=== PATIENT | male | born 1945 | race Caucasian/White ===

== ENCOUNTER 2018-05-11 16:09 | Inpatient (IN) | payer MEDICARE, MEDICAID ==
[~2018-05-11] VITALS: Ht 165.1 cm; Wt 93.1 kg
[~2018-05-11 16:09] MED LIST: ASPI81TA85 PO; ATOR40TA75 PO; COLA100C5 PO; GLIP5TAB8 PO; GLUC500T PO; HYDR25TAB PO; INSULANT SC; NORV5TAB PO; PLAV1TAB2 PO; ZANT150T15 PO; ZYRT10CA PO
[2018-05-11] MEDS ORDERED: NS 1,000 ML IV ONE (16:30)
[2018-05-11] MEDS ORDERED: RANI150T PO (16:39)
[2018-05-11] MEDS ORDERED: LEVE1INJ5 SC (16:39)
[2018-05-11] MEDS ORDERED: TAMS1CAP17 PO (16:39)
[2018-05-11] MEDS ORDERED: LISI20TA3 PO (16:39)
[2018-05-11] MEDS ORDERED: CARV3.12 PO (16:39)
[2018-05-11] MEDS ORDERED: HEPARIN 1,000 UNITS/ML 10ML VIAL (FOR RADIOLOGY& DIALYSIS ONLY) As Ordered ONE (16:55)
[2018-05-11] MEDS ORDERED: LIDOCAINE 2% MDV 20 ML VIAL As Ordered ONE ×2 (16:56→18:33)
[2018-05-11] MEDS ORDERED: ISOVUE-300 61% 50ML VIAL (Q9967) As Ordered ONE (16:56)
[2018-05-11] MEDS ORDERED: fentaNYL 100 MCG/2 ML INJECTION (J3010) As Ordered ONE ×2 (16:59→18:17)
[2018-05-11] MEDS ORDERED: HEPARIN 25,000 UNITS/250 ML D5W BAG (100 UNITS/ML) As Ordered ONE (16:59)
[2018-05-11] MEDS ORDERED: MIDAZOLAM INJ 2 MG/2 ML VIAL (J2250) As Ordered ONE (16:59)
[2018-05-11] MEDS ORDERED: HEPARIN DRIP 25,000 UNITS in APPROPRIATE DILUENT 1 EA IV SCH ×2 (17:15→19:00)
[2018-05-11] MEDS ORDERED: ALTEPLASE 2 MG/2 ML VIAL (J2997 PER 1MG) As Ordered ONE (18:20)
[2018-05-11] MEDS ORDERED: ALTEPLASE RECOMBINANT 25 MG in NS 225 ML IV SCH (19:00)
[2018-05-11] MEDS ORDERED: GLUCOSE 4 GM CHEW TABLET PO PRN (19:30)
[2018-05-11] MEDS ORDERED: GLUCAGON FOR INJ 1 MG VIAL (J1610) SC PRN (19:30)
[2018-05-11] MEDS ORDERED: DEXTROSE 50% 50 ML SYRINGE IV PRN (19:30)
[2018-05-11] MEDS ORDERED: PERCOCET 5MG/325MG TAB PO PRN (19:30)
[2018-05-11 20:00] VITALS: BP 226/107
[2018-05-11] MEDS: NS 1,000 ML IV SCH (20:00)
[2018-05-11] MEDS: fentaNYL 100 MCG/2 ML INJECTION (J3010) IV PRN ×5 (20:22→23:48)
[2018-05-11] MEDS: hydrALAZINE INJ 20 MG/ML VIAL IV PRN ×2 (20:26→22:37)
[2018-05-11 20:41] LABS: HEMATOCRIT 46.9 % (42.0-52.0); HEMOGLOBIN 15.6 g/dl (13.5-17.5)
[2018-05-11 20:50] LABS: INR 1.14; PROTHROMBIN TIME 14.8 SECONDS (12.1-14.4)
[2018-05-11] MEDS ORDERED: ATOR80TA59 PO (20:51)
[2018-05-11] MEDS ORDERED: CLOP75TA2 PO (20:51)
[2018-05-11] MEDS ORDERED: GLIP5TAB8 PO (20:51)
[2018-05-11 21:00] VITALS: BP 188/89
[2018-05-11] MEDS ORDERED: diazePAM 5 MG TAB PO PRN (21:00)
[2018-05-11] MEDS: HumaLOG INSULIN (NovoLOG) PER UNIT SC SCH (21:00)
[2018-05-11] MEDS: DOCUSATE SODIUM 100 MG CAP PO SCH (21:07)
[2018-05-11] MEDS: CARVedilol 3.125 MG TAB PO SCH (21:07)
[2018-05-11] MEDS: ATORVASTATIN 20 MG TAB PO SCH (21:08)
[2018-05-11] MEDS: ceFAZolin SOD 1 GM in D5W MINI-BAG PLUS 50 ML IV SCH (21:08)
[2018-05-11] MEDS: TAMSULOSIN 0.4 MG CAP PO SCH (21:10)
[2018-05-11] MEDS: PERCOCET 5MG/325MG TAB PO PRN (21:39)
[2018-05-11 22:00] VITALS: BP 216/98
[2018-05-11 22:30] VITALS: BP 202/94
[2018-05-11 23:00] VITALS: BP 192/89
[2018-05-11 23:30] VITALS: BP 171/80
[2018-05-12] VITALS (27 sets, daily range): BP systolic 121–175; BP diastolic 56–93
[2018-05-12] MEDS: hydrALAZINE INJ 20 MG/ML VIAL IV PRN ×3 (00:33→03:46)
[2018-05-12] MEDS: fentaNYL 100 MCG/2 ML INJECTION (J3010) IV PRN ×9 (02:18→22:13)
[2018-05-12 02:35] LABS: HEMATOCRIT 44.7 % (42.0-52.0)
[2018-05-12 02:47] LABS: INR 1.45; PROTHROMBIN TIME 17.9 SECONDS (12.1-14.4)
[2018-05-12] MEDS: NS 1,000 ML IV SCH ×3 (03:10→22:00)
[2018-05-12] MEDS: PERCOCET 5MG/325MG TAB PO PRN ×4 (03:47→21:26)
[2018-05-12] MEDS: ceFAZolin SOD 1 GM in D5W MINI-BAG PLUS 50 ML IV SCH ×2 (05:09→14:11)
[2018-05-12 05:31] LABS: HEMATOCRIT 45.1 % (42.0-52.0); HEMOGLOBIN 14.7 g/dl (13.5-17.5); MEAN CORPUSCULAR HEMOGLOBIN 27.9 pg (27.0-33.0); MEAN CORPUSCULAR HGB CONC 32.6 g/dl (32.0-36.5); MEAN CORPUSCULAR VOLUME 85.7 fl (80.0-96.0); PLATELET COUNT, AUTOMATED 212 10^3/uL (150-450); RED BLOOD COUNT 5.26 10^6/uL (4.30-6.10); WHITE BLOOD COUNT 11.9 10^3/uL (4.0-10.0)
[2018-05-12 05:58] LABS: CALCIUM LEVEL 7.6 MG/DL (8.8-10.2); CREATININE FOR GFR 1.56 MG/DL (0.70-1.30); GLOMERULAR FILTRATION RATE 46.9 (>42); POTASSIUM SERUM 4.7 MEQ/L (3.5-5.1)
[2018-05-12] MEDS: HumaLOG INSULIN (NovoLOG) PER UNIT SC SCH ×5 (07:30→21:00)
[2018-05-12 08:12] LABS: HEMATOCRIT 44.5 % (42.0-52.0); HEMOGLOBIN 14.8 g/dl (13.5-17.5)
[2018-05-12 08:26] LABS: INR 1.29; PROTHROMBIN TIME 16.3 SECONDS (12.1-14.4)
[2018-05-12] MEDS ORDERED: LIDOCAINE 2% MDV 20 ML VIAL As Ordered ONE (08:31)
[2018-05-12] MEDS ORDERED: ISOVUE-300 61% 50ML VIAL (Q9967) As Ordered ONE (08:31)
[2018-05-12] MEDS ORDERED: HEPARIN 1,000 UNITS/ML 10ML VIAL (FOR RADIOLOGY& DIALYSIS ONLY) As Ordered ONE (08:31)
[2018-05-12] MEDS ORDERED: hydrALAZINE INJ 20 MG/ML VIAL IV PRN (08:45)
[2018-05-12] MEDS: CARVedilol 3.125 MG TAB PO SCH ×2 (08:58→20:51)
[2018-05-12] MEDS: DOCUSATE SODIUM 100 MG CAP PO SCH ×2 (08:58→20:49)
[2018-05-12] MEDS: PANTOPRAZOLE 40MG INJ (PROTONIX) (C9113) IV SCH (08:58)
[2018-05-12] MEDS ORDERED: hydroCHLOROthiazide 25 MG TAB PO SCH (09:00)
[2018-05-12] MEDS ORDERED: LISINOPRIL 20 MG TAB PO SCH (09:00)
[2018-05-12] MEDS ORDERED: amLODIPine 5 MG TAB PO SCH (09:00)
--- NOTE | 2018-05-12 09:04 | HPEPDOC ---
General Date of Admission May 11, 2018 at 19:17 Attending Physician: CASEY GARCIA MD Chief Complaint The patient is a 73-year-old male admitted with a reason for visit of Arterial Occlusion,Lower Extremity. History of Present Illness Mr. Fu is a very pleasant 73-year-old gentleman with no known history of peripheral vascular disease who without with a friend walking in the [place] on Friday, and then came inside and noted pain in his right foot and that the foot was cold. Subsequently, the patient stated home most of the weekend with his foot elevated, with increasing pain over the next 3 days. On Friday afternoon, the pain became so severe that he went to an outside hospital ER and was transferred to our ER for further vascular care. Upon seeing him in the ER, it was clear that he had severe ischemia to the right foot, but it was unclear if the foot was salvageable. After 4 days of ischemia, he could barely move the foot and even with narcotics, his pain was 10/10. At that point we had a discussion about the need for urgent attempt to revascularize the right lower extremity. I suspected a popliteal/tibial occlusion since his calf was warm, but his ankle and foot were blue pale and ice cold. 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 It may also be due to an embolic event, likely a cardiac source, although he has no history of A. fib and does not recall having palpitations or irregular heart rate last week. The risks, benefits, alternatives to an arteriogram, possible angioplasty, possible stent, possible TPA thrombolysis catheter placement were explained to the patient. He understands that there is no guarantee of limb salvage and he may require below- knee or above-knee amputation. We also discussed that he has a baseline creatinine of 1.4 and likely stage II or stage III renal insufficiency, and with the ischemic tissue and need for small amount of contrast, his renal insufficiency may decompensate to worse renal failure. We are hopeful with IV fluid hydration that we can prevent this. We will try to use is minimal amount of contrast possible. The patient was thoroughly counseled, and at his request, I did talk to his friend Candelario Arreaga, and this was relayed to his friend in front of the patient. Unfortunately, we cannot provide a guarantee of limb salvage at this point. However, we'll do everything we can to reperfuse and see if the tissue of the foot can be salvaged. The patient is agreeable to proceed with arteriogram and additional intervention is needed. We will also place a PICC line. If we are going to proceed with thrombolysis, to allow for easier blood draws while the TPA is running. Home Medications Scheduled (Lisinopril/Hydrochlorothi 20-25 mg) 1 Tab Tab, 1 TAB PO DAILY, (Reported) Amlodipine Besylate (Norvasc) 5 Mg Tab, 5 MG PO DAILY, (Reported) Aspirin (Aspir-81) 81 Mg Tab, 81 MG PO DAILY, (Reported) Atorvastatin Calcium (Atorvastatin Calcium) 80 Mg Tab, 80 MG PO QHS, (Reported) Carvedilol (Carvedilol) 3.125 Mg Tab, 3.125 MG PO BID, (Reported) Cetirizine HCl (Zyrtec Allergy) 10 Mg Cap, 10 MG PO DAILY, (Reported) Clopidogrel Bisulfate (Clopidogrel) 75 Mg Tab, 75 MG PO DAILY, (Reported) Glipizide (Glipizide) 5 Mg Tab, 5 MG PO DAILY, (Reported) Insulin Detemir (Levemir Flextouch) 100 Unit/Ml Inj, 70 UNITS SC BID, (Reported) Ranitidine HCl (Ranitidine HCl) 150 Mg Tab, 1 TAB PO DAILY, (Reported) Tamsulosin Hcl (Tamsulosin Hydrochloride) 0.4 Mg Cap, 0.4 MG PO QHS, (Reported) Allergies Coded Allergies: No Known Allergies (Unverified , 07/06/14) Past Medical History Medical History Acute arterial occlusion right lower extremity, Insulin-dependent diabetes, poorly controlled hypertension, history of CVA with left-sided weakness in 2015, BPH Surgical History N/a Family History Significant Family History: Diabetes Social History * Smoker: Denies Alcohol: Denies Drugs: denies The patient is retired. He lives alone. He does not have family to contact. His friend, Candelario Arreaga, is his preferred contact. His chief digital officer has been notified about his hospitalization and need for further care. Review of Systems Constitutional: Reports: Weakness, Fatigue Eyes: Denies: Pain, Vision change, Conjunctivae inflammation, Eyelid inflammation, Redness, Other ENT: Denies: Head Aches, Ear Pain, Dysphagia, Sinus Congestion, Post Nasal Drip, Sore Throat, Epistaxis, Other Symptoms Skin: Denies: Rash, Lesions, Jaundice, Bruising, Itching, Dry, Breakdown, Nail Changes, Other Pulmonary: Denies: Dyspnea, Cough, Pleuritic Chest Pain, Other Symptoms Cardiovascular: Denies: Chest Pain, Palpitations, Orthopnea, Paroxysmal Noc. Dyspnea, Edema, Lt Headedness, Other Symptoms Gastrointestinal: Denies: Nausea, Vomiting, Abdominal Pain, Diarrhea, Constipation, Melena, Hematochezia, Other Symptoms Genitourinary: Reports: Retention Hematologic: Reports: Bruising Endocrine: Denies: Polydipsia, Polyphagia, Polyuria, Heat Intolerance, Cold Intolerance, Other Endocrine Sx Musculoskeletal: Reports: Leg Pain Neurological: Denies: Weakness, Numbness, Incoordination, Change in speech, Confusion, Seizures, Other Symptoms Psych: Denies: Mood Normal, Anxiety, Depression, Memory Issues, Thoughts of Self Harm, Anger, Thoughts of Harming Other, Other Psych Physical Examination General Exam: Positive: Alert, Cooperative Eye Exam: Positive: PERRLA ENT Exam: Positive: Atraumatic, Tongue Midline, Tympanic Membranes Normal Neck Exam: Positive: Supple, +2 carotid pulse wo bruit Chest Exam: Positive: Clear to auscultation Heart Exam: Positive: Rate Normal, Regular Rhythm Telemetry: Positive: No significant arrhythmia Abdomen Exam: Positive: Normal bowel sounds, Soft Extremity Exam: Positive: Other Skin Exam: Negative: Nl turgor and temperature, Rash, Breakdown, Lesion, Pruritus, Other skin issue Neuro Exam: Positive: Other Psych Exam: Positive: Mental status NL, Mood NL Other physical findings Left lower extremity is warm and well-perfused. DP and PT signals are biphasic at the ankle. Refill is less than 2 seconds. On the right lower extremity, there is a palpable femoral pulse, no palpable pulses in the popliteal or DP and PT. No signal is present at the popliteal artery or at the DP or PT. The right calf is warm, but the ankle and foot are cold, pale, blue, mottled. The fit is very painful to touch. The patient can barely wiggle his toes. He has diminished sensation in the foot to light touch, but any significant pressure or manipulation produces significant pain. He cannot bear weight on the leg, and has not been able to ambulate for over 24 hours. Vital Signs Vital Signs Date Time Temp Pulse Resp B/P (MAP) Pulse Ox O2 Delivery O2 Flow Rate FiO2 05/12/18 06:30 19 05/12/18 05:30 90 155/65 (95) 93 05/12/18 04:00 97.8 05/11/18 16:29 Room Air Laboratory Data Labs 24H Laboratory Tests 2 05/11/18 20:29: Prothrombin Time 14.8H, Prothromb Time International Ratio 1.14, Fibrinogen 447 05/11/18 21:18: Bedside Glucose (Misc Panel) 142H 05/12/18 02:17: Prothrombin Time 17.9H, Prothromb Time International Ratio 1.45, Fibrinogen 193L 05/12/18 05:17: Nucleated Red Blood Cells % (auto) 0.0, Anion Gap 10, Glomerular Filtration Rate 46.9, Blood Urea Nitrogen 22H, Creatinine 1.56H, Sodium Level 134L, Potassium Level 4.7, Chloride Level 103, Carbon Dioxide Level 21, Calcium Level 7.6L 05/12/18 07:54: Prothrombin Time 16.3H, Prothromb Time International Ratio 1.29, Fibrinogen 170L CBC/BMP Laboratory Tests 05/11/18 20:29 05/12/18 02:17 05/12/18 05:17 Red Blood Count 5.26, Mean Corpuscular Volume 85.7, Mean Corpuscular Hemoglobin 27.9, Mean Corpuscular Hemoglobin Concent 32.6, Red Cell Distribution Width 13.2, Calcium Level 7.6 L 05/12/18 07:54 Assessment/Plan Mr. Kunz is a 73-year-old gentleman with acute thrombosis of his right lower extremity last Friday, now with greater than 72 hours of ischemic time to the right foot. He has motor and sensory dysfunction in the foot, and we discussed that even with reperfusion, the foot may not be salvageable at this point. 1. Plan to take the patient urgently to IR for an arteriogram and possible thrombolysis, possible intervention, possible PICC line. Patient has been thoroughly counseled and is agreeable to proceed. Informed consent was obtained. 2. IV fluid hydration with normal saline at 100 and our pre-and postprocedure. Due to suspected chronic renal insufficiency, ischemic tissue, and need for IV contrast. 3. Heparin drip started in IR. 4. ICU post procedure thrombolysis is initiated. 5. Home medications for Insulin-dependent diabetes, hypertension, hypercholesterolemia, BPH Plan / VTE VTE Prophylaxis Ordered?: No VTE Exclusion Mechanical Proph: Patient on IV Heparin CASEY GARCIA MD May 12, 2018 09:04
[2018-05-12] MEDS: amLODIPine 5 MG TAB PO SCH (10:01)
[2018-05-12] MEDS: LEVEMIR (INSULIN DETEMIR) 1 UNITS/0.01ML SC SCH ×2 (10:02→20:52)
--- NOTE | 2018-05-12 10:40 | ROOPDOC ---
[facility] Report Of Operation Report of Operation DATE OF PROCEDURE: 05/11/18 PREPROCEDURE DIAGNOSES: Arterial occlusion right lower extremity with severe ischemia right foot. POSTPROCEDURE DIAGNOSES: Same. PROCEDURE: 1. Ultrasound-guided access left common femoral artery 2. Aortoiliofemoral arteriogram with right lower extremity runoff 3. Placement of the thrombolysis catheter from right distal superficial femoral artery to right distal posterior tibial artery across popliteal/tibial occlusion 4. Ultrasound-guided access right basilic vein 5. Placement of a 40 cm dual-lumen PICC line right basilic vein SURGEON:Bharati Villasenor MD ANESTHESIA: 18 mL subcutaneous 2% lidocaine; moderate IV conscious sedation was supervised by Dr. Villasenor, and the patient was independently monitored by a registered nurse assigned to the Department of radiology using automated blood pressure, EKG and pulse oximetry. The detailed sedation record is permanently stored in the hospital information system. The following is a conscious sedation record including and and times: Versed 1 mg IV, fentanyl 150 g IV, start time is 17:55, end time 19:00. The patient tolerated sedation well without complication. INDICATION FOR PROCEDURE: Mr. Fu is a 73-year-old gentleman with no known history of right lower extremity peripheral vascular disease, who takes aspirin and Plavix for history of CVA in 2014, who developed pain and ischemic changes in his right foot Friday, but only presented to the ER today, 72 hours later. 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 We discussed the risk, benefits, alternatives to an arteriogram with possible intervention possible PICC line possible thrombolysis catheter placement. The patient understands that his foot may not be viable, even if we are able to restore perfusion due to the chronicity of his ischemic changes. He can barely move his foot, and it is very pale and cold. After extensive counseling, the patient is agreeable to proceed. Informed consent was obtained. INTERPRETATION: 1. The aortoiliofemoral system is patent with some tortuosity of the right common iliac artery. 2. The femoral system and superficial femoral artery are widely patent. 3. There is a complete occlusion of the popliteal artery proximal to distal with occlusion of the origin of the tibial vessels. There is short segment reconstitution of the posterior tibial artery through collaterals, but the collaterals are small and flow is minimal. There is no significant flow below the ankle through the foot. 4. The TPA lysis catheter was placed from the distal superficial femoral artery on the right to the distal posterior tibial artery on the right across the thrombosis in the popliteal artery and proximal tibial system. 5. The PICC line was successfully placed with the tip in the right atrium and is okay to use for IV infusion and blood draws while the patient undergoes thrombolysis. PROCEDURE NOTE: The patient was brought to the angiographic suite in stable condition and his bilateral groins were prepped and draped in a sterile fashion. Sedation was administered without complication. A timeout was performed. Ultrasound was used to guide access to the left common femoral artery. After anesthetizing with local anesthesia. A wire was passed through this access and a micro-sheath was placed. We then introduced a Glidewire and a 6 Indian sheath was placed over the wire using a Seldinger technique and flushed with saline. The catheter was advanced over the wire into the distal aorta and in aortoiliofemoral arteriogram was performed. No thrombus was noted in the iliofemoral system. We then proceeded to go up and over the bifurcation with the Glidewire and glide cath. Once the glide cath was advanced under fluoroscopic guidance into the distal superficial femoral artery, we exchanged R wire first of Amplatz wire. We then exchanged her sheath for her destination 6 Indian sheath over the wire using the Seldinger technique and flushed the sheath with saline. We then performed the runoff of the right lower extremity through the up and over sheath. The superficial femoral artery was patent and there was some collateral flow around a popliteal occlusion that began proximally and extended into the proximal tibial vessels. There was very little flow to the distal tibial vessels, but the best runoff was through the distal posterior tibial artery. We therefore decided to try to access the posterior tibial artery through the thrombus to place the thrombolysis catheter and this vessel since it was patent. This took some manipulation but we exchanged back to her Glidewire and were eventually able to navigate the catheter through the true lumen into the posterior tibial artery. He quit. Contrast injection confirmed we were intraluminal. We then removed the catheter and placed our thrombolysis infusion catheter with a 50 cm infusion length over the wire. The proximal end was in the mid distal superficial femoral artery in the distal end was in the posterior tibial artery. We then placed a tourniquet on the right upper extremity was prepped and draped in a sterile fashion. Ultrasound was used to guide access to the basilic vein with a microneedle and a wire was passed through this access into the central system under fluoroscopic guidance, we placed a peel-away sheath over the wire. The wire was removed and measured and the catheter was cut to 40 cm we then advanced the catheter through the peel-away sheath into the central system and the tip was in the right atrium. We then removed the peel- away sheath and the catheter was secured to the skin StatLock. Both ports were flushed appropriately heparin locked and had easy drawback and flushing. We then returned to our access in the left groin and infused 6 mg of tPA directly through the thrombolysis catheter and then began a trip of TPA of 1 mg an hour through the catheter. We had heparin running at 1000 units hour during the procedure, and we change this to 400 units an hour through the sheath to keep the sheath patent while infusion was proceeding. I'll access points were cleaned and dried and appropriate sterile dressings were placed to secure the catheter and the sheath. The patient was then taken to the ICU in stable condition. There were no complications. Estimated blood loss was 10 mL. The patient tolerated the procedure well. ESTIMATED BLOOD LOSS: Approximately 10 mL. COMPLICATIONS: None. PLAN: Our plan is for the patient to continue thrombolysis overnight and likely we will bring him back for a second look tomorrow in the afternoon. I again explained to him that due to the chronic nature of the ischemia we may or may not be able to salvage his foot and amputation is a definite possibility and he understands this. We will provide adequate analgesia and hydration. Further recommendations will depend on the outcome thrombolysis. CASEY VILLASENOR MD May 12, 2018 10:39
--- NOTE | 2018-05-12 10:54 | IPNPDOC ---
Date Seen The patient was seen on 05/12/18. Progress Note SUBJECTIVE: Mr. Fu was seen and examined today. He is having an extreme amount of pain in his right foot, ongoing, not improving. Looking at his right foot, he does have some hyperemic areas, but the foot is still cool, mottled, and he has no improvement in his motor or sensory status. We again discussed the possibility of limb loss, and he understands that this is a possibility. He asked that I talked to his friend Candelario Arreaga about his prognosis, and I did this at the bedside in the presence of the patient. We discussed the risks, benefits and alternatives to a planned takeback arteriogram and possible discontinuation of the thrombolysis catheter versus additional intervention if needed. Informed consent was obtained. We will likely do this this afternoon. I also discussed with him that his renal function is somewhat tenuous, partially due to chronic renal insufficiency, partially due to ischemic tissue over the past 72 hours releasing toxins into his present strain, and partially due to dehydration and contrast use. We used very little contrast yesterday, approximately 30 mL, and we'll try to use very little contrast again today. The patient was thoroughly counseled and understands his prognosis for his foot is guarded. OBJECTIVE PHYSICAL EXAMINATION: VITAL SIGNS: Please see below. GENERAL: Alert and oriented 3, no acute distress HEENT:. Normocephalic, TMI, vision grossly intact CARDIOVASCULAR:. Regular rate and rhythm. RESPIRATORY:. Clear to auscultation bilaterally. ABDOMINAL:. Soft, nontender, nondistended EXTREMITIES:, Left lower extremity warm and well perfused. Left groin access site. No significant bruising or bleeding noted. Right upper extremity PICC line site. No significant bruising or bleeding noted. Right lower extremity has palpable femoral pulse and triphasic Doppler signal at the popliteal artery. However, I am not able to Doppler a DP or PT signal in the foot. There is some hyperemic areas in the foot, but most of it is still cool pale and mottled. The patient can barely wiggle his toes, which has not improved at all since yesterda y. He still has sensory loss to light touch, but firm pressure elicits pain response. NEUROLOGICAL: No focal neurologic deficits noted PSYCHOLOGICAL:. Pleasant and cooperative LABORATORY DATA, IMAGING STUDIES, MICROBIOLOGY: Please see below. DVT prophylaxis ordered?: Patient is on tPA, and also 400 units of heparin through her sheath. ASSESSMENT AND PLAN: Mr. Fu is a 73-year-old gentleman with a four-day history of ischemia in his right foot. Unfortunately, I am not sure his foot is salvageable despite taking emergently for thrombolysis yesterday evening and dopplerable flow through the popliteal today. 1. We'll plan to take the patient back for an arteriogram and potential additio nal intervention versus discontinuation of the lysis catheter later today. There is a possibility. His foot will not be salvageable and he may require a BKA versus AKA and we have discussed this today. We will try to use as little contrast as possible due to stage III renal insufficiency, and a creatinine of 1.54 today. Consent has been obtained and is in the chart. 2. I've counseled to the hospitalist service, and appreciate Dr. Morris agreeing to help with the patient's medical issues. He has significant hypertension, renal insufficiency, borderline hyperkalemia, insulin-dependent diabetes, not well controlled today. We will try to get him in better shape from a medical standpoint. During this hospitalization as well. 3. Continue tPA thrombolysis and the heparin drip through the sheath until procedure this afternoon. We have increased analgesia to help the patient tolerate his foot pain. DISPOSITION: Pending at this point. If the patient undergoes amputation, he will likely need rehabilitation at discharge. If the patient's foot is salvageable, he may be able to discharge home versus rehabilitation, depending on outcomes. VS, I&O, 24H, Fishbone Vital Signs/I&O Vital Signs Date Time Temp Pulse Resp B/P (MAP) Pulse Ox O2 Delivery O2 Flow Rate FiO2 05/12/18 10:02 18 05/12/18 10:01 77 157/79 05/12/18 05:30 93 05/12/18 04:00 97.8 05/11/18 16:29 Room Air I&O- Last 24 Hours up to 6 AM 05/12/18 06:00 Intake Total 1600 ml Output Total 800 ml Balance 800 ml Laboratory Data 24H LABS Laboratory Tests 2 05/11/18 20:29: Prothrombin Time 14.8H, Prothromb Time International Ratio 1.14, Fibrinogen 447 05/11/18 21:18: Bedside Glucose (Misc Panel) 142H 05/12/18 02:17: Prothrombin Time 17.9H, Prothromb Time International Ratio 1.45, Fibrinogen 193L 05/12/18 05:17: Nucleated Red Blood Cells % (auto) 0.0, Anion Gap 10, Glomerular Filtration Rate 46.9, Blood Urea Nitrogen 22H, Creatinine 1.56H, Sodium Level 134L, Potassium Level 4.7, Chloride Level 103, Carbon Dioxide Level 21, Calcium Level 7.6L 05/12/18 07:54: Prothrombin Time 16.3H, Prothromb Time International Ratio 1.29, Fibrinogen 170L 05/12/18 10:08: CBC/BMP Laboratory Tests 05/11/18 20:29 05/12/18 02:17 05/12/18 05:17 Red Blood Count 5.26, Mean Corpuscular Volume 85.7, Mean Corpuscular Hemoglobin 27.9, Mean Corpuscular Hemoglobin Concent 32.6, Red Cell Distribution Width 13.2, Calcium Level 7.6 L 05/12/18 07:54 CASEY GARCIA MD May 12, 2018 10:54
[2018-05-12] MEDS ORDERED: fentaNYL 100 MCG/2 ML INJECTION (J3010) As Ordered ONE (12:46)
[2018-05-12] MEDS ORDERED: MIDAZOLAM INJ 2 MG/2 ML VIAL (J2250) As Ordered ONE (12:46)
[2018-05-12 12:47] LABS: HEMOGLOBIN A1c 7.9 %
[2018-05-12] MEDS ORDERED: HEPARIN DRIP 25,000 UNITS in APPROPRIATE DILUENT 1 EA IV SCH (14:30)
--- NOTE | 2018-05-12 15:44 | ROOPDOC ---
[facility] Report Of Operation Report of Operation DATE OF PROCEDURE: 05/12/18 PREPROCEDURE DIAGNOSES: Arterial occlusion right lower extremity, status post placement of a thrombolysis catheter. POSTPROCEDURE DIAGNOSES: Same. PROCEDURE: 1. Right lower extremity arteriogram and runoff 2. Removal TPA lysis catheter. Right lower extremity 3. Mynx closure left common femoral artery SURGEON: Casey Villasenor MD ANESTHESIA: 3 mL 2% lidocaine local anesthesia; moderate IV conscious sedation was supervised by Dr. Villasenor, and the patient was independently monitored by a registered nurse assigned to the Department of radiology using automated blood pressure, EKG and pulse oximetry. The detail consciousness record is probably started in the hospital information system. The following is a conscious sedation record including starting and times: Versed 1 mg IV, fentanyl 100 g IV, start time 13:05, end time 13:46. The patient tolerated the sedation well without complication. INDICATION FOR PROCEDURE: Mr. Fu is a 73-year-old gentleman who presented to the ER yesterday with a 3 day history of cold, painful right foot and lower leg. He was brought urgently to the interventional radiology suite for thrombolysis catheter placement. His arteriogram at that time showed a complete occlusion of the popliteal from its origin to below the knee and including the proximal tibial vessels with minimal collateral flow noted. There was a small amount of filling in the ambler posterior tibial artery in the mid calf, and this was our target for the end of the TPA lysis catheter. We were hopeful that we may be able to restore flow, but it was unclear due to the chronicity and severity of the ischemia whether or not the foot would be viable regardless. This morning, the foot was still modeled. No Doppler signals were present. The patient could still barely move the foot, which was not improved. He did have a triphasic signal at the popliteal artery and a palpable pulse, but nothing had seemed to improve in the distal leg. We discussed the risks, benefits, alternatives to repeat arteriogram with potential intervention to see if there is anything else we can do, but I did explain to the patient that the likelihood he was lose his limb was very high. The patient was agreeable to proceed for arteriogram and possible removal of the TPA lysis catheter and possible intervention. All questions were answered. Informed consent was obtained. INTERPRETATION: 1. Flow through the distal superficial femoral artery into the popliteal artery was now widely patent. However, beyond the origin of the proximal anterior tibial artery and the tibioperoneal trunk, there is very minimal flow down to the calf. There was no flow noted in the ankle or the foot. An injection into th e posterior tibial artery distally showed significant disease and thrombus. PROCEDURE NOTE: The patient was brought to the angiographic suite in stable condition. His left groin including the sheath and catheter were prepped and draped in a sterile fashion. A timeout was performed. We first did in arteriogram of the right lower extremity through the TPA lysis catheter. . There was very minimal runoff, but there was some flow around the catheter itself. We then injected through the sheath and found good flow through the distal superficial femoral artery into the popliteal artery, which was now widely patent, where it had been occluded yesterday. There was flow into the proximal anterior tibial artery, which abruptly occluded a few centimeters from its origin and did not reconstitute. We tried across the anterior tibial artery with a wire and were unsuccessful. The tibioperoneal trunk was patent at its origin, but we could not see the origins of the peroneal or the posterior tibial artery. We tried to cross into the peroneal artery and were unsuccessful. We were able to again cross into the posterior tibial artery as we had yesterday but could not pass a wire distal to the mid calf. The distal contrast injection within the posterior tibial artery showed significant plaque disease as well as thrombus. Unfortunately, it became clear that the TPA lysis procedure have been successful in the more proximal popliteal artery, but had had no meaningful effect on the distal tibial vessels and microcirculation of the right foot. At this point. He did did not think additional TPA lysis would be successful, and I do not think the patient would tolerate it due to a fibrinogen level approaching 100. He could not move his foot for over 4 days, and at this point and I did not think the tissue was going to be salvageable, even if we did have some heroic measure to restore flow. Therefore, this concluded our procedure. We exchanged her sheath for short 6 Indonesian sheath over the wire and flushed the sheath with saline. A minx closure device was introduced and deployed with good hemostasis. Prior to holding pressure, we did inject some local anesthesia into the left groin to make this more comfortable for the patient. A total of 3 mL was used. Pressure was then held for good hemostasis for 10 minutes and sterile dressings were applied. The patient was then taken back to the ICU in stable condition. He tolerated the procedure well. ESTIMATED BLOOD LOSS: Approximately 2 mL. COMPLICATIONS: None. PLAN: I discussed with the patient that at this point, we are not able to salvage his right foot. It is unclear if he will be a suitable candidate for below-knee amputation, or if he will need an above-knee amputation, and this may have to be a decision made in the OR once we examined the quality of the muscle and perfusion of the tissue. For now, we will continue to manage him medically and manage his pain with analgesia until operative intervention can be provided. He understands and is agreeable to this plan. CASEY VILLASENOR MD May 12, 2018 15:44
--- NOTE | 2018-05-12 16:40 | CR.PDOC ---
General Date of Consultation: May 12, 2018 Referring Provider: SIVAN PERDUE MD Attending Physician: CASEY GARCIA MD Consultation REASON FOR CONSULTATION/CHIEF COMPLAINT: Management of medical comorbidities. HISTORY OF PRESENT ILLNESS: . 73-year-old male with past medical history of hypertension, dyslipidemia, diabetes mellitus, BPH, and CVA presented to the ER with a chief complaint of his right foot being cold and blue. The patient stated that he was walking in the [place] on Friday of last week when he felt when he states as a muscle pull in his calf. Supposedly, the patient states that he kept his foot elevated over the weekend and when his pain became severe he presented to the [facility] for further evaluation. There the patient was found to have severe i schemia of the right foot and he was transferred to [facility] for vascular surgery evaluation. The patient was evaluated by vascular surgery and administrative TPA thrombo-lysis and heparin drip to a sheath. The hospitalist service has been consulted to help in the management of the patient's underlying diabetes mellitus, pain control, hypertension, and chronic kidney disease. ALLERGIES: Please see below. HOME MEDICATIONS: Please see below. PAST MEDICAL HISTORY: As noted above SOCIAL HISTORY: Denies illicit drug use, alcohol, or tobacco use. REVIEW OF SYSTEMS: 10 point review of systems negative unless otherwise specified in HPI. PHYSICAL EXAMINATION: VITAL SIGNS: Please see below. GENERAL APPEARANCE: . Awake, alert, and moderate distress secondary to right foot/ankle pain HEENT: . Normocephalic, atraumatic RESPIRATORY: . Clear to auscultation bilaterally CARDIOVASCULAR: . Normal rate, sinus rhythm, normal S1, S2 ABDOMEN: . Soft, nontender, nondistended EXTREMITIES: . Right ankle/foot noted to be pale/blue appearing with mottled skin. Patient with diminished sensation to the touch. Significant pain noted on palpation. Unable to feel a pulse on the right foot. Patient is only minimally able to wiggle his toes on the right. Approximately the patient's calf on the right noted to be warm. LABORATORY DATA: Please see below. ASSESSMENT/PLAN: RLE Ischemia s/p Aortoiliofemoral arteriogram with RLE runoff with placement of thrombolysis catheter on 05/11 Cont Heparin gtt Patient's ankle/foot continues to appear blue, mottled with minimal improvement according to the patient He is scheduled for further evaluation with an RLE arteriogram today to further delineate treatment plan, as the patient may ultimately require AKA vs BKA We will cont to f/u with Vascular Surgery recommendations Chronic Kidney Disease Stage IIIA/B Serum Cr baseline is 1.5-1.6 according to outpatient records We will withhold Nephrotoxins as the patient will be getting contrast IVF Hydration ordered Diabetes Mellitus We have started the patient on a reduced dose of basal insulin, 20 Units of Lev jackie BID as he is NPO--He usually takes 70 Units BID at home Cont ISS for additional coverage We will uptitrate his basal insulin if his blood sugars trend upward Hypertension Hydrochlorothiazide and lisinopril have been held as the patient will be getting contrast in the setting of underlying CAD Norvasc dose has been increased Hydralazine when necessary ordered for systolic blood pressure greater than 150 I do suspect that the patient's blood pressure will be better controlled once we control his pain. History of CVA Continue statin (ASA, Plavix on hold 2/2 tPA, Heparin gtt) Dyslipidemia Continue statin GERD Continue PPI DVT Prophylaxis Patient on Heparin gtt Vital Signs/I&O Vital Signs Date Time Temp Pulse Resp B/P (MAP) Pulse Ox O2 Delivery O2 Flow Rate FiO2 05/12/18 15:44 18 05/12/18 12:02 98.9 76 121/63 (82) 93 05/11/18 16:29 Room Air I&O- Last 24 Hours up to 6 AM 05/12/18 06:00 Intake Total 1600 ml Output Total 800 ml Balance 800 ml Laboratory Data Labs 24H Laboratory Tests 2 05/11/18 20:29: Prothrombin Time 14.8H, Prothromb Time International Ratio 1.14, Fibrinogen 447 05/11/18 21:18: Bedside Glucose (Misc Panel) 142H 05/12/18 02:17: Prothrombin Time 17.9H, Prothromb Time International Ratio 1.45, Fibrinogen 193L 05/12/18 05:17: Nucleated Red Blood Cells % (auto) 0.0, Anion Gap 10, Glomerular Filtration Rate 46.9, Blood Urea Nitrogen 22H, Creatinine 1.56H, Sodium Level 134L, Potassium Level 4.7, Chloride Level 103, Carbon Dioxide Level 21, Calcium Level 7.6L 05/12/18 07:54: Prothrombin Time 16.3H, Prothromb Time International Ratio 1.29, Fibrinogen 170L 05/12/18 10:08: Estimated Mean Plasma Glucose 180H, Hemoglobin A1c 7.9 05/12/18 11:57: Bedside Glucose (Misc Panel) 140H CBC/BMP Laboratory Tests 05/11/18 20:29 05/12/18 02:17 05/12/18 05:17 Red Blood Count 5.26, Mean Corpuscular Volume 85.7, Mean Corpuscular Hemoglobin 27.9, Mean Corpuscular Hemoglobin Concent 32.6, Red Cell Distribution Width 13.2, Calcium Level 7.6 L 05/12/18 07:54 Allergies Coded Allergies: No Known Allergies (Unverified , 07/06/14) Home Medications Scheduled (Lisinopril/Hydrochlorothi 20-25 mg) 1 Tab Tab, 1 TAB PO DAILY, (Reported) Amlodipine Besylate (Norvasc) 5 Mg Tab, 5 MG PO DAILY, (Reported) Aspirin (Aspir-81) 81 Mg Tab, 81 MG PO DAILY, (Reported) Atorvastatin Calcium (Atorvastatin Calcium) 80 Mg Tab, 80 MG PO QHS, (Reported) Carvedilol (Carvedilol) 3.125 Mg Tab, 3.125 MG PO BID, (Reported) Cetirizine HCl (Zyrtec Allergy) 10 Mg Cap, 10 MG PO DAILY, (Reported) Clopidogrel Bisulfate (Clopidogrel) 75 Mg Tab, 75 MG PO DAILY, (Reported) Glipizide (Glipizide) 5 Mg Tab, 5 MG PO DAILY, (Reported) Insulin Detemir (Levemir Flextouch) 100 Unit/Ml Inj, 70 UNITS SC BID, (Reported) Ranitidine HCl (Ranitidine HCl) 150 Mg Tab, 1 TAB PO DAILY, (Reported) Tamsulosin Hcl (Tamsulosin Hydrochloride) 0.4 Mg Cap, 0.4 MG PO QHS, (Reported) SIVAN PERDUE MD May 12, 2018 16:40
[2018-05-12] MEDS: TAMSULOSIN 0.4 MG CAP PO SCH (20:51)
[2018-05-12] MEDS: ATORVASTATIN 20 MG TAB PO SCH (20:51)
[2018-05-12] MEDS: diazePAM 5 MG TAB PO PRN (22:14)
[2018-05-13] VITALS (14 sets, daily range): BP systolic 112–165; BP diastolic 63–79
[2018-05-13] MEDS: fentaNYL 100 MCG/2 ML INJECTION (J3010) IV PRN ×7 (00:31→15:17)
[2018-05-13] MEDS: PERCOCET 5MG/325MG TAB PO PRN ×3 (01:56→21:35)
[2018-05-13] MEDS: diazePAM 5 MG TAB PO PRN (04:54)
[2018-05-13 05:20] LABS: HEMATOCRIT 40.3 % (42.0-52.0); HEMOGLOBIN 13.1 g/dl (13.5-17.5); MEAN CORPUSCULAR HEMOGLOBIN 28.6 pg (27.0-33.0); MEAN CORPUSCULAR HGB CONC 32.5 g/dl (32.0-36.5); PLATELET COUNT, AUTOMATED 210 10^3/uL (150-450); RED BLOOD COUNT 4.58 10^6/uL (4.30-6.10); WHITE BLOOD COUNT 10.9 10^3/uL (4.0-10.0)
[2018-05-13 05:39] LABS: CALCIUM LEVEL 7.1 MG/DL (8.8-10.2); CREATININE FOR GFR 1.59 MG/DL (0.70-1.30); GLOMERULAR FILTRATION RATE 45.9 (>42); POTASSIUM SERUM 4.2 MEQ/L (3.5-5.1)
[2018-05-13] MEDS: HumaLOG INSULIN (NovoLOG) PER UNIT SC SCH ×4 (08:44→20:58)
[2018-05-13] MEDS: NS 1,000 ML IV SCH ×2 (09:15→21:03)
[2018-05-13] MEDS: CARVedilol 3.125 MG TAB PO SCH ×2 (09:43→21:03)
[2018-05-13] MEDS: amLODIPine 5 MG TAB PO SCH (09:43)
[2018-05-13] MEDS: PANTOPRAZOLE 40MG INJ (PROTONIX) (C9113) IV SCH (09:44)
[2018-05-13] MEDS: DOCUSATE SODIUM 100 MG CAP PO SCH ×2 (09:45→21:03)
[2018-05-13] MEDS: LEVEMIR (INSULIN DETEMIR) 1 UNITS/0.01ML SC SCH ×2 (09:45→20:59)
--- NOTE | 2018-05-13 16:29 | IPNPDOC ---
Subjective Date Seen The patient was seen on 05/13/18. Subjective Chief Complaint/HPI Patient seen and examined at the bedside. Reports that he continues to feel right ankle/foot pain, and it remains blue and mottled appearing with no significant improvement. He is scheduled for possible [id number] versus below the knee amputation later today with vascular surgery. Objective Physical Examination General Exam: Positive: Alert, Cooperative, Moderate Distress (secondary to right ankle/foot pain) ENT Exam: Positive: Atraumatic Neck Exam: Negative: JVD Chest Exam: Positive: Clear to auscultation, Normal air movement Heart Exam: Positive: Rate Normal, Regular Rhythm, Normal S1, Normal S2 Telemetry: Positive: No significant arrhythmia Abdomen Exam: Positive: Soft; Negative: Tenderness Extremity Exam: Positive: Other (Right ankle/foot blue and mottled appearing. No palpable pulses. Tender to soft palpation. ) Psych Exam: Positive: Oriented x 3 Assessment /Plan Plan/VTE VTE Prophylaxis Ordered?: Yes VTE Exclusion Mechanical Proph: Patient on IV Heparin Plan RLE Ischemia s/p Aortoiliofemoral arteriogram with RLE runoff with placement of thrombolysis catheter on 05/11 s/p s/p RLE arteriogram with removal of tPA lysis catheter with mynx closure of left SUTURE WINDER HAND Cont Heparin gtt Patient's ankle/foot continues to appear blue, mottled with minimal improvement according to the patient He is scheduled for further evaluation with a AKA naz YADAVA with Surgery today We will cont to f/u with Vascular Surgery recommendations Chronic Kidney Disease Stage IIIA/B Serum Cr baseline is 1.5-1.6 according to outpatient records We will withhold Nephrotoxins as the patient will be getting contrast IVF Hydration ordered Diabetes Mellitus Cont reduced dose of basal insulin, 20 Units of Levemir BID as he is NPO--He usually takes 70 Units BID at home Cont ISS for additional coverage We will uptitrate his basal insulin if his blood sugars trend upward Hypertension Hydrochlorothiazide and lisinopril have been held as the patient will be getting contrast in the setting of underlying CAD Norvasc dose has been increased Hydralazine when necessary ordered for systolic blood pressure greater than 150 Blood pressure better controlled today History of CVA Continue statin (ASA, Plavix on hold 2/2 tPA, Heparin gtt) Dyslipidemia Continue statin GERD Continue PPI DVT Prophylaxis Patient on Heparin gtt VS, I&O, 24H, Fishbone Vital Signs/I&O Vital Signs Date Time Temp Pulse Resp B/P (MAP) Pulse Ox O2 Delivery O2 Flow Rate FiO2 05/13/18 15:17 22 05/13/18 09:43 79 130/66 05/13/18 08:04 99.1 92 05/11/18 16:29 Room Air I&O- Last 24 Hours up to 6 AM 05/13/18 06:00 Intake Total 3870 ml Output Total 575 ml Balance 3295 ml Laboratory Data 24H LABS Laboratory Tests 2 05/12/18 17:03: Bedside Glucose (Misc Panel) 146H 05/12/18 20:50: Bedside Glucose (Misc Panel) 141H 05/13/18 05:00: Nucleated Red Blood Cells % (auto) 0.0, Anion Gap 7L, Glomerular Filtration Rate 45.9, Blood Urea Nitrogen 30H, Creatinine 1.59H, Sodium Level 137, Potassium Level 4.2, Chloride Level 106, Carbon Dioxide Level 24, Calcium Level 7.1L 05/13/18 06:35: Activated Partial Thromboplast Time 54.2H 05/13/18 12:10: Bedside Glucose (Misc Panel) 97 CBC/BMP Laboratory Tests 05/13/18 05:00 Red Blood Count 4.58, Mean Corpuscular Volume 88.0, Mean Corpuscular Hemoglobin 28.6, Mean Corpuscular Hemoglobin Concent 32.5, Red Cell Distribution Width 13.4, Calcium Level 7.1 L SIVAN PERDUE MD May 13, 2018 16:29
[2018-05-13] MEDS ORDERED: dexameTHASONE 4 MG/ML 1ML VIAL (J1100) As Ordered ONE ×2 (17:07→18:44)
[2018-05-13] MEDS ORDERED: PROPOFOL 200 MG/20 ML VIAL As Ordered ONE (17:07)
[2018-05-13] MEDS ORDERED: BUPIVACAINE/EPIN 0.5% 30 ML VIAL As Ordered ONE (17:07)
[2018-05-13] MEDS ORDERED: ROCURONIUM BROMIDE 50 MG/5 ML VIAL As Ordered ONE (17:07)
[2018-05-13] MEDS ORDERED: ONDANSETRON 4MG/2ML VIAL (J2405) As Ordered ONE ×2 (17:07→18:40)
[2018-05-13] MEDS ORDERED: LIDOCAINE 2% INJ 100 MG/5 ML SDV (FOR ANES.) As Ordered ONE (17:07)
[2018-05-13] MEDS ORDERED: fentaNYL 250 MCG/5 ML INJECTION (J3010) As Ordered ONE (17:12)
[2018-05-13] MEDS ORDERED: MIDAZOLAM INJ 2 MG/2 ML VIAL (J2250) As Ordered ONE (17:12)
[2018-05-13] MEDS ORDERED: ceFAZolin 2 GM/D5W 50 ML IV BAG (J0690 PER 500MG) As Ordered ONE (17:29)
[2018-05-13] MEDS ORDERED: NEOSTIGMINE 10 MG/10 ML VIAL (J2710) As Ordered ONE (18:40)
[2018-05-13] MEDS ORDERED: KETOROLAC 60 MG/2 ML VIAL (J1885) As Ordered ONE (18:40)
[2018-05-13] MEDS ORDERED: GLYCOPYRROLATE INJ 0.2 MG/ML 2 ML VIAL As Ordered ONE (18:40)
[2018-05-13] MEDS ORDERED: METOCLOPRAMIDE INJ 10MG/2ML VIAL (J2765) As Ordered ONE (18:40)
--- NOTE | 2018-05-13 20:09 | ROOPDOC ---
[facility] Report Of Operation Report of Operation DATE OF PROCEDURE: 05/13/18 PREPROCEDURE DIAGNOSES: Ischemic foot, right lower extremity POSTPROCEDURE DIAGNOSES: Same PROCEDURE: Right below-knee amputation SURGEON: Anna Marie Villasenor MD ANESTHESIA: Local anesthesia and general endotracheal anesthesia INDICATION FOR PROCEDURE: Mr. Fu is a 73-year-old gentleman who presented to the ER with a 72 hour history of loss of sensation and immobility of his right foot due to acute thrombosis. We attempted to salvage the leg with a thrombolysis procedure, but this was unsuccessful. The entire distal ankle and foot had no recovery of flow. After TPA thrombolysis, and there was minimal flow through the midportion of the posterior tibial artery, but otherwise the tibials were occluded. There was no option for bypass with no outflow. We were able to restore flow through the thrombosed popliteal artery and proximal tibial arteries, which we were hoping would allow for a below-knee amputation. I did warn the patient that if the muscle was not viable on the posterior calf or in the deep muscle compartments, we would have to do an above-knee amputation. The risks, benefits and alternatives to surgery were explained to the patient. He he understood there was a possibility for above-knee amputation. Informed consent was obtained. PROCEDURE NOTE: The patient was brought to the operating room in stable condition and general endotracheal anesthesia and antibiotics were administered without complication. His right lower extremity was prepped and draped in a sterile fashion and the tourniquet was placed. A timeout was performed. The leg was exsanguinated with an Esmarch and the tourniquet was inflated to 250 mmHg pressure. A skin incision was made 14 cm distal to the tibial plateau on the anterior calf and along posterior flap was fashioned. Bovie cautery was used to divide the soft tissues. The muscle in the deep compartments in the posterior calf appeared viable. I did note that it was a tiny bit dusky, but it was not ischemic and it did have contraction with the Bovie. I think it is worth trying to give him a below-knee amputation as it will improve his functionality with a prosthetic, and therefore we proceeded with a below-knee amputation and did not do the above-knee amputation. The tibia and fibula were skeletonized proximally. The tibia was divided at 12 cm length distal to the tibial plateau, and the fibula was divided 1 cm more proximally. We then utilized Bovie cautery to divide the muscle increased the posterior flap and the leg was then sent for pathology. A Vicryl suture ligation was utilized to create hemostasis with venous bleeding, but we noted occlusion of all 3 tibial arteries during the dissection. We did come across some collaterals, but they were small and few. These were suture ligated when identified. The tourniquet was taken down and Bovie cautery and suture ligation were used for hemostasis were needed. The wound was copiously irrigated with saline. A rasp was used to babble the anterior edge of the tibia to create a soft curve and prevent erosion of the bone through the skin. The nervous structures were high ligated and the perineural structures were anesthetized with local anesthesia. The deep fascia on the posterior flap was approximated to the saturnino-ostial layer on the anterior the tibia to make sure that we have good muscle coverage of the bone. We then closed the fascial layer with [id number] Vicryl sutures. The skin edges were approximated with nylon mattress sutures and skin william. The leg was cleaned and dried. Xeroform fluffs Kerlix and Malcolm wrap were placed as final dressings. The patient tolerated the procedure well and was awakened from anesthesia without complication. He was taken to PACU in stable condition. ESTIMATED BLOOD LOSS: Approximately 150 mL. COMPLICATIONS: None. DRAINS: None. SPECIMEN: Right lower leg sent for pathology PLAN: Our plan is for the patient to recover in the PCU, and eventually transferred to rehabilitation. We will start physical therapy and occupational therapy tomorrow. He will need good glucose control, high-protein diet, and care taken to prevent a fall and injury to the stump in order to give this the best chance to heal. ANNA MARIE VILLASENOR MD May 13, 2018 20:09
[2018-05-13] MEDS ORDERED: fentaNYL 100 MCG/2 ML INJECTION (J3010) IV PRN (20:15)
[2018-05-13] MEDS ORDERED: METOCLOPRAMIDE INJ 10MG/2ML VIAL (J2765) IV PRN (20:15)
[2018-05-13] MEDS ORDERED: PERCOCET 5MG/325MG TAB PO PRN (20:15)
[2018-05-13] MEDS ORDERED: ALBUTEROL SULFATE 2.5 MG/0.5 ML INH NEB SOLN INH SCH (20:15)
[2018-05-13] MEDS ORDERED: ONDANSETRON 4MG/2ML VIAL (J2405) IV PRN (20:15)
[2018-05-13] MEDS ORDERED: LR 1,000 ML IV SCH (20:15)
--- NOTE | 2018-05-13 20:17 | ECGEPIP ---
Stationary ECG Study [facility] Test Date: 2018-05-13 Pat Name: ARINA GARCIA Department: Room: [place] [address] Gender: M Hat Blocker: : 1945 Requested By: Vito Smith Order Number: [id number] Reading MD: Kushal Mack Measurements Intervals [place] Rate: 83 P: 9 DE: 151 QRS: 37 QRSD: 72 T: -6 QT: 337 QTc: 397 Interpretive Statements SINUS RHYTHM Nonspecific T wave abnormality Electronically Signed On 05-13-2018 20:16:55 EST by Kushal Mack
[2018-05-13] MEDS: TAMSULOSIN 0.4 MG CAP PO SCH (21:03)
[2018-05-13] MEDS: ATORVASTATIN 20 MG TAB PO SCH (21:03)
[2018-05-14] VITALS (11 sets, daily range): BP systolic 112–150; BP diastolic 55–69
[2018-05-14] MEDS: diazePAM 5 MG TAB PO PRN ×2 (01:05→12:21)
[2018-05-14] MEDS: PERCOCET 5MG/325MG TAB PO PRN ×4 (05:08→19:23)
[2018-05-14 05:27] LABS: HEMATOCRIT 38.8 % (42.0-52.0); HEMOGLOBIN 12.8 g/dl (13.5-17.5); MEAN CORPUSCULAR HEMOGLOBIN 28.6 pg (27.0-33.0); MEAN CORPUSCULAR VOLUME 86.6 fl (80.0-96.0); PLATELET COUNT, AUTOMATED 202 10^3/uL (150-450); RED BLOOD COUNT 4.48 10^6/uL (4.30-6.10); WHITE BLOOD COUNT 12.2 10^3/uL (4.0-10.0)
[2018-05-14 05:51] LABS: CREATININE FOR GFR 1.56 MG/DL (0.70-1.30); GLOMERULAR FILTRATION RATE 46.9 (>42); POTASSIUM SERUM 4.9 MEQ/L (3.5-5.1)
[2018-05-14] MEDS: HumaLOG INSULIN (NovoLOG) PER UNIT SC SCH ×4 (07:32→21:00)
[2018-05-14] MEDS: fentaNYL 100 MCG/2 ML INJECTION (J3010) IV PRN ×2 (07:50→12:21)
--- NOTE | 2018-05-14 08:41 | IPNPDOC ---
Date Seen The patient was seen on 05/14/18. Progress Note SUBJECTIVE: Mr. Kunz was seen and examined today. He says he is feeling much better. Postop day #1 status post right BKA. He says his pain is improved, and the surgical pain is not as bad as the ischemic pain in his right foot. He says he feels more energetic and his appetite is improved. He got up to the chair with physical therapy earlier this morning, and says he was doing well with transfers with a walker. He is still sitting in the chair and about it breakfast. No new issues or complaints. OBJECTIVE PHYSICAL EXAMINATION: VITAL SIGNS: Please see below. GENERAL: Alert and oriented 3, no acute distress HEENT:. Normocephalic, TMI, vision intact CARDIOVASCULAR: Regular rate and rhythm. RESPIRATORY:. Clear to auscultation bilaterally. ABDOMINAL: Off nontender, nondistended. Stable bruising left groin, status post TPA thrombolysis through left common femoral access EXTREMITIES: Left lower extremity warm and well-perfused. Right lower extremity below-knee amputation dressing clean, dry and intact with no bleed through her shadowing of blood. Will change the dressing this afternoon. NEUROLOGICAL: No new focal neurologic deficits. PSYCHOLOGICAL: Pleasant and cooperative. LABORATORY DATA, IMAGING STUDIES, MICROBIOLOGY: Please see below. DVT prophylaxis ordered?: y ASSESSMENT AND PLAN: This is a pleasant 73-year-old gentleman with a greater than 72 hours ischemia of his right foot when he presented to the ER. We attempted thrombolysis to see if the foot was salvageable, we were not able to restore any flow in the distal tibials were in the foot. It seems the patient mcgarry d previously undiagnosed severe distal peripheral vascular disease and after 3 days of thrombosis, we could not restore outflow and there is no further options for revascularization. He underwent a below-knee amputation last night, and has done well postop. 1. Analgesia as needed, and start to wean this down if tolerated. 2. Continue physical therapy and occupational therapy and out of bed as mira erated. The patient needs to work on extending his leg to prevent contracture. We will need to order a knee immobilizer to help with this. While the patient is in bed. While he is up in the chair, would recommend extending the foot rest on the recliner to help him keep the leg elevated to prevent swelling and to allow him to straighten the knee. It also recommend a pillow under the stump in bed to help him straighten the knee and elevate the stop to decrease swelling. We did note quite a bit of swelling in the muscle at the time of amputation, and a lot of this may be due to the IV fluid hydration we've been giving him due to his chronic renal insufficiency and increased creatinine/BUN. 3. We will have the political director come visit the patient to talk with him about what to expect going forward with his below-knee amputation. 4. Patient will need a high-protein diet, tight glucose control, offloading, elevation, and knee extension for the amputation to heal properly and be suitable for prosthetic. Appreciate Dr. Morris's help with glucose control. 5. Creatinine is stable, slightly decreased from 1.59-1.56, BUN still a bit high. I did decrease the IV fluids from 100 mL an hour to 50 mL an hour last night due to swelling in the muscle, but we may need to increase the fluids again if he is not drinking a sufficient amount to keep himself well hydrated. His potassium is a bit elevated again today, likely will improve with insulin throughout the day. If he continues to have issues with his renal function, may need a nephrology consult, but we'll leave this to Dr. Morris's discretion. 7. We'll order DVT prophylaxis today now that the heparin and TPA are stopped and his surgery is complete. DISPOSITION: Patient will need rehabilitation at discharge. VS, I&O, 24H, Fishbone Vital Signs/I&O Vital Signs Date Time Temp Pulse Resp B/P (MAP) Pulse Ox O2 Delivery O2 Flow Rate FiO2 05/14/18 07:50 99.6 67 16 140/66 96 05/14/18 06:00 2.0 05/11/18 16:29 Room Air I&O- Last 24 Hours up to 6 AM 05/14/18 06:00 Intake Total 820 ml Output Total 1200 ml Balance -380 ml Laboratory Data 24H LABS Laboratory Tests 2 05/13/18 12:10: Bedside Glucose (Misc Panel) 97 05/13/18 19:52: Bedside Glucose (Misc Panel) 116H 05/13/18 20:58: Bedside Glucose (Misc Panel) 139H 05/14/18 05:10: Nucleated Red Blood Cells % (auto) 0.0 05/14/18 05:40: Anion Gap 6L, Glomerular Filtration Rate 46.9, Blood Urea Nitrogen 27H, Creatinine 1.56H, Sodium Level 137, Potassium Level 4.9, Chloride Level 107, Carbon Dioxide Level 24, Calcium Level 7.0L CBC/BMP Laboratory Tests 05/14/18 05:10 Red Blood Count 4.48, Mean Corpuscular Volume 86.6, Mean Corpuscular Hemoglobin 28.6, Mean Corpuscular Hemoglobin Concent 33.0, Red Cell Distribution Width 13.1 05/14/18 05:40 Calcium Level 7.0 L CASEY GARCIA MD May 14, 2018 08:41
[2018-05-14] MEDS: DOCUSATE SODIUM 100 MG CAP PO SCH ×2 (09:00→21:15)
[2018-05-14] MEDS: PANTOPRAZOLE 40MG INJ (PROTONIX) (C9113) IV SCH (09:47)
[2018-05-14] MEDS: amLODIPine 5 MG TAB PO SCH (09:49)
[2018-05-14] MEDS: HEPARIN SOD (PORCINE) 5000 UNITS/ML VIAL SQ SCH ×3 (09:49→21:15)
[2018-05-14] MEDS: CARVedilol 3.125 MG TAB PO SCH ×2 (09:49→21:15)
[2018-05-14] MEDS: LEVEMIR (INSULIN DETEMIR) 1 UNITS/0.01ML SC SCH ×2 (09:50→21:16)
[2018-05-14] MEDS ORDERED: SODIUM CHLORIDE 0.9% INJ 10 ML SYR IV PRN (10:30)
--- NOTE | 2018-05-14 14:08 | IPNPDOC ---
Subjective Date Seen The patient was seen on 05/14/18. Subjective Chief Complaint/HPI Patient seen and examined at bedside. Reports improvement of his overall clinical condition following right below the knee amputation yesterday. States that his appetite is well, and that his pain is significantly better after amputation of the ischemic limb. Objective Physical Examination General Exam: Positive: Alert, Cooperative, No Acute Distress ENT Exam: Positive: Atraumatic, Mucous membr. moist/pink Neck Exam: Negative: JVD Chest Exam: Positive: Clear to auscultation, Normal air movement Heart Exam: Positive: Rate Normal, Regular Rhythm, Normal S1, Normal S2 Telemetry: Positive: No significant arrhythmia Abdomen Exam: Positive: Soft; Negative: Tenderness Extremity Exam: Positive: Other (s/p Right BKA--limb noted to be wrapped in surgical dressing) Psych Exam: Positive: Oriented x 3 Assessment /Plan Plan/VTE VTE Prophylaxis Ordered?: Yes VTE Exclusion Mechanical Proph: Patient on IV Heparin Plan RLE Ischemia s/p Aortoiliofemoral arteriogram with RLE runoff with placement of thrombolysis catheter on 05/11 s/p s/p RLE arteriogram with removal of tPA lysis catheter with mynx closure of left MARKETING 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 MANAGER on 05/12 s/p RLE BKA with Vascular Surgery on 05/13/18 We will cont to f/u with Vascular Surgery recommendations PT/OT ordered for functional optimization Chronic Kidney Disease Stage IIIA/B Serum Cr baseline is 1.5-1.6 according to outpatient records Cont current management Diabetes Mellitus Cont reduced dose of basal insulin, 20 Units of Levemir BID--He usually takes 70 Units BID at home Cont ISS for additional coverage We will uptitrate his basal insulin if his blood sugars trend upward Hypertension Hydrochlorothiazide and lisinopril will be continued tomorrow if renal function remains at baseline Norvasc Hydralazine when necessary ordered for systolic blood pressure greater than 150 History of CVA Continue statin ASA, Plavix can be continued as per Vascular Surgery Dyslipidemia Continue statin GERD Continue PPI DVT Prophylaxis Heparin SC VS, I&O, 24H, Fishbone Vital Signs/I&O Vital Signs Date Time Temp Pulse Resp B/P (MAP) Pulse Ox O2 Delivery O2 Flow Rate FiO2 05/14/18 12:26 99.6 76 18 145/65 96 05/14/18 08:00 2.0 05/11/18 16:29 Room Air I&O- Last 24 Hours up to 6 AM 05/14/18 06:00 Intake Total 820 ml Output Total 1200 ml Balance -380 ml Laboratory Data 24H LABS Laboratory Tests 2 05/13/18 19:52: Bedside Glucose (Misc Panel) 116H 05/13/18 20:58: Bedside Glucose (Misc Panel) 139H 05/14/18 05:10: Nucleated Red Blood Cells % (auto) 0.0 05/14/18 05:40: Anion Gap 6L, Glomerular Filtration Rate 46.9, Blood Urea Nitrogen 27H, Creatinine 1.56H, Sodium Level 137, Potassium Level 4.9, Chloride Level 107, Carbon Dioxide Level 24, Calcium Level 7.0L 05/14/18 07:21: Bedside Glucose (Misc Panel) 202H 05/14/18 12:14: Bedside Glucose (Misc Panel) 195H CBC/BMP Laboratory Tests 05/14/18 05:10 Red Blood Count 4.48, Mean Corpuscular Volume 86.6, Mean Corpuscular Hemoglobin 28.6, Mean Corpuscular Hemoglobin Concent 33.0, Red Cell Distribution Width 13.1 05/14/18 05:40 Calcium Level 7.0 L SIVAN PERDUE MD May 14, 2018 14:08
[2018-05-14] MEDS: ASPIRIN 81 MG ENTERIC TAB PO SCH (16:22)
[2018-05-14] MEDS: SODIUM CHLORIDE 0.9% INJ 10 ML SYR IV SCH (16:58)
[2018-05-14] MEDS: ACETAMINOPHEN TAB 650MG DOSE (2X325MG) PO PRN ×2 (16:59→23:35)
[2018-05-14] MEDS: ATORVASTATIN 20 MG TAB PO SCH (21:14)
[2018-05-14] MEDS: TAMSULOSIN 0.4 MG CAP PO SCH (21:15)
[2018-05-15] VITALS (10 sets, daily range): BP systolic 106–178; BP diastolic 55–79
[2018-05-15] MEDS: diazePAM 5 MG TAB PO PRN (01:51)
[2018-05-15] MEDS: HEPARIN SOD (PORCINE) 5000 UNITS/ML VIAL SQ SCH ×2 (05:28→14:37)
[2018-05-15] MEDS: SODIUM CHLORIDE 0.9% INJ 10 ML SYR IV SCH (05:28)
[2018-05-15 05:47] LABS: HEMATOCRIT 35.1 % (42.0-52.0); HEMOGLOBIN 11.3 g/dl (13.5-17.5); MEAN CORPUSCULAR HEMOGLOBIN 28.5 pg (27.0-33.0); MEAN CORPUSCULAR HGB CONC 32.2 g/dl (32.0-36.5); MEAN CORPUSCULAR VOLUME 88.6 fl (80.0-96.0); PLATELET COUNT, AUTOMATED 216 10^3/uL (150-450); RED BLOOD COUNT 3.96 10^6/uL (4.30-6.10); WHITE BLOOD COUNT 11.2 10^3/uL (4.0-10.0)
[2018-05-15 06:07] LABS: CALCIUM LEVEL 7.1 MG/DL (8.8-10.2); CREATININE FOR GFR 1.52 MG/DL (0.70-1.30); GLOMERULAR FILTRATION RATE 48.4 (>42); POTASSIUM SERUM 4.5 MEQ/L (3.5-5.1)
[2018-05-15] MEDS: DOCUSATE SODIUM 100 MG CAP PO SCH (08:24)
[2018-05-15] MEDS: HumaLOG INSULIN (NovoLOG) PER UNIT SC SCH ×2 (08:24→11:48)
[2018-05-15] MEDS: ASPIRIN 81 MG ENTERIC TAB PO SCH (08:24)
[2018-05-15] MEDS: PERCOCET 5MG/325MG TAB PO PRN (08:25)
[2018-05-15] MEDS: CARVedilol 3.125 MG TAB PO SCH (08:26)
[2018-05-15] MEDS: LEVEMIR (INSULIN DETEMIR) 1 UNITS/0.01ML SC SCH (08:26)
[2018-05-15] MEDS: PANTOPRAZOLE 40MG INJ (PROTONIX) (C9113) IV SCH (08:27)
--- NOTE | 2018-05-15 08:58 | IPNPDOC ---
Date Seen The patient was seen on 05/15/18. Progress Note SUBJECTIVE: Ángel Fu is a 73-year-old gentleman postop day 2 from a right below-knee amputation due to extensive ischemia of the right foot. He is doing well today. He complains of pain, but he is comfortable speaking to be very casually eating his breakfast with no distress. So far think his pain is well managed. I think it is safe at this point to transfer him to the floor. We will order a protector for his right amputation site and this will hopefully be delivered this afternoon. The patient should continue to try to extend his knee and we talked about this again today. We are trying very hard to prevent contractures of that he will be able to successfully use a prosthetic. OBJECTIVE PHYSICAL EXAMINATION: VITAL SIGNS: Please see below. GENERAL: Alert and oriented 3, no acute distress HEENT: Normocephalic, TMI, vision grossly intact CARDIOVASCULAR: Regular rate and rhythm RESPIRATORY: Clear to auscultation but soft apical wheezes are present ABDOMINAL: Soft, nontender, nondistended, left groin bruising stable status post access and TPA thrombolysis through the left common femoral artery EXTREMITIES: Right below-knee amputation dressing clean, dry and intact. Dressing not changed yet due to patient sitting up eating breakfast. NEUROLOGICAL: No new focal neurologic deficits PSYCHOLOGICAL: Pleasant and cooperative LABORATORY DATA, IMAGING STUDIES, MICROBIOLOGY: Please see below. DVT prophylaxis ordered?: Yes ASSESSMENT AND PLAN: 73-year-old gentleman postop day 2 from a right below-knee amputation for right foot ischemia. PROBLEMS: 1. We'll start to wean the analgesia as tolerated. 2. Okay to transfer to the floor. 3. Will order chest x-ray for this morning. The patient had a history of pneumonia a few weeks ago, and he has noticed an increased cough and a little bit of wheezing from time to time. We will also ask the respiratory therapist to see him and see if they feel a nebulizer treatment or respiratory treatment would be beneficial. 4. We appreciate Dr. Morris helping us with medical management of this patient. His hypertension and glucose are well controlled. 5. Patient was on aspirin and Plavix preop due to a stroke in 2014. We have restarted the aspirin as his platelets and fibrinogen are normalizing, and we will restart the Plavix in a day or two, once we are a little further out from surgery. Continue heparin 3 times a day for DVT prophylaxis. 6. We'll plan for dressing change this afternoon when the patient is back in bed. DISPOSITION: Will need rehabilitation at discharge. Social work is aware and is working on this. VS, I&O, 24H, Fishbone Vital Signs/I&O Vital Signs Date Time Temp Pulse Resp B/P (MAP) Pulse Ox O2 Delivery O2 Flow Rate FiO2 05/15/18 08:26 71 178/79 05/15/18 08:25 99.4 20 93 05/14/18 08:00 2.0 05/11/18 16:29 Room Air I&O- Last 24 Hours up to 6 AM 05/15/18 06:00 Intake Total 1480 ml Output Total 1425 ml Balance 55 ml Laboratory Data 24H LABS Laboratory Tests 2 05/14/18 12:14: Bedside Glucose (Misc Panel) 195H 05/14/18 16:52: Bedside Glucose (Misc Panel) 163H 05/14/18 21:09: Bedside Glucose (Misc Panel) 181H 05/15/18 05:27: Nucleated Red Blood Cells % (auto) 0.0, Anion Gap 6L, Glomerular Filtration Rate 48.4, Blood Urea Nitrogen 30H, Creatinine 1.52H, Sodium Level 140, Potassium Level 4.5, Chloride Level 110H, Carbon Dioxide Level 24, Calcium Level 7.1L 05/15/18 08:09: Bedside Glucose (Misc Panel) 146H CBC/BMP Laboratory Tests 05/15/18 05:27 Red Blood Count 3.96 L, Mean Corpuscular Volume 88.6, Mean Corpuscular Hemogl obin 28.5, Mean Corpuscular Hemoglobin Concent 32.2, Red Cell Distribution Width 13.3, Calcium Level 7.1 L CASEY GARCIA MD May 15, 2018 08:58
[2018-05-15] MEDS ORDERED: LISINOPRIL 20 MG TAB PO SCH (09:00)
[2018-05-15] MEDS ORDERED: IPRATROPIUM 0.5MG/ALBUTEROL 2.5MG INH SOL UD 3ML (DUONEB)(J7620) NEB PRN (09:00)
[2018-05-15] MEDS ORDERED: fentaNYL 100 MCG/2 ML INJECTION (J3010) IV PRN (09:00)
[2018-05-15] MEDS ORDERED: amLODIPine 10 MG TAB PO SCH (09:00)
[2018-05-15] MEDS ORDERED: hydroCHLOROthiazide 25 MG TAB PO SCH (09:00)
--- NOTE | 2018-05-15 10:29 | REP ---
CHEST, SINGLE VIEW: Single view of the chest is performed. There is a right arm PICC line with the tip in the superior vena cava. There is no acute infiltrate. Calcified granuloma is seen in the left lung base. There are calcified mediastinal and hilar lymph nodes present. The heart is normal in size. There is mild calcification of the thoracic aorta. IMPRESSION: No acute infiltrate. Electronically Signed by Merritt Camacho MD 05/18/2018 10:58 A
[2018-05-15] MEDS: PERCOCET 5MG/325MG TAB PO SCH ×2 (11:51→16:06)
--- NOTE | 2018-05-15 14:09 | IPNPDOC ---
Subjective Date Seen The patient was seen on 05/15/18. Subjective Chief Complaint/HPI Patient seen and examined at the bedside. He states that he has been having a cough, chest x-ray revealed no infiltrate. Otherwise, states that he is feeling better overall and has been working with physical therapy. Objective Physical Examination General Exam: Positive: Alert, Cooperative, No Acute Distress ENT Exam: Positive: Atraumatic, Mucous membr. moist/pink Neck Exam: Negative: JVD Chest Exam: Positive: Clear to auscultation, Normal air movement Heart Exam: Positive: Rate Normal, Regular Rhythm, Normal S1, Normal S2 Telemetry: Positive: No significant arrhythmia Abdomen Exam: Positive: Soft; Negative: Tenderness Extremity Exam: Positive: Other (s/p Right BKA--limb noted to be wrapped in surgical dressing) Psych Exam: Positive: Oriented x 3 Assessment /Plan Plan/VTE VTE Prophylaxis Ordered?: Yes VTE Exclusion Mechanical Proph: Patient on IV Heparin Plan RLE Ischemia s/p Aortoiliofemoral arteriogram with RLE runoff with placement of thrombolysis catheter on 05/11 s/p s/p RLE arteriogram with removal of tPA lysis catheter with mynx closure of left JUNIOR DESIGNER on 05/12 s/p RLE BKA with Vascular Surgery on 05/13/18 We will cont to f/u with Vascular Surgery recommendations PT/OT ordered for functional optimization Chronic Kidney Disease Stage IIIA/B Serum Cr baseline is 1.5-1.6 according to outpatient records Cont current management Diabetes Mellitus Cont reduced dose of basal insulin, 20 Units of Levemir BID--He usually takes 70 Units BID at home Cont ISS for additional coverage We will uptitrate his basal insulin if his blood sugars trend upward Hypertension Cont lisinopril, Norvasc, will restart HCTZ History of CVA Continue statin ASA, Plavix can be continued as per Vascular Surgery Dyslipidemia Continue statin GERD Continue PPI DVT Prophylaxis Heparin SC VS, I&O, 24H, Fishbone Vital Signs/I&O Vital Signs Date Time Temp Pulse Resp B/P (MAP) Pulse Ox O2 Delivery O2 Flow Rate FiO2 05/15/18 12:21 98.4 71 20 136/76 93 05/15/18 10:37 2.0 05/11/18 16:29 Room Air I&O- Last 24 Hours up to 6 AM 05/15/18 06:00 Intake Total 1480 ml Output Total 1425 ml Balance 55 ml Laboratory Data 24H LABS Laboratory Tests 2 05/14/18 16:52: Bedside Glucose (Misc Panel) 163H 05/14/18 21:09: Bedside Glucose (Misc Panel) 181H 05/15/18 05:27: Nucleated Red Blood Cells % (auto) 0.0, Anion Gap 6L, Glomerular Filtration Rate 48.4, Blood Urea Nitrogen 30H, Creatinine 1.52H, Sodium Level 140, Potassium Level 4.5, Chloride Level 110H, Carbon Dioxide Level 24, Calcium Level 7.1L 05/15/18 08:09: Bedside Glucose (Misc Panel) 146H 05/15/18 11:46: Bedside Glucose (Misc Panel) 154H CBC/BMP Laboratory Tests 05/15/18 05:27 Red Blood Count 3.96 L, Mean Corpuscular Volume 88.6, Mean Corpuscular Hemoglobin 28.5, Mean Corpuscular Hemoglobin Concent 32.2, Red Cell Distribution Width 13.3, Calcium Level 7.1 L Microbiology Microbiology 05/15/18 Respiratory Virus Panel (PCR) (DC) - Final, Complete SIVAN PERDUE MD May 15, 2018 14:09
[2018-05-15] MEDS ORDERED: ASPI81TAEC PO (15:17)
[2018-05-15] MEDS ORDERED: DEXT50IN6 IV (15:17)
[2018-05-15] MEDS ORDERED: AMLO10TA5 PO (15:17)
[2018-05-15] MEDS ORDERED: IPRA0.00 NEB (15:17)
[2018-05-15] MEDS ORDERED: PROT40IN4 IV (15:17)
[2018-05-15] MEDS ORDERED: GLUC4CHW19 PO (15:17)
[2018-05-15] MEDS ORDERED: CARV3.12 PO (15:17)
[2018-05-15] MEDS ORDERED: COLA100C5 PO (15:17)
[2018-05-15] MEDS ORDERED: INSUHUMDS SC ×2 (15:17)
[2018-05-15] MEDS ORDERED: INSUDET SC (15:17)
[2018-05-15] MEDS ORDERED: LISI-538 PO (15:17)
[2018-05-15] MEDS ORDERED: DIAZ5TAB PO (15:17)
[2018-05-15] MEDS ORDERED: HYDR25TAB PO (15:17)
[2018-05-15] MEDS ORDERED: FLOM0.4C39 PO (15:17)
[2018-05-15] MEDS ORDERED: PERCOCET PO (15:17)
[2018-05-15] MEDS ORDERED: ATOR1TAB21 PO (15:17)
[2018-05-15] MEDS ORDERED: GLUC1INJ21 SC (15:17)
--- NOTE | 2018-05-15 15:57 | DS.PDOC ---
Discharge Summary General Date of Admission May 11, 2018 at 19:17 Date of Discharge 05/15/18 Attending Physician: CASEY GARCIA MD Specialist/Consultants Involve: SIVAN PERDUE MD Discharge Summary PROCEDURES PERFORMED DURING STAY: 1. Right lower extremity arteriogram and TPA thrombolysis procedure 05/11/18 2. Right lower extremity arteriogram and removal TPA thrombolysis catheter 05/12/18 3. Right below-knee amputation 05/13/18 ADMITTING DIAGNOSES: 1. 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 2. Insulin-dependent diabetes 3. Hypertension, uncontrolled 4. Stage III renal insufficiency 5. BPH 6. Cough DISCHARGE DIAGNOSES: 1. Amputation of the right leg below the knee 2. Insulin-dependent diabetes 3. Hypertension, uncontrolled 4. Stage III renal insufficiency 5. BPH 6. Cough COMPLICATIONS/CHIEF COMPLAINT: Arterial Occlusion,Lower Extremity. HISTORY OF PRESENT ILLNESS AND HOSPITAL COURSE: Mr. Fu is a 73-year-old gentleman who presented to an outside hospital ER with pain in his right foot on May 11 in the afternoon. He was then transferred to [facility] for evaluation with vascular surgery. The patient was seen urgently in the ER with a history of 72 hours of ischemia to the right foot. He could barely wiggle his toes, had loss of light sensation, but did have excruciating pain to any kind of manipulation or deep touch. The patient was taken right away to the angiographic suite for an arteriogram and thrombolysis procedure. He had complete occlusion of the popliteal artery from its proximal aspect through the majority of the tibial vessels with minimal reconstitution of the posterior tibial artery in the mid calf and no significant outflow to the foot. A TPA thrombolysis was begun on the right lower extremity and continued overnight. In the morning, his foot was no better, but he did have a triphasic signal at the popliteal artery. A planned second look arteriogram was performed and we found recannulization of the popliteal artery in the proximal tibioperoneal trunk and anterior tibial artery. The tibial vessels distal to this were still occluded and there was no significant runoff to the foot. Unfortunately, without any improvement in the distal flow, and deterioration of the patient's motor and sensory exam. Further, we do not feel the foot would be viable. We did not have any targets for bypass without outflow. The patient and I discussed a right below-knee versus above- knee amputation and he was agreeable to proceed and he underwent a right below- knee amputation on 05/12/2017. He did well following the procedure. His pain was dramatically improved, his energy level and appetite were improved, and overall he said he felt much better. He is still in the acute surgical face and has some postsurgical pain, but he says it is nothing like the pain of the ischemic foot. We consult R hospitalist team to help manage the patient medically, and we appreciate Dr. Perdue consultation and helping us with the patient's glucose control, hypertension, and renal insufficiency, which were all a bit poorly controlled outpatient. The patient's renal function remained stable with IV fluid hydration and avoiding significant contrast use with her procedures. His glucose control was improved with changes to his base the right medication and insulin sliding scale. His hypertension was controlled with adjustments to his home medications as well as we held his hydrochlorothiazide and lisinopril due to his renal insufficiency. . He is on Flomax for BPH with urinary retention, and had no problems with urinary retention on this admission. The patient was on aspirin and Plavix prehospitalization due to a stroke in 2014, and we held the aspirin while we were performing thrombolysis, and this has been restarted. We held the Plavix perioperative, but it is okay to restart it in a week or discharge. He has been doing well with a regimen of Valium and Percocet for pain and we are trying to wean this down daily. He has been off IV fentanyl for almost 24 hours. He is participating with physical therapy and occupational therapy. A stump protector/knee immobilizer was provided this afternoon and the patient is agreeable to use it while at rest. Certainly is okay to remove it for wound care showers and range of motion exercises. On his last day in the ICU, he reported that he was coughing quite a bit and we heard some apical wheezes on auscultation, therefore, we obtained a chest x-ray which did not show any new infiltrates or issues. We asked our respiratory therapist to prescribe some nebulizer treatments and we continued these at discharge. DISCHARGE MEDICATIONS: Please see below. ALLERGIES: Please see below. PHYSICAL EXAMINATION ON DISCHARGE: VITAL SIGNS: Please see below. GENERAL: No acute distress HEENT: Normocephalic, TMI, vision grossly intact NECK: Supple, no carotid bruits CARDIOVASCULAR EXAMINATION: Regular rate and rhythm RESPIRATORY EXAMINATION: Clear to auscultation with soft apical wheezes ABDOMINAL EXAMINATION: Soft, nontender, nondistended EXTREMITIES: Right below-knee amputation incision is clean, dry and intact. No erythema, induration or drainage is noted. Dressing replaced with Xeroform dry gauze and Malcolm wrap. Left lower extremity is warm and well-perfused SKIN: No rashes noted NEUROLOGICAL EXAMINATION: No new focal deficits noted PSYCHIATRIC EXAMINATION: Pleasant and cooperative LABORATORY DATA: Please see below. IMAGING: Please see repeat procedure reports for arteriograms and thrombolysis. Important findings noted above. PROGNOSIS: Good ACTIVITY: As tolerated. DIET: Diabetic diet DISCHARGE PLAN: [facility] DISCHARGE INSTRUCTIONS: 1. Wound care to right below-knee amputation stump-please wash with warm soap and water gently, Pat dry, Xeroform over william and sutures, dry gauze, Malcolm wrap. 2. Knee immobilizer/stump protector for right lower extremity when at rest, but it is okay to remove this for wound care, showers, range of motion exercises. ITEMS TO FOLLOWUP ON ON OUTPATIENT: 1. Patient to follow up with vascular surgery in 2 weeks to check his incision. I prefer the william to remain intact for at least 2-3 weeks, and the sutures remain intact at least 3-4 weeks. The duration will depend on healing. The patient had profound ischemia of the lower leg, and his stump will need to be examined daily while in rehabilitation to make sure he is not developing any ischemia of his flap, which was of little bit tenuous at the time of surgery. DISCHARGE CONDITION: Stable TIME SPENT ON DISCHARGE: Greater than 55 minutes. Vital Signs/I&Os Vital Signs Date Time Temp Pulse Resp B/P (MAP) Pulse Ox O2 Delivery O2 Flow Rate FiO2 05/15/18 12:21 98.4 71 20 136/76 93 05/15/18 10:37 2.0 05/11/18 16:29 Room Air I&O- Last 24 Hours up to 6 AM 05/15/18 06:00 Intake Total 1480 ml Output Total 1425 ml Balance 55 ml Laboratory Data Labs 24H Laboratory Tests 2 05/14/18 16:52: Bedside Glucose (Misc Panel) 163H 05/14/18 21:09: Bedside Glucose (Misc Panel) 181H 05/15/18 05:27: Nucleated Red Blood Cells % (auto) 0.0, Anion Gap 6L, Glomerular Filtration Rate 48.4, Blood Urea Nitrogen 30H, Creatinine 1.52H, Sodium Level 140, Potassium Level 4.5, Chloride Level 110H, Carbon Dioxide Level 24, Calcium Level 7.1L 05/15/18 08:09: Bedside Glucose (Misc Panel) 146H 05/15/18 11:46: Bedside Glucose (Misc Panel) 154H CBC/BMP Laboratory Tests 05/15/18 05:27 Red Blood Count 3.96 L, Mean Corpuscular Volume 88.6, Mean Corpuscular Hemoglobin 28.5, Mean Corpuscular Hemoglobin Concent 32.2, Red Cell Distribution Width 13.3, Calcium Level 7.1 L FSBS Laboratory Tests Test 05/14/18 16:52 05/14/18 21:09 05/15/18 08:09 05/15/18 11:46 Range/Units Bedside Glucose (Misc Panel) 163 181 146 154 83-110 MG/DL Microbiology Microbiology 05/15/18 Respiratory Virus Panel (PCR) ([facility] [place]) - Final, Complete Discharge Medications Scheduled (Lisinopril/Hydrochlorothi 20-25 mg) 1 Tab Tab, 1 TAB PO DAILY, (Reported) Amlodipine Besylate (Norvasc) 5 Mg Tab, 5 MG PO DAILY, (Reported) Amlodipine Besylate (Amlodipine Besylate) 10 Mg Tab, 10 MG PO DAILY Aspirin (Aspir-81) 81 Mg Tab, 81 MG PO DAILY, (Reported) Aspirin (Aspirin EC) 81 Mg Tabec, 81 MG PO DAILY Atorvastatin Calcium (Atorvastatin Calcium) 80 Mg Tab, 80 MG PO QHS, (Reported) Atorvastatin Calcium (Atorvastatin Calcium) 20 Mg Tab, 80 MG PO DAILY@2100 Carvedilol (Carvedilol) 3.125 Mg Tab, 3.125 MG PO BID, (Reported) Carvedilol (Carvedilol) 3.125 Mg Tab, 3.125 MG PO BID Cetirizine HCl (Zyrtec Allergy) 10 Mg Cap, 10 MG PO DAILY, (Reported) Clopidogrel Bisulfate (Clopidogrel) 75 Mg Tab, 75 MG PO DAILY, (Reported) Diazepam (Diazepam) 5 Mg Tab, 5 MG PO Q6H Docusate Sodium (Colace) 100 Mg Cap, 100 MG PO BID Glipizide (Glipizide) 5 Mg Tab, 5 MG PO DAILY, (Reported) Hydrochlorothiazide (Hydrochlorothiazide) 25 Mg Tab, 25 MG PO DAILY Insulin Detemir (Levemir Flextouch) 100 Unit/Ml Inj, 70 UNITS SC BID, (Reported) Insulin Detemir (Levemir) 1 Units/0.01 Ml Susp, 20 UNITS SC BID Insulin Human Lispro (Humalog) 1 Units/0.01 Ml Inj, 0 UNITS SC AC Insulin Human Lispro (Humalog) 1 Units/0.01 Ml Inj, 0 UNITS SC QHS Lisinopril (Lisinopril) 20 Mg Tab, 20 MG PO DAILY Pantoprazole Sodium (Protonix IV) 40 Mg Inj, 40 MG IV DAILY Ranitidine HCl (Ranitidine HCl) 150 Mg Tab, 1 TAB PO DAILY, (Reported) Tamsulosin Hcl (Tamsulosin Hydrochloride) 0.4 Mg Cap, 0.4 MG PO QHS, (Reported) Tamsulosin Hydrochloride (Flomax) 0.4 Mg Cap, 0.4 MG PO DAILY@2100 Scheduled PRN Albuterol/Ipratropium (Ipratropium [place]/Albut 0.5-2.5 (3) mg/3Ml) 1 Kim Kim, 3 ML NEB Q2HP PRN for SOB/WHEEZING Dextrose (Dextrose 50%) 50 % Inj, 25 ML IV ASDIRECTED PRN for SEE LABEL COMMENTS Glucagon (Glucagen Diagnostic) 1 Mg Inj, 1 MG SC ASDIRECTED PRN for SEE LABEL COMMENTS Glucose (Glucose) 4 Gm Chw, 0 GM PO ASDIRECTED PRN for SEE LABEL COMMENTS Oxycodone/Acetaminophen (Percocet 5MG/325MG Tablet) 1 Tab Tab, 2 TAB PO Q4H PRN for PAIN OR FEVER Allergies Coded Allergies: No Known Allergies (Unverified , 07/06/14) CASEY GARCIA MD May 15, 2018 15:57
[2018-05-16] MEDS ORDERED: diazePAM 5 MG TAB PO SCH (12:00)
== END 2018-05-15 16:45 | DRG 241 ==
LOC: M ED 16:55 → M ICU 19:17
PROVIDERS: ADMIT Surgery Vascular Surgery; ATTEND Surgery Vascular Surgery
PROC: 3E05317 Introduction of Other Thrombolytic into Peripheral Artery, Percutaneous Approach (ICD-10-PCS; 2018-05-11)
PROC: B40DYZZ Plain Radiography of Aorta and Bilateral Lower Extremity Arteries using Other Contrast (ICD-10-PCS; 2018-05-11)
PROC: 02H633Z Insertion of Infusion Device into Right Atrium, Percutaneous Approach (ICD-10-PCS; 2018-05-11)
PROC: B40FYZZ Plain Radiography of Right Lower Extremity Arteries using Other Contrast (ICD-10-PCS; 2018-05-12)
PROC: 04PY33Z Removal of Infusion Device from Lower Artery, Percutaneous Approach (ICD-10-PCS; 2018-05-12)
PROC: 0Y6H0Z2 Detachment at Right Lower Leg, Mid, Open Approach (ICD-10-PCS; principal; 2018-05-13 14:15)
DX: I74.3 Embolism and thrombosis of arteries of the lower extremities (principal); I12.9 Hypertensive chronic kidney disease with stage 1 through stage 4 chronic kidney disease, or unspecified chronic kidney disease; E11.22 Type 2 diabetes mellitus with diabetic chronic kidney disease; E78.5 Hyperlipidemia, unspecified; I70.202 Unspecified atherosclerosis of native arteries of extremities, left leg; R05 Cough; I70.92 Chronic total occlusion of artery of the extremities; N40.0 Benign prostatic hyperplasia without lower urinary tract symptoms; N18.3 Chronic kidney disease, stage 3 (moderate); K21.9 Gastro-esophageal reflux disease without esophagitis; Z79.82 Long term (current) use of aspirin; Z79.4 Long term (current) use of insulin; Z86.73 Personal history of transient ischemic attack (TIA), and cerebral infarction without residual deficits; Z79.899 Other long term (current) drug therapy

== ENCOUNTER 2018-05-15 14:37 | Inpatient (IN) | payer MEDICAID, MEDICARE ==
[~2018-05-15] VITALS: Ht 165.1 cm; Wt 88.0 kg
[~2018-05-15 14:37] MED LIST changes: +ATOR80TA59 PO; +CARV3.12 PO; +CLOP75TA2 PO; +LEVE1INJ5 SC; +LISI20TA3 PO; +RANI150T PO; +TAMS1CAP17 PO
[2018-05-15] MEDS ORDERED: INSUDET SC (15:17)
[2018-05-15] MEDS ORDERED: PERCOCET PO (15:17)
[2018-05-15] MEDS ORDERED: AMLO10TA5 PO (15:17)
[2018-05-15] MEDS ORDERED: DIAZ5TAB PO (15:17)
[2018-05-15] MEDS ORDERED: COLA100C5 PO (15:17)
[2018-05-15] MEDS ORDERED: DEXT50IN6 IV (15:17)
[2018-05-15] MEDS ORDERED: GLUC1INJ21 SC (15:17)
[2018-05-15] MEDS ORDERED: FLOM0.4C39 PO (15:17)
[2018-05-15] MEDS ORDERED: IPRA0.00 NEB (15:17)
[2018-05-15] MEDS ORDERED: HYDR25TAB PO (15:17)
[2018-05-15] MEDS ORDERED: LISI-538 PO (15:17)
[2018-05-15] MEDS ORDERED: ATOR1TAB21 PO (15:17)
[2018-05-15] MEDS ORDERED: INSUHUMDS SC ×2 (15:17)
[2018-05-15] MEDS ORDERED: GLUC4CHW19 PO (15:17)
[2018-05-15] MEDS ORDERED: PROT40IN4 IV (15:17)
[2018-05-15] MEDS ORDERED: CARV3.12 PO (15:17)
[2018-05-15] MEDS ORDERED: ASPI81TAEC PO (15:17)
[2018-05-15 16:45] VITALS: BP 147/73
[2018-05-15] MEDS ORDERED: ACETAMINOPHEN TAB 650MG DOSE (2X325MG) PO PRN (18:45)
[2018-05-15] MEDS ORDERED: ONDANSETRON 4 MG TAB (S0181) PO PRN (18:45)
[2018-05-15] MEDS ORDERED: BISACODYL 10 MG SUPP PR PRN (18:45)
[2018-05-15] MEDS ORDERED: PERCOCET 5MG/325MG TAB PO PRN (19:00)
[2018-05-15] MEDS ORDERED: GLUCAGON FOR INJ 1 MG VIAL (J1610) SC PRN (19:00)
[2018-05-15] MEDS ORDERED: DEXTROSE 50% 50 ML SYRINGE IV PRN (19:00)
[2018-05-15] MEDS ORDERED: GLUCOSE 4 GM CHEW TABLET PO PRN (19:00)
[2018-05-15] MEDS: IPRATROPIUM 0.5MG/ALBUTEROL 2.5MG INH SOL UD 3ML (DUONEB)(J7620) NEB SCH (20:00)
[2018-05-15 20:11] VITALS: BP 138/67
[2018-05-15] MEDS: HumaLOG INSULIN (NovoLOG) PER UNIT SC SCH (21:00)
[2018-05-15] MEDS: ATORVASTATIN 20 MG TAB PO SCH (21:17)
[2018-05-15] MEDS: PERCOCET 5MG/325MG TAB PO PRN (21:18)
[2018-05-15] MEDS: SENNA 8.6 MG TAB (SENOKOT) PO SCH (21:19)
[2018-05-15] MEDS: FERROUS GLUCONATE 324 MG TAB PO SCH (21:19)
[2018-05-15] MEDS: CARVedilol 3.125 MG TAB PO SCH (21:19)
[2018-05-15] MEDS: TAMSULOSIN 0.4 MG CAP PO SCH (21:19)
[2018-05-15] MEDS: LEVEMIR (INSULIN DETEMIR) 1 UNITS/0.01ML SC SCH (21:20)
[2018-05-15] MEDS: DOCUSATE SODIUM 100 MG CAP PO SCH (21:20)
[2018-05-15] MEDS: HEPARIN SOD (PORCINE) 5000 UNITS/ML VIAL SQ SCH (21:21)
[2018-05-16] MEDS: PERCOCET 5MG/325MG TAB PO PRN ×5 (03:07→21:39)
[2018-05-16 05:25] VITALS: BP 140/64
[2018-05-16] MEDS: HEPARIN SOD (PORCINE) 5000 UNITS/ML VIAL SQ SCH ×3 (05:41→21:39)
[2018-05-16 07:19] LABS: BASO # 0.1 10^3/uL (0.0-0.2); BASO % 0.6 % (0.0-1.0); EOS # 0.2 10^3/uL (0.0-0.50); EOS % 2.3 % (0.0-3.0); HEMATOCRIT 37.6 % (42.0-52.0); HEMOGLOBIN 12.2 g/dl (13.5-17.5); LYMPH % 20.3 % (24.0-44.0); MEAN CORPUSCULAR HGB CONC 32.4 g/dl (32.0-36.5); MEAN CORPUSCULAR VOLUME 89.3 fl (80.0-96.0); MONO # 1.2 10^3/uL (0.0-0.8); MONO % 12.5 % (0.0-5.0); NEUTROPHILS # 6.3 10^3/uL (1.8-7.7); PLATELET COUNT, AUTOMATED 279 10^3/uL (150-450); RED BLOOD COUNT 4.21 10^6/uL (4.30-6.10); WHITE BLOOD COUNT 9.9 10^3/uL (4.0-10.0)
[2018-05-16 07:47] LABS: ALBUMIN 2.4 GM/DL (3.2-5.2); BILIRUBIN,TOTAL 0.7 MG/DL (0.2-1.0); CALCIUM LEVEL 7.6 MG/DL (8.8-10.2); CREATININE FOR GFR 1.44 MG/DL (0.70-1.30); GLOMERULAR FILTRATION RATE 51.5 (>42); POTASSIUM SERUM 4.3 MEQ/L (3.5-5.1)
[2018-05-16] MEDS: IPRATROPIUM 0.5MG/ALBUTEROL 2.5MG INH SOL UD 3ML (DUONEB)(J7620) NEB SCH ×2 (07:53→20:00)
[2018-05-16] MEDS: PANTOPRAZOLE 40MG TAB (PROTONIX) PO SCH (09:00)
[2018-05-16] MEDS: FERROUS GLUCONATE 324 MG TAB PO SCH ×3 (09:49→21:37)
[2018-05-16] MEDS: ASPIRIN 81 MG CHEW TABLET PO SCH (09:49)
[2018-05-16] MEDS: DOCUSATE SODIUM 100 MG CAP PO SCH ×2 (09:49→21:37)
[2018-05-16] MEDS: LISINOPRIL 20 MG TAB PO SCH (09:49)
[2018-05-16] MEDS: amLODIPine 10 MG TAB PO SCH (09:49)
[2018-05-16] MEDS: CARVedilol 3.125 MG TAB PO SCH ×2 (09:50→21:40)
[2018-05-16] MEDS: hydroCHLOROthiazide 25 MG TAB PO SCH (09:50)
[2018-05-16] MEDS: HumaLOG INSULIN (NovoLOG) PER UNIT SC SCH ×4 (09:51→21:00)
[2018-05-16] MEDS: LEVEMIR (INSULIN DETEMIR) 1 UNITS/0.01ML SC SCH ×2 (09:51→21:40)
[2018-05-16 14:00] VITALS: BP 157/76
--- NOTE | 2018-05-16 16:07 | IPNPDOC ---
Subjective Date Seen The patient was seen on 05/16/18. Subjective Chief Complaint/HPI Patient seen and examined at the bedside. He has been transferred to the acute rehabilitation unit. He denies any acute complaints at this time, and notes that he just finished working with physical therapy this morning. Objective Physical Examination General Exam: Positive: Alert, Cooperative, No Acute Distress ENT Exam: Positive: Atraumatic, Mucous membr. moist/pink Neck Exam: Negative: JVD Chest Exam: Positive: Clear to auscultation, Normal air movement Heart Exam: Positive: Rate Normal, Normal S1, Normal S2 Abdomen Exam: Positive: Soft Extremity Exam: Positive: Other (s/p RLE BKA) Psych Exam: Positive: Oriented x 3 Assessment /Plan Plan/VTE VTE Prophylaxis Ordered?: Yes Plan RLE Ischemia s/p Aortoiliofemoral arteriogram with RLE runoff with placement of thrombolysis catheter on 05/11 s/p s/p RLE arteriogram with removal of tPA lysis catheter with mynx closure of left [employer] on 05/12 s/p RLE BKA with Vascular Surgery on 05/13/18 We will cont to f/u with Vascular Surgery recommendations PT/OT for functional optimization Chronic Kidney Disease Stage IIIA/B Serum Cr baseline is 1.5-1.6 according to outpatient records Cont current management Diabetes Mellitus Cont reduced dose of basal insulin, 20 Units of Levemir BID--He usually takes 70 Units BID at home Cont ISS for additional coverage We will uptitrate his basal insulin if his blood sugars trend upward Hypertension Cont lisinopril, Norvasc, HCTZ History of CVA Continue statin ASA, Plavix can be continued as per Vascular Surgery recommendations Transaminitis 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 Last drink was in 2004 We will order a Liver U/S and Hepatitis panel for further work up Cont to monitor LFTs and follow as outpatient Dyslipidemia Continue statin GERD Continue PPI DVT Prophylaxis Heparin SC VS, I&O, 24H, Fishbone Vital Signs/I&O Vital Signs Date Time Temp Pulse Resp B/P (MAP) Pulse Ox O2 Delivery O2 Flow Rate FiO2 05/16/18 13:07 20 05/16/18 09:50 70 140/64 05/16/18 05:25 98.7 93 I&O- Last 24 Hours up to 6 AM 05/16/18 06:00 Intake Total 600 ml Output Total 1300 ml Balance -700 ml Laboratory Data 24H LABS Laboratory Tests 2 05/15/18 20:05: Bedside Glucose (Misc Panel) 210H 05/16/18 06:51: Immature Granulocyte % (Auto) 1.3, White Blood Count 9.9, Red Blood Count 4.21L, Hemoglobin 12.2L, Hematocrit 37.6L, Mean Corpuscular Volume 89.3, Mean Corpuscular Hemoglobin 29.0, Mean Corpuscular Hemoglobin Concent 32.4, Red Cell Distribution Width 13.7, Platelet Count 279, Neutrophils (%) (Auto) 63.0, Lymphocytes (%) (Auto) 20.3L, Monocytes (%) (Auto) 12.5H, Eosinophils (%) (Auto) 2.3, Basophils (%) (Auto) 0.6, Neutrophils # (Auto) 6.3, Lymphocytes # (Auto) 2.0, Monocytes # (Auto) 1.2H, Eosinophils # (Auto) 0.2, Basophils # (Auto) 0.1, Nucleated Red Blood Cells % (auto) 0.0, Anion Gap 6L, Glomerular Filtration Rate 51.5, Blood Urea Nitrogen 29H, Creatinine 1.44H, Sodium Level 138, Potassium Level 4.3, Chloride Level 107, Carbon Dioxide Level 25, Calcium Level 7.6L, Aspartate Amino Transf (AST/SGOT) 138H, Alanine Aminotransferase (ALT/SGPT) 87H, Alkaline Phosphatase 168H, Total Bilirubin 0.7, Total Protein 6.0L, Albumin 2.4L, Albumin/Globulin Ratio 0.67L 05/16/18 11:15: Urine Color YELLOW, Urine Appearance CLEAR, Urine pH 5.0, Urine Specific [place] 1.016, Urine Protein 2+H, Urine Glucose (UA) NEGATIVE, Urine Ketones NEGATIVE, Urine Blood 1+H, Urine Nitrite NEGATIVE, Urine Bilirubin NEGATIVE, Urine Urobilinogen 0.2, Urine Leukocyte Esterase NEGATIVE, Urine WBC (Auto) 1, Urine RBC (Auto) 1, Urine Hyaline Casts (Auto) 0, Urine Bacteria (Auto) NEGATIVE, Urine Squamous Epithelial Cells 0, Urine Sperm (Auto) 05/16/18 11:59: Bedside Glucose (Misc Panel) 98 CBC/BMP Laboratory Tests 05/16/18 06:51 Red Blood Count 4.21 L, Mean Corpuscular Volume 89.3, Mean Corpuscular Hemoglobin 29.0, Mean Corpuscular Hemoglobin Concent 32.4, Red Cell Distribution Width 13.7, Neutrophils (%) (Auto) 63.0, Lymphocytes (%) (Auto) 20.3 L, Monocytes (%) (Auto) 12.5 H, Eosinophils (%) (Auto) 2.3, Basophils (%) (Auto) 0.6, Neutrophils # (Auto) 6.3, Lymphocytes # (Auto) 2.0, Monocytes # (Auto) 1.2 H, Eosinophils # (Auto) 0.2, Basophils # (Auto) 0.1, Calcium Level 7.6 L, Aspartate Amino Transf (AST/SGOT) 138 H, Alanine Aminotransferase (ALT/SGPT) 87 H, Alkaline Phosphatase 168 H, Total Bilirubin 0.7, Total Protein 6.0 L, Albumin 2.4 L SIVAN PERDUE MD May 16, 2018 16:07
--- NOTE | 2018-05-16 16:58 | HPEPDOC ---
Med Surg Rn Note DATE OF ADMISSION: May 15, 2018 at 16:45 SOURCE OF ADMISSION INFORMATION: patient and [facility] records CHIEF COMPLAINT: right BKA HISTORY OF PRESENT ILLNESS: 73M pmh PAD, DM, HTN, CKD, CVA with residual left sided weakness who developed worsening right foot pain and was evaluated at [facility] ED on 05/11/18 and found to have ischemia of the his limb for which a vascular consult was placed. He underwent an aortoiliofemoral arteriogram with right lower extremity runoff and placement of the thrombolysis catheter from right distal superficial femoral artery to right distal posterior tibial artery across popliteal/tibial occlusion. On 05/12/18 the TPA lysis catheter was removed and vascular surgery discussed need for BKa vs AKA as his right foot was not salvageable. His Plavix and ASA and Plavix were held so on 05/13/18 he underwent a right BKA without significant complications and a knee immobilizer was placed. His pain was controlled with Valium and Percocet and Plavix to be held for at least one week post-op per vascular team. He was evaluated by therapy found to have significant gait and ADL impairments and deemed medically appropriate for discharge to ARU on 05/15/18. REVIEW OF SYSTEMS: The following is a completed review of systems and has been reviewed. Review of systems otherwise unremarkable. PAIN: Patient self reports right residual limb pain EYES: Negative for recent vision changes. EARS, NOSE, & THROAT: denies rhinorrhea or throat pain CARDIOVASCULAR: denies chest pain or palpitations PULMONARY: Negative. Denies shortness of breath, +cough GASTROINTESTINAL: Negative for constipation or diarrhea GENITOURINARY: Negative for dysuria MUSCULOSKELETAL: right BKA NEUROLOGICAL: residual left sided weakness form old CVA SKIN: [right BKA incisions PSYCHIATRIC: Unremarkable All other review of systems found to be negative. PAST MEDICAL HISTORY: per HPI PAST SURGICAL HISTORY: per HPI ALLERGIES: Please see below. MEDICATIONS: Please see below. SOCIAL HISTORY: Lives alone, non-smoker, no ETOH or illicit drug use DIET: Regular PHYSICAL EXAMINATION: VITAL SIGNS: Please see below. GENERAL: Pleasant and cooperative. No acute distress. HEENT: PERRL. Extraocular movements intact. Clear conjunctiva CARDIOVASCULAR: Regular rate and rhythm. No murmurs, rubs, or gallops LUNGS: mostly Clear to auscultation bilaterally with bilateral apical wheezes. No rhonchi/crackles ABDOMEN: Soft, nontender, nondistended. Positive bowel sounds. Normal active bowel sounds. NEUROLOGICAL: Alert and oriented times three. Cranial nerves II through XII grossly intact. Sensation grossly intact. EXTREMITIES: 5\5 strength bilateral upper extremities.5-\5 strength right hip flexors knee extensors and knee flexors. 5-/5 strength in left lower extremity. SKIN: right residual limb wrapped in kerlix IMAGING: Imaging documentation personally reviewed by record FUNCTIONAL STATUS: Premorbid: Independent with all activities of daily life as well as mobility. On Admission: Min assistance for lower body dressing, ambulation and functional transfers GOALS: Mod-I with RW for ambulation, stairs, dressing, bathing, residua limb desensitization, assess for DME needs, incident response consultant training, medical and pain optimization. ASSESSMENT:73-year-old M with past medical history of PAD who presents status post right BKA PLAN: 1. Rehab: PT/OT assess for DMEs 2. Neuro; pmh stroke with left sided residual weakness, c/u ASa and statin for secondary stroke prevention 3. Cardio: PAD s/p right BKA- Plavix on hold for 1-2 weeks post-op as discussed with vascular surgeon, will c/u AsA pmh- HTn c/u BP meds, medicine consulted 4. Resp: +wheeze one exam will start duonebs, incentive spirometry and monitor for infection 5. Endo: DM continue insulin coverage 6. GI ppx: protonix 7. DVT ppx: c/u heparin 8. Pain: c/u valium and percocet 9. : f.u admission UA and Ucx, flomax for BPH 10. Dispo: TBD POST ADMISSION PHYSICIAN EVALUATION: Medical and functional status: Description of medical status, medical assessment: As above. Rehabilitation diagnosis and current and prior cold morbid medical conditions as above. Risk of complications and plans to mitigate them as above. Description of functional status current status is as above. Prior status as above. Status compared to preadmission: There are no clinically significant differences between the patient's current status and the information described on the preadmission screening document. Treatment plan anticipated: Treatment plan is as described above. Required disciplines including physical therapy, occupational therapy, others as noted above Intensity of services: 3 hours a day, 6 days a week. Special considerations: There are no specific special or safety considerations that would likely preclude immediate implementation of an intensive rehabilitation program or subsequently influence the plan of care ATTESTATION: Considering all the information above, it is my best judgment that this patient requires intensive rehabilitation therapy as described above and an inpatient hospital environment due to the complexity of nursing, medical, and rehabilitation needs required by the patient. Furthermore, this patient can reasonably be expected to participate in an benefit from an inpatient rehabilitation stay with an interdisciplinary team approach to the delivery of rehabilitation care under the direction and supervision of rehabilitation physician. PROGNOSIS: Excellent. ESTIMATED LENGTH OF STAY:14-16 days. PROJECTED DISCHARGE DESTINATION: Home with family support and any durable medical equipment required to increase functional safety and mobility TIME SPENT COUNSELING AND COORDINATING INITIAL CARE: Greater than 70 minutes. Vital Signs Vital Sign - Last 24 Hours 05/15/18 05/15/18 05/15/18 05/15/18 16:45 20:11 21:18 21:19 Temp 98.7 99.4 Pulse 72 73 73 Resp 18 18 18 B/P (MAP) 147/73 (97) 138/67 (90) 138/67 Pulse Ox 95 94 05/16/18 05/16/18 05/16/18 05/16/18 03:07 05:25 06:21 07:42 Temp 98.7 Pulse 70 Resp 18 18 18 18 B/P (MAP) 140/64 (89) Pulse Ox 93 05/16/18 05/16/18 05/16/18 05/16/18 09:49 09:49 09:50 13:07 Pulse 70 70 Resp 20 B/P (MAP) 140/64 140/64 140/64 05/16/18 05/16/18 14:00 16:21 Temp 98.6 Pulse 73 70 Resp 20 20 B/P (MAP) 157/76 (103) Pulse Ox 95 Laboratory Data CBC/BMP Laboratory Tests 05/16/18 06:51 Red Blood Count 4.21 L, Mean Corpuscular Volume 89.3, Mean Corpuscular Hemoglobin 29.0, Mean Corpuscular Hemoglobin Concent 32.4, Red Cell Distribution Width 13.7, Neutrophils (%) (Auto) 63.0, Lymphocytes (%) (Auto) 20.3 L, Monocytes (%) (Auto) 12.5 H, Eosinophils (%) (Auto) 2.3, Basophils (%) (Auto) 0.6, Neutrophils # (Auto) 6.3, Lymphocytes # (Auto) 2.0, Monocytes # (Auto) 1.2 H, Eosinophils # (Auto) 0.2, Basophils # (Auto) 0.1, Calcium Level 7.6 L, Aspartate Amino Transf (AST/SGOT) 138 H, Alanine Aminotransferase (ALT/SGPT) 87 H, Alkaline Phosphatase 168 H, Total Bilirubin 0.7, Total Protein 6.0 L, Albumin 2.4 L Labs 24H Laboratory Tests 2 05/15/18 20:05: Bedside Glucose (Misc Panel) 210H 05/16/18 06:51: Immature Granulocyte % (Auto) 1.3, White Blood Count 9.9, Red Blood Count 4.21L, Hemoglobin 12.2L, Hematocrit 37.6L, Mean Corpuscular Volume 89.3, Mean Corpuscular Hemoglobin 29.0, Mean Corpuscular Hemoglobin Concent 32.4, Red Cell Distribution Width 13.7, Platelet Count 279, Neutrophils (%) (Auto) 63.0, Lymphocytes (%) (Auto) 20.3L, Monocytes (%) (Auto) 12.5H, Eosinophils (%) (Auto) 2.3, Basophils (%) (Auto) 0.6, Neutrophils # (Auto) 6.3, Lymphocytes # (Auto) 2.0, Monocytes # (Auto) 1.2H, Eosinophils # (Auto) 0.2, Basophils # (Auto) 0.1, Nucleated Red Blood Cells % (auto) 0.0, Anion Gap 6L, Glomerular Filtration Rate 51.5, Blood Urea Nitrogen 29H, Creatinine 1.44H, Sodium Level 138, Potassium Level 4.3, Chloride Level 107, Carbon Dioxide Level 25, Calcium Level 7.6L, Aspartate Amino Transf (AST/SGOT) 138H, Alanine Aminotransferase (ALT/SGPT) 87H, Alkaline Phosphatase 168H, Total Bilirubin 0.7, Total Protein 6.0L, Albumin 2.4L, Albumin/Globulin Ratio 0.67L 05/16/18 11:15: Urine Color YELLOW, Urine Appearance CLEAR, Urine pH 5.0, Urine Specific [place] 1.016, Urine Protein 2+H, Urine Glucose (UA) NEGATIVE, Urine Ketones NEGATIVE, Urine Blood 1+H, Urine Nitrite NEGATIVE, Urine Bilirubin NEGATIVE, Urine Urobilinogen 0.2, Urine Leukocyte Esterase NEGATIVE, Urine WBC (Auto) 1, Urine RBC (Auto) 1, Urine Hyaline Casts (Auto) 0, Urine Bacteria (Auto) NEGATIVE, Urine Squamous Epithelial Cells 0, Urine Sperm (Auto) 05/16/18 11:59: Bedside Glucose (Misc Panel) 98 FSBS Laboratory Tests Test 05/15/18 20:05 05/16/18 11:59 Range/Units Bedside Glucose (Misc Panel) 210 98 83-110 MG/DL Home Medications Scheduled Amlodipine Besylate (Amlodipine Besylate) 10 Mg Tab, 10 MG PO DAILY Aspirin (Aspirin EC) 81 Mg Tabec, 81 MG PO DAILY Atorvastatin Calcium (Atorvastatin Calcium) 20 Mg Tab, 80 MG PO DAILY@2100 Carvedilol (Carvedilol) 3.125 Mg Tab, 3.125 MG PO BID Diazepam (Diazepam) 5 Mg Tab, 5 MG PO Q6H Docusate Sodium (Colace) 100 Mg Cap, 100 MG PO BID Hydrochlorothiazide (Hydrochlorothiazide) 25 Mg Tab, 25 MG PO DAILY Insulin Detemir (Levemir) 1 Units/0.01 Ml Susp, 20 UNITS SC BID Insulin Human Lispro (Humalog) 1 Units/0.01 Ml Inj, 0 UNITS SC AC Insulin Human Lispro (Humalog) 1 Units/0.01 Ml Inj, 0 UNITS SC QHS Lisinopril (Lisinopril) 20 Mg Tab, 20 MG PO DAILY Pantoprazole Sodium (Protonix IV) 40 Mg Inj, 40 MG IV DAILY Tamsulosin Hydrochloride (Flomax) 0.4 Mg Cap, 0.4 MG PO DAILY@2100 Scheduled PRN Albuterol/Ipratropium (Ipratropium [place]/Albut 0.5-2.5 (3) mg/3Ml) 1 Kim Kim, 3 ML NEB Q2HP PRN for SOB/WHEEZING Dextrose (Dextrose 50%) 50 % Inj, 25 ML IV ASDIRECTED PRN for SEE LABEL COMMENTS Glucagon (Glucagen Diagnostic) 1 Mg Inj, 1 MG SC ASDIRECTED PRN for SEE LABEL COMMENTS Glucose (Glucose) 4 Gm Chw, 0 GM PO ASDIRECTED PRN for SEE LABEL COMMENTS Oxycodone/Acetaminophen (Percocet 5MG/325MG Tablet) 1 Tab Tab, 2 TAB PO Q4H PRN for PAIN OR FEVER Allergies Coded Allergies: No Known Allergies (Unverified , 07/06/14) ADRIANA HUFF MD May 16, 2018 16:58
[2018-05-16 20:00] VITALS: BP 127/69
[2018-05-16] MEDS: TAMSULOSIN 0.4 MG CAP PO SCH (21:37)
[2018-05-16] MEDS: SENNA 8.6 MG TAB (SENOKOT) PO SCH (21:37)
[2018-05-16] MEDS: ATORVASTATIN 20 MG TAB PO SCH (21:39)
[2018-05-17] MEDS: PERCOCET 5MG/325MG TAB PO PRN ×4 (01:16→20:54)
[2018-05-17] MEDS: HEPARIN SOD (PORCINE) 5000 UNITS/ML VIAL SQ SCH ×3 (05:50→20:53)
[2018-05-17 06:00] VITALS: BP 124/71
[2018-05-17] MEDS: HumaLOG INSULIN (NovoLOG) PER UNIT SC SCH ×4 (07:20→20:48)
[2018-05-17] MEDS: IPRATROPIUM 0.5MG/ALBUTEROL 2.5MG INH SOL UD 3ML (DUONEB)(J7620) NEB SCH ×2 (07:23→20:00)
--- NOTE | 2018-05-17 08:24 | REP ---
Abdominal right upper quadrant ultrasound for elevated liver function tests: There is a negative White's sign. There is no cholelithiasis, gallbladder wall thickening or pericholecystic fluid. There is no intrahepatic or extrahepatic biliary duct dilatation. The common biliary duct measures 3.4 mm in diameter. The hepatic parenchyma is homogeneous and otherwise unremarkable. The visualized areas of the pancreatic head and body are unremarkable. The tail is obscured by bowel gas. Right kidney measures 10.8 x 4.6 x 4.3 cm and is normal size. There are no right renal solid or cystic masses. There are no right renal calculi. There is no hydronephrosis. There is no right upper quadrant ascites. Impression: Essentially negative abdominal right upper quadrant ultrasound. Electronically Signed by Merritt Yo MD 05/17/2018 08:16 A
[2018-05-17] MEDS: LEVEMIR (INSULIN DETEMIR) 1 UNITS/0.01ML SC SCH ×2 (09:00→20:55)
[2018-05-17] MEDS: ASPIRIN 81 MG CHEW TABLET PO SCH (09:20)
[2018-05-17] MEDS: DOCUSATE SODIUM 100 MG CAP PO SCH ×2 (09:20→20:52)
[2018-05-17] MEDS: PANTOPRAZOLE 40MG TAB (PROTONIX) PO SCH (09:21)
[2018-05-17] MEDS: FERROUS GLUCONATE 324 MG TAB PO SCH ×3 (09:21→20:53)
[2018-05-17] MEDS: CARVedilol 3.125 MG TAB PO SCH ×2 (09:21→20:54)
[2018-05-17] MEDS: LISINOPRIL 20 MG TAB PO SCH (09:21)
[2018-05-17] MEDS: hydroCHLOROthiazide 25 MG TAB PO SCH (09:22)
[2018-05-17] MEDS: diazePAM 5 MG TAB PO PRN ×2 (09:22→22:31)
[2018-05-17] MEDS: amLODIPine 10 MG TAB PO SCH (09:22)
[2018-05-17 14:00] VITALS: BP 125/67
--- NOTE | 2018-05-17 15:40 | IPNPDOC ---
Subjective Date Seen The patient was seen on 05/17/18. Subjective Chief Complaint/HPI Patient seen and examined at bedside. He was noted to working with physical therapy in the hallways today. He denied any acute overnight events. Objective Physical Examination General Exam: Positive: Alert, Cooperative, No Acute Distress ENT Exam: Positive: Atraumatic, Mucous membr. moist/pink Neck Exam: Negative: JVD Chest Exam: Positive: Clear to auscultation, Normal air movement Heart Exam: Positive: Rate Normal, Normal S1, Normal S2 Abdomen Exam: Positive: Soft Extremity Exam: Positive: Other (s/p RLE BKA) Psych Exam: Positive: Oriented x 3 Assessment /Plan Plan/VTE VTE Prophylaxis Ordered?: Yes Plan RLE Ischemia s/p Aortoiliofemoral arteriogram with RLE runoff with placement of thrombolysis catheter on 05/11 s/p s/p RLE arteriogram with removal of tPA lysis catheter with mynx closure of left CAE ENGINEER on 05/12 s/p RLE BKA with Vascular Surgery on 05/13/18 We will cont to f/u with Vascular Surgery recommendations PT/OT for functional optimization Chronic Kidney Disease Stage IIIA/B Serum Cr baseline is 1.5-1.6 according to outpatient records Cont current management Diabetes Mellitus Cont reduced dose of basal insulin, 20 Units of Levemir BID--He usually takes 70 Units BID at home Cont ISS for additional coverage We will uptitrate his basal insulin if his blood sugars trend upward Hypertension Cont lisinopril, Norvasc, HCTZ History of CVA Continue statin ASA, Plavix can be continued as per Vascular Surgery recommendations Transaminitis 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 Last drink was in 2004 Liver U/S with no acute findings Hepatitis panel pending Cont to monitor LFTs and follow as outpatient Dyslipidemia Continue statin GERD Continue PPI DVT Prophylaxis Heparin SC VS, I&O, 24H, Fishbone Vital Signs/I&O Vital Signs Date Time Temp Pulse Resp B/P (MAP) Pulse Ox O2 Delivery O2 Flow Rate FiO2 05/17/18 12:32 18 05/17/18 09:22 66 124/71 05/17/18 06:00 98.0 96 I&O- Last 24 Hours up to 6 AM 05/17/18 06:00 Intake Total 1200 ml Output Total 2000 ml Balance -800 ml Laboratory Data 24H LABS Laboratory Tests 2 05/16/18 17:00: Bedside Glucose (Misc Panel) 120H 05/16/18 20:14: Bedside Glucose (Misc Panel) 148H 05/17/18 06:30: Bedside Glucose (Misc Panel) 105 05/17/18 06:55: 05/17/18 12:24: Bedside Glucose (Misc Panel) 99 SIVAN PERDUE MD May 17, 2018 15:40
[2018-05-17 20:00] VITALS: BP 112/68
[2018-05-17] MEDS: ATORVASTATIN 20 MG TAB PO SCH (20:53)
[2018-05-17] MEDS: TAMSULOSIN 0.4 MG CAP PO SCH (20:53)
[2018-05-17] MEDS: SENNA 8.6 MG TAB (SENOKOT) PO SCH (20:55)
[2018-05-18 04:10] VITALS: BP 132/73
[2018-05-18] MEDS: PERCOCET 5MG/325MG TAB PO PRN ×5 (04:11→21:21)
[2018-05-18] MEDS: HEPARIN SOD (PORCINE) 5000 UNITS/ML VIAL SQ SCH ×3 (06:54→21:19)
[2018-05-18 07:11] LABS: HEMATOCRIT 36.9 % (42.0-52.0); HEMOGLOBIN 12.1 g/dl (13.5-17.5); MEAN CORPUSCULAR HEMOGLOBIN 28.3 pg (27.0-33.0); MEAN CORPUSCULAR HGB CONC 32.8 g/dl (32.0-36.5); MEAN CORPUSCULAR VOLUME 86.2 fl (80.0-96.0); PLATELET COUNT, AUTOMATED 332 10^3/uL (150-450); RED BLOOD COUNT 4.28 10^6/uL (4.30-6.10); WHITE BLOOD COUNT 7.8 10^3/uL (4.0-10.0)
[2018-05-18] MEDS: hydroCHLOROthiazide 25 MG TAB PO SCH (08:23)
[2018-05-18] MEDS: DOCUSATE SODIUM 100 MG CAP PO SCH ×2 (08:23→21:20)
[2018-05-18] MEDS: PANTOPRAZOLE 40MG TAB (PROTONIX) PO SCH (08:23)
[2018-05-18] MEDS: FERROUS GLUCONATE 324 MG TAB PO SCH ×3 (08:23→21:20)
[2018-05-18] MEDS: ASPIRIN 81 MG CHEW TABLET PO SCH (08:23)
[2018-05-18] MEDS: HumaLOG INSULIN (NovoLOG) PER UNIT SC SCH ×4 (08:26→21:00)
[2018-05-18] MEDS: LEVEMIR (INSULIN DETEMIR) 1 UNITS/0.01ML SC SCH ×2 (08:26→21:20)
[2018-05-18] MEDS: amLODIPine 10 MG TAB PO SCH (08:31)
[2018-05-18] MEDS: LISINOPRIL 20 MG TAB PO SCH (08:32)
[2018-05-18] MEDS: CARVedilol 3.125 MG TAB PO SCH ×2 (08:33→21:00)
--- NOTE | 2018-05-18 10:08 | IPNPDOC ---
Date Seen The patient was seen on 05/18/18. Progress Note HPI: 73M pmh PAD, DM, HTN, CKD, CVA with residual left sided weakness who developed worsening right foot pain and was evaluated at [facility] ED on 05/11/18 and found to have ischemia of the his limb for which a vascular consult was placed. He underwent an aortoiliofemoral arteriogram with right lower extremity runoff and placement of the thrombolysis catheter from right distal superficial femoral artery to right distal posterior tibial artery across popliteal/tibial occlusion. On 05/12/18 the TPA lysis catheter was removed and vascular surgery discussed need for BKA vs AKA as his right foot was not salvageable. His Plavix and ASA were held, on 05/13/18 he underwent a right BKA without significant complications and a knee immobilizer was placed. The pt was transferred to the care of ARU, Dr Durán, 05/15/18. The pt is currently working with PT. States pain has been reasonably controlled. No other concerns at si time. No acute medical complaints today. Denies any fevers, chills, weakness, fatigue, Headache, Chest Pain, Shortness of breath, cough, palpitations, abdominal pain, N/V/D or changes in bowel or bladder habits. PMH IDDM HTN HLD CKD CVA PAD BPH GERD PE: GEN: 73yoM, appears stated age. Well-nourished, well developed. No acute distress. Alert and oriented x 3. HEENT: Normocephalic, atraumatic. Sclera are nonicteric. Conjunctiva without injection. No facial asymmetry. Moist mucous membranes. CHEST: Regular rate and rhythm, +S1, +S2 LUNGS: Clear to auscultation bilaterally. No wheezes, rales, or rhonchi. Breathing appears symmetric and easy. ABD: Round, soft, non-tender, non-distended. +Bowel sounds throughout. EXT: Pulses palpable LLE. No lower extremity edema appreciated. Dressing intact BKA RLE. SKIN: [place], dry, warm. No rashes. NEURO: Alert and oriented x 3. No focal deficits appreciated. A&P: 73M pmh PAD, DM, HTN, CKD, CVA with residual left sided weakness who developed worsening right foot pain and was evaluated at [facility] ED on 05/11/18 and found to have ischemia of the his limb for which a vascular consult was placed. He underwent an aortoiliofemoral arteriogram with right lower extremity runoff and placement of the thrombolysis catheter from right distal superficial femoral artery to right distal posterior tibial artery across popliteal/tibial occlusion. On 05/12/18 the TPA lysis catheter was removed and vascular surgery discussed need for BKA vs AKA as his right foot was not salvageable. His Plavix and ASA were held, on 05/13/18 he underwent a right BKA without significant complications and a knee immobilizer was placed. The pt was transferred to the care of Dr Luis Armando NOEL, 05/15/18. 1. RLE Ischemia S/P BKA s/p Aortoiliofemoral arteriogram with RLE runoff with placement of thrombolysis catheter on 05/11 s/p s/p RLE arteriogram with removal of tPA lysis catheter with mynx closure of left EMERGENCY DOCTOR on 05/12 s/p RLE BKA with Vascular Surgery on 05/13/18 Cont to f/u with Vascular Surgery recommendations PT/OT as per Dr Luis Armando NOEL. pain control as per Dr Luis Armando NOEL. bowel care as per Dr Luis Armando NOEL. DVT prophylaxis as per Dr Luis Armando NOEL. SQ Heparin. Disposition as per Dr Luis Armando NOEL. 2. Chronic Kidney Disease Stage IIIA/B Serum Cr baseline is 1.5-1.6 according to outpatient records SCr 1.44. Cont current management 3. Diabetes Mellitus Cont reduced dose of basal insulin, 20 Units of Levemir BID (takes 70 Units BID at home) Cont SSI BS 99-177. monitor. 4. Hypertension Cont lisinopril, Norvasc, HCTZ 5. History of CVA Continue statin ASA, Plavix can be continued as per Vascular Surgery recommendations 6. Transaminitis likely 2/2 Hx of EtOH use Patient states that he drank anywhere from 4/5th oz of Whiskey to "a couple six packs of beer" per day since age 16 til age 69. Last drink was in 2004 Liver U/S with no acute findings Hepatitis panel pending CMP in AM. Cont to monitor LFTs and follow as outpatient 7. Dyslipidemia Continue statin 8. GERD Continue PPI 9. Anemia, Normocytic. Likely acute blood loss. Hgb stable, 12.1. Add fe studies, B12, folate. Monitor. CBC in Am. VS, I&O, 24H, Fishbone Vital Signs/I&O Vital Signs Date Time Temp Pulse Resp B/P (MAP) Pulse Ox O2 Delivery O2 Flow Rate FiO2 05/18/18 08:33 67 05/18/18 08:31 129/67 05/18/18 08:24 18 05/18/18 04:10 98.3 92 I&O- Last 24 Hours up to 6 AM 05/18/18 06:00 Intake Total 1280 ml Output Total 2050 ml Balance -770 ml Laboratory Data 24H LABS Laboratory Tests 2 05/17/18 12:24: Bedside Glucose (Misc Panel) 99 05/17/18 16:53: Bedside Glucose (Misc Panel) 136H 05/17/18 19:48: Bedside Glucose (Misc Panel) 177H 05/18/18 04:11: Bedside Glucose (Misc Panel) 137H 05/18/18 07:02: Nucleated Red Blood Cells % (auto) 0.0 CBC/BMP Laboratory Tests 05/18/18 07:02 Red Blood Count 4.28 L, Mean Corpuscular Volume 86.2, Mean Corpuscular Hemoglo bin 28.3, Mean Corpuscular Hemoglobin Concent 32.8, Red Cell Distribution Width 13.2 Paty Franco May 18, 2018 10:08
[2018-05-18] MEDS: IPRATROPIUM 0.5MG/ALBUTEROL 2.5MG INH SOL UD 3ML (DUONEB)(J7620) NEB SCH ×2 (10:30→20:03)
[2018-05-18 11:21] LABS: HEPATITIS B SURFACE ANTIBODY NEGATIVE (POSITIVE); HEPATITIS B SURFACE ANTIGEN NEGATIVE (NEGATIVE); HEPATITIS C VIRUS ABY INDEX < 0.0 INDEX (<0.8)
[2018-05-18 14:00] VITALS: BP 111/61
[2018-05-18 20:00] VITALS: BP 131/71
[2018-05-18] MEDS: SENNA 8.6 MG TAB (SENOKOT) PO SCH (21:20)
[2018-05-18] MEDS: diazePAM 5 MG TAB PO PRN (21:20)
[2018-05-18] MEDS: TAMSULOSIN 0.4 MG CAP PO SCH (21:20)
[2018-05-18] MEDS: ATORVASTATIN 20 MG TAB PO SCH (21:20)
[2018-05-19] MEDS: PERCOCET 5MG/325MG TAB PO PRN ×4 (01:36→16:05)
[2018-05-19 06:00] VITALS: BP 114/66
[2018-05-19] MEDS: diazePAM 5 MG TAB PO PRN ×2 (06:07→20:40)
[2018-05-19] MEDS: HEPARIN SOD (PORCINE) 5000 UNITS/ML VIAL SQ SCH ×3 (06:07→20:41)
[2018-05-19 07:03] LABS: HEMATOCRIT 36.5 % (42.0-52.0); HEMOGLOBIN 11.8 g/dl (13.5-17.5); MEAN CORPUSCULAR HEMOGLOBIN 28.2 pg (27.0-33.0); MEAN CORPUSCULAR HGB CONC 32.3 g/dl (32.0-36.5); MEAN CORPUSCULAR VOLUME 87.3 fl (80.0-96.0); PLATELET COUNT, AUTOMATED 361 10^3/uL (150-450); RED BLOOD COUNT 4.18 10^6/uL (4.30-6.10); WHITE BLOOD COUNT 7.1 10^3/uL (4.0-10.0)
[2018-05-19] MEDS: HumaLOG INSULIN (NovoLOG) PER UNIT SC SCH ×4 (07:30→20:41)
[2018-05-19 07:33] LABS: ALBUMIN 2.3 GM/DL (3.2-5.2); BILIRUBIN,TOTAL 0.6 MG/DL (0.2-1.0); CALCIUM LEVEL 7.9 MG/DL (8.8-10.2); CREATININE FOR GFR 1.44 MG/DL (0.70-1.30); GLOMERULAR FILTRATION RATE 51.5 (>42); PERCENT SATURATION 19.3 % (19.7-50.0); POTASSIUM SERUM 4.4 MEQ/L (3.5-5.1); TOTAL PROTEIN 5.3 GM/DL (6.4-8.2)
[2018-05-19 08:55] LABS: FOLATE 13.5 NG/ML (>5.4)
[2018-05-19] MEDS: LEVEMIR (INSULIN DETEMIR) 1 UNITS/0.01ML SC SCH ×2 (09:00→20:41)
[2018-05-19] MEDS: FERROUS GLUCONATE 324 MG TAB PO SCH ×3 (09:01→20:39)
[2018-05-19] MEDS: LISINOPRIL 20 MG TAB PO SCH (09:01)
[2018-05-19] MEDS: hydroCHLOROthiazide 25 MG TAB PO SCH (09:01)
[2018-05-19] MEDS: amLODIPine 10 MG TAB PO SCH (09:01)
[2018-05-19] MEDS: CARVedilol 3.125 MG TAB PO SCH ×2 (09:02→20:40)
[2018-05-19] MEDS: ASPIRIN 81 MG CHEW TABLET PO SCH (09:02)
[2018-05-19] MEDS: DOCUSATE SODIUM 100 MG CAP PO SCH ×2 (09:02→20:39)
[2018-05-19] MEDS: PANTOPRAZOLE 40MG TAB (PROTONIX) PO SCH (09:02)
[2018-05-19] MEDS: IPRATROPIUM 0.5MG/ALBUTEROL 2.5MG INH SOL UD 3ML (DUONEB)(J7620) NEB SCH ×2 (09:30→20:16)
--- NOTE | 2018-05-19 12:05 | IPNPDOC ---
Date Seen The patient was seen on 05/19/18. Progress Note HPI: 73M pmh PAD, DM, HTN, CKD, CVA with residual left sided weakness who developed worsening right foot pain and was evaluated at [facility] ED on 05/11/18 and found to have ischemia of the his limb for which a vascular consult was placed. He underwent an aortoiliofemoral arteriogram with right lower extremity runoff and placement of the thrombolysis catheter from right distal superficial femoral artery to right distal posterior tibial artery across popliteal/tibial occlusion. On 05/12/18 the TPA lysis catheter was removed and vascular surgery discussed need for BKA vs AKA as his right foot was not salvageable. His Plavix and ASA were held, on 05/13/18 he underwent a right BKA without significant co mplications and a knee immobilizer was placed. The pt was transferred to the care of [facility], Dr Durán, 05/15/18. The pt is currently OOB to chair. States is currently having some pain after activity, no other concerns at this time. No acute medical complaints today. Denies any fevers, chills, weakness, fatigue, Headache, Chest Pain, Shortness of breath, cough, palpitations, abdominal pain, N/V/D or changes in bowel or bladder habits. PMH IDDM HTN HLD CKD CVA PAD BPH GERD PE: GEN: 73yoM, appears stated age. Well-nourished, well developed. No acute distress. Alert and oriented x 3. HEENT: Normocephalic, atraumatic. Sclera are nonicteric. Conjunctiva without injection. No facial asymmetry. Moist mucous membranes. CHEST: Regular rate and rhythm, +S1, +S2 LUNGS: Clear to auscultation bilaterally. No wheezes, rales, or rhonchi. Breathing appears symmetric and easy. ABD: Round, soft, non-tender, non-distended. +Bowel sounds throughout. EXT: Pulses palpable LLE. No lower extremity edema appreciated. Dressing intact BKA RLE. SKIN: [place], dry, warm. No rashes. NEURO: Alert and oriented x 3. No focal deficits appreciated. A&P: 73M pmh PAD, DM, HTN, CKD, CVA with residual left sided weakness who developed worsening right foot pain and was evaluated at [facility] ED on 05/11/18 and found to have ischemia of the his limb for which a vascular consult was placed. He underwent an aortoiliofemoral arteriogram with right lower extremity runoff and placement of the thrombolysis catheter from right distal superficial femoral artery to right distal posterior tibial artery across popliteal/tibial occlusion. On 05/12/18 the TPA lysis catheter was removed and vascular surgery discussed need for BKA vs AKA as his right foot was not salvageable. His Plavix and ASA were held, on 05/13/18 he underwent a right BKA without significant complications and a knee immobilizer was placed. The pt was transferred to the care of Dr Luis Armando NOEL, 05/15/18. 1. RLE Ischemia S/P BKA s/p Aortoiliofemoral arteriogram with RLE runoff with placement of thrombolysis catheter on 05/11 s/p s/p RLE arteriogram with removal of tPA lysis catheter with mynx closure of left [employer] [place] on 05/12 s/p RLE BKA with Vascular Surgery on 05/13/18 Cont to f/u with Vascular Surgery recommendations PT/OT as per Dr Luis Armando NOEL. pain control as per Dr Luis Armando NOEL. bowel care as per Dr Luis Armando NOEL. DVT prophylaxis as per Dr Luis Armando NOEL. SQ Heparin. Disposition as per Dr Luis Armando NOEL. 2. Chronic Kidney Disease Stage IIIA/B Serum Cr baseline is 1.5-1.6 according to outpatient records SCr 1.44. stable. Cont current management 3. Diabetes Mellitus Cont reduced dose of basal insulin, 20 Units of Levemir BID (takes 70 Units BID at home) Cont SSI BS [id number]. monitor. 4. Hypertension Cont lisinopril, Norvasc, HCTZ 5. History of CVA Continue statin ASA, Plavix can be continued as per Vascular Surgery recommendations 6. Transaminitis likely 2/2 Hx of EtOH use Patient states that he drank anywhere from 4/5th oz of Whiskey to "a couple six packs of beer" per day since age 16 til age 69. Last drink was in 2004 Liver U/S with no acute findings Hepatitis panel negative Monitor CMP, trend downward. Cont to monitor LFTs and follow as outpatient 7. Dyslipidemia Continue statin 8. GERD Continue PPI 9. Anemia, Normocytic. Likely acute blood loss/chronic disease. Hgb stable, 11.8. fe studies, B12, folate noted. Monitor. CBC 05/21/18. VS, I&O, 24H, Fishbone Vital Signs/I&O Vital Signs Date Time Temp Pulse Resp B/P (MAP) Pulse Ox O2 Delivery O2 Flow Rate FiO2 05/19/18 10:53 18 05/19/18 09:01 60 114/66 05/19/18 06:00 98.8 94 I&O- Last 24 Hours up to 6 AM 05/19/18 06:00 Intake Total 1340 ml Output Total 2775 ml Balance -1435 ml Laboratory Data 24H LABS Laboratory Tests 2 05/18/18 16:53: Bedside Glucose (Misc Panel) 144H 05/18/18 20:08: Bedside Glucose (Misc Panel) 126H 05/19/18 06:28: Bedside Glucose (Misc Panel) 95 05/19/18 06:40: Nucleated Red Blood Cells % (auto) 0.0, Anion Gap 7L, Glomerular Filtration Rate 51.5, Blood Urea Nitrogen 26H, Creatinine 1.44H, Sodium Level 138, Potassium Level 4.4, Chloride Level 104, Carbon Dioxide Level 27, Calcium Level 7.9L, Aspartate Amino Transf (AST/SGOT) 72H, Alanine Aminotransferase (ALT/SGPT) 77, Alkaline Phosphatase 246H, Total Bilirubin 0.6, Total Protein 5.3L, Albumin 2.3L, Iron Level 40L, Total Iron Binding Capacity 207L, Transferrin % Saturation 19.3L, Ferritin 714H, Albumin/Globulin Ratio 0.77L, Vitamin B12 Level 387, Folate 13.5 05/19/18 11:14: Bedside Glucose (Misc Panel) 207H CBC/BMP Laboratory Tests 05/19/18 06:40 Red Blood Count 4.18 L, Mean Corpuscular Volume 87.3, Mean Corpuscular Hemoglobin 28.2, Mean Corpuscular Hemoglobin Concent 32.3, Red Cell Distribution Width 13.2, Calcium Level 7.9 L, Aspartate Amino Transf (AST/SGOT) 72 H, Alanine Aminotransferase (ALT/SGPT) 77, Alkaline Phosphatase 246 H, Total Bilirubin 0.6, Total Protein 5.3 L, Albumin 2.3 L Paty Franco May 19, 2018 12:05
[2018-05-19 14:00] VITALS: BP 109/63
--- NOTE | 2018-05-19 19:13 | IPNPDOC ---
PM&R Progress Note DATE OF SERVICE: May 18, 2018 Clerk Entry Level Progress Note Subjective: Patient reports he feels better breathing with nebulizer treatments. He has significant pain in his limb worse with dressing changes. He was educated about importance of desensitization. REVIEW OF SYSTEMS: The following is a completed review of systems and has been reviewed. Review of systems otherwise unremarkable. PAIN: Patient self reports right residual limb pain EYES: Negative for recent vision changes. EARS, NOSE, & THROAT: denies rhinorrhea or throat pain CARDIOVASCULAR: denies chest pain or palpitations PULMONARY: Negative. 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 PHYSICAL EXAMINATION: VITAL SIGNS: Please see below. GENERAL: Pleasant and cooperative. No acute distress. HEENT: PERRL. Extraocular movements intact. Clear conjunctiva CARDIOVASCULAR: Regular rate and rhythm. No murmurs, rubs, or gallops LUNGS: mostly Clear to auscultation bilaterally with bilateral apical wheezes. No rhonchi/crackles ABDOMEN: Soft, nontender, nondistended. Positive bowel sounds. Normal active bowel sounds. NEUROLOGICAL: Alert and oriented times three. Cranial nerves II through XII grossly intact. Sensation grossly intact. EXTREMITIES: 5\5 strength bilateral upper extremities.5-\5 strength right hip flexors knee extensors and knee flexors. 5-/5 strength in left lower extremity. SKIN: right residual limb incision with william and sutures, c/d/i mild erythema, blanchable circular erythematous area over tibial plateau ASSESSMENT:73-year-old M with past medical history of PAD who presents status post right BKA PLAN: 1. Rehab: PT/OT assess for DMEs, maintain knee extension, patient instructed to avoid keeping head of bed up to prevent hip flexion contracture 2. Neuro; pmh stroke with left sided residual weakness, c/u ASA and statin for secondary stroke prevention 3. Cardio: PAD s/p right BKA- Plavix on hold for 1-2 weeks post-op as discussed with vascular surgeon, will c/u ASA pmh- HTn c/u BP meds, medicine consulted 4. Resp: wheeze resolved, c/u duonebs, incentive spirometry and monitor for infection 5. Endo: DM continue insulin coverage 6. GI ppx: protonix 7. DVT ppx: c/u heparin 8. Pain: c/u valium and percocet 9. : admission UA and Ucx negative, continue flomax for BPH 10. Skin: daily dressing changes, monitor for infection-will avoid [employer] ortho tic at this time as suspect friction at tibial plateau against strap as orthotic is slightly too large for limb 10. Dispo: TBD Allergies Coded Allergies: No Known Allergies (Unverified , 07/06/14) Vital Signs Vital Signs Date Time Temp Pulse Resp B/P (MAP) Pulse Ox O2 Delivery O2 Flow Rate FiO2 05/19/18 16:35 18 05/19/18 14:00 97.5 63 109/63 (78) 95 Laboratory Data CBC/BMP Laboratory Tests 05/19/18 06:40 Red Blood Count 4.18 L, Mean Corpuscular Volume 87.3, Mean Corpuscular Hemoglobin 28.2, Mean Corpuscular Hemoglobin Concent 32.3, Red Cell Distribution Width 13.2, Calcium Level 7.9 L, Aspartate Amino Transf (AST/SGOT) 72 H, Alanine Aminotransferase (ALT/SGPT) 77, Alkaline Phosphatase 246 H, Total Bilirubin 0.6, Total Protein 5.3 L, Albumin 2.3 L Labs 24H Laboratory Tests 2 05/18/18 20:08: Bedside Glucose (Misc Panel) 126H 05/19/18 06:28: Bedside Glucose (Misc Panel) 95 05/19/18 06:40: Nucleated Red Blood Cells % (auto) 0.0, Anion Gap 7L, Glomerular Filtration Rate 51.5, Blood Urea Nitrogen 26H, Creatinine 1.44H, Sodium Level 138, Potassium Level 4.4, Chloride Level 104, Carbon Dioxide Level 27, Calcium Level 7.9L, Aspartate Amino Transf (AST/SGOT) 72H, Alanine Aminotransferase (ALT/SGPT) 77, Alkaline Phosphatase 246H, Total Bilirubin 0.6, Total Protein 5.3L, Albumin 2.3L, Iron Level 40L, Total Iron Binding Capacity 207L, Transferrin % Saturation 19.3L, Ferritin 714H, Albumin/Globulin Ratio 0.77L, Vitamin B12 Level 387, Folate 13.5 05/19/18 11:14: Bedside Glucose (Misc Panel) 207H 05/19/18 16:28: Bedside Glucose (Misc Panel) 97 Current Medications Current Medications Current Medications Acetaminophen (Tylenol Tab) 650 mg DAILYPRN PRN PO fever/MILD PAIN (PS 1-4); Start 05/15/18 at 18:45 Albuterol/ Ipratropium (Duoneb (Ipr 0.5mg/Alb 2.5mg)) 3 ml RBID NEB Last administered on 05/18/18 20:03; Start 05/15/18 at 20:00 Amlodipine Besylate (Norvasc) 10 mg DAILY PO Last administered on 05/19/18 09:01; Start 05/16/18 at 09:00 Aspirin (Aspirin Chewable) 81 mg DAILY PO Last administered on 05/19/18 09:02; Start 05/16/18 at 09:00 Atorvastatin Calcium (Lipitor) 80 mg QHS PO Last administered on 05/18/18 21:20; Start 05/15/18 at 21:00 Bisacodyl (Dulcolax Suppository) 10 mg DAILYPRN PRN [place] CONSTIPATION; Start 05/15/18 at 18:45 Carvedilol (COReg) 3.125 mg BID PO Last administered on 05/19/18 09:02; Start 05/15/18 at 21:00 Dextrose (Dextrose 50%) 25 ml ASDIRECTED PRN IV SEE LABEL COMMENTS; Start 05/15/18 at 19:00 Diazepam (Valium) 10 mg Q6HP PRN PO SPASMS Last administered on 05/19/18 06:07; Start 05/15/18 at 19:00 Docusate Sodium (Colace) 100 mg BID PO Last administered on 05/19/18 09:02; Start 05/15/18 at 21:00 Ferrous Gluconate (Fergon) 324 mg TID PO Last administered on 05/19/18 16:05; Start 05/15/18 at 21:00 Glucagon (Glucagon) 1 mg ASDIRECTED PRN SC SEE LABEL COMMENTS; Start 05/15/18 at 19:00 Glucose (Glucose) 16 GM ASDIRECTED PRN PO SEE LABEL COMMENTS; Start 05/15/18 at 19:00 Heparin Sodium (Porcine) (Heparin) 5,000 units Q8H SQ Last administered on 05/19/18 13:38; Start 05/15/18 at 22:00 Hydrochlorothiazide (Hydrodiuril) 25 mg DAILY PO Last administered on 05/19/18 09:01; Start 05/16/18 at 09:00 Insulin Detemir (Levemir Insulin) 20 units BID SC Last administered on 05/19/18 09:00; Start 05/15/18 at 21:00 Insulin Human Lispro (HumaLOG INSULIN) SEE PROTOCOL TABLE AC SC Last administered on 05/19/18 13:38; Start 05/16/18 at 07:30 Insulin Human Lispro (HumaLOG INSULIN) SEE PROTOCOL TABLE QHS SC ; Start 05/15/18 at 21:00 Lisinopril (Prinivil) 20 mg DAILY PO Last administered on 05/19/18 09:01; Start 05/16/18 at 09:00 Ondansetron HCl (Zofran) 4 mg Q6HP PRN PO NAUSEA; Start 05/15/18 at 18:45 Oxycodone/ Acetaminophen (Percocet 5mg/ 325mg Tablet) 1 tab Q4HP PRN PO MILD/MODERATE PAIN (PS 1-7); Start 05/15/18 at 19:00 Oxycodone/ Acetaminophen (Percocet 5mg/ 325mg Tablet) 2 tab Q4HP PRN PO SEVERE PAIN (PS 8-10) Last administered on 05/19/18 16:05; Start 05/15/18 at 19:00 Pantoprazole Sodium (Protonix) 40 mg DAILY PO Last administered on 05/19/18 09:02; Start 05/16/18 at 09:00 Senna (Senokot) 1 tab QHS PO Last administered on 05/18/18 21:20; Start 05/15/18 at 21:00 Tamsulosin HCl (Flomax) 0.4 mg QHS PO Last administered on 05/18/18 21:20; Start 05/15/18 at 21:00 ADRIANA HUFF MD May 19, 2018 19:13
--- NOTE | 2018-05-19 19:15 | IPNPDOC ---
PM&R Progress Note DATE OF SERVICE: May 19, 2018 Service Representative Progress Note Subjective: Patient reports he woke up last night and was unable to fal back to sleep as he had a throbbing pain in his right leg. REVIEW OF SYSTEMS: The following is a completed review of systems and has been reviewed. Review of systems otherwise unremarkable. PAIN: Patient self reports right residual limb pain EYES: Negative for recent vision changes. EARS, NOSE, & THROAT: denies rhinorrhea or throat pain CARDIOVASCULAR: denies chest pain or palpitations PULMONARY: Negative. 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 PHYSICAL EXAMINATION: VITAL SIGNS: Please see below. GENERAL: Pleasant and cooperative. No acute distress. HEENT: PERRL. Extraocular movements intact. Clear conjunctiva CARDIOVASCULAR: Regular rate and rhythm. No murmurs, rubs, or gallops LUNGS: mostly Clear to auscultation bilaterally with bilateral apical wheezes. No rhonchi/crackles ABDOMEN: Soft, nontender, nondistended. Positive bowel sounds. Normal active bowel sounds. NEUROLOGICAL: Alert and oriented times three. Cranial nerves II through XII grossly intact. Sensation grossly intact. EXTREMITIES: 5\5 strength bilateral upper extremities.5-\5 strength right hip flexors knee extensors and knee flexors. 5-/5 strength in left lower extremity. SKIN: right residual limb incision with william and sutures, c/d/i mild erythema, blanchable circular erythematous area over tibial plateau ASSESSMENT:73-year-old M with past medical history of PAD who presents status post right BKA PLAN: 1. Rehab: PT/OT assess for DMEs, maintain knee extension, patient instructed to avoid keeping head of bed up to prevent hip flexion contracture- sponge bath only as left ankle bracelet cannot be submerged in water 2. Neuro; pmh stroke with left sided residual weakness, c/u ASA and statin for secondary stroke prevention 3. Cardio: PAD s/p right BKA- Plavix on hold for 1-2 weeks post-op as discussed with vascular surgeon, will c/u ASA pmh- HTn c/u BP meds, medicine consulted 4. Resp: wheeze resolved, c/u duonebs, incentive spirometry and monitor for infection 5. Endo: DM continue insulin coverage 6. GI ppx: protonix 7. DVT ppx: c/u heparin 8. Pain: c/u valium and will change percocet to oxycodone, will add evening Tylenol and Gabapentin for nocturnal pain 9. : admission UA and Ucx negative, continue flomax for BPH 10. Skin: daily dressing changes, monitor for infection-will avoid [place] orthotic at this time as suspect friction at tibial plateau against strap as orthotic is slightly too large for limb 10. Dispo: TBD Allergies Coded Allergies: No Known Allergies (Unverified , 07/06/14) Vital Signs Vital Signs Date Time Temp Pulse Resp B/P (MAP) Pulse Ox O2 Delivery O2 Flow Rate FiO2 05/19/18 16:35 18 05/19/18 14:00 97.5 63 109/63 (78) 95 Laboratory Data CBC/BMP Laboratory Tests 05/19/18 06:40 Red Blood Count 4.18 L, Mean Corpuscular Volume 87.3, Mean Corpuscular Hemoglobin 28.2, Mean Corpuscular Hemoglobin Concent 32.3, Red Cell Distribution Width 13.2, Calcium Level 7.9 L, Aspartate Amino Transf (AST/SGOT) 72 H, Alanine Aminotransferase (ALT/SGPT) 77, Alkaline Phosphatase 246 H, Total Bilirubin 0.6, Total Protein 5.3 L, Albumin 2.3 L Labs 24H Laboratory Tests 2 05/18/18 20:08: Bedside Glucose (Misc Panel) 126H 05/19/18 06:28: Bedside Glucose (Misc Panel) 95 05/19/18 06:40: Nucleated Red Blood Cells % (auto) 0.0, Anion Gap 7L, Glomerular Filtration Rate 51.5, Blood Urea Nitrogen 26H, Creatinine 1.44H, Sodium Level 138, Potassium Level 4.4, Chloride Level 104, Carbon Dioxide Level 27, Calcium Level 7.9L, Aspartate Amino Transf (AST/SGOT) 72H, Alanine Aminotransferase (ALT/SGPT) 77, Alkaline Phosphatase 246H, Total Bilirubin 0.6, Total Protein 5.3L, Albumin 2.3L, Iron Level 40L, Total Iron Binding Capacity 207L, Transferrin % Saturation 19.3L, Ferritin 714H, Albumin/Globulin Ratio 0.77L, Vitamin B12 Level 387, Folate 13.5 05/19/18 11:14: Bedside Glucose (Misc Panel) 207H 05/19/18 16:28: Bedside Glucose (Misc Panel) 97 Current Medications Current Medications Current Medications Acetaminophen (Tylenol Tab) 650 mg DAILYPRN PRN PO fever/MILD PAIN (PS 1-4); Start 05/15/18 at 18:45 Albuterol/ Ipratropium (Duoneb (Ipr 0.5mg/Alb 2.5mg)) 3 ml RBID NEB Last administered on 05/18/18 20:03; Start 05/15/18 at 20:00 Amlodipine Besylate (Norvasc) 10 mg DAILY PO Last administered on 05/19/18 09:01; Start 05/16/18 at 09:00 Aspirin (Aspirin Chewable) 81 mg DAILY PO Last administered on 05/19/18 09:02; Start 05/16/18 at 09:00 Atorvastatin Calcium (Lipitor) 80 mg QHS PO Last administered on 05/18/18 21:20; Start 05/15/18 at 21:00 Bisacodyl (Dulcolax Suppository) 10 mg DAILYPRN PRN [place] CONSTIPATION; Start 05/15/18 at 18:45 Carvedilol (COReg) 3.125 mg BID PO Last administered on 05/19/18 09:02; Start 05/15/18 at 21:00 Dextrose (Dextrose 50%) 25 ml ASDIRECTED PRN IV SEE LABEL COMMENTS; Start 05/15/18 at 19:00 Diazepam (Valium) 10 mg Q6HP PRN PO SPASMS Last administered on 05/19/18 06:07; Start 05/15/18 at 19:00 Docusate Sodium (Colace) 100 mg BID PO Last administered on 05/19/18 09:02; Start 05/15/18 at 21:00 Ferrous Gluconate (Fergon) 324 mg TID PO Last administered on 05/19/18 16:05; Start 05/15/18 at 21:00 Glucagon (Glucagon) 1 mg ASDIRECTED PRN SC SEE LABEL COMMENTS; Start 05/15/18 at 19:00 Glucose (Glucose) 16 GM ASDIRECTED PRN PO SEE LABEL COMMENTS; Start 05/15/18 at 19:00 Heparin Sodium (Porcine) (Heparin) 5,000 units Q8H SQ Last administered on 05/19/18 13:38; Start 05/15/18 at 22:00 Hydrochlorothiazide (Hydrodiuril) 25 mg DAILY PO Last administered on 05/19/18 09:01; Start 05/16/18 at 09:00 Insulin Detemir (Levemir Insulin) 20 units BID SC Last administered on 05/19/18 09:00; Start 05/15/18 at 21:00 Insulin Human Lispro (HumaLOG INSULIN) SEE PROTOCOL TABLE AC SC Last administered on 05/19/18 13:38; Start 05/16/18 at 07:30 Insulin Human Lispro (HumaLOG INSULIN) SEE PROTOCOL TABLE QHS SC ; Start 05/15/18 at 21:00 Lisinopril (Prinivil) 20 mg DAILY PO Last administered on 05/19/18 09:01; Start 05/16/18 at 09:00 Ondansetron HCl (Zofran) 4 mg Q6HP PRN PO NAUSEA; Start 05/15/18 at 18:45 Oxycodone/ Acetaminophen (Percocet 5mg/ 325mg Tablet) 1 tab Q4HP PRN PO MILD/MODERATE PAIN (PS 1-7); Start 05/15/18 at 19:00 Oxycodone/ Acetaminophen (Percocet 5mg/ 325mg Tablet) 2 tab Q4HP PRN PO SEVERE PAIN (PS 8-10) Last administered on 05/19/18 16:05; Start 05/15/18 at 19:00 Pantoprazole Sodium (Protonix) 40 mg DAILY PO Last administered on 05/19/18 09:02; Start 05/16/18 at 09:00 Senna (Senokot) 1 tab QHS PO Last administered on 05/18/18 21:20; Start 05/15/18 at 21:00 Tamsulosin HCl (Flomax) 0.4 mg QHS PO Last administered on 05/18/18 21:20; Start 05/15/18 at 21:00 ADRIANA HUFF MD May 19, 2018 19:15
[2018-05-19 20:00] VITALS: BP 110/65
[2018-05-19] MEDS: oxyCODONE 5MG TAB PO PRN (20:39)
[2018-05-19] MEDS: ATORVASTATIN 20 MG TAB PO SCH (20:40)
[2018-05-19] MEDS: SENNA 8.6 MG TAB (SENOKOT) PO SCH (20:40)
[2018-05-19] MEDS: TAMSULOSIN 0.4 MG CAP PO SCH (20:40)
[2018-05-19] MEDS ORDERED: GABAPENTIN 300 MG CAP PO SCH (21:00)
[2018-05-20] MEDS: oxyCODONE 5MG TAB PO PRN ×4 (01:28→21:36)
[2018-05-20 06:00] VITALS: BP 109/57
[2018-05-20] MEDS: diazePAM 5 MG TAB PO PRN ×3 (06:03→21:36)
[2018-05-20] MEDS: HEPARIN SOD (PORCINE) 5000 UNITS/ML VIAL SQ SCH ×3 (06:03→21:37)
[2018-05-20] MEDS: ACETAMINOPHEN 500 MG TAB PO SCH ×3 (06:03→21:36)
[2018-05-20] MEDS: IPRATROPIUM 0.5MG/ALBUTEROL 2.5MG INH SOL UD 3ML (DUONEB)(J7620) NEB SCH ×2 (07:24→20:00)
[2018-05-20] MEDS: DOCUSATE SODIUM 100 MG CAP PO SCH ×2 (09:00→21:36)
[2018-05-20] MEDS: LISINOPRIL 20 MG TAB PO SCH (09:19)
[2018-05-20] MEDS: amLODIPine 10 MG TAB PO SCH (09:19)
[2018-05-20] MEDS: hydroCHLOROthiazide 25 MG TAB PO SCH (09:20)
[2018-05-20] MEDS: CARVedilol 3.125 MG TAB PO SCH ×2 (09:20→21:00)
[2018-05-20] MEDS: ASPIRIN 81 MG CHEW TABLET PO SCH (09:20)
[2018-05-20] MEDS: PANTOPRAZOLE 40MG TAB (PROTONIX) PO SCH (09:21)
[2018-05-20] MEDS: FERROUS GLUCONATE 324 MG TAB PO SCH ×3 (09:21→21:36)
[2018-05-20] MEDS: HumaLOG INSULIN (NovoLOG) PER UNIT SC SCH ×4 (09:22→21:00)
[2018-05-20] MEDS: LEVEMIR (INSULIN DETEMIR) 1 UNITS/0.01ML SC SCH ×2 (09:23→21:37)
--- NOTE | 2018-05-20 12:12 | IPNPDOC ---
Date Seen The patient was seen on 05/20/18. Progress Note HPI: 73M pmh PAD, DM, HTN, CKD, CVA with residual left sided weakness who developed worsening right foot pain and was evaluated at [facility] ED on 05/11/18 and found to have ischemia of the his limb for which a vascular consult was placed. He underwent an aortoiliofemoral arteriogram with right lower extremity runoff and placement of the thrombolysis catheter from right distal superficial femoral artery to right distal posterior tibial artery across popliteal/tibial occlusion. On 05/12/18 the TPA lysis catheter was removed and vascular surgery discussed need for BKA vs AKA as his right foot was not salvageable. His Plavix and ASA were held, on 05/13/18 he underwent a right BKA without significant complications and a knee immobilizer was placed. The pt was transferred to the care of ARU, Dr Durán, 05/15/18. The pt is currently in bed after therapy. States is currently having some pain after activity, no other concerns at this time. No acute medical complaints today. Denies any fevers, chills, weakness, fatigue, Headache, Chest Pain, Shortness of breath, cough, palpitations, abdominal pain, N/V/D or changes in bowel or bladder habits. PMH IDDM HTN HLD CKD CVA PAD BPH GERD PE: GEN: 73yoM, appears stated age. Well-nourished, well developed. No acute distress. Alert and oriented x 3. HEENT: Normocephalic, atraumatic. Sclera are nonicteric. Conjunctiva without injection. Moist mucous membranes. CHEST: Regular rate and rhythm, +S1, +S2 LUNGS: Clear to auscultation bilaterally. No wheezes, rales, or rhonchi. Breathing appears symmetric and easy. ABD: Round, soft, non-tender, non-distended. +Bowel sounds throughout. EXT: Pulses palpable LLE. No lower extremity edema appreciated. Dressing intact BKA RLE. SKIN: [place], dry, warm. No rashes. NEURO: Alert and oriented x 3. No focal deficits appreciated. A&P: 73M pmh PAD, DM, HTN, CKD, CVA with residual left sided weakness who developed worsening right foot pain and was evaluated at [facility] ED on 05/11/18 and found to have ischemia of the his limb for which a vascular consult was placed. He underwent an aortoiliofemoral arteriogram with right lower extremity runoff and placement of the thrombolysis catheter from right distal superficial femoral artery to right distal posterior tibial artery across popliteal/tibial occlusion. On 05/12/18 the TPA lysis catheter was removed and vascular surgery discussed need for BKA vs AKA as his right foot was not salvageable. His Plavix and ASA were held, on 05/13/18 he underwent a right BKA without significant complications and a knee immobilizer was placed. The pt was transferred to the care of Dr Luis Armando NOEL, 05/15/18. 1. RLE Ischemia S/P BKA s/p Aortoiliofemoral arteriogram with RLE runoff with placement of thrombolysis catheter on 05/11 s/p s/p RLE arteriogram with removal of tPA lysis catheter with mynx closure of left [employer] on 05/12 s/p RLE BKA with Vascular Surgery on 05/13/18 Cont to f/u with Vascular Surgery recommendations PT/OT as per Dr Luis Armando NOEL. pain control as per Dr Luis Armando NOEL. bowel care as per Dr Luis Armando NOEL. DVT prophylaxis as per Dr Luis Armando NOEL. SQ Heparin. Disposition as per Dr Luis Armando NOEL. 2. Chronic Kidney Disease Stage IIIA/B Serum Cr baseline is 1.5-1.6 according to outpatient records SCr 1.44. stable. Cont current management 3. Diabetes Mellitus Cont reduced dose of basal insulin, 20 Units of Levemir BID (takes 70 Units BID at home) Cont SSI BS 97-207. monitor. 4. Hypertension Cont lisinopril, Norvasc, HCTZ 5. History of CVA Continue statin ASA, Plavix can be continued as per Vascular Surgery recommendations 6. Transaminitis likely 2/2 Hx of EtOH use Patient states that he drank anywhere from 4/5th oz of Whiskey to "a couple six packs of beer" per day since age 16 til age 69. Last drink was in 2004 Liver U/S with no acute findings Hepatitis panel negative Monitor. Cont to monitor LFTs and follow as outpatient 7. Dyslipidemia Continue statin 8. GERD Continue PPI 9. Anemia, Normocytic. Likely acute blood loss/chronic disease. Hgb stable, 11.8. fe studies, B12, folate noted. Monitor. CBC 05/21/18. VS, I&O, 24H, Fishbone Vital Signs/I&O Vital Signs Date Time Temp Pulse Resp B/P (MAP) Pulse Ox O2 Delivery O2 Flow Rate FiO2 05/20/18 09:20 73 121/65 05/20/18 06:34 16 05/20/18 06:00 97.0 93 I&O- Last 24 Hours up to 6 AM 05/20/18 06:00 Intake Total 1480 ml Output Total 2125 ml Balance -645 ml Laboratory Data 24H LABS Laboratory Tests 2 05/19/18 16:28: Bedside Glucose (Misc Panel) 97 05/19/18 20:15: Bedside Glucose (Misc Panel) 180H 05/20/18 07:00: Bedside Glucose (Misc Panel) 106 05/20/18 11:32: Bedside Glucose (Misc Panel) 160H Paty Franco May 20, 2018 12:12
--- NOTE | 2018-05-20 12:23 | IPNPDOC ---
PM&R Progress Note DATE OF SERVICE: May 20, 2018 [employer] Progress Note Subjective: Patient seen in therapy stating he slept better last night with the Gabapentin and feels his pain is open to trying Gabapentin during the day. REVIEW OF SYSTEMS: The following is a completed review of systems and has been reviewed. Review of systems otherwise unremarkable. PAIN: Patient self reports right residual limb pain EYES: Negative for recent vision changes. EARS, NOSE, & THROAT: denies rhinorrhea or throat pain CARDIOVASCULAR: denies chest pain or palpitations PULMONARY: Negative. 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 PHYSICAL EXAMINATION: VITAL SIGNS: Please see below. GENERAL: Pleasant and cooperative. No acute distress. HEENT: PERRL. Extraocular movements intact. Clear conjunctiva CARDIOVASCULAR: Regular rate and rhythm. No murmurs, rubs, or gallops LUNGS: mostly Clear to auscultation bilaterally with bilateral apical wheezes. No rhonchi/crackles ABDOMEN: Soft, nontender, nondistended. Positive bowel sounds. Normal active bowel sounds. NEUROLOGICAL: Alert and oriented times three. Cranial nerves II through XII grossly intact. Sensation grossly intact. EXTREMITIES: 5\5 strength bilateral upper extremities.5-\5 strength right hip flexors knee extensors and knee flexors. 5-/5 strength in left lower extremity. SKIN: right residual limb incision with william and sutures, c/d/i mild erythema, blanchable circular erythematous area over tibial plateau ASSESSMENT:73-year-old M with past medical history of PAD who presents status post right BKA PLAN: 1. Rehab: PT/OT assess for DMEs, maintain knee extension, patient instructed to avoid keeping head of bed up to prevent hip flexion contracture- sponge bath only as left ankle bracelet cannot be submerged in water 2. Neuro; pmh stroke with left sided residual weakness, c/u ASA and statin for secondary stroke prevention 3. Cardio: PAD s/p right BKA- Plavix on hold for 1-2 weeks post-op as discussed with vascular surgeon, will c/u ASA pmh- HTn c/u BP meds, medicine consulted 4. Resp: wheeze resolved, c/u duonebs, incentive spirometry and monitor for infection 5. Endo: DM continue insulin coverage-stable 6. GI ppx: protonix 7. DVT ppx: c/u heparin 8. Pain: c/u valium and will change percocet to oxycodone, c/u Tylenol and Gabapentin for nocturnal pain, add Gabapentin to daytime regimen 9. : admission UA and Ucx negative, continue flomax for BPH 10. Skin: daily dressing changes, monitor for infection-will avoid [place] orthotic at this time as suspect friction at tibial plateau against strap as orthotic is slightly too large for limb 10. Dispo: TBD Allergies Coded Allergies: No Known Allergies (Unverified , 07/06/14) Vital Signs Vital Signs Date Time Temp Pulse Resp B/P (MAP) Pulse Ox O2 Delivery O2 Flow Rate FiO2 05/20/18 09:20 73 121/65 05/20/18 06:34 16 05/20/18 06:00 97.0 93 Laboratory Data Labs 24H Laboratory Tests 2 05/19/18 16:28: Bedside Glucose (Misc Panel) 97 05/19/18 20:15: Bedside Glucose (Misc Panel) 180H 05/20/18 07:00: Bedside Glucose (Misc Panel) 106 05/20/18 11:32: Bedside Glucose (Misc Panel) 160H Current Medications Current Medications Current Medications Acetaminophen (Tylenol Tab) 650 mg DAILYPRN PRN PO fever/MILD PAIN (PS 1-4); Start 05/15/18 at 18:45 Acetaminophen (Tylenol Tab) 1,000 mg TID@0600,1400,2100 PO Last administered on 05/20/18at 06:03; Start 05/19/18 at 21:00; Status Future hold Albuterol/ Ipratropium (Duoneb (Ipr 0.5mg/Alb 2.5mg)) 3 ml RBID NEB Last administered on 05/20/18at 07:24; Start 05/15/18 at 20:00 Amlodipine Besylate (Norvasc) 10 mg DAILY PO Last administered on 05/20/18at 09:19; Start 05/16/18 at 09:00 Aspirin (Aspirin Chewable) 81 mg DAILY PO Last administered on 05/20/18at 09:20; Start 05/16/18 at 09:00 Atorvastatin Calcium (Lipitor) 80 mg QHS PO Last administered on 05/19/18 20:40; Start 05/15/18 at 21:00 Bisacodyl (Dulcolax Suppository) 10 mg DAILYPRN PRN [place] CONSTIPATION; Start 05/15/18 at 18:45 Carvedilol (COReg) 3.125 mg BID PO Last administered on 05/20/18 09:20; Start 05/15/18 at 21:00 Dextrose (Dextrose 50%) 25 ml ASDIRECTED PRN IV SEE LABEL COMMENTS; Start 05/15/18 at 19:00 Diazepam (Valium) 10 mg Q6HP PRN PO SPASMS Last administered on 05/20/18 06:03; Start 05/15/18 at 19:00 Docusate Sodium (Colace) 100 mg BID PO Last administered on 05/19/18 20:39; Start 05/15/18 at 21:00 Ferrous Gluconate (Fergon) 324 mg TID PO Last administered on 05/20/18 09:21; Start 05/15/18 at 21:00 Gabapentin (Neurontin) 300 mg QHS PO Last administered on 05/19/18 20:40; Start 05/19/18 at 21:00 Glucagon (Glucagon) 1 mg ASDIRECTED PRN SC SEE LABEL COMMENTS; Start 05/15/18 at 19:00 Glucose (Glucose) 16 GM ASDIRECTED PRN PO SEE LABEL COMMENTS; Start 05/15/18 at 19:00 Heparin Sodium (Porcine) (Heparin) 5,000 units Q8H SQ Last administered on 05/20/18 06:03; Start 05/15/18 at 22:00 Hydrochlorothiazide (Hydrodiuril) 25 mg DAILY PO Last administered on 05/20/18 09:20; Start 05/16/18 at 09:00 Insulin Detemir (Levemir Insulin) 20 units BID SC Last administered on 05/20/18 09:23; Start 05/15/18 at 21:00 Insulin Human Lispro (HumaLOG INSULIN) SEE PROTOCOL TABLE AC SC Last administered on 05/20/18 12:01; Start 05/16/18 at 07:30 Insulin Human Lispro (HumaLOG INSULIN) SEE PROTOCOL TABLE QHS SC ; Start 05/15/18 at 21:00 Lisinopril (Prinivil) 20 mg DAILY PO Last administered on 05/20/18 09:19; Start 05/16/18 at 09:00 Ondansetron HCl (Zofran) 4 mg Q6HP PRN PO NAUSEA; Start 05/15/18 at 18:45 Oxycodone HCl (Roxicodone, Oxyir) 5 mg Q4HP PRN PO PAIN; Start 05/19/18 at 19 :15 Oxycodone HCl (Roxicodone, Oxyir) 10 mg Q4HP PRN PO SEVERE PAIN (PS 8-10) Last administered on 05/20/18 06:04; Start 05/19/18 at 19:15 Oxycodone/ Acetaminophen (Percocet 5mg/ 325mg Tablet) 1 tab Q4HP PRN PO MILD/MODERATE PAIN (PS 1-7); Start 05/15/18 at 19:00; Stop 05/19/18 at 19:18; Status DC Oxycodone/ Acetaminophen (Percocet 5mg/ 325mg Tablet) 2 tab Q4HP PRN PO SEVERE PAIN (PS 8-10) Last administered on 05/19/18 16:05; Start 05/15/18 at 19:00; Stop 05/19/18 at 19:18; Status DC Pantoprazole Sodium (Protonix) 40 mg DAILY PO Last administered on 05/20/18 09:21; Start 05/16/18 at 09:00 Senna (Senokot) 1 tab QHS PO Last administered on 05/19/18 20:40; Start 05/15/18 at 21:00 Tamsulosin HCl (Flomax) 0.4 mg QHS PO Last administered on 05/19/18 20:40; Start 05/15/18 at 21:00 ADRIANA HUFF MD May 20, 2018 12:23
[2018-05-20 14:00] VITALS: BP 104/59
[2018-05-20] MEDS: GABAPENTIN 300 MG CAP PO SCH ×2 (17:30→21:35)
[2018-05-20 20:00] VITALS: BP 118/68
[2018-05-20] MEDS: traZODone 25MG PER 1/2 TABLET PO SCH (21:35)
[2018-05-20] MEDS: TAMSULOSIN 0.4 MG CAP PO SCH (21:36)
[2018-05-20] MEDS: SENNA 8.6 MG TAB (SENOKOT) PO SCH (21:37)
[2018-05-20] MEDS: ATORVASTATIN 20 MG TAB PO SCH (21:37)
[2018-05-21] MEDS: ACETAMINOPHEN 500 MG TAB PO SCH ×3 (05:27→21:39)
[2018-05-21] MEDS: HEPARIN SOD (PORCINE) 5000 UNITS/ML VIAL SQ SCH ×3 (05:28→21:42)
[2018-05-21 06:00] VITALS: BP 124/66
[2018-05-21 07:15] LABS: HEMATOCRIT 36.4 % (42.0-52.0); MEAN CORPUSCULAR HEMOGLOBIN 28.4 pg (27.0-33.0); MEAN CORPUSCULAR VOLUME 86.3 fl (80.0-96.0); PLATELET COUNT, AUTOMATED 438 10^3/uL (150-450); RED BLOOD COUNT 4.22 10^6/uL (4.30-6.10); WHITE BLOOD COUNT 7.8 10^3/uL (4.0-10.0)
[2018-05-21 07:35] LABS: CALCIUM LEVEL 8.3 MG/DL (8.8-10.2); CREATININE FOR GFR 1.54 MG/DL (0.70-1.30); GLOMERULAR FILTRATION RATE 47.6 (>42); POTASSIUM SERUM 4.3 MEQ/L (3.5-5.1)
[2018-05-21] MEDS: IPRATROPIUM 0.5MG/ALBUTEROL 2.5MG INH SOL UD 3ML (DUONEB)(J7620) NEB SCH ×2 (08:04→20:00)
[2018-05-21] MEDS: ASPIRIN 81 MG CHEW TABLET PO SCH (09:10)
[2018-05-21] MEDS: LEVEMIR (INSULIN DETEMIR) 1 UNITS/0.01ML SC SCH ×2 (09:10→21:42)
[2018-05-21] MEDS: HumaLOG INSULIN (NovoLOG) PER UNIT SC SCH ×4 (09:11→21:00)
[2018-05-21] MEDS: LISINOPRIL 20 MG TAB PO SCH (09:12)
[2018-05-21] MEDS: FERROUS GLUCONATE 324 MG TAB PO SCH ×3 (09:12→21:39)
[2018-05-21] MEDS: DOCUSATE SODIUM 100 MG CAP PO SCH (09:12)
[2018-05-21] MEDS: GABAPENTIN 300 MG CAP PO SCH ×3 (09:13→21:39)
[2018-05-21] MEDS: CARVedilol 3.125 MG TAB PO SCH ×2 (09:13→21:40)
[2018-05-21] MEDS: PANTOPRAZOLE 40MG TAB (PROTONIX) PO SCH (09:13)
[2018-05-21] MEDS: amLODIPine 10 MG TAB PO SCH (09:14)
[2018-05-21] MEDS: hydroCHLOROthiazide 25 MG TAB PO SCH (09:14)
[2018-05-21 14:00] VITALS: BP 137/71
--- NOTE | 2018-05-21 14:30 | IPNPDOC ---
Date Seen The patient was seen on 05/21/18. Progress Note HPI: 73M pmh PAD, DM, HTN, CKD, CVA with residual left sided weakness who developed worsening right foot pain and was evaluated at [facility] ED on 05/11/18 and found to have ischemia of the his limb for which a vascular consult was placed. He underwent an aortoiliofemoral arteriogram with right lower extremity runoff and placement of the thrombolysis catheter from right distal superficial femoral artery to right distal posterior tibial artery across popliteal/tibial occlusion. On 05/12/18 the TPA lysis catheter was removed and vascular surgery discussed need for BKA vs AKA as his right foot was not salvageable. His Plavix and ASA were held, on 05/13/18 he underwent a right BKA without significant co mplications and a knee immobilizer was placed. The pt was transferred to the care of ARU, Dr Durán, 05/15/18. The pt is currently OOB to chair. States he feels like he is getting a "cold". Feels "blah" some congestion, no cough/sputum, scratchy feeling but denies ST/rhinorrhea. Also states that he felt dizzy when changing position with PT today, denies currently. No acute medical complaints today. Denies any fevers, chills, weakness, fatigue, Headache, Chest Pain, Shortness of breath, cough, palpitations, abdominal pain, N/V/D or changes in bowel or bladder habits. PMH IDDM HTN HLD CKD CVA PAD BPH GERD PE: GEN: 73yoM, appears stated age. Well-nourished, well developed. No acute distress. Alert and oriented x 3. HEENT: Normocephalic, atraumatic. Sclera are nonicteric. Conjunctiva without injection. Moist mucous membranes. CHEST: Regular rate and rhythm, +S1, +S2 LUNGS: Clear to auscultation bilaterally. No wheezes, rales, or rhonchi. Breathing appears symmetric and easy. ABD: Round, soft, non-tender, non-distended. +Bowel sounds throughout. EXT: Pulses palpable LLE. No lower extremity edema appreciated. Dressing intact BKA RLE. SKIN: [place], dry, warm. No rashes. NEURO: Alert and oriented x 3. No focal deficits appreciated. A&P: 73M pmh PAD, DM, HTN, CKD, CVA with residual left sided weakness who developed worsening right foot pain and was evaluated at [facility] ED on 05/11/18 and found to have ischemia of the his limb for which a vascular consult was placed. He underwent an aortoiliofemoral arteriogram with right lower extremity runoff a nd placement of the thrombolysis catheter from right distal superficial femoral artery to right distal posterior tibial artery across popliteal/tibial occlusion. On 05/12/18 the TPA lysis catheter was removed and vascular surgery discussed need for BKA vs AKA as his right foot was not salvageable. His Plavix and ASA were held, on 05/13/18 he underwent a right BKA without significant complications and a knee immobilizer was placed. The pt was transferred to the care of Dr Luis Armando NOEL, 05/15/18. 1. RLE Ischemia S/P BKA s/p Aortoiliofemoral arteriogram with RLE runoff with placement of thrombolysis catheter on 05/11 s/p s/p RLE arteriogram with removal of tPA lysis catheter with mynx closure of left [employer] on 05/12 s/p RLE BKA with Vascular Surgery on 05/13/18 Cont to f/u with Vascular Surgery recommendations PT/OT as per Dr Luis Armando NOEL. pain control as per Dr Luis Armando NOEL. bowel care as per Dr Luis Armando NOEL. DVT prophylaxis as per Dr Luis Armando NOEL. SQ Heparin. Disposition as per Dr Luis Armando NOEL. 2. Chronic Kidney Disease Stage IIIA/B Serum Cr baseline is 1.5-1.6 according to outpatient records SCr 1.54. stable. Cont current management 3. Diabetes Mellitus Cont reduced dose of basal insulin, 20 Units of Levemir BID (takes 70 Units BID at home) Cont SSI BS 106-160. monitor. 4. Hypertension. SBP 104-124. Cont lisinopril 20 mg daily in AM with hold parameter, Norvasc 10 mg daily in AM with hold parameter, HCTZ 25 mg daily in AM Coreg 3.125 mg BID with hold parameter. The pt is reporting some lightheadedness with position changes, Will request orthostatic VS. The pt is also receiving Flomax and trazodone which may also contribute to orthostasis. Will change Lisinopril to 10mg at HS with hold parameter. monitor BP trend. 5. History of CVA Continue statin ASA, Plavix can be continued as per Vascular Surgery recommendations 6. Transaminitis likely 2/2 Hx of EtOH use Patient states that he drank anywhere from 4/5th oz of Whiskey to "a couple six packs of beer" per day since age 16 til age 69. Last drink was in 2004 Liver U/S with no acute findings Hepatitis panel negative Monitor. Cont to monitor LFTs and follow as outpatient 7. Dyslipidemia Continue statin 8. GERD Continue PPI 9. Anemia, Normocytic. Likely acute blood loss/chronic disease. Hgb stable, 12.0. fe studies, B12, folate noted. Monitor. 10. Possible URI. TMax 99.5. WBC 7.8. CXR 05/15/18 NAD. Request respiratory panel. Tylenol as needed. Monitor. VS, I&O, 24H, Fishbone Vital Signs/I&O Vital Signs Date Time Temp Pulse Resp B/P (MAP) Pulse Ox O2 Delivery O2 Flow Rate FiO2 05/21/18 09:14 63 124/66 05/21/18 06:00 99.5 17 94 I&O- Last 24 Hours up to 6 AM 05/21/18 06:00 Intake Total 1620 ml Output Total 2250 ml Balance -630 ml Laboratory Data 24H LABS Laboratory Tests 2 05/20/18 16:49: Bedside Glucose (Misc Panel) 146H 05/20/18 20:03: Bedside Glucose (Misc Panel) 156H 05/21/18 06:50: Nucleated Red Blood Cells % (auto) 0.0, Anion Gap 6L, Glomerular Filtration Rate 47.6, Blood Urea Nitrogen 28H, Creatinine 1.54H, Sodium Level 136, Potassium Level 4.3, Chloride Level 103, Carbon Dioxide Level 27, Calcium Level 8.3L 05/21/18 12:05: Bedside Glucose (Misc Panel) 116H CBC/BMP Laboratory Tests 05/21/18 06:50 Red Blood Count 4.22 L, Mean Corpuscular Volume 86.3, Mean Corpuscular Hemoglobin 28.4, Mean Corpuscular Hemoglobin Concent 33.0, Red Cell Distribution Width 13.2, Calcium Level 8.3 L Paty Franco May 21, 2018 14:30
[2018-05-21] MEDS: oxyCODONE 5MG TAB PO PRN ×2 (17:33→21:38)
[2018-05-21] MEDS: LACTOBACILLUS ACIDOPHILUS CAP (BACID) PO SCH (17:34)
[2018-05-21 20:00] VITALS: BP 117/61
[2018-05-21] MEDS: ATORVASTATIN 20 MG TAB PO SCH (21:38)
[2018-05-21] MEDS: TAMSULOSIN 0.4 MG CAP PO SCH (21:39)
[2018-05-21] MEDS: traZODone 25MG PER 1/2 TABLET PO SCH (21:40)
[2018-05-21] MEDS: CEPHALEXIN 500 MG CAP PO SCH (21:40)
[2018-05-22 04:00] VITALS: BP 111/67
[2018-05-22] MEDS: HEPARIN SOD (PORCINE) 5000 UNITS/ML VIAL SQ SCH ×3 (05:42→21:35)
[2018-05-22] MEDS: ACETAMINOPHEN 500 MG TAB PO SCH ×3 (05:44→21:32)
[2018-05-22] MEDS: oxyCODONE 5MG TAB PO PRN ×2 (05:44→21:34)
[2018-05-22 07:14] LABS: BASO # 0.1 10^3/uL (0.0-0.2); BASO % 0.9 % (0.0-1.0); EOS # 0.4 10^3/uL (0.0-0.50); EOS % 5.5 % (0.0-3.0); HEMATOCRIT 37.3 % (42.0-52.0); HEMOGLOBIN 12.2 g/dl (13.5-17.5); LYMPH # 2.1 10^3/uL (1.5-4.5); LYMPH % 25.4 % (24.0-44.0); MEAN CORPUSCULAR HEMOGLOBIN 28.9 pg (27.0-33.0); MEAN CORPUSCULAR HGB CONC 32.7 g/dl (32.0-36.5); MEAN CORPUSCULAR VOLUME 88.4 fl (80.0-96.0); MONO # 0.9 10^3/uL (0.0-0.8); MONO % 10.7 % (0.0-5.0); NEUTROPHILS # 4.5 10^3/uL (1.8-7.7); NEUTROPHILS % 55.4 % (36.0-66.0); PLATELET COUNT, AUTOMATED 467 10^3/uL (150-450); RED BLOOD COUNT 4.22 10^6/uL (4.30-6.10); WHITE BLOOD COUNT 8.1 10^3/uL (4.0-10.0)
[2018-05-22 07:43] LABS: ERYTHROCYTE SEDIMENTATION RATE 67 mm/hr (0-20)
[2018-05-22] MEDS: IPRATROPIUM 0.5MG/ALBUTEROL 2.5MG INH SOL UD 3ML (DUONEB)(J7620) NEB SCH ×2 (08:35→19:57)
[2018-05-22] MEDS: hydroCHLOROthiazide 25 MG TAB PO SCH (08:43)
[2018-05-22] MEDS: LACTOBACILLUS ACIDOPHILUS CAP (BACID) PO SCH ×3 (08:44→17:24)
[2018-05-22] MEDS: ASPIRIN 81 MG CHEW TABLET PO SCH (08:44)
[2018-05-22] MEDS: GABAPENTIN 300 MG CAP PO SCH ×3 (08:44→21:32)
[2018-05-22] MEDS: PANTOPRAZOLE 40MG TAB (PROTONIX) PO SCH (08:44)
[2018-05-22] MEDS: CARVedilol 3.125 MG TAB PO SCH ×2 (08:44→21:00)
[2018-05-22] MEDS: amLODIPine 10 MG TAB PO SCH (08:44)
[2018-05-22] MEDS: CEPHALEXIN 500 MG CAP PO SCH ×2 (08:44→21:32)
[2018-05-22] MEDS: FERROUS GLUCONATE 324 MG TAB PO SCH ×3 (08:44→21:32)
[2018-05-22] MEDS: HumaLOG INSULIN (NovoLOG) PER UNIT SC SCH ×4 (08:45→21:00)
[2018-05-22] MEDS: LEVEMIR (INSULIN DETEMIR) 1 UNITS/0.01ML SC SCH ×2 (08:46→21:35)
--- NOTE | 2018-05-22 12:57 | IPNPDOC ---
Date Seen The patient was seen on 05/22/18. Progress Note HPI: 73M pmh PAD, DM, HTN, CKD, CVA with residual left sided weakness who developed worsening right foot pain and was evaluated [place] [facility] on 05/[place]/18 and found to have ischemia of the his limb for which a vascular consult was placed. He underwent an aortoiliofemoral arteriogram with right lower extremity runoff and placement of the thrombolysis catheter from right distal superficial femoral artery to right distal posterior tibial artery across popliteal/tibial occlusion. On 05/12/18 the TPA lysis catheter was removed and vascular surgery discussed need for BKA vs AKA as his right foot was not salvageable. His Plavix and ASA were held, on 05/13/18 he underwent a right BKA without significant co mplications and a knee immobilizer was placed. The pt was transferred to the care of ARU, Dr Durán, 05/15/18. The pt is currently OOB to chair. States he is feeling good today. No further dizziness. Has been working with PT with no dizziness, lightheadedness. No acute medical complaints today. Denies any fevers, chills, weakness, fatigue, Headache, Chest Pain, Shortness of breath, cough, palpitations, abdominal pain, N/V/D or changes in bowel or bladder habits. PMH IDDM HTN HLD CKD CVA PAD BPH GERD PE: GEN: 73yoM, appears stated age. Well-nourished, well developed. No acute distress. Alert and oriented x 3. HEENT: Normocephalic, atraumatic. Sclera are nonicteric. Conjunctiva without injection. Moist mucous membranes. CHEST: Regular rate and rhythm, +S1, +S2 LUNGS: Clear to auscultation bilaterally. No wheezes, rales, or rhonchi. Breathing appears symmetric and easy. ABD: Round, soft, non-tender, non-distended. +Bowel sounds throughout. EXT: Pulses palpable LLE. No lower extremity edema appreciated. Dressing intact BKA RLE. SKIN: [place], dry, warm. No rashes. NEURO: Alert and oriented x 3. No focal deficits appreciated. A&P: 73M pmh PAD, DM, HTN, CKD, CVA with residual left sided weakness who developed worsening right foot pain and was evaluated at [facility] on 05/11/18 and found to have ischemia of the his limb for which a vascular consult was placed. He underwent an aortoiliofemoral arteriogram with right lower extremity runoff and placement of the thrombolysis catheter from right distal superficial femoral artery to right distal posterior tibial artery across popliteal/tibial occlusion. On 05/12/18 the TPA lysis catheter was removed and vascular surgery discussed need for BKA vs AKA as his right foot was not salvageable. His Plavix and ASA were held, on 05/13/18 he underwent a right BKA without significant complications and a knee immobilizer was placed. The pt was transferred to the care of Dr Luis Armando NOEL, 05/15/18. 1. RLE Ischemia S/P BKA s/p Aortoiliofemoral arteriogram with RLE runoff with placement of thrombolysis catheter on 05/11 s/p s/p RLE arteriogram with removal of tPA lysis catheter with mynx closure of left [employer] on 05/12 s/p RLE BKA with Vascular Surgery on 05/13/18 Cont to f/u with Vascular Surgery recommendations PT/OT as per Dr Luis Armando NOEL. pain control as per Dr Luis Armando NOEL. bowel care as per Dr Luis Armando NOEL. DVT prophylaxis as per Dr Luis Armando NOEL. SQ Heparin. The pt was started on po Keflex as per Dr Durán for wound, D2/[address] Luis Armando NOEL. 2. Chronic Kidney Disease Stage IIIA/B Serum Cr baseline is 1.5-1.6 according to outpatient records SCr 1.54. stable. Cont current management BMP in AM. 3. Diabetes Mellitus Cont reduced dose of basal insulin, 20 Units of Levemir BID (takes 70 Units BID at home) Cont SSI BS 116-170. monitor. 4. Hypertension. SBP 111-137. Norvasc 10 mg daily in AM with hold parameter. HCTZ 25 mg daily in AM Coreg 3.125 mg BID with hold parameter. Lisinopril was changed to 10mg at HS with hold parameter. The pt was reporting some lightheadedness with position changes, but this is resolved today. The pt is also receiving Flomax and trazodone which may also contribute to orthostasis. monitor BP trend. Orthostatic VS requested. 5. History of CVA Continue statin ASA, Plavix can be continued as per Vascular Surgery recommendations 6. Transaminitis likely 2/2 Hx of EtOH use Patient states that he drank anywhere from 4/5th oz of Whiskey to "a couple six packs of beer" per day since age 16 til age 69. Last drink was in 2004 Liver U/S with no acute findings Hepatitis panel negative Monitor. Cont to monitor LFTs and follow as outpatient 7. Dyslipidemia Continue statin 8. GERD Continue PPI 9. Anemia, Normocytic. Likely acute blood loss/chronic disease. Hgb stable, 12.0. fe studies, B12, folate noted. Monitor. CBC in AM. VS, I&O, 24H, Fishbone Vital Signs/I&O Vital Signs Date Time Temp Pulse Resp B/P (MAP) Pulse Ox O2 Delivery O2 Flow Rate FiO2 05/22/18 08:44 58 111/67 05/22/18 08:05 18 05/22/18 04:00 97.2 95 I&O- Last 24 Hours up to 6 AM 05/22/18 06:00 Intake Total 1320 ml Output Total 1900 ml Balance -580 ml Laboratory Data 24H LABS Laboratory Tests 2 05/21/18 16:45: Bedside Glucose (Misc Panel) 152H 05/21/18 19:57: Bedside Glucose (Misc Panel) 137H 05/22/18 07:00: Immature Granulocyte % (Auto) 2.1, White Blood Count 8.1, Red Blood Count 4.22L, Hemoglobin 12.2L, Hematocrit 37.3L, Mean Corpuscular Volume 88.4, Mean Corpuscular Hemoglobin 28.9, Mean Corpuscular Hemoglobin Concent 32.7, Red Cell Distribution Width 13.2, Platelet Count 467H, Neutrophils (%) (Auto) 55.4, Lymphocytes (%) (Auto) 25.4, Monocytes (%) (Auto) 10.7H, Eosinophils (%) (Auto) 5.5H, Basophils (%) (Auto) 0.9, Neutrophils # (Auto) 4.5, Lymphocytes # (Auto) 2.1, Monocytes # (Auto) 0.9H, Eosinophils # (Auto) 0.4, Basophils # (Auto) 0.1, Nucleated Red Blood Cells % (auto) 0.0, Erythrocyte Sedimentation Rate 67H, C- Reactive Protein, Quantitative 3.24H 05/22/18 08:00: Bedside Glucose (Misc Panel) 125H 05/22/18 11:44: Bedside Glucose (Misc Panel) 178H CBC/BMP Laboratory Tests 05/22/18 07:00 Red Blood Count 4.22 L, Mean Corpuscular Volume 88.4, Mean Corpuscular Hem oglobin 28.9, Mean Corpuscular Hemoglobin Concent 32.7, Red Cell Distribution Width 13.2, Neutrophils (%) (Auto) 55.4, Lymphocytes (%) (Auto) 25.4, Monocytes (%) (Auto) 10.7 H, Eosinophils (%) (Auto) 5.5 H, Basophils (%) (Auto) 0.9, Neutrophils # (Auto) 4.5, Lymphocytes # (Auto) 2.1, Monocytes # (Auto) 0.9 H, Eosinophils # (Auto) 0.4, Basophils # (Auto) 0.1 Paty Franco May 22, 2018 12:57
[2018-05-22 14:00] VITALS: BP 139/68
[2018-05-22 20:00] VITALS: BP 107/65
[2018-05-22] MEDS: LISINOPRIL 10 MG TAB PO SCH (21:00)
[2018-05-22] MEDS: ATORVASTATIN 20 MG TAB PO SCH (21:32)
[2018-05-22] MEDS: TAMSULOSIN 0.4 MG CAP PO SCH (21:32)
[2018-05-22] MEDS: traZODone 25MG PER 1/2 TABLET PO SCH (21:33)
[2018-05-23] MEDS: HEPARIN SOD (PORCINE) 5000 UNITS/ML VIAL SQ SCH ×3 (06:07→22:11)
[2018-05-23] MEDS: ACETAMINOPHEN 500 MG TAB PO SCH ×3 (06:07→22:09)
[2018-05-23 06:11] VITALS: BP 122/72
[2018-05-23 06:14] VITALS: BP 120/78
[2018-05-23 06:17] VITALS: BP 132/80
[2018-05-23 07:54] LABS: HEMATOCRIT 40.4 % (42.0-52.0); MEAN CORPUSCULAR HEMOGLOBIN 28.2 pg (27.0-33.0); MEAN CORPUSCULAR HGB CONC 32.2 g/dl (32.0-36.5); MEAN CORPUSCULAR VOLUME 87.6 fl (80.0-96.0); PLATELET COUNT, AUTOMATED 528 10^3/uL (150-450); RED BLOOD COUNT 4.61 10^6/uL (4.30-6.10); WHITE BLOOD COUNT 7.6 10^3/uL (4.0-10.0)
[2018-05-23] MEDS: IPRATROPIUM 0.5MG/ALBUTEROL 2.5MG INH SOL UD 3ML (DUONEB)(J7620) NEB SCH (08:00)
[2018-05-23 08:17] LABS: CALCIUM LEVEL 8.7 MG/DL (8.8-10.2); CREATININE FOR GFR 1.4 MG/DL (0.70-1.30); GLOMERULAR FILTRATION RATE 53.2 (>42); POTASSIUM SERUM 4.2 MEQ/L (3.5-5.1)
[2018-05-23] MEDS: hydroCHLOROthiazide 25 MG TAB PO SCH (08:31)
[2018-05-23] MEDS: CEPHALEXIN 500 MG CAP PO SCH ×2 (08:31→22:10)
[2018-05-23] MEDS: FERROUS GLUCONATE 324 MG TAB PO SCH ×3 (08:31→22:09)
[2018-05-23] MEDS: CARVedilol 3.125 MG TAB PO SCH ×2 (08:31→21:00)
[2018-05-23] MEDS: PANTOPRAZOLE 40MG TAB (PROTONIX) PO SCH (08:31)
[2018-05-23] MEDS: LACTOBACILLUS ACIDOPHILUS CAP (BACID) PO SCH ×3 (08:31→17:35)
[2018-05-23] MEDS: ASPIRIN 81 MG CHEW TABLET PO SCH (08:31)
[2018-05-23] MEDS: amLODIPine 10 MG TAB PO SCH (08:32)
[2018-05-23] MEDS: LEVEMIR (INSULIN DETEMIR) 1 UNITS/0.01ML SC SCH ×2 (08:32→22:11)
[2018-05-23] MEDS: GABAPENTIN 300 MG CAP PO SCH ×3 (08:32→22:10)
[2018-05-23] MEDS: HumaLOG INSULIN (NovoLOG) PER UNIT SC SCH ×4 (08:33→21:00)
[2018-05-23] MEDS: oxyCODONE 5MG TAB PO PRN ×2 (17:37→22:09)
--- NOTE | 2018-05-23 17:58 | IPN ---
DATE: 05/23/2018 The patient is seen and examined. No acute events overnight. Denies any chest pain, pressure or discomfort. Denies any fevers or chills. VITAL SIGNS: Temperature 98.3, pulse 74, respirations 20, blood pressure 132/80, pulse oximetry 92% on room air. LABORATORY: WBC 7.6, hemoglobin and hematocrit 13/40.4, platelets 528. Chemistry: Sodium 137, 4.2, chloride 104, bicarbonate 27, BUN 26, creatinine 1.4. PHYSICAL EXAMINATION: GENERAL: The patient is alert, comfortable and in no acute distress. HEENT: Normocephalic, atraumatic. PULMONARY: Bilaterally clear. CARDIAC: Regular. S1, S2. ABDOMEN: Soft, nontender. EXTREMITIES: Pulses palpable in the left lower extremity. Right below the knee amputation, dressing is clean, dry and intact. ASSESSMENT AND PLAN: This is a 73-year-old male patient with underlying medical history of peripheral artery disease, diabetes, hypertension, chronic kidney disease, CVA with residual left sided weakness, who developed worsening right foot pain and was evaluated in [facility] emergency department on 05/11/2018 and was found to have ischemia of patient's leg. Vascular surgery was consulted. The patient underwent aortoiliofemoral arteriogram with right lower extremity run off and placement of a thrombolysis catheter from right distal superficial femoral artery to right distal posterior tibial artery across popliteal tibial occlusion. On 05/12/2018, the TPA lysis catheter was removed and vascular surgery discussed the need for below the knee amputation versus above knee amputation as the patient's right foot was not salvageable. The patient's aspirin and Plavix were on hold. On 05/13/2018 the patient underwent right below knee amputation without significant complications. A knee immobilizer was placed. The patient was transferred to acute rehabilitation for further care on 05/15/2018. Right lower extremity ischemia status post below the knee amputation, status post aortoiliofemoral arteriogram with right lower extremity run off and placement of thrombolysis catheter on 05/11/2018, status post right lower extremity arteriogram with removal of TPA lysis catheter with closure on 05/12/2018, status post right below knee amputation by vascular surgery on 05/13/2018. Continue to follow vascular surgeon's recommendations. Physical therapy (PT) and occupational therapy (OT) as per acute rehabilitation provider. Pain regimen as per acute rehabilitation provider. Bowel regimen as per acute rehabilitation provider. Deep vein thrombosis (DVT) prophylaxis. The patient is on heparin subcutaneously as per acute rehabilitation provider. The patient was started on Keflex orally for wound, as per rehabilitation provider. Chronic kidney disease stage III. Monitor BUN and creatinine. Currently at baseline, we will monitor. Diabetes mellitus. Continue basal bolus insulin and adjust as needed. Followup fingersticks. Hypertension. Continue current medications. Adjust blood pressure medications as needed. Followup blood pressure. History of CVA. Aspirin, Plavix and statin have been continued. 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 The last drink was in 2004. Liver ultrasound appreciated. Hepatitis panel negative. We will monitor. Dyslipidemia. Continue statin. Gastroesophageal reflux disease (GERD). Continue proton pump inhibitor. Anemia, possible acute blood loss anemia. Hemoglobin and hematocrit are stable. Monitor complete blood count (CBC). Deep vein thrombosis (DVT) prophylaxis. Heparin subcutaneously. DISPOSITION: Pending clinical improvement. Discharge planning as per acute rehabilitation provider.
[2018-05-23 20:00] VITALS: BP 142/78
[2018-05-23] MEDS: CLOPIDOGREL 75 MG TAB PO SCH (21:00)
[2018-05-23] MEDS: ATORVASTATIN 20 MG TAB PO SCH (22:09)
[2018-05-23] MEDS: traZODone 25MG PER 1/2 TABLET PO SCH (22:09)
[2018-05-23] MEDS: TAMSULOSIN 0.4 MG CAP PO SCH (22:09)
[2018-05-23] MEDS: LISINOPRIL 10 MG TAB PO SCH (22:10)
[2018-05-24] MEDS: oxyCODONE 5MG TAB PO PRN ×5 (04:08→21:30)
[2018-05-24 06:00] VITALS: BP_SYST 107; BP_SYST 89; BP_SYST 93; BP_DIAS 60; BP_DIAS 64; BP_DIAS 65
[2018-05-24] MEDS: ACETAMINOPHEN 500 MG TAB PO SCH ×3 (06:32→21:31)
[2018-05-24] MEDS: HEPARIN SOD (PORCINE) 5000 UNITS/ML VIAL SQ SCH ×3 (06:32→21:29)
[2018-05-24 07:06] LABS: HEMATOCRIT 40.6 % (42.0-52.0); HEMOGLOBIN 13.2 g/dl (13.5-17.5); MEAN CORPUSCULAR HEMOGLOBIN 28.4 pg (27.0-33.0); MEAN CORPUSCULAR HGB CONC 32.5 g/dl (32.0-36.5); MEAN CORPUSCULAR VOLUME 87.3 fl (80.0-96.0); PLATELET COUNT, AUTOMATED 539 10^3/uL (150-450); RED BLOOD COUNT 4.65 10^6/uL (4.30-6.10); WHITE BLOOD COUNT 10.4 10^3/uL (4.0-10.0)
[2018-05-24 07:35] LABS: CALCIUM LEVEL 8.8 MG/DL (8.8-10.2); CREATININE FOR GFR 1.5 MG/DL (0.70-1.30); GLOMERULAR FILTRATION RATE 49.1 (>42); POTASSIUM SERUM 4.1 MEQ/L (3.5-5.1)
[2018-05-24] MEDS: LACTOBACILLUS ACIDOPHILUS CAP (BACID) PO SCH ×3 (08:35→16:41)
[2018-05-24] MEDS: diazePAM 5 MG TAB PO PRN ×2 (08:35→16:41)
[2018-05-24] MEDS: ASPIRIN 81 MG CHEW TABLET PO SCH (08:35)
[2018-05-24] MEDS: CLOPIDOGREL 75 MG TAB PO SCH (08:39)
[2018-05-24] MEDS: GABAPENTIN 300 MG CAP PO SCH ×3 (08:39→21:28)
[2018-05-24] MEDS: CEPHALEXIN 500 MG CAP PO SCH ×2 (08:39→21:28)
[2018-05-24] MEDS: FERROUS GLUCONATE 324 MG TAB PO SCH ×3 (08:39→21:28)
[2018-05-24] MEDS: PANTOPRAZOLE 40MG TAB (PROTONIX) PO SCH (08:39)
[2018-05-24] MEDS: amLODIPine 10 MG TAB PO SCH (08:39)
[2018-05-24] MEDS: CARVedilol 3.125 MG TAB PO SCH ×2 (08:40→21:00)
[2018-05-24] MEDS: HumaLOG INSULIN (NovoLOG) PER UNIT SC SCH ×4 (08:40→21:00)
[2018-05-24] MEDS: LEVEMIR (INSULIN DETEMIR) 1 UNITS/0.01ML SC SCH ×2 (08:43→21:32)
[2018-05-24 14:00] VITALS: BP 117/62
--- NOTE | 2018-05-24 18:44 | IPNPDOC ---
Text Note Date of Service The patient was seen on 05/24/18. NOTE The patient is seen and examined. No acute events overnight. Denies any chest pain, pressure or discomfort. Denies any fevers or chills. orthostatic in am PHYSICAL EXAMINATION: GENERAL: The patient is alert, comfortable and in no acute distress. HEENT: Normocephalic, atraumatic. PULMONARY: Bilaterally clear. CARDIAC: Regular. S1, S2. ABDOMEN: Soft, nontender. EXTREMITIES: Pulses palpable in the left lower extremity. Right below the knee amputation, dressing is clean, dry and intact. ASSESSMENT AND PLAN: This is a 73-year-old male patient with underlying medic al history of peripheral artery disease, diabetes, hypertension, chronic kidney disease, CVA with residual left sided weakness, who developed worsening right foot pain and was evaluated in [facility] emergency department on 05/11/2018 and was found to have ischemia of patient's leg. Vascular surgery was consulted. The patient underwent aortoiliofemoral arteriogram with right lower extremity run off and placement of a thrombolysis catheter from right distal superficial femoral artery to right distal posterior tibial artery across popliteal tibial occlusion. On 05/12/2018, the TPA lysis catheter was removed and vascular surgery discussed the need for below the knee amputation versus above knee amputation as the patient's right foot was not salvageable. The patient's aspirin and Plavix were on hold. On 05/13/2018 the patient underwent right below knee amputation without significant complications. A knee immobilizer was placed. The patient was transferred to acute rehabilitation for further care on 05/15/2018. Right lower extremity ischemia status post below the knee amputation, status post aortoiliofemoral arteriogram with right lower extremity run off and placement of thrombolysis catheter on 05/11/2018, status post right lower extremity arteriogram with removal of TPA lysis catheter with closure on 05/12/2018, status post right below knee amputation by vascular surgery on 05/13/2018. Continue to follow vascular surgeon's recommendations. Physical therapy (PT) and occupational therapy (OT) as per acute rehabilitation provider. Pain regimen as per acute rehabilitation provider. Bowel regimen as per acute rehabilitation provider. Deep vein thrombosis (DVT) prophylaxis. The patient is on heparin subcutaneously as per acute rehabilitation provider. The patient was started on Keflex orally for wound, as per rehabilitation provider. Chronic kidney disease stage III. Monitor BUN and creatinine. Currently at baseline, we will monitor. Diabetes mellitus. Continue basal bolus insulin and adjust as needed. Followup fingersticks. Hypertension. Continue current medications. Adjust blood pressure medications as needed. Followup blood pressure. HCTZ stopper for orthostatic hypotension History of CVA. Aspirin, Plavix and statin have been continued. 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 The last drink was in 2004. Liver ultrasound appreciated. Hepatitis panel negative. We will monitor. Dyslipidemia. Continue statin. Gastroesophageal reflux disease (GERD). Continue proton pump inhibitor. Anemia, possible acute blood loss anemia. Hemoglobin and hematocrit are stable. Monitor complete blood count (CBC). Deep vein thrombosis (DVT) prophylaxis. Heparin subcutaneously. DISPOSITION: Pending clinical improvement. Discharge planning as per acute rehabilitation provider. VS,Fishbone, I+O VS, Fishbone, I+O Laboratory Tests 05/24/18 06:44 Red Blood Count 4.65, Mean Corpuscular Volume 87.3, Mean Corpuscular Hemoglobin 28.4, Mean Corpuscular Hemoglobin Concent 32.5, Red Cell Distribution Width 13.3, Calcium Level 8.8 Vital Signs Date Time Temp Pulse Resp B/P (MAP) Pulse Ox O2 Delivery O2 Flow Rate FiO2 05/24/18 17:10 18 05/24/18 14:00 97.9 64 117/62 (80) 95 I&O- Last 24 Hours up to 6 AM 05/24/18 06:00 Intake Total 600 ml Output Total 1350 ml Balance -750 ml RAMONE MADRID MD May 24, 2018 18:44
[2018-05-24 20:00] VITALS: BP 102/58
--- NOTE | 2018-05-24 20:20 | IPNPDOC ---
PM&R Progress Note DATE OF SERVICE: May 21, 2018 Environmental Services Aide Progress Note Subjective: Patient seen in room, changed dressing, reports continued difficulty sleeping due to pain. REVIEW OF SYSTEMS: The following is a completed review of systems and has been reviewed. Review of systems otherwise unremarkable. PAIN: Patient self reports right residual limb pain EYES: Negative for recent vision changes. EARS, NOSE, & THROAT: denies rhinorrhea or throat pain CARDIOVASCULAR: denies chest pain or palpitations PULMONARY: Negative. 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 PHYSICAL EXAMINATION: VITAL SIGNS: Please see below. GENERAL: Pleasant and cooperative. No acute distress. HEENT: PERRL. Extraocular movements intact. Clear conjunctiva CARDIOVASCULAR: Regular rate and rhythm. No murmurs, rubs, or gallops LUNGS: mostly Clear to auscultation bilaterally with bilateral apical wheezes. No rhonchi/crackles ABDOMEN: Soft, nontender, nondistended. Positive bowel sounds. Normal active bowel sounds. NEUROLOGICAL: Alert and oriented times three. Cranial nerves II through XII grossly intact. Sensation grossly intact. EXTREMITIES: 5\5 strength bilateral upper extremities.5-\5 strength right hip flexors knee extensors and knee flexors. 5-/5 strength in left lower extremity. SKIN: right residual limb incision with william and sutures, c/d/i mild erythema, blanchable circular erythematous area over tibial plateau ASSESSMENT:73-year-old M with past medical history of PAD who presents status post right BKA PLAN: 1. Rehab: PT/OT assess for DMEs, maintain knee extension, patient instructed to avoid keeping head of bed up to prevent hip flexion contracture- sponge bath only as left ankle bracelet cannot be submerged in water 2. Neuro; pmh stroke with left sided residual weakness, c/u ASA and statin for secondary stroke prevention 3. Cardio: PAD s/p right BKA- Plavix on hold for 1-2 weeks post-op as discussed with vascular surgeon, will c/u ASA pmh- HTn c/u BP meds, medicine consulted 4. Resp: wheeze resolved, c/u duonebs, incentive spirometry and monitor for infection 5. Endo: DM continue insulin coverage-stable 6. GI ppx: protonix 7. DVT ppx: c/u heparin 8. Pain: c/u valium and will change percocet to oxycodone, c/u Tylenol and Gabapentin for nocturnal pain, c/u daytime Gabapentin 9. : admission UA and Ucx negative, continue flomax for BPH 10. Skin: daily dressing changes, monitor for infection-will avoid Hangar orthotic at this time as suspect friction at tibial plateau against strap as orthotic is slightly too large for limb-concern for cellulitis will start Kefflex and order CRP/ESR 10. Dispo: TBD Allergies Coded Allergies: No Known Allergies (Unverified , 07/06/14) Vital Signs Vital Signs Date Time Temp Pulse Resp B/P (MAP) Pulse Ox O2 Delivery O2 Flow Rate FiO2 05/24/18 17:10 18 05/24/18 14:00 97.9 64 117/62 (80) 95 Laboratory Data CBC/BMP Laboratory Tests 05/24/18 06:44 Red Blood Count 4.65, Mean Corpuscular Volume 87.3, Mean Corpuscular Hemoglobin 28.4, Mean Corpuscular Hemoglobin Concent 32.5, Red Cell Distribution Width 13.3, Calcium Level 8.8 Labs 24H Laboratory Tests 2 05/23/18 20:23: Bedside Glucose (Misc Panel) 174H 05/24/18 06:14: Bedside Glucose (Misc Panel) 111H 05/24/18 06:44: Nucleated Red Blood Cells % (auto) 0.0, Anion Gap 5L, Glomerular Filtration Rate 49.1, Blood Urea Nitrogen 27H, Creatinine 1.50H, Sodium Level 136, Potassium Level 4.1, Chloride Level 102, Carbon Dioxide Level 29, Calcium Level 8.8 05/24/18 11:30: Bedside Glucose (Misc Panel) 144H 05/24/18 17:06: Bedside Glucose (Misc Panel) 162H 05/24/18 20:09: Bedside Glucose (Misc Panel) 174H Microbiology Microbiology 05/23/18 Respiratory Virus Panel (PCR) (DC) - Final, Complete Current Medications Current Medications Current Medications Acetaminophen (Tylenol Tab) 650 mg DAILYPRN PRN PO fever/MILD PAIN (PS 1-4); Start 05/15/18 at 18:45 Acetaminophen (Tylenol Tab) 1,000 mg TID@0600,1400,2100 PO Last administered on 05/24/18at 14:14; Start 05/19/18 at 21:00; Status Future hold Albuterol/ Ipratropium (Duoneb (Ipr 0.5mg/Alb 2.5mg)) 3 ml RBID NEB Last admi nistered on 05/22/18 19:57; Start 05/15/18 at 20:00; Stop 05/23/18 at 11:45; Status DC Amlodipine Besylate (Norvasc) 10 mg DAILY PO Last administered on 05/24/18 08:39; Start 05/16/18 at 09:00 Aspirin (Aspirin Chewable) 81 mg DAILY PO Last administered on 05/24/18 08:35; Start 05/16/18 at 09:00 Atorvastatin Calcium (Lipitor) 80 mg QHS PO Last administered on 05/23/18 22:09; Start 05/15/18 at 21:00 Bisacodyl (Dulcolax Suppository) 10 mg DAILYPRN PRN LA CONSTIPATION; Start 05/15/18 at 18:45 Carvedilol (COReg) 3.125 mg BID PO Last administered on 05/23/18 08:31; Start 05/15/18 at 21:00 Cephalexin Monohydrate (Keflex) 500 mg BID PO Last administered on 05/24/18 08:39; Start 05/21/18 at 21:00; Stop 05/28/18 at 09:01 Clopidogrel Bisulfate (PLAVix) 75 mg DAILY PO Last administered on 05/24/18 08:39; Start 05/23/18 at 09:00 Dextrose (Dextrose 50%) 25 ml ASDIRECTED PRN IV SEE LABEL COMMENTS; Start 05/15/18 at 19:00 Diazepam (Valium) 5 mg Q6HP PRN PO SPASMS Last administered on 05/24/18 16:41; Start 05/21/18 at 15:00 Diazepam (Valium) 10 mg Q6HP PRN PO SPASMS Last administered on 05/20/18at 21:36; Start 05/15/18 at 19:00; Stop 05/21/18 at 15:03; Status DC Docusate Sodium (Colace) 100 mg BID PO Last administered on 05/21/18 09:12; Start 05/15/18 at 21:00; Stop 05/21/18 at 15:03; Status DC Ferrous Gluconate (Fergon) 324 mg TID PO Last administered on 05/24/18 16:41; Start 05/15/18 at 21:00 Gabapentin (Neurontin) 300 mg QHS PO Last administered on 05/19/18at 20:40; Start 05/19/18 at 21:00; Stop 05/20/18 at 12:22; Status DC Gabapentin (Neurontin) 300 mg TID PO Last administered on 05/24/18 16:41; Start 05/20/18 at 16:00 Glucagon (Glucagon) 1 mg ASDIRECTED PRN SC SEE LABEL COMMENTS; Start 05/15/18 at 19:00 Glucose (Glucose) 16 GM ASDIRECTED PRN PO SEE LABEL COMMENTS; Start 05/15/18 at 19:00 Heparin Sodium (Porcine) (Heparin) 5,000 units Q8H SQ Last administered on 05/24/18at 14:14; Start 05/15/18 at 22:00 Hydrochlorothiazide (Hydrodiuril) 25 mg DAILY PO Last administered on 05/23/18 08:31; Start 05/16/18 at 09:00; Stop 05/24/18 at 07:35; Status DC Insulin Detemir (Levemir Insulin) 20 units BID SC Last administered on 05/24/18at 08:43; Start 05/15/18 at 21:00 Insulin Human Lispro (HumaLOG INSULIN) SEE PROTOCOL TABLE AC SC Last administered on 05/24/18at 17:37; Start 05/16/18 at 07:30 Insulin Human Lispro (HumaLOG INSULIN) SEE PROTOCOL TABLE QHS SC ; Start 05/15/18 at 21:00 Lactobacillus Acidophilus (Bacid) 1 ea WM PO Last administered on 05/24/18 16:41; Start 05/21/18 at 18:00 Lisinopril (Prinivil) 10 mg QHS PO Last administered on 05/23/18at 22:10; Start 05/22/18 at 21:00 Lisinopril (Prinivil) 20 mg DAILY PO Last administered on 3/14/19at 09:12; St art 05/16/18 at 09:00; Stop 05/21/18 at 14:22; Status DC Ondansetron HCl (Zofran) 4 mg Q6HP PRN PO NAUSEA; Start 05/15/18 at 18:45 Oxycodone HCl (Roxicodone, Oxyir) 5 mg Q4HP PRN PO PAIN; Start 05/19/18 at 19:15 Oxycodone HCl (Roxicodone, Oxyir) 10 mg Q4HP PRN PO SEVERE PAIN (PS 8-10) Last administered on 05/24/18at 16:40; Start 05/19/18 at 19:15 Oxycodone/ Acetaminophen (Percocet 5mg/ 325mg Tablet) 1 tab Q4HP PRN PO MILD/MODERATE PAIN (PS 1-7); Start 05/15/18 at 19:00; Stop 05/19/18 at 19:18; Status DC Oxycodone/ Acetaminophen (Percocet 5mg/ 325mg Tablet) 2 tab Q4HP PRN PO SEVERE PAIN (PS 8-10) Last administered on 05/19/18at 16:05; Start 05/15/18 at 19:00; Stop 05/19/18 at 19:18; Status DC Pantoprazole Sodium (Protonix) 40 mg DAILY PO Last administered on 05/24/18at 08:39; Start 05/16/18 at 09:00 Senna (Senokot) 1 tab QHS PO Last administered on 05/20/18at 21:37; Start 05/15/18 at 21:00; Stop 05/21/18 at 15:03; Status DC Tamsulosin HCl (Flomax) 0.4 mg QHS PO Last administered on 05/23/18 22:09; Start 05/15/18 at 21:00 Trazodone HCl (Desyrel) 25 mg QHS PO Last administered on 05/23/18 22:09; Start 05/20/18 at 21:00 ADRIANA HUFF MD May 24, 2018 20:20
--- NOTE | 2018-05-24 20:21 | IPNPDOC ---
PM&R Progress Note DATE OF SERVICE: May 22, 2018 External Relations Director Progress Note Subjective: Patient reports he slept well through the night and that his pain is much better on Kefflex. REVIEW OF SYSTEMS: The following is a completed review of systems and has been reviewed. Review of systems otherwise unremarkable. PAIN: Patient self reports right residual limb pain EYES: Negative for recent vision changes. EARS, NOSE, & THROAT: denies rhinorrhea or throat pain CARDIOVASCULAR: denies chest pain or palpitations PULMONARY: Negative. 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 PHYSICAL EXAMINATION: VITAL SIGNS: Please see below. GENERAL: Pleasant and cooperative. No acute distress. HEENT: PERRL. Extraocular movements intact. Clear conjunctiva CARDIOVASCULAR: Regular rate and rhythm. No murmurs, rubs, or gallops LUNGS: mostly Clear to auscultation bilaterally with bilateral apical wheezes. No rhonchi/crackles ABDOMEN: Soft, nontender, nondistended. Positive bowel sounds. Normal active bowel sounds. NEUROLOGICAL: Alert and oriented times three. Cranial nerves II through XII grossly intact. Sensation grossly intact. EXTREMITIES: 5\5 strength bilateral upper extremities.5-\5 strength right hip flexors knee extensors and knee flexors. 5-/5 strength in left lower extremity. SKIN: right residual limb incision with william and sutures, c/d/i mild erythema, blanchable circular erythematous area over tibial plateau ASSESSMENT:73-year-old M with past medical history of PAD who presents status post right BKA PLAN: 1. Rehab: PT/OT assess for DMEs, maintain knee extension, patient instructed to avoid keeping head of bed up to prevent hip flexion contracture- sponge bath only as left ankle bracelet cannot be submerged in water 2. Neuro; pmh stroke with left sided residual weakness, c/u ASA and statin for secondary stroke prevention 3. Cardio: PAD s/p right BKA- Plavix on hold for 1-2 weeks post-op as discussed with vascular surgeon, will c/u ASA pmh- HTn c/u BP meds, medicine consulted 4. Resp: wheeze resolved, c/u duonebs, incentive spirometry and monitor for infection 5. Endo: DM continue insulin coverage-stable 6. GI ppx: protonix 7. DVT ppx: c/u heparin 8. Pain: c/u valium and will change percocet to oxycodone, c/u Tylenol and Gabapentin for nocturnal pain, c/u daytime Gabapentin 9. : admission UA and Ucx negative, continue flomax for BPH 10. Skin: daily dressing changes, monitor for infection-will avoid [place] orthotic at this time as suspect friction at tibial plateau against strap as orthotic is slightly too large for limb-concern for cellulitis, pain improving on Kefflex, elevated CRP/ESR will c/u to monitor 10. Dispo: TBD Allergies Coded Allergies: No Known Allergies (Unverified , 07/06/14) Vital Signs Vital Signs Date Time Temp Pulse Resp B/P (MAP) Pulse Ox O2 Delivery O2 Flow Rate FiO2 05/24/18 17:10 18 05/24/18 14:00 97.9 64 117/62 (80) 95 Laboratory Data CBC/BMP Laboratory Tests 05/24/18 06:44 Red Blood Count 4.65, Mean Corpuscular Volume 87.3, Mean Corpuscular Hemoglobin 28.4, Mean Corpuscular Hemoglobin Concent 32.5, Red Cell Distribution Width 13.3, Calcium Level 8.8 Labs 24H Laboratory Tests 2 05/23/18 20:23: Bedside Glucose (Misc Panel) 174H 05/24/18 06:14: Bedside Glucose (Misc Panel) 111H 05/24/18 06:44: Nucleated Red Blood Cells % (auto) 0.0, Anion Gap 5L, Glomerular Filtration Rate 49.1, Blood Urea Nitrogen 27H, Creatinine 1.50H, Sodium Level 136, Potassium Level 4.1, Chloride Level 102, Carbon Dioxide Level 29, Calcium Level 8.8 05/24/18 11:30: Bedside Glucose (Misc Panel) 144H 05/24/18 17:06: Bedside Glucose (Misc Panel) 162H 05/24/18 20:09: Bedside Glucose (Misc Panel) 174H Microbiology Microbiology 05/23/18 Respiratory Virus Panel (PCR) (DC) - Final, Complete Current Medications Current Medications Current Medications Acetaminophen (Tylenol Tab) 650 mg DAILYPRN PRN PO fever/MILD PAIN (PS 1-4); Start 05/15/18 at 18:45 Acetaminophen (Tylenol Tab) 1,000 mg TID@0600,1400,2100 PO Last administered on 05/24/18 14:14; Start 05/19/18 at 21:00; Status Future hold Albuterol/ Ipratropium (Duoneb (Ipr 0.5mg/Alb 2.5mg)) 3 ml RBID NEB Last administered on 05/22/18 19:57; Start 05/15/18 at 20:00; Stop 05/23/18 at 11:45; Status DC Amlodipine Besylate (Norvasc) 10 mg DAILY PO Last administered on 05/24/18 08:39; Start 05/16/18 at 09:00 Aspirin (Aspirin Chewable) 81 mg DAILY PO Last administered on 05/24/18 08:35; Start 05/16/18 at 09:00 Atorvastatin Calcium (Lipitor) 80 mg QHS PO Last administered on 05/23/18at 22:09; Start 05/15/18 at 21:00 Bisacodyl (Dulcolax Suppository) 10 mg DAILYPRN PRN AR CONSTIPATION; Start 05/15/18 at 18:45 Carvedilol (COReg) 3.125 mg BID PO Last administered on 05/23/18 08:31; Start 05/15/18 at 21:00 Cephalexin Monohydrate (Keflex) 500 mg BID PO Last administered on 05/24/18 08:39; Start 05/21/18 at 21:00; Stop 05/28/18 at 09:01 Clopidogrel Bisulfate (PLAVix) 75 mg DAILY PO Last administered on 05/24/18 08:39; Start 05/23/18 at 09:00 Dextrose (Dextrose 50%) 25 ml ASDIRECTED PRN IV SEE LABEL COMMENTS; Start 05/15/18 at 19:00 Diazepam (Valium) 5 mg Q6HP PRN PO SPASMS Last administered on 05/24/18 16:41; Start 05/21/18 at 15:00 Diazepam (Valium) 10 mg Q6HP PRN PO SPASMS Last administered on 05/20/18 21:36; Start 05/15/18 at 19:00; Stop 05/21/18 at 15:03; Status DC Docusate Sodium (Colace) 100 mg BID PO Last administered on 05/21/18at 09:12; Start 05/15/18 at 21:00; Stop 05/21/18 at 15:03; Status DC Ferrous Gluconate (Fergon) 324 mg TID PO Last administered on 05/24/18at 16:41; Start 05/15/18 at 21:00 Gabapentin (Neurontin) 300 mg QHS PO Last administered on 05/19/18at 20:40; Start 05/19/18 at 21:00; Stop 05/20/18 at 12:22; Status DC Gabapentin (Neurontin) 300 mg TID PO Last administered on 05/24/18at 16:41; Start 05/20/18 at 16:00 Glucagon (Glucagon) 1 mg ASDIRECTED PRN SC SEE LABEL COMMENTS; Start 05/15/18 at 19:00 Glucose (Glucose) 16 GM ASDIRECTED PRN PO SEE LABEL COMMENTS; Start 05/15/18 at 19:00 Heparin Sodium (Porcine) (Heparin) 5,000 units Q8H SQ Last administered on 05/24/18at 14:14; Start 05/15/18 at 22:00 Hydrochlorothiazide (Hydrodiuril) 25 mg DAILY PO Last administered on 05/23/18at 08:31; Start 05/16/18 at 09:00; Stop 05/24/18 at 07:35; Status DC Insulin Detemir (Levemir Insulin) 20 units BID SC Last administered on 05/24/18at 08:43; Start 05/15/18 at 21:00 Insulin Human Lispro (HumaLOG INSULIN) SEE PROTOCOL TABLE AC SC Last a dministered on 05/24/18at 17:37; Start 05/16/18 at 07:30 Insulin Human Lispro (HumaLOG INSULIN) SEE PROTOCOL TABLE QHS SC ; Start 05/15/18 at 21:00 Lactobacillus Acidophilus (Bacid) 1 ea WM PO Last administered on 05/24/18at 16:41; Start 05/21/18 at 18:00 Lisinopril (Prinivil) 10 mg QHS PO Last administered on 05/23/18at 22:10; Start 05/22/18 at 21:00 Lisinopril (Prinivil) 20 mg DAILY PO Last administered on 05/21/18 09:12; Start 05/16/18 at 09:00; Stop 05/21/18 at 14:22; Status DC Ondansetron HCl (Zofran) 4 mg Q6HP PRN PO NAUSEA; Start 05/15/18 at 18:45 Oxycodone HCl (Roxicodone, Oxyir) 5 mg Q4HP PRN PO PAIN; Start 05/19/18 at 19:15 Oxycodone HCl (Roxicodone, Oxyir) 10 mg Q4HP PRN PO SEVERE PAIN (PS 8-10) Last administered on 05/24/18at 16:40; Start 05/19/18 at 19:15 Oxycodone/ Acetaminophen (Percocet 5mg/ 325mg Tablet) 1 tab Q4HP PRN PO MILD/MODERATE PAIN (PS 1-7); Start 05/15/18 at 19:00; Stop 05/19/18 at 19:18; Status DC Oxycodone/ Acetaminophen (Percocet 5mg/ 325mg Tablet) 2 tab Q4HP PRN PO SEVERE PAIN (PS 8-10) Last administered on 05/19/18 16:05; Start 05/15/18 at 19:00; St op 05/19/18 at 19:18; Status DC Pantoprazole Sodium (Protonix) 40 mg DAILY PO Last administered on 05/24/18 08:39; Start 05/16/18 at 09:00 Senna (Senokot) 1 tab QHS PO Last administered on 05/20/18 21:37; Start 05/15/18 at 21:00; Stop 05/21/18 at 15:03; Status DC Tamsulosin HCl (Flomax) 0.4 mg QHS PO Last administered on 05/23/18 22:09; Start 05/15/18 at 21:00 Trazodone HCl (Desyrel) 25 mg QHS PO Last administered on 05/23/18 22:09; Start 05/20/18 at 21:00 ADRIANA HUFF MD May 24, 2018 20:21
[2018-05-24] MEDS: LISINOPRIL 10 MG TAB PO SCH (21:00)
[2018-05-24] MEDS: ATORVASTATIN 20 MG TAB PO SCH (21:28)
[2018-05-24] MEDS: traZODone 25MG PER 1/2 TABLET PO SCH (21:29)
[2018-05-24] MEDS: TAMSULOSIN 0.4 MG CAP PO SCH (21:30)
[2018-05-25] MEDS: HEPARIN SOD (PORCINE) 5000 UNITS/ML VIAL SQ SCH ×3 (05:45→21:14)
[2018-05-25] MEDS: ACETAMINOPHEN 500 MG TAB PO SCH ×3 (05:45→21:16)
[2018-05-25 06:00] VITALS: BP 111/68
[2018-05-25 06:51] LABS: BASO # 0.1 10^3/uL (0.0-0.2); EOS # 0.4 10^3/uL (0.0-0.50); EOS % 5.1 % (0.0-3.0); HEMATOCRIT 39.4 % (42.0-52.0); HEMOGLOBIN 12.7 g/dl (13.5-17.5); LYMPH # 2.3 10^3/uL (1.5-4.5); MEAN CORPUSCULAR HEMOGLOBIN 28.3 pg (27.0-33.0); MEAN CORPUSCULAR HGB CONC 32.2 g/dl (32.0-36.5); MEAN CORPUSCULAR VOLUME 87.9 fl (80.0-96.0); MONO # 0.8 10^3/uL (0.0-0.8); MONO % 10.1 % (0.0-5.0); NEUTROPHILS # 4.2 10^3/uL (1.8-7.7); NEUTROPHILS % 52.4 % (36.0-66.0); PLATELET COUNT, AUTOMATED 505 10^3/uL (150-450); RED BLOOD COUNT 4.48 10^6/uL (4.30-6.10); WHITE BLOOD COUNT 7.9 10^3/uL (4.0-10.0)
[2018-05-25] MEDS: CLOPIDOGREL 75 MG TAB PO SCH (08:39)
[2018-05-25] MEDS: CEPHALEXIN 500 MG CAP PO SCH ×2 (08:39→21:14)
[2018-05-25] MEDS: GABAPENTIN 300 MG CAP PO SCH ×3 (08:39→21:15)
[2018-05-25] MEDS: FERROUS GLUCONATE 324 MG TAB PO SCH ×3 (08:39→21:14)
[2018-05-25] MEDS: HumaLOG INSULIN (NovoLOG) PER UNIT SC SCH ×4 (08:39→21:00)
[2018-05-25] MEDS: oxyCODONE 5MG TAB PO PRN ×3 (08:39→21:17)
[2018-05-25] MEDS: ASPIRIN 81 MG CHEW TABLET PO SCH (08:40)
[2018-05-25] MEDS: amLODIPine 10 MG TAB PO SCH (08:40)
[2018-05-25] MEDS: LACTOBACILLUS ACIDOPHILUS CAP (BACID) PO SCH ×3 (08:40→17:13)
[2018-05-25] MEDS: PANTOPRAZOLE 40MG TAB (PROTONIX) PO SCH (08:40)
[2018-05-25] MEDS: CARVedilol 3.125 MG TAB PO SCH ×2 (08:40→21:15)
[2018-05-25] MEDS: LEVEMIR (INSULIN DETEMIR) 1 UNITS/0.01ML SC SCH ×2 (08:41→21:14)
[2018-05-25] MEDS: LIDOCAINE 5% (LIDODERM) PATCH TD SCH (12:21)
--- NOTE | 2018-05-25 12:39 | IPNPDOC ---
Date Seen The patient was seen on 05/25/18. Progress Note HPI: 73M pmh PAD, DM, HTN, CKD, CVA with residual left sided weakness who developed worsening right foot pain and was evaluated at [facility] ED on 05/11/18 and found to have ischemia of the his limb for which a vascular consult was placed. He underwent an aortoiliofemoral arteriogram with right lower extremity runoff and placement of the thrombolysis catheter from right distal superficial femoral artery to right distal posterior tibial artery across popliteal/tibial occlusion. On 05/12/18 the TPA lysis catheter was removed and vascular surgery discussed need for BKA vs AKA as his right foot was not salvageable. His Plavix and ASA were held, on 05/13/18 he underwent a right BKA without significant co mplications and a knee immobilizer was placed. The pt was transferred to the care of [facility], Dr Durán, 05/15/18. The pt is currently OOB with therapy. BP 102-111. Yesterday SBP 89 standing. BP meds adjusted today as per Dr Durán. Denies any fevers, chills, weakness, fatigue, Headache, Chest Pain, Shortness of breath, cough, palpitations, abdominal pain, N/V/D or changes in bowel or bladder habits. PMH IDDM HTN HLD CKD CVA PAD BPH GERD PE: GEN: 73yoM, appears stated age. Well-nourished, well developed. No acute distress. Alert and oriented x 3. HEENT: Normocephalic, atraumatic. Sclera are nonicteric. Conjunctiva without injection. Moist mucous membranes. CHEST: Regular rate and rhythm, +S1, +S2 LUNGS: Clear to auscultation bilaterally. No wheezes, rales, or rhonchi. Breathing appears symmetric and easy. ABD: Round, soft, non-tender, non-distended. +Bowel sounds throughout. EXT: Pulses palpable LLE. No lower extremity edema appreciated. Dressing intact BKA RLE. SKIN: [place], dry, warm. No rashes. NEURO: Alert and oriented x 3. No focal deficits appreciated. A&P: 73M pmh PAD, DM, HTN, CKD, CVA with residual left sided weakness who developed worsening right foot pain and was evaluated at [facility] ED on 05/11/18 and found to have ischemia of the his limb for which a vascular consult was placed. He underwent an aortoiliofemoral arteriogram with right lower extremity runoff and placement of the thrombolysis catheter from right distal superficial femoral artery to right distal posterior tibial artery across popliteal/tibial occlusion. On 05/12/18 the TPA lysis catheter was removed and vascular surgery discussed need for BKA vs AKA as his right foot was not salvageable. His Plavix and ASA were held, on 05/13/18 he underwent a right BKA without significant complications and a knee immobilizer was placed. The pt was transferred to the care of Dr Luis Armando NOEL, 05/15/18. 1. RLE Ischemia S/P BKA s/p Aortoiliofemoral arteriogram with RLE runoff with placement of thrombolysis catheter on 05/11 s/p s/p RLE arteriogram with removal of tPA lysis catheter with mynx closure of left NURSE EMERGENCY on 05/12 s/p RLE BKA with Vascular Surgery on 05/13/18 Cont to f/u with Vascular Surgery recommendations PT/OT as per Dr Luis Armando NOEL. pain control as per Dr Luis Armando NOEL. bowel care as per Dr Luis Armando NOEL. DVT prophylaxis as per Dr Luis Armando NOEL. SQ Heparin. The pt was started on po Keflex as per Dr Durán for wound, D5/[address] Luis Armando NOEL. 2. Chronic Kidney Disease Stage IIIA/B Serum Cr baseline is 1.5-1.6 according to outpatient records SCr 1.5. stable. Cont current management BMP in AM. 3. Diabetes Mellitus Cont reduced dose of basal insulin, 20 Units of Levemir BID (takes 70 Units BID at home) Cont SSI BS 127-248 monitor. 4. Hypertension. Coreg 3.125 mg BID with hold parameters. Norvasc, Lisinopril, HCTZ on HOLD. The pt is also receiving Flomax and trazodone which may also contribute to orthostasis. monitor BP trend. Orthostatic VS requested. 5. History of CVA Continue statin ASA, Plavix can be continued as per Vascular Surgery recommendations 6. Transaminitis likely 2/2 Hx of EtOH use Patient states that he drank anywhere from 4/5th oz of Whiskey to "a couple six packs of beer" per day since age 16 til age 69. Last drink was in 2004 Liver U/S with no acute findings Hepatitis panel negative Monitor. Cont to monitor LFTs and follow as outpatient 7. Dyslipidemia Continue statin 8. GERD Continue PPI 9. Anemia, Normocytic. Likely acute blood loss/chronic disease. Hgb stable, 12.7. fe studies, B12, folate noted. Fe supplement TID. Monitor. VS, I&O, 24H, Fishbone Vital Signs/I&O Vital Signs Date Time Temp Pulse Resp B/P (MAP) Pulse Ox O2 Delivery O2 Flow Rate FiO2 05/25/18 09:09 18 05/25/18 08:40 58 111/68 05/25/18 06:00 98.6 94 I&O- Last 24 Hours up to 6 AM 05/25/18 06:00 Intake Total 1480 ml Output Total 1600 ml Balance -120 ml Laboratory Data 24H LABS Laboratory Tests 2 05/24/18 17:06: Bedside Glucose (Misc Panel) 162H 05/24/18 20:09: Bedside Glucose (Misc Panel) 174H 05/25/18 06:17: Immature Granulocyte % (Auto) 2.4, White Blood Count 7.9, Red Blood Count 4.48, Hemoglobin 12.7L, Hematocrit 39.4L, Mean Corpuscular Volume 87.9, Mean Corpuscular Hemoglobin 28.3, Mean Corpuscular Hemoglobin Concent 32.2, Red Cell Distribution Width 13.2, Platelet Count 505H, Neutrophils (%) (Auto) 52.4, Lymphocytes (%) (Auto) 29.0, Monocytes (%) (Auto) 10.1H, Eosinophils (%) (Auto) 5.1H, Basophils (%) (Auto) 1.0, Neutrophils # (Auto) 4.2, Lymphocytes # (Auto) 2.3, Monocytes # (Auto) 0.8, Eosinophils # (Auto) 0.4, Basophils # (Auto) 0.1, Nucleated Red Blood Cells % (auto) 0.0, C-Reactive Protein, Quantitative 1.46H 05/25/18 06:19: Bedside Glucose (Misc Panel) 127H 05/25/18 11:39: Bedside Glucose (Misc Panel) 248H CBC/BMP Laboratory Tests 05/25/18 06:17 Red Blood Count 4.48, Mean Corpuscular Volume 87.9, Mean Corpuscular Hemoglobin 28.3, Mean Corpuscular Hemoglobin Concent 32.2, Red Cell Distribution Width 13.2, Neutrophils (%) (Auto) 52.4, Lymphocytes (%) (Auto) 29.0, Monocytes (%) (Auto) 10.1 H, Eosinophils (%) (Auto) 5.1 H, Basophils (%) (Auto) 1.0, Neutrophils # (Auto) 4.2, Lymphocytes # (Auto) 2.3, Monocytes # (Auto) 0.8, Eosinophils # (Auto) 0.4, Basophils # (Auto) 0.1 Microbiology Microbiology 05/23/18 Respiratory Virus Panel (PCR) (DC) - Final, Complete Paty Franco May 25, 2018 12:39
[2018-05-25 14:00] VITALS: BP 104/58
--- NOTE | 2018-05-25 15:38 | IPNPDOC ---
PM&R Progress Note DATE OF SERVICE: May 25, 2018 Gunner Mate Progress Note Subjective: Patient reports his limb pain is much better and he can tap it and it doesn't bother him. He reports a transient tingling sensation that traveled from his n ly down to his left thumb and middle finger while in the wheelchair and resolved once in bed. Denies chest pain or palpitations. REVIEW OF SYSTEMS: The following is a completed review of systems and has been reviewed. Review of systems otherwise unremarkable. PAIN: Patient self reports right residual limb pain EYES: Negative for recent vision changes. EARS, NOSE, & THROAT: denies rhinorrhea or throat pain CARDIOVASCULAR: denies chest pain or palpitations PULMONARY: Negative. 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 PHYSICAL EXAMINATION: VITAL SIGNS: Please see below. GENERAL: Pleasant and cooperative. No acute distress. HEENT: PERRL. Extraocular movements intact. Clear conjunctiva CARDIOVASCULAR: Regular rate and rhythm. No murmurs, rubs, or gallops LUNGS: mostly Clear to auscultation bilaterally with bilateral apical wheezes. No rhonchi/crackles ABDOMEN: Soft, nontender, nondistended. Positive bowel sounds. Normal active bowel sounds. NEUROLOGICAL: Alert and oriented times three. Cranial nerves II through XII grossly intact. Sensation grossly intact. EXTREMITIES: 5\5 strength bilateral upper extremities.5-\5 strength right hip flexors knee extensors and knee flexors. 5-/5 strength in left lower extremity. (+) TTP cervical paraspinals, equivocal [place] maneuver SKIN: right residual limb incision with william and sutures, c/d/i mild erythema, blanchable circular erythematous area over tibial plateau ASSESSMENT:73-year-old M with past medical history of PAD who presents status post right BKA PLAN: 1. Rehab: PT/OT assess for DMEs, maintain knee extension, patient instructed to avoid keeping head of bed up to prevent hip flexion contracture- sponge bath only as left ankle bracelet cannot be submerged in water, ambulating with RW 2. Neuro; pmh stroke with left sided residual weakness, c/u ASA and statin for secondary stroke prevention 3. Cardio: PAD s/p right BKA- Plavix restarted, c/u ASA pmh- HTn c/u BP meds, medicine consulted 4. Resp: wheeze resolved, c/u duonebs, incentive spirometry and monitor for infection 5. Endo: DM continue insulin coverage-stable 6. GI ppx: protonix 7. DVT ppx: c/u heparin 8. Pain: c/u valium and will change percocet to oxycodone, c/u Tylenol and Jonnie apentin for nocturnal pain, c/u daytime Gabapentin -transient radiating to hand left sided neck pain in C6/C7 distribution, patient instructed to work on chin tucks and lidoderm patch ordered for neck- strength and sensation intact 9. : admission UA and Ucx negative, continue flomax for BPH 10. Skin: daily dressing changes, monitor for infection-will avoid Hangar orthotic at this time as suspect friction at tibial plateau against strap as orthotic is slightly too large for limb-concern for cellulitis, pain and ESR/CRP improving on Kefflexc/u to monitor 10. Dispo: TBD Allergies Coded Allergies: No Known Allergies (Unverified , 07/06/14) Vital Signs Vital Signs Date Time Temp Pulse Resp B/P (MAP) Pulse Ox O2 Delivery O2 Flow Rate FiO2 05/25/18 14:00 98.4 67 15 104/58 (73) 96 Laboratory Data CBC/BMP Laboratory Tests 05/25/18 06:17 Red Blood Count 4.48, Mean Corpuscular Volume 87.9, Mean Corpuscular Hemoglobin 28.3, Mean Corpuscular Hemoglobin Concent 32.2, Red Cell Distribution Width 13.2, Neutrophils (%) (Auto) 52.4, Lymphocytes (%) (Auto) 29.0, Monocytes (%) (Auto) 10.1 H, Eosinophils (%) (Auto) 5.1 H, Basophils (%) (Auto) 1.0, Neutrophils # (Auto) 4.2, Lymphocytes # (Auto) 2.3, Monocytes # (Auto) 0.8, Eosinophils # (Auto) 0.4, Basophils # (Auto) 0.1 Labs 24H Laboratory Tests 2 05/24/18 17:06: Bedside Glucose (Misc Panel) 162H 05/24/18 20:09: Bedside Glucose (Misc Panel) 174H 05/25/18 06:17: Immature Granulocyte % (Auto) 2.4, White Blood Count 7.9, Red Blood Count 4.48, Hemoglobin 12.7L, Hematocrit 39.4L, Mean Corpuscular Volume 87.9, Mean Corpuscular Hemoglobin 28.3, Mean Corpuscular Hemoglobin Concent 32.2, Red Cell Distribution Width 13.2, Platelet Count 505H, Neutrophils (%) (Auto) 52.4, Lymphocytes (%) (Auto) 29.0, Monocytes (%) (Auto) 10.1H, Eosinophils (%) (Auto) 5.1H, Basophils (%) (Auto) 1.0, Neutrophils # (Auto) 4.2, Lymphocytes # (Auto) 2.3, Monocytes # (Auto) 0.8, Eosinophils # (Auto) 0.4, Basophils # (Auto) 0.1, Nucleated Red Blood Cells % (auto) 0.0, C-Reactive Protein, Quantitative 1.46H 05/25/18 06:19: Bedside Glucose (Misc Panel) 127H 05/25/18 11:39: Bedside Glucose (Misc Panel) 248H Microbiology Microbiology 05/23/18 Respiratory Virus Panel (PCR) (DC) - Final, Complete Current Medications Current Medications Current Medications Acetaminophen (Tylenol Tab) 650 mg DAILYPRN PRN PO fever/MILD PAIN (PS 1-4); Start 05/15/18 at 18:45 Acetaminophen (Tylenol Tab) 1,000 mg TID@0600,1400,2100 PO Last administered on 05/25/18at 14:09; Start 05/19/18 at 21:00; Status Future hold Albuterol/ Ipratropium (Duoneb (Ipr 0.5mg/Alb 2.5mg)) 3 ml RBID NEB Last administered on 05/22/18at 19:57; Start 05/15/18 at 20:00; Stop 05/23/18 at 11:45; Status DC Amlodipine Besylate (Norvasc) 10 mg DAILY PO Last administered on 05/25/18at 08:40; Start 05/16/18 at 09:00; Stop 05/25/18 at 10:46; Status DC Aspirin (Aspirin Chewable) 81 mg DAILY PO Last administered on 05/25/18 08:40; Start 05/16/18 at 09:00 Atorvastatin Calcium (Lipitor) 80 mg QHS PO Last administered on 05/24/18 21:28; Start 05/15/18 at 21:00 Bisacodyl (Dulcolax Suppository) 10 mg DAILYPRN PRN [place] CONSTIPATION; Start 05/15/18 at 18:45 Carvedilol (COReg) 3.125 mg BID PO Last administered on 05/23/18 08:31; Start 05/15/18 at 21:00 Cephalexin Monohydrate (Keflex) 500 mg BID PO Last administered on 05/25/18 08:39; Start 05/21/18 at 21:00; Stop 05/28/18 at 09:01 Clopidogrel Bisulfate (PLAVix) 75 mg DAILY PO Last administered on 05/25/18 08:39; Start 05/23/18 at 09:00 Dextrose (Dextrose 50%) 25 ml ASDIRECTED PRN IV SEE LABEL COMMENTS; Start 05/15/18 at 19:00 Diazepam (Valium) 5 mg Q6HP PRN PO SPASMS Last administered on 05/24/18 16:41; Start 05/21/18 at 15:00 Diazepam (Valium) 10 mg Q6HP PRN PO SPASMS Last administered on 05/20/18 21:36; Start 05/15/18 at 19:00; Stop 05/21/18 at 15:03; Status DC Docusate Sodium (Colace) 100 mg BID PO Last administered on 05/21/18 09:12; Start 05/15/18 at 21:00; Stop 05/21/18 at 15:03; Status DC Ferrous Gluconate (Fergon) 324 mg TID PO Last administered on 05/25/18 08:39; Start 05/15/18 at 21:00 Gabapentin (Neurontin) 300 mg QHS PO Last administered on 05/19/18 20:40; Start 05/19/18 at 21:00; Stop 05/20/18 at 12:22; Status DC Gabapentin (Neurontin) 300 mg TID PO Last administered on 05/25/18 08:39; Start 05/20/18 at 16:00 Glucagon (Glucagon) 1 mg ASDIRECTED PRN SC SEE LABEL COMMENTS; Start 05/15/18 at 19:00 Glucose (Glucose) 16 GM ASDIRECTED PRN PO SEE LABEL COMMENTS; Start 05/15/18 at 19:00 Heparin Sodium (Porcine) (Heparin) 5,000 units Q8H SQ Last administered on 05/25at 14:09; Start 05/15/18 at 22:00 Hydrochlorothiazide (Hydrodiuril) 25 mg DAILY PO Last administered on 05/23/18at 08:31; Start 05/16/18 at 09:00; Stop 05/24/18 at 07:35; Status DC Insulin Detemir (Levemir Insulin) 20 units BID SC Last administered on 05/25/18at 08:41; Start 05/15/18 at 21:00 Insulin Human Lispro (HumaLOG INSULIN) SEE PROTOCOL TABLE AC SC Last administered on 05/25/18at 12:21; Start 05/16/18 at 07:30 Insulin Human Lispro (HumaLOG INSULIN) SEE PROTOCOL TABLE QHS SC ; Start 05/15/18 at 21:00 Lactobacillus Acidophilus (Bacid) 1 ea WM PO Last administered on 05/25/18at 12:21; Start 05/21/18 at 18:00 Lidocaine (Lidoderm Patch) 1 patch DAILY TD Last administered on 05/25/18at 12:21; Start 05/25/18 at 09:00 Lisinopril (Prinivil) 10 mg QHS PO Last administered on 05/23/18at 22:10; Start 05/22/18 at 21:00; Stop 05/25/18 at 10:46; Status DC Lisinopril (Prinivil) 20 mg DAILY PO Last administered on 05/21/18at 09:12; Start 05/16/18 at 09:00; Stop 05/21/18 at 14:22; Status DC Non-Formulary Medication ( See Comment Field Below ) REMOVE LIDODERM PATCH DAILY@21 XX ; Start 05/25/18 at 21:00 Ondansetron HCl (Zofran) 4 mg Q6HP PRN PO NAUSEA; Start 05/15/18 at 18:45 Oxycodone HCl (Roxicodone, Oxyir) 5 mg Q4HP PRN PO PAIN; Start 05/19/18 at 19:15 Oxycodone HCl (Roxicodone, Oxyir) 10 mg Q4HP PRN PO SEVERE PAIN (PS 8-10) Last administered on 05/25/18 08:39; Start 05/19/18 at 19:15 Oxycodone/ Acetaminophen (Percocet 5mg/ 325mg Tablet) 1 tab Q4HP PRN PO MILD/MODERATE PAIN (PS 1-7); Start 05/15/18 at 19:00; Stop 05/19/18 at 19:18; Status DC Oxycodone/ Acetaminophen (Percocet 5mg/ 325mg Tablet) 2 tab Q4HP PRN PO SEVERE PAIN (PS 8-10) Last administered on 05/19/18 16:05; Start 05/15/18 at 19:00; Stop 05/19/18 at 19:18; Status DC Pantoprazole Sodium (Protonix) 40 mg DAILY PO Last administered on 05/25/18 08:40; Start 05/16/18 at 09:00 Senna (Senokot) 1 tab QHS PO Last administered on 05/20/18 21:37; Start 05/15/18 at 21:00; Stop 05/21/18 at 15:03; Status DC Tamsulosin HCl (Flomax) 0.4 mg QHS PO Last administered on 05/24/18 21:30; Start 05/15/18 at 21:00 Trazodone HCl (Desyrel) 25 mg QHS PO Last administered on 05/24/18 21:29; Start 05/20/18 at 21:00 ADRIANA HUFF MD May 25, 2018 15:38
[2018-05-25 20:00] VITALS: BP 130/68
[2018-05-25] MEDS: ATORVASTATIN 20 MG TAB PO SCH (21:14)
[2018-05-25] MEDS: traZODone 25MG PER 1/2 TABLET PO SCH (21:14)
[2018-05-25] MEDS: **NOTE PATIENT COMMENT** MISC XX SCH (21:18)
[2018-05-25] MEDS: TAMSULOSIN 0.4 MG CAP PO SCH (21:21)
[2018-05-26] MEDS: oxyCODONE 5MG TAB PO PRN ×4 (02:50→21:56)
[2018-05-26] MEDS: HEPARIN SOD (PORCINE) 5000 UNITS/ML VIAL SQ SCH ×3 (05:44→21:53)
[2018-05-26] MEDS: ACETAMINOPHEN 500 MG TAB PO SCH ×3 (05:45→21:54)
[2018-05-26 06:00] VITALS: BP_SYST 101; BP_SYST 122; BP_SYST 91; BP_DIAS 57; BP_DIAS 63; BP_DIAS 69
[2018-05-26] MEDS: PANTOPRAZOLE 40MG TAB (PROTONIX) PO SCH (09:26)
[2018-05-26] MEDS: LACTOBACILLUS ACIDOPHILUS CAP (BACID) PO SCH ×3 (09:26→17:50)
[2018-05-26] MEDS: CEPHALEXIN 500 MG CAP PO SCH ×2 (09:27→21:51)
[2018-05-26] MEDS: CARVedilol 3.125 MG TAB PO SCH ×2 (09:27→21:52)
[2018-05-26] MEDS: GABAPENTIN 300 MG CAP PO SCH ×3 (09:27→21:51)
[2018-05-26] MEDS: CLOPIDOGREL 75 MG TAB PO SCH (09:27)
[2018-05-26] MEDS: FERROUS GLUCONATE 324 MG TAB PO SCH ×3 (09:27→21:51)
[2018-05-26] MEDS: ASPIRIN 81 MG CHEW TABLET PO SCH (09:27)
[2018-05-26] MEDS: LEVEMIR (INSULIN DETEMIR) 1 UNITS/0.01ML SC SCH ×2 (09:27→21:55)
[2018-05-26] MEDS: LIDOCAINE 5% (LIDODERM) PATCH TD SCH (09:28)
[2018-05-26] MEDS: HumaLOG INSULIN (NovoLOG) PER UNIT SC SCH ×4 (09:28→21:00)
[2018-05-26 14:30] VITALS: BP 152/71
[2018-05-26 20:00] VITALS: BP 131/78
[2018-05-26] MEDS: TAMSULOSIN 0.4 MG CAP PO SCH (21:52)
[2018-05-26] MEDS: traZODone 25MG PER 1/2 TABLET PO SCH (21:52)
[2018-05-26] MEDS: ATORVASTATIN 20 MG TAB PO SCH (21:53)
[2018-05-26] MEDS: **NOTE PATIENT COMMENT** MISC XX SCH (21:55)
[2018-05-27] MEDS: oxyCODONE 5MG TAB PO PRN ×5 (01:53→20:59)
[2018-05-27] MEDS: HEPARIN SOD (PORCINE) 5000 UNITS/ML VIAL SQ SCH ×3 (05:50→20:58)
[2018-05-27] MEDS: ACETAMINOPHEN 500 MG TAB PO SCH ×3 (05:51→21:00)
[2018-05-27 06:08] VITALS: BP_SYST 107; BP_SYST 125; BP_SYST 129; BP_DIAS 73; BP_DIAS 74; BP_DIAS 75
[2018-05-27 07:13] LABS: HEMATOCRIT 36.9 % (42.0-52.0); MEAN CORPUSCULAR HEMOGLOBIN 28.7 pg (27.0-33.0); MEAN CORPUSCULAR HGB CONC 32.5 g/dl (32.0-36.5); MEAN CORPUSCULAR VOLUME 88.3 fl (80.0-96.0); PLATELET COUNT, AUTOMATED 494 10^3/uL (150-450); RED BLOOD COUNT 4.18 10^6/uL (4.30-6.10)
[2018-05-27 07:36] LABS: CALCIUM LEVEL 8.7 MG/DL (8.8-10.2); CREATININE FOR GFR 1.45 MG/DL (0.70-1.30); GLOMERULAR FILTRATION RATE 51.1 (>42)
[2018-05-27] MEDS: CEPHALEXIN 500 MG CAP PO SCH ×2 (08:19→21:00)
[2018-05-27] MEDS: PANTOPRAZOLE 40MG TAB (PROTONIX) PO SCH (08:19)
[2018-05-27] MEDS: ASPIRIN 81 MG CHEW TABLET PO SCH (08:19)
[2018-05-27] MEDS: LACTOBACILLUS ACIDOPHILUS CAP (BACID) PO SCH ×3 (08:19→17:00)
[2018-05-27] MEDS: CARVedilol 3.125 MG TAB PO SCH ×2 (08:19→21:00)
[2018-05-27] MEDS: GABAPENTIN 300 MG CAP PO SCH ×3 (08:19→20:59)
[2018-05-27] MEDS: CLOPIDOGREL 75 MG TAB PO SCH (08:19)
[2018-05-27] MEDS: FERROUS GLUCONATE 324 MG TAB PO SCH ×3 (08:19→20:58)
[2018-05-27] MEDS: LEVEMIR (INSULIN DETEMIR) 1 UNITS/0.01ML SC SCH ×2 (08:20→21:01)
[2018-05-27] MEDS: LIDOCAINE 5% (LIDODERM) PATCH TD SCH (08:20)
[2018-05-27] MEDS: HumaLOG INSULIN (NovoLOG) PER UNIT SC SCH ×4 (08:21→21:00)
[2018-05-27 14:00] VITALS: BP 140/75
[2018-05-27 20:00] VITALS: BP 131/61
[2018-05-27] MEDS: TAMSULOSIN 0.4 MG CAP PO SCH (20:59)
[2018-05-27] MEDS: ATORVASTATIN 20 MG TAB PO SCH (20:59)
[2018-05-27] MEDS: traZODone 25MG PER 1/2 TABLET PO SCH (20:59)
[2018-05-27] MEDS: **NOTE PATIENT COMMENT** MISC XX SCH (21:01)
[2018-05-28] MEDS: oxyCODONE 5MG TAB PO PRN ×3 (04:21→21:32)
[2018-05-28 06:00] VITALS: BP_SYST 104; BP_SYST 105; BP_SYST 110; BP_DIAS 57; BP_DIAS 64; BP_DIAS 69
[2018-05-28] MEDS: ACETAMINOPHEN 500 MG TAB PO SCH ×3 (06:03→21:32)
[2018-05-28] MEDS: HEPARIN SOD (PORCINE) 5000 UNITS/ML VIAL SQ SCH ×3 (06:04→21:33)
[2018-05-28] MEDS: CARVedilol 3.125 MG TAB PO SCH ×2 (09:00→21:33)
[2018-05-28] MEDS: LIDOCAINE 5% (LIDODERM) PATCH TD SCH (09:00)
[2018-05-28] MEDS: ASPIRIN 81 MG CHEW TABLET PO SCH (10:31)
[2018-05-28] MEDS: GABAPENTIN 300 MG CAP PO SCH ×3 (10:31→21:32)
[2018-05-28] MEDS: CLOPIDOGREL 75 MG TAB PO SCH (10:32)
[2018-05-28] MEDS: CEPHALEXIN 500 MG CAP PO SCH ×2 (10:32→21:32)
[2018-05-28] MEDS: FERROUS GLUCONATE 324 MG TAB PO SCH ×3 (10:32→21:32)
[2018-05-28] MEDS: PANTOPRAZOLE 40MG TAB (PROTONIX) PO SCH (10:32)
[2018-05-28] MEDS: HumaLOG INSULIN (NovoLOG) PER UNIT SC SCH ×4 (10:34→21:00)
[2018-05-28] MEDS: LEVEMIR (INSULIN DETEMIR) 1 UNITS/0.01ML SC SCH ×2 (10:34→21:33)
[2018-05-28] MEDS: LACTOBACILLUS ACIDOPHILUS CAP (BACID) PO SCH ×3 (10:36→17:43)
--- NOTE | 2018-05-28 12:50 | IPNPDOC ---
PM&R Progress Note DATE OF SERVICE: May 27, 2018 Financial Sales Professional Progress Note Subjective: Patient's left knee buckled in therapy secondary to pain, assessed patient and provided myofascial release therapy to his popliteus muscle with immediate improvement in symptoms. REVIEW OF SYSTEMS: The following is a completed review of systems and has been reviewed. Review of systems otherwise unremarkable. PAIN: Patient self reports right residual limb pain EYES: Negative for recent vision changes. EARS, NOSE, & THROAT: denies rhinorrhea or throat pain CARDIOVASCULAR: denies chest pain or palpitations PULMONARY: Negative. 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 PHYSICAL EXAMINATION: VITAL SIGNS: Please see below. GENERAL: Pleasant and cooperative. No acute distress. HEENT: PERRL. Extraocular movements intact. Clear conjunctiva CARDIOVASCULAR: Regular rate and rhythm. No murmurs, rubs, or gallops LUNGS: mostly Clear to auscultation bilaterally with bilateral apical wheezes. No rhonchi/crackles ABDOMEN: Soft, nontender, nondistended. Positive bowel sounds. Normal active bowel sounds. NEUROLOGICAL: Alert and oriented times three. Cranial nerves II through XII grossly intact. Sensation grossly intact. EXTREMITIES: 5\5 strength bilateral upper extremities.5-\5 strength right hip flexors knee extensors and knee flexors. 5-/5 strength in left lower extremity. (+) TTP cervical paraspinals, equivocal Cass maneuver (+) TTP at left popliteus muscle origin and along muscle belly SKIN: right residual limb incision with william and sutures, c/d/i mild erythema, blanchable circular erythematous area over tibial plateau ASSESSMENT:73-year-old M with past medical history of PAD who presents status post right BKA PLAN: 1. Rehab: PT/OT assess for DMEs, maintain knee extension, patient instructed to avoid keeping head of bed up to prevent hip flexion contracture- sponge bath only as left ankle bracelet cannot be submerged in water, ambulating further with RW 2. Neuro; pmh stroke with left sided residual weakness, c/u ASA and statin for secondary stroke prevention 3. Cardio: PAD s/p right BKA- Plavix restarted, c/u ASA pmh- HTn c/u BP meds, medicine consulted 4. Resp: wheeze resolved, c/u duonebs, incentive spirometry and monitor for infection 5. Endo: DM continue insulin coverage-stable 6. GI ppx: protonix 7. DVT ppx: c/u heparin 8. Pain: c/u valium and will change percocet to oxycodone, c/u Tylenol and Gabapentin for nocturnal pain, c/u daytime Gabapentin -transient radiating to hand left sided neck pain in C6/C7 distribution, patient instructed to work on chin tucks and lidoderm patch ordered for neck- strength and sensation intact-resolved -left popliteus tendinopathy causing left knee buckling, therapists encouraged to do myofascial release/stretch/heat pads 9. : admission UA and Ucx negative, continue flomax for BPH 10. Skin: daily dressing changes, monitor for infection-will avoid Hangar orthotic at this time as suspect friction at tibial plateau against strap as orthotic is slightly too large for limb-concern for cellulitis, pain and ESR/CRP improving on Kefflexc/u to monitor 10. Dispo: 06/01/18 to home Allergies Coded Allergies: No Known Allergies (Unverified , 07/06/14) Vital Signs Vital Signs Date Time Temp Pulse Resp B/P (MAP) Pulse Ox O2 Delivery O2 Flow Rate FiO2 05/28/18 09:00 56 110/69 05/28/18 06:00 98.4 18 96 Laboratory Data Labs 24H Laboratory Tests 2 05/27/18 16:52: Bedside Glucose (Misc Panel) 102 05/27/18 20:34: Bedside Glucose (Misc Panel) 146H 05/28/18 06:13: Bedside Glucose (Misc Panel) 113H 05/28/18 11:47: Bedside Glucose (Misc Panel) 109 Microbiology Microbiology 05/23/18 Respiratory Virus Panel (PCR) (DC) - Final, Complete Current Medications Current Medications Current Medications Acetaminophen (Tylenol Tab) 650 mg DAILYPRN PRN PO fever/MILD PAIN (PS 1-4); Start 05/15/18 at 18:45 Acetaminophen (Tylenol Tab) 1,000 mg TID@0600,1400,2100 PO Last administered on 3/21/19at 06:03; Start 05/19/18 at 21:00; Status Future hold Albuterol/ Ipratropium (Duoneb (Ipr 0.5mg/Alb 2.5mg)) 3 ml RBID NEB Last administered on 05/22/18 19:57; Start 05/15/18 at 20:00; Stop 05/23/18 at 11:45; Status DC Amlodipine Besylate (Norvasc) 10 mg DAILY PO Last administered on 05/25/18 08:40; Start 05/16/18 at 09:00; Stop 05/25/18 at 10:46; Status DC Aspirin (Aspirin Chewable) 81 mg DAILY PO Last administered on 05/28/18 10:31; Start 05/16/18 at 09:00 Atorvastatin Calcium (Lipitor) 80 mg QHS PO Last administered on 05/27/18 20:59; Start 05/15/18 at 21:00 Bisacodyl (Dulcolax Suppository) 10 mg DAILYPRN PRN [place] CONSTIPATION; Start 05/15/18 at 18:45 Carvedilol (COReg) 3.125 mg BID PO Last administered on 05/27/18 21:00; Start 05/15/18 at 21:00 Cephalexin Monohydrate (Keflex) 500 mg BID PO Last administered on 05/28/18 10:32; Start 05/21/18 at 21:00; Stop 06/04/18 at 20:59 Clopidogrel Bisulfate (PLAVix) 75 mg DAILY PO Last administered on 05/28/18 10:32; Start 05/23/18 at 09:00 Dextrose (Dextrose 50%) 25 ml ASDIRECTED PRN IV SEE LABEL COMMENTS; Start 05/15/18 at 19:00 Diazepam (Valium) 5 mg Q6HP PRN PO SPASMS Last administered on 05/24/18 16:41; Start 05/21/18 at 15:00 Diazepam (Valium) 10 mg Q6HP PRN PO SPASMS Last administered on 05/20/18 21:36; Start 05/15/18 at 19:00; Stop 05/21/18 at 15:03; Status DC Docusate Sodium (Colace) 100 mg BID PO Last administered on 05/21/18 09:12; Start 05/15/18 at 21:00; Stop 05/21/18 at 15:03; Status DC Ferrous Gluconate (Fergon) 324 mg TID PO Last administered on 05/28/18at 10:32; Start 05/15/18 at 21:00 Gabapentin (Neurontin) 300 mg QHS PO Last administered on 05/19/18at 20:40; Start 05/19/18 at 21:00; Stop 05/20/18 at 12:22; Status DC Gabapentin (Neurontin) 300 mg TID PO Last administered on 05/28/18at 10:31; Start 05/20/18 at 16:00 Glucagon (Glucagon) 1 mg ASDIRECTED PRN SC SEE LABEL COMMENTS; Start 05/15/18 at 19:00 Glucose (Glucose) 16 GM ASDIRECTED PRN PO SEE LABEL COMMENTS; Start 05/15/18 at 19:00 Heparin Sodium (Porcine) (Heparin) 5,000 units Q8H SQ Last administered on 05/28/18at 06:04; Start 05/15/18 at 22:00 Hydrochlorothiazide (Hydrodiuril) 25 mg DAILY PO Last administered on 05/23/18at 08:31; Start 05/16/18 at 09:00; Stop 05/24/18 at 07:35; Status DC Insulin Detemir (Levemir Insulin) 20 units BID SC Last administered on 05/28/18at 10:34; Start 05/15/18 at 21:00 Insulin Human Lispro (HumaLOG INSULIN) SEE PROTOCOL TABLE AC SC Last adm inistered on 05/28/18at 10:34; Start 05/16/18 at 07:30 Insulin Human Lispro (HumaLOG INSULIN) SEE PROTOCOL TABLE QHS SC ; Start 05/15/18 at 21:00 Lactobacillus Acidophilus (Bacid) 1 ea WM PO Last administered on 05/28/18at 10:36; Start 05/21/18 at 18:00 Lidocaine (Lidoderm Patch) 1 patch DAILY TD Last administered on 05/27/18at 08:20; Start 05/25/18 at 09:00 Lisinopril (Prinivil) 10 mg QHS PO Last administered on 05/23/18at 22:10; Start 05/22/18 at 21:00; Stop 05/25/18 at 10:46; Status DC Lisinopril (Prinivil) 20 mg DAILY PO Last administered on 05/21/18 09:12; Start 05/16/18 at 09:00; Stop 05/21/18 at 14:22; Status DC Miscellaneous (Unresolved Clarification Entry) SEE LABEL COMMENTS DAILY XX ; Start 05/27/18 at 09:00; Stop 05/27/18 at 16:18; Status DC Non-Formulary Medication ( See Comment Field Below ) REMOVE LIDODERM PATCH DAILY@21 XX Last administered on 05/27/18at 21:01; Start 05/25/18 at 21:00 Ondansetron HCl (Zofran) 4 mg Q6HP PRN PO NAUSEA; Start 05/15/18 at 18:45 Oxycodone HCl (Roxicodone, Oxyir) 5 mg Q4HP PRN PO PAIN Last administered on 05/27/18at 20:59; Start 05/19/18 at 19:15 Oxycodone HCl (Roxicodone, Oxyir) 10 mg Q4HP PRN PO SEVERE PAIN (PS 8-10) Last administered on 05/28/18at 04:21; Start 05/19/18 at 19:15 Oxycodone/ Acetaminophen (Percocet 5mg/ 325mg Tablet) 1 tab Q4HP PRN PO MILD/MODERATE PAIN (PS 1-7); Start 05/15/18 at 19:00; Stop 05/19/18 at 19:18; Status DC Oxycodone/ Acetaminophen (Percocet 5mg/ 325mg Tablet) 2 tab Q4HP PRN PO SEVERE PAIN (PS 8-10) Last administered on 05/19/18at 16:05; Start 05/15/18 at 19:00; Stop 05/19/18 at 19:18; Status DC Pantoprazole Sodium (Protonix) 40 mg DAILY PO Last administered on 05/28/18at 10:32; Start 05/16/18 at 09:00 Senna (Senokot) 1 tab QHS PO Last administered on 05/20/18at 21:37; Start 05/15/18 at 21:00; Stop 05/21/18 at 15:03; Status DC Tamsulosin HCl (Flomax) 0.4 mg QHS PO Last administered on 05/27/18at 20:59; Start 05/15/18 at 21:00 Trazodone HCl (Desyrel) 25 mg QHS PO Last administered on 05/27/18at 20:59; Start 05/20/18 at 21:00 ADRIANA HUFF MD May 28, 2018 12:50
--- NOTE | 2018-05-28 12:52 | IPNPDOC ---
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 REVIEW OF SYSTEMS: The following is a completed review of systems and has been reviewed. Review of systems otherwise unremarkable. PAIN: Patient self reports right residual limb pain EYES: Negative for recent vision changes. EARS, NOSE, & THROAT: denies rhinorrhea or throat pain CARDIOVASCULAR: denies chest pain or palpitations PULMONARY: Negative. 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 PHYSICAL EXAMINATION: VITAL SIGNS: Please see below. GENERAL: Pleasant and cooperative. No acute distress. HEENT: PERRL. Extraocular movements intact. Clear conjunctiva CARDIOVASCULAR: Regular rate and rhythm. No murmurs, rubs, or gallops LUNGS: mostly Clear to auscultation bilaterally with bilateral apical wheezes. No rhonchi/crackles ABDOMEN: Soft, nontender, nondistended. Positive bowel sounds. Normal active bowel sounds. NEUROLOGICAL: Alert and oriented times three. Cranial nerves II through XII grossly intact. Sensation grossly intact. EXTREMITIES: 5\5 strength bilateral upper extremities.5-\5 strength right hip flexors knee extensors and knee flexors. 5-/5 strength in left lower extremity. (+) TTP cervical paraspinals, equivocal Nadege maneuver (+) mild TTP at left popliteus muscle origin and along muscle belly SKIN: right residual limb incision with william and sutures, c/d/i mild erythema, blanchable circular erythematous area over tibial plateau ASSESSMENT:73-year-old M with past medical history of PAD who presents status post right BKA PLAN: 1. Rehab: PT/OT assess for DMEs, maintain knee extension, patient instructed to avoid keeping head of bed up to prevent hip flexion contracture- sponge bath only as left ankle bracelet cannot be submerged in water, ambulating further with RW 2. Neuro; pmh stroke with left sided residual weakness, c/u ASA and statin for secondary stroke prevention 3. Cardio: PAD s/p right BKA- Plavix restarted, c/u ASA pmh- HTn c/u BP meds, medicine consulted 4. Resp: wheeze resolved, c/u duonebs, incentive spirometry and monitor for infection 5. Endo: DM continue insulin coverage-stable 6. GI ppx: protonix 7. DVT ppx: c/u heparin 8. Pain: c/u valium and will change percocet to oxycodone, c/u Tylenol and Gabapentin for nocturnal pain, c/u daytime Gabapentin -transient radiating to hand left sided neck pain in C6/C7 distribution, patient instructed to work on chin tucks and lidoderm patch ordered for neck- strength and sensation intact-resolved -left popliteus tendinopathy causing left knee buckling, therapists encouraged to do myofascial release/stretch/heat pads, patient able to perform self-massage as well-improved 9. : admission UA and Ucx negative, continue flomax for BPH 10. Skin: daily dressing changes, monitor for infection-will avoid Hang[place] orthotic at this time as suspect friction at tibial plateau against strap as orthotic is slightly too large for limb-concern for cellulitis, pain and ESR/CRP improving on Kefflexc/u to monitor 10. Dispo: 06/01/18 to home Allergies Coded Allergies: No Known Allergies (Unverified , 07/06/14) Vital Signs Vital Signs Date Time Temp Pulse Resp B/P (MAP) Pulse Ox O2 Delivery O2 Flow Rate FiO2 05/28/18 09:00 56 110/69 05/28/18 06:00 98.4 18 96 Laboratory Data Labs 24H Laboratory Tests 2 05/27/18 16:52: Bedside Glucose (Misc Panel) 102 05/27/18 20:34: Bedside Glucose (Misc Panel) 146H 05/28/18 06:13: Bedside Glucose (Misc Panel) 113H 05/28/18 11:47: Bedside Glucose (Misc Panel) 109 Microbiology Microbiology 05/23/18 Respiratory Virus Panel (PCR) (DC) - Final, Complete Current Medications Current Medications Current Medications Acetaminophen (Tylenol Tab) 650 mg DAILYPRN PRN PO fever/MILD PAIN (PS 1-4); Start 05/15/18 at 18:45 Acetaminophen (Tylenol Tab) 1,000 mg TID@0600,1400,2100 PO Last administered on 05/28/18 06:03; Start 05/19/18 at 21:00; Status Future hold Albuterol/ Ipratropium (Duoneb (Ipr 0.5mg/Alb 2.5mg)) 3 ml RBID NEB Last administered on 05/22/18 19:57; Start 05/15/18 at 20:00; Stop 05/23/18 at 11:45; Status DC Amlodipine Besylate (Norvasc) 10 mg DAILY PO Last administered on 05/25/18 08:40; Start 05/16/18 at 09:00; Stop 05/25/18 at 10:46; Status DC Aspirin (Aspirin Chewable) 81 mg DAILY PO Last administered on 05/28/18 10:31; Start 05/16/18 at 09:00 Atorvastatin Calcium (Lipitor) 80 mg QHS PO Last administered on 05/27/18 20:59; Start 05/15/18 at 21:00 Bisacodyl (Dulcolax Suppository) 10 mg DAILYPRN PRN [place] CONSTIPATION; Start 05/15/18 at 18:45 Carvedilol (COReg) 3.125 mg BID PO Last administered on 05/27/18 21:00; Start 05/15/18 at 21:00 Cephalexin Monohydrate (Keflex) 500 mg BID PO Last administered on 05/28/18 10:32; Start 05/21/18 at 21:00; Stop 06/04/18 at 20:59 Clopidogrel Bisulfate (PLAVix) 75 mg DAILY PO Last administered on 05/28/18 10:32; Start 05/23/18 at 09:00 Dextrose (Dextrose 50%) 25 ml ASDIRECTED PRN IV SEE LABEL COMMENTS; Start 05/15/18 at 19:00 Diazepam (Valium) 5 mg Q6HP PRN PO SPASMS Last administered on 05/24/18 16:41; Start 05/21/18 at 15:00 Diazepam (Valium) 10 mg Q6HP PRN PO SPASMS Last administered on 05/20/18 21:36; Start 05/15/18 at 19:00; Stop 05/21/18 at 15:03; Status DC Docusate Sodium (Colace) 100 mg BID PO Last administered on 3/14/19at 09:12; Start 05/15/18 at 21:00; Stop 05/21/18 at 15:03; Status DC Ferrous Gluconate (Fergon) 324 mg TID PO Last administered on 05/28/18at 10:32; Start 05/15/18 at 21:00 Gabapentin (Neurontin) 300 mg QHS PO Last administered on 05/19/18at 20:40; Start 05/19/18 at 21:00; Stop 05/20/18 at 12:22; Status DC Gabapentin (Neurontin) 300 mg TID PO Last administered on 05/28/18at 10:31; Start 05/20/18 at 16:00 Glucagon (Glucagon) 1 mg ASDIRECTED PRN SC SEE LABEL COMMENTS; Start 05/15/18 at 19:00 Glucose (Glucose) 16 GM ASDIRECTED PRN PO SEE LABEL COMMENTS; Start 05/15/18 at 19:00 Heparin Sodium (Porcine) (Heparin) 5,000 units Q8H SQ Last administered on 05/28/18at 06:04; Start 05/15/18 at 22:00 Hydrochlorothiazide (Hydrodiuril) 25 mg DAILY PO Last administered on 05/23/18at 08:31; Start 05/16/18 at 09:00; Stop 05/24/18 at 07:35; Status DC Insulin Detemir (Levemir Insulin) 20 units BID SC Last administered on 05/28/18at 10:34; Start 05/15/18 at 21:00 Insulin Human Lispro (HumaLOG INSULIN) SEE PROTOCOL TABLE AC SC Last administered on 05/28/18at 10:34; Start 05/16/18 at 07:30 Insulin Human Lispro (HumaLOG INSULIN) SEE PROTOCOL TABLE QHS SC ; Start 05/15/18 at 21:00 Lactobacillus Acidophilus (Bacid) 1 ea WM PO Last administered on 05/28/18at 10:36; Start 05/21/18 at 18:00 Lidocaine (Lidoderm Patch) 1 patch DAILY TD Last administered on 05/27/18at 08:20; Start 05/25/18 at 09:00 Lisinopril (Prinivil) 10 mg QHS PO Last administered on 05/23/18at 22:10; Start 05/22/18 at 21:00; Stop 05/25/18 at 10:46; Status DC Lisinopril (Prinivil) 20 mg DAILY PO Last administered on 05/21/18 09:12; Start 05/16/18 at 09:00; Stop 05/21/18 at 14:22; Status DC Miscellaneous (Unresolved Clarification Entry) SEE LABEL COMMENTS DAILY XX ; Start 05/27/18 at 09:00; Stop 05/27/18 at 16:18; Status DC Non-Formulary Medication ( See Comment Field Below ) REMOVE LIDODERM PATCH DAILY@21 XX Last administered on 05/27/18at 21:01; Start 05/25/18 at 21:00 Ondansetron HCl (Zofran) 4 mg Q6HP PRN PO NAUSEA; Start 05/15/18 at 18:45 Oxycodone HCl (Roxicodone, Oxyir) 5 mg Q4HP PRN PO PAIN Last administered on 05/27/18at 20:59; Start 05/19/18 at 19:15 Oxycodone HCl (Roxicodone, Oxyir) 10 mg Q4HP PRN PO SEVERE PAIN (PS 8-10) Last administered on 05/28/18at 04:21; Start 05/19/18 at 19:15 Oxycodone/ Acetaminophen (Percocet 5mg/ 325mg Tablet) 1 tab Q4HP PRN PO MILD/MODERATE PAIN (PS 1-7); Start 05/15/18 at 19:00; Stop 05/19/18 at 19:18; Status DC Oxycodone/ Acetaminophen (Percocet 5mg/ 325mg Tablet) 2 tab Q4HP PRN PO SEVERE PAIN (PS 8-10) Last administered on 05/19/18at 16:05; Start 05/15/18 at 19:00; Stop 05/19/18 at 19:18; Status DC Pantoprazole Sodium (Protonix) 40 mg DAILY PO Last administered on 05/28/18at 10:32; Start 05/16/18 at 09:00 Senna (Senokot) 1 tab QHS PO Last administered on 05/20/18at 21:37; Start 05/15/18 at 21:00; Stop 05/21/18 at 15:03; Status DC Tamsulosin HCl (Flomax) 0.4 mg QHS PO Last administered on 3/20/19at 20:59; Start 05/15/18 at 21:00 Trazodone HCl (Desyrel) 25 mg QHS PO Last administered on 05/27/18at 20:59; Start 05/20/18 at 21:00 ADRIANA HUFF MD May 28, 2018 12:52
[2018-05-28 14:00] VITALS: BP 134/80
[2018-05-28 20:00] VITALS: BP 123/78
[2018-05-28] MEDS: traZODone 25MG PER 1/2 TABLET PO SCH (21:31)
[2018-05-28] MEDS: ATORVASTATIN 20 MG TAB PO SCH (21:32)
[2018-05-28] MEDS: TAMSULOSIN 0.4 MG CAP PO SCH (21:32)
[2018-05-28] MEDS: **NOTE PATIENT COMMENT** MISC XX SCH (21:34)
[2018-05-29] MEDS: oxyCODONE 5MG TAB PO PRN ×5 (01:20→20:45)
[2018-05-29] MEDS: ACETAMINOPHEN 500 MG TAB PO SCH ×3 (05:58→20:30)
[2018-05-29] MEDS: HEPARIN SOD (PORCINE) 5000 UNITS/ML VIAL SQ SCH ×3 (05:58→20:31)
[2018-05-29 06:03] VITALS: BP 123/70
[2018-05-29 06:07] VITALS: BP_SYST 111; BP_SYST 123; BP_SYST 128; BP_DIAS 55; BP_DIAS 58; BP_DIAS 70
[2018-05-29] MEDS: LIDOCAINE 5% (LIDODERM) PATCH TD SCH (09:00)
[2018-05-29] MEDS: GABAPENTIN 300 MG CAP PO SCH ×3 (10:03→20:30)
[2018-05-29] MEDS: ASPIRIN 81 MG CHEW TABLET PO SCH (10:04)
[2018-05-29] MEDS: LACTOBACILLUS ACIDOPHILUS CAP (BACID) PO SCH ×3 (10:04→18:06)
[2018-05-29] MEDS: CARVedilol 3.125 MG TAB PO SCH ×2 (10:04→20:41)
[2018-05-29] MEDS: FERROUS GLUCONATE 324 MG TAB PO SCH ×3 (10:04→20:41)
[2018-05-29] MEDS: CEPHALEXIN 500 MG CAP PO SCH ×2 (10:04→20:29)
[2018-05-29] MEDS: PANTOPRAZOLE 40MG TAB (PROTONIX) PO SCH (10:05)
[2018-05-29] MEDS: CLOPIDOGREL 75 MG TAB PO SCH (10:05)
[2018-05-29] MEDS: LEVEMIR (INSULIN DETEMIR) 1 UNITS/0.01ML SC SCH ×2 (10:06→20:31)
[2018-05-29] MEDS: HumaLOG INSULIN (NovoLOG) PER UNIT SC SCH ×4 (10:08→20:30)
[2018-05-29] MEDS ORDERED: SENNA 8.6 MG TAB (SENOKOT) PO PRN (11:30)
--- NOTE | 2018-05-29 11:44 | IPNPDOC ---
Date Seen The patient was seen on 05/29/18. Progress Note HPI: 73M pmh PAD, DM, HTN, CKD, CVA with residual left sided weakness who developed worsening right foot pain and was evaluated at [facility] ED on 05/11/18 and found to have ischemia of the his limb for which a vascular consult was placed. He underwent an aortoiliofemoral arteriogram with right lower extremity runoff and placement of the thrombolysis catheter from right distal superficial femoral artery to right distal posterior tibial artery across popliteal/tibial occlusion. On 05/12/18 the TPA lysis catheter was removed and vascular surgery discussed need for BKA vs AKA as his right foot was not salvageable. His Plavix and ASA were held, on 05/13/18 he underwent a right BKA without significant complications and a knee immobilizer was placed. The pt was transferred to the care of ARU, Dr Durán, 05/15/18. Pt states he is feeling well. Reports constipation, bowel care has been ordered as per Dr Durán. Denies any fevers, chills, weakness, fatigue, Headache, Chest Pain, Shortness of breath, cough, palpitations, abdominal pain, N/V/D or changes in bowel or bladder habits. PMH IDDM HTN HLD CKD CVA PAD BPH GERD PE: GEN: 73yoM, appears stated age. Well-nourished, well developed. No acute distress. Alert and oriented x 3. HEENT: Normocephalic, atraumatic. Sclera are nonicteric. Conjunctiva without injection. Moist mucous membranes. CHEST: Regular rate and rhythm, +S1, +S2 LUNGS: Clear to auscultation bilaterally. No wheezes, rales, or rhonchi. Breathing appears symmetric and easy. ABD: Round, soft, non-tender, non-distended. +Bowel sounds throughout. EXT: Pulses palpable LLE. No lower extremity edema appreciated. Dressing intact BKA RLE. SKIN: [place], dry, warm. No rashes. NEURO: Alert and oriented x 3. No focal deficits appreciated. A&P: 73M pmh PAD, DM, HTN, CKD, CVA with residual left sided weakness who developed worsening right foot pain and was evaluated at [facility] ED on 05/11/18 and found to have ischemia of the his limb for which a vascular consult was placed. He underwent an aortoiliofemoral arteriogram with right lower extremity runoff and placement of the thrombolysis catheter from right distal superficial femoral artery to right distal posterior tibial artery across popliteal/tibial occlusion. On 05/12/18 the TPA lysis catheter was removed and vascular surgery discussed need for BKA vs AKA as his right foot was not salvageable. His Plavix and ASA were held, on 05/13/18 he underwent a right BKA without significant complications and a knee immobilizer was placed. The pt was transferred to the care of Dr Luis Armando NOEL, 05/15/18. 1. 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 pain control as per Dr Luis Armando NOEL. bowel care as per Dr Luis Armando NOEL. DVT prophylaxis as per Dr Luis Armando NOEL. SQ Heparin. The pt was started on po Keflex as per Dr Durán for wound. Disposition as per Dr Luis Armando NOEL. 2. Chronic Kidney Disease Stage IIIA/B Serum Cr baseline is 1.5-1.6 according to outpatient records SCr 1.5.. Cont current management Monitor. 3. Diabetes Mellitus Cont reduced dose of basal insulin, 20 Units of Levemir BID (takes 70 Units BID at home) Cont SSI BS 105-138 monitor. 4. Hypertension. Coreg 3.125 mg BID with hold parameters. Norvasc, Lisinopril, HCTZ on HOLD. The pt is also receiving Flomax and trazodone which may also contribute to orthostasis. BP controlled, monitor BP trend. Orthostatic VS requested. 5. History of CVA Continue statin ASA, Plavix can be continued as per Vascular Surgery recommendations 6. Transaminitis likely 2/2 Hx of EtOH use Patient states that he drank anywhere from 4/5th oz of Whiskey to "a couple six packs of beer" per day since age 16 til age 69. Last drink was in 2004 Liver U/S with no acute findings Hepatitis panel negative Monitor. Cont to monitor LFTs and follow as outpatient 7. Dyslipidemia Continue statin 8. GERD Continue PPI 9. Anemia, Normocytic. Likely acute blood loss/chronic disease. Hgb stable, 12.0. fe studies, B12, folate noted. Fe supplement TID. Monitor. VS, I&O, 24H, Fishbone Vital Signs/I&O Vital Signs Date Time Temp Pulse Resp B/P (MAP) Pulse Ox O2 Delivery O2 Flow Rate FiO2 05/29/18 10:32 20 05/29/18 10:04 65 123/70 05/29/18 06:03 97.9 95 I&O- Last 24 Hours up to 6 AM 05/29/18 06:00 Intake Total 1680 ml Output Total 1750 ml Balance -70 ml Laboratory Data 24H LABS Laboratory Tests 2 05/28/18 11:47: Bedside Glucose (Misc Panel) 109 05/28/18 16:56: Bedside Glucose (Misc Panel) 138H 05/28/18 21:31: Bedside Glucose (Misc Panel) 113H 05/29/18 06:02: Bedside Glucose (Misc Panel) 105 Microbiology Microbiology 05/23/18 Respiratory Virus Panel (PCR) (DC) - Final, Complete Paty Franco May 29, 2018 11:44
[2018-05-29] MEDS: DOCUSATE SODIUM 100 MG CAP PO SCH ×3 (13:27→20:29)
[2018-05-29 14:00] VITALS: BP 114/74
[2018-05-29] MEDS: diazePAM 5 MG TAB PO PRN (15:46)
[2018-05-29] MEDS ORDERED: LACTULOSE 20 GM/30 ML SYRUP UD PO ONE (16:00)
[2018-05-29] MEDS ORDERED: BISACODYL 10 MG SUPP PR PRN (18:00)
[2018-05-29 20:00] VITALS: BP 158/80
[2018-05-29] MEDS: ATORVASTATIN 20 MG TAB PO SCH (20:29)
[2018-05-29] MEDS: traZODone 25MG PER 1/2 TABLET PO SCH (20:29)
[2018-05-29] MEDS: TAMSULOSIN 0.4 MG CAP PO SCH (20:29)
[2018-05-29] MEDS: **NOTE PATIENT COMMENT** MISC XX SCH (20:31)
[2018-05-30] MEDS: oxyCODONE 5MG TAB PO PRN ×3 (01:48→21:24)
[2018-05-30] MEDS: ACETAMINOPHEN 500 MG TAB PO SCH ×3 (05:55→21:25)
[2018-05-30] MEDS: HEPARIN SOD (PORCINE) 5000 UNITS/ML VIAL SQ SCH ×3 (05:56→21:23)
[2018-05-30 06:00] VITALS: BP 149/78
[2018-05-30] MEDS: CEPHALEXIN 500 MG CAP PO SCH ×2 (08:33→21:23)
[2018-05-30] MEDS: CARVedilol 3.125 MG TAB PO SCH ×2 (08:34→21:26)
[2018-05-30] MEDS: CLOPIDOGREL 75 MG TAB PO SCH (08:34)
[2018-05-30] MEDS: PANTOPRAZOLE 40MG TAB (PROTONIX) PO SCH (08:34)
[2018-05-30] MEDS: DOCUSATE SODIUM 100 MG CAP PO SCH ×3 (08:35→21:23)
[2018-05-30] MEDS: GABAPENTIN 300 MG CAP PO SCH ×3 (08:35→21:23)
[2018-05-30] MEDS: ASPIRIN 81 MG CHEW TABLET PO SCH (08:35)
[2018-05-30] MEDS: LACTOBACILLUS ACIDOPHILUS CAP (BACID) PO SCH ×3 (08:35→18:08)
[2018-05-30] MEDS: LEVEMIR (INSULIN DETEMIR) 1 UNITS/0.01ML SC SCH ×2 (08:36→21:23)
[2018-05-30] MEDS: LIDOCAINE 5% (LIDODERM) PATCH TD SCH (08:36)
[2018-05-30] MEDS: HumaLOG INSULIN (NovoLOG) PER UNIT SC SCH ×4 (08:37→21:00)
[2018-05-30] MEDS: FERROUS GLUCONATE 324 MG TAB PO SCH ×3 (08:37→21:23)
[2018-05-30 14:00] VITALS: BP 128/64
--- NOTE | 2018-05-30 21:13 | IPN ---
DATE: 05/30/2018 The patient is seen and examined. No acute events overnight. Denies any chest pain, pressure or discomfort. Denies any shortness of breath. VITAL SIGNS: Temperature 97.8, pulse 60, respirations 18, blood pressure 128/64, pulse oximetry 96% on room air. LABORATORY DATA: WBC 8, hemoglobin and hematocrit 12/36.9, platelets 494. Chemistry: Sodium 139, potassium 4, chloride 105, bicarbonate 25, BUN 26, creatinine 1.45. PHYSICAL EXAMINATION: GENERAL: The patient is alert, comfortable, and in no acute distress. HEENT: Normocephalic, atraumatic. PULMONARY: Bilaterally clear. CARDIAC: Regular. S1, S2. ABDOMEN: Soft, nontender. EXTREMITIES: Left lower extremity dorsalis pedis and posterior tibialis pulses intact. Right lower extremity below knee amputation, dressing is clean, dry and intact. Immobilizer device intact. No skin breakdown. ASSESSMENT AND PLAN: This is a 73-year-old male patient with underlying medical history of peripheral artery disease, diabetes, hypertension, chronic kidney disease, CVA with residual left sided weakness with worsening right foot pain. [facility] and was found to have ischemic leg. Vascular surgery was consulted. The patient underwent aortoiliofemoral arteriogram with right lower extremity run off and placement of thrombolysis catheter from right distal superficial femoral artery to right distal posterior tibial artery, across popliteal tibial occlusion on 05/12/2018. TPA lysis catheter was removed and vascular surgery discussed the need for below knee amputation versus above knee amputation as the patient's right foot is not salvageable. The patient's aspirin and Plavix were on hold. On 05/13/2018, the patient underwent right below knee amputation without significant complication. Knee immobilizer was placed. The patient was transferred to acute rehabilitation on 05/15/2018 for further care. 1. Right lower extremity ischemia, status post below knee amputation, status post aortoiliofemoral arteriogram with right lower extremity run off and placement of thrombolysis catheter on 05/11/2018, status post right lower extremity arteriogram with removal of TPA lysis catheter with closure of left femoral artery on 05/12/2018, status post right lower extremity below the knee amputation with vascular surgery on 05/13/2018. Followup with vascular surgeon for further recommendations. Physical therapy (PT) and occupational therapy (OT) as per acute rehabilitation provider. Pain control as per acute rehabilitation provider. Bowel care as per acute rehabilitation provider. 2. Deep vein thrombosis (DVT) prophylaxis, the patient is on heparin subcutaneously. Further disposition as per acute rehabilitation provider. The patient is still on Keflex ordered by rehabilitation providers. 3. Chronic kidney disease stage III, currently at baseline. Monitor BUN and creatinine. 4. Diabetes mellitus type 2. Basal bolus insulin and adjust as needed. Followup fingersticks. 5. Hypertension. Coreg with holding parameters. Monitor blood pressure. 6. Peripheral vascular disease. Refer to above. Continue aspirin, Plavix and statin. 7. History of CVA. Continue aspirin, Plavix and statin. 8. Transaminitis. Likely secondary to history of alcohol use. Liver ultrasound appreciated. Hepatitis panel negative. We will monitor closely. 9. Dyslipidemia. Continue statin. 10. Gastroesophageal reflux disease (GERD). Continue proton pump inhibitor. 11. Anemia. Anemia of chronic disease versus acute blood loss. Monitor hemoglobin and hematocrit. Anemia workup appreciated. Iron supplementation. 12. Deep vein thrombosis (DVT) prophylaxis. The patient is on heparin subcutaneously. DISPOSITION: As per acute rehabilitation provider.
[2018-05-30] MEDS: TAMSULOSIN 0.4 MG CAP PO SCH (21:24)
[2018-05-30] MEDS: traZODone 25MG PER 1/2 TABLET PO SCH (21:24)
[2018-05-30] MEDS: ATORVASTATIN 20 MG TAB PO SCH (21:25)
[2018-05-30] MEDS: **NOTE PATIENT COMMENT** MISC XX SCH (21:27)
[2018-05-31] MEDS: oxyCODONE 5MG TAB PO PRN ×4 (04:19→20:59)
[2018-05-31] MEDS: ACETAMINOPHEN 500 MG TAB PO SCH ×3 (05:39→21:00)
[2018-05-31] MEDS: HEPARIN SOD (PORCINE) 5000 UNITS/ML VIAL SQ SCH ×3 (05:42→21:00)
[2018-05-31 06:00] VITALS: BP 148/78
[2018-05-31 06:29] LABS: HEMATOCRIT 41.5 % (42.0-52.0); HEMOGLOBIN 13.4 g/dl (13.5-17.5); MEAN CORPUSCULAR HEMOGLOBIN 28.8 pg (27.0-33.0); MEAN CORPUSCULAR HGB CONC 32.3 g/dl (32.0-36.5); MEAN CORPUSCULAR VOLUME 89.1 fl (80.0-96.0); PLATELET COUNT, AUTOMATED 469 10^3/uL (150-450); RED BLOOD COUNT 4.66 10^6/uL (4.30-6.10)
[2018-05-31 06:54] LABS: CALCIUM LEVEL 8.6 MG/DL (8.8-10.2); CREATININE FOR GFR 1.34 MG/DL (0.70-1.30); GLOMERULAR FILTRATION RATE 55.9 (>42); MAGNESIUM LEVEL 1.9 MG/DL (1.8-2.4); POTASSIUM SERUM 4.3 MEQ/L (3.5-5.1)
[2018-05-31] MEDS: DOCUSATE SODIUM 100 MG CAP PO SCH (08:00)
[2018-05-31] MEDS: CEPHALEXIN 500 MG CAP PO SCH ×2 (08:00→20:58)
[2018-05-31] MEDS: PANTOPRAZOLE 40MG TAB (PROTONIX) PO SCH (08:00)
[2018-05-31] MEDS: GABAPENTIN 300 MG CAP PO SCH ×3 (08:00→20:59)
[2018-05-31] MEDS: FERROUS GLUCONATE 324 MG TAB PO SCH ×3 (08:00→20:59)
[2018-05-31] MEDS: CLOPIDOGREL 75 MG TAB PO SCH (08:00)
[2018-05-31] MEDS: LACTOBACILLUS ACIDOPHILUS CAP (BACID) PO SCH ×3 (08:00→17:40)
[2018-05-31] MEDS: CARVedilol 3.125 MG TAB PO SCH ×2 (08:01→21:00)
[2018-05-31] MEDS: ASPIRIN 81 MG CHEW TABLET PO SCH (08:02)
[2018-05-31] MEDS: LIDOCAINE 5% (LIDODERM) PATCH TD SCH (08:02)
[2018-05-31] MEDS: HumaLOG INSULIN (NovoLOG) PER UNIT SC SCH ×4 (08:03→21:00)
[2018-05-31] MEDS: LEVEMIR (INSULIN DETEMIR) 1 UNITS/0.01ML SC SCH ×2 (08:04→21:01)
[2018-05-31] MEDS ORDERED: MIRALAX *UNIT DOSE* 17GM PACKET PO ONE (09:45)
[2018-05-31 14:00] VITALS: BP 124/61
--- NOTE | 2018-05-31 17:12 | IPNPDOC ---
Text Note Date of Service The patient was seen on 05/31/18. NOTE The patient is seen and examined. No acute events overnight. Denies any chest pain, pressure or discomfort. Denies any shortness of breath. reported constipation PHYSICAL EXAMINATION: GENERAL: The patient is alert, comfortable, and in no acute distress. HEENT: Normocephalic, atraumatic. PULMONARY: Bilaterally clear. CARDIAC: Regular. S1, S2. ABDOMEN: Soft, nontender. EXTREMITIES: Left lower extremity dorsalis pedis and posterior tibialis pulses intact. Right lower extremity below knee amputation, dressing is clean, dry and intact. Immobilizer device intact. No skin breakdown. ASSESSMENT AND PLAN: This is a 73-year-old male patient with underlying medica l history of peripheral artery disease, diabetes, hypertension, chronic kidney disease, CVA with residual left sided weakness with worsening right foot pain. He was evaluated at [facility] emergency room on 05/11/2018 and was found to have ischemic leg. Vascular surgery was consulted. The patient underwent aortoiliofemoral arteriogram with right lower extremity run off and placement of thrombolysis catheter from right distal superficial femoral artery to right distal posterior tibial artery, across popliteal tibial occlusion on 05/12/2018. TPA lysis catheter was removed and vascular surgery discussed the need for below knee amputation versus above knee amputation as the patient's right foot is not salvageable. The patient's aspirin and Plavix were on hold. On 05/13/2018, the patient underwent right below knee amputation without significant complication. Knee immobilizer was placed. The patient was transferred to acute rehabilitation on 05/15/2018 for further care. 1. Right lower extremity ischemia, status post below knee amputation, status post aortoiliofemoral arteriogram with right lower extremity run off and placement of thrombolysis catheter on 05/11/2018, status post right lower extremity arteriogram with removal of TPA lysis catheter with closure of left femoral artery on 05/12/2018, status post right lower extremity below the knee amputation with vascular surgery on 05/13/2018. Followup with vascular surgeon for further recommendations. Physical therapy (PT) and occupational therapy (OT) as per acute rehabilitation provider. Pain control as per acute rehabilitation provider. Bowel care as per acute rehabilitation provider. 2. Deep vein thrombosis (DVT) prophylaxis, the patient is on heparin subcutaneously. Further disposition as per acute rehabilitation provider. The patient is still on Keflex ordered by rehabilitation providers. 3. Chronic kidney disease stage III, currently at baseline. Monitor BUN and creatinine. 4. Diabetes mellitus type 2. Basal bolus insulin and adjust as needed. Followup fingersticks. 5. Hypertension. Coreg with holding parameters. Monitor blood pressure. 6. Peripheral vascular disease. Refer to above. Continue aspirin, Plavix and statin. 7. History of CVA. Continue aspirin, Plavix and statin. 8. Transaminitis. Likely secondary to history of alcohol use. Liver ultrasound appreciated. Hepatitis panel negative. We will monitor closely. 9. Dyslipidemia. Continue statin. 10. Gastroesophageal reflux disease (GERD). Continue proton pump inhibitor. 11. Anemia. Anemia of chronic disease versus acute blood loss. Monitor hemoglobin and hematocrit. Anemia workup appreciated. Iron supplementation. 12. consitpation bowel reg given. monitor 13. Deep vein thrombosis (DVT) prophylaxis. The patient is on heparin subcutaneously. DISPOSITION: As per acute rehabilitation provider. VS,Fishbone, I+O VS, Fishbone, I+O Laboratory Tests 05/31/18 06:14 Red Blood Count 4.66, Mean Corpuscular Volume 89.1, Mean Corpuscular Hemoglobin 28.8, Mean Corpuscular Hemoglobin Concent 32.3, Red Cell Distribution Width 14.1, Calcium Level 8.6 L Vital Signs Date Time Temp Pulse Resp B/P (MAP) Pulse Ox O2 Delivery O2 Flow Rate FiO2 05/31/18 16:37 18 05/31/18 14:00 97.8 60 124/61 (82) 95 I&O- Last 24 Hours up to 6 AM 05/31/18 06:00 Intake Total 960 ml Output Total 1925 ml Balance -965 ml RAMONE MADRID MD May 31, 2018 17:12
[2018-05-31 20:00] VITALS: BP 169/89
[2018-05-31] MEDS: traZODone 25MG PER 1/2 TABLET PO SCH (20:58)
[2018-05-31] MEDS: ATORVASTATIN 20 MG TAB PO SCH (20:58)
[2018-05-31] MEDS: SENOKOT S TAB PO SCH (20:58)
[2018-05-31] MEDS: TAMSULOSIN 0.4 MG CAP PO SCH (20:59)
[2018-05-31] MEDS: **NOTE PATIENT COMMENT** MISC XX SCH (21:00)
[2018-06-01] MEDS: oxyCODONE 5MG TAB PO PRN ×3 (02:27→17:50)
[2018-06-01] MEDS: HEPARIN SOD (PORCINE) 5000 UNITS/ML VIAL SQ SCH ×3 (06:03→21:17)
[2018-06-01] MEDS: ACETAMINOPHEN 500 MG TAB PO SCH ×3 (06:04→21:14)
[2018-06-01 06:19] VITALS: BP 105/60
[2018-06-01 06:25] LABS: HEMATOCRIT 39.1 % (42.0-52.0); HEMOGLOBIN 12.7 g/dl (13.5-17.5); MEAN CORPUSCULAR HEMOGLOBIN 28.2 pg (27.0-33.0); MEAN CORPUSCULAR HGB CONC 32.5 g/dl (32.0-36.5); MEAN CORPUSCULAR VOLUME 86.9 fl (80.0-96.0); PLATELET COUNT, AUTOMATED 432 10^3/uL (150-450); WHITE BLOOD COUNT 5.4 10^3/uL (4.0-10.0)
[2018-06-01 06:47] LABS: CALCIUM LEVEL 8.4 MG/DL (8.8-10.2); CREATININE FOR GFR 1.39 MG/DL (0.70-1.30); GLOMERULAR FILTRATION RATE 53.6 (>42); MAGNESIUM LEVEL 1.9 MG/DL (1.8-2.4); POTASSIUM SERUM 4.1 MEQ/L (3.5-5.1)
[2018-06-01] MEDS: LACTOBACILLUS ACIDOPHILUS CAP (BACID) PO SCH ×3 (08:08→17:46)
[2018-06-01] MEDS: CLOPIDOGREL 75 MG TAB PO SCH (08:08)
[2018-06-01] MEDS: LIDOCAINE 5% (LIDODERM) PATCH TD SCH (08:08)
[2018-06-01] MEDS: ASPIRIN 81 MG CHEW TABLET PO SCH (08:08)
[2018-06-01] MEDS: FERROUS GLUCONATE 324 MG TAB PO SCH ×3 (08:08→21:16)
[2018-06-01] MEDS: CEPHALEXIN 500 MG CAP PO SCH ×2 (08:08→21:15)
[2018-06-01] MEDS: GABAPENTIN 300 MG CAP PO SCH ×3 (08:08→21:16)
[2018-06-01] MEDS: PANTOPRAZOLE 40MG TAB (PROTONIX) PO SCH (08:08)
[2018-06-01] MEDS: CARVedilol 3.125 MG TAB PO SCH ×2 (08:09→21:16)
[2018-06-01] MEDS: HumaLOG INSULIN (NovoLOG) PER UNIT SC SCH ×4 (08:10→21:00)
[2018-06-01] MEDS: SENOKOT S TAB PO SCH ×2 (08:11→21:15)
[2018-06-01] MEDS: LEVEMIR (INSULIN DETEMIR) 1 UNITS/0.01ML SC SCH ×2 (08:11→21:17)
--- NOTE | 2018-06-01 11:42 | IPNPDOC ---
Date Seen The patient was seen on 06/01/18. Progress Note HPI: 73M pmh PAD, DM, HTN, CKD, CVA with residual left sided weakness who developed worsening right foot pain and was evaluated at [facility] ED on 05/11/18 and found to have ischemia of the his limb for which a vascular consult was placed. He underwent an aortoiliofemoral arteriogram with right lower extremity runoff and placement of the thrombolysis catheter from right distal superficial femoral artery to right distal posterior tibial artery across popliteal/tibial occlusion. On 05/12/18 the TPA lysis catheter was removed and vascular surgery discussed need for BKA vs AKA as his right foot was not salvageable. His Plavix and ASA were held, on 05/13/18 he underwent a right BKA without significant co mplications and a knee immobilizer was placed. The pt was transferred to the care of ARU, Dr Durán, 05/15/18. Pt states he is feeling well. Denies any fevers, chills, weakness, fatigue, Headache, Chest Pain, Shortness of breath, cough, palpitations, abdominal pain, N/V/D or changes in bowel or bl adder habits. PMH IDDM HTN HLD CKD CVA PAD BPH GERD PE: GEN: 73yoM, appears stated age. Well-nourished, well developed. No acute distress. Alert and oriented x 3. HEENT: Normocephalic, atraumatic. Sclera are nonicteric. Conjunctiva without injection. Moist mucous membranes. CHEST: Regular rate and rhythm, +S1, +S2 LUNGS: Clear to auscultation bilaterally. No wheezes, rales, or rhonchi. Breathing appears symmetric and easy. ABD: Round, soft, non-tender, non-distended. +Bowel sounds throughout. EXT: Pulses palpable LLE. No lower extremity edema appreciated. Dressing intact BKA RLE. SKIN: [place], dry, warm. No rashes. NEURO: Alert and oriented x 3. No focal deficits appreciated. A&P: 73M pmh PAD, DM, HTN, CKD, CVA with residual left sided weakness who de veloped worsening right foot pain and was evaluated at [facility] ED on 05/11/18 and found to have ischemia of the his limb for which a vascular consult was placed. He underwent an aortoiliofemoral arteriogram with right lower extremity runoff and placement of the thrombolysis catheter from right distal superficial femoral artery to right distal posterior tibial artery across popliteal/tibial occlusion. On 05/12/18 the TPA lysis catheter was removed and vascular surgery discussed need for BKA vs AKA as his right foot was not salvageable. His Plavix and ASA were held, on 05/13/18 he underwent a right BKA without significant complications and a knee immobilizer was placed. The pt was transferred to the care of Dr Luis Armando NOEL, 05/15/18. 1. 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 pain control as per Dr Luis Armando NOEL. bowel care as per Dr Luis Armando NOEL. DVT prophylaxis as per Dr Luis Armando NOEL. SQ Heparin. The pt was started on po Keflex as per Dr Durán for wound. Disposition as per Dr Luis Armando NOEL. 2. Chronic Kidney Disease Stage IIIA/B Serum Cr baseline is 1.5-1.6 according to outpatient records SCr 1.39. Cont current management Monitor. 3. Diabetes Mellitus Cont reduced dose of basal insulin, 20 Units of Levemir BID (takes 70 Units BID at home) Cont SSI BS 105-138 monitor. 4. Hypertension. Coreg 3.125 mg BID with hold parameters. Norvasc, Lisinopril, HCTZ on HOLD. The pt is also receiving Flomax and trazodone which may also contribute to orthostasis. BP controlled, monitor BP trend. Orthostatic VS requested. 5. History of CVA Continue statin ASA, Plavix can be continued as per Vascular Surgery recommendations 6. Transaminitis likely 2/2 Hx of EtOH use Patient states that he drank anywhere from 4/5th oz of Whiskey to "a couple six packs of beer" per day since age 16 til age 69. Last drink was in 2004 Liver U/S with no acute findings Hepatitis panel negative Monitor. Cont to monitor LFTs and follow as outpatient 7. Dyslipidemia Continue statin 8. GERD Continue PPI 9. Anemia, Normocytic. Likely acute blood loss/chronic disease. Hgb stable, 11.7 fe studies, B12, folate noted. Fe supplement TID. Monitor. VS, I&O, 24H, Fishbone Vital Signs/I&O Vital Signs Date Time Temp Pulse Resp B/P (MAP) Pulse Ox O2 Delivery O2 Flow Rate FiO2 06/01/18 10:50 18 06/01/18 08:09 57 105/60 06/01/18 06:19 98.2 96 I&O- Last 24 Hours up to 6 AM 06/01/18 06:00 Intake Total 915 ml Output Total 1025 ml Balance -110 ml Laboratory Data 24H LABS Laboratory Tests 2 05/31/18 12:11: Bedside Glucose (Misc Panel) 92 05/31/18 16:49: Bedside Glucose (Misc Panel) 154H 05/31/18 19:36: Bedside Glucose (Misc Panel) 130H 06/01/18 06:15: Nucleated Red Blood Cells % (auto) 0.0, Anion Gap 8, Glomerular Filtration Rate 53.6, Blood Urea Nitrogen 20H, Creatinine 1.39H, Sodium Level 143, Potassium Level 4.1, Chloride Level 110H, Carbon Dioxide Level 25, Calcium Level 8.4L, Magnesium Level 1.9 CBC/BMP Laboratory Tests 06/01/18 06:15 Red Blood Count 4.50, Mean Corpuscular Volume 86.9, Mean Corpuscular Hemoglobin 28.2, Mean Corpuscular Hemoglobin Concent 32.5, Red Cell Distribution Width 14.1, Calcium Level 8.4 L Microbiology Microbiology 05/23/18 Respiratory Virus Panel (PCR) ([facility]) - Final, Complete Paty Franco Jun 01, 2018 11:42
[2018-06-01 14:00] VITALS: BP 100/68
[2018-06-01 20:00] VITALS: BP 127/86
[2018-06-01] MEDS: **NOTE PATIENT COMMENT** MISC XX SCH (21:00)
[2018-06-01] MEDS: TAMSULOSIN 0.4 MG CAP PO SCH (21:15)
[2018-06-01] MEDS: traZODone 25MG PER 1/2 TABLET PO SCH (21:16)
[2018-06-01] MEDS: ATORVASTATIN 20 MG TAB PO SCH (21:16)
[2018-06-02] MEDS: oxyCODONE 5MG TAB PO PRN ×2 (03:30→09:11)
[2018-06-02] MEDS: HEPARIN SOD (PORCINE) 5000 UNITS/ML VIAL SQ SCH ×3 (05:27→21:49)
[2018-06-02] MEDS: ACETAMINOPHEN 500 MG TAB PO SCH ×3 (05:28→20:45)
[2018-06-02 05:36] VITALS: BP 126/72
[2018-06-02 07:06] LABS: HEMATOCRIT 40.4 % (42.0-52.0); HEMOGLOBIN 12.9 g/dl (13.5-17.5); MEAN CORPUSCULAR HEMOGLOBIN 28.5 pg (27.0-33.0); MEAN CORPUSCULAR HGB CONC 31.9 g/dl (32.0-36.5); MEAN CORPUSCULAR VOLUME 89.2 fl (80.0-96.0); PLATELET COUNT, AUTOMATED 416 10^3/uL (150-450); RED BLOOD COUNT 4.53 10^6/uL (4.30-6.10); WHITE BLOOD COUNT 5.7 10^3/uL (4.0-10.0)
[2018-06-02 07:35] LABS: CREATININE FOR GFR 1.36 MG/DL (0.70-1.30); POTASSIUM SERUM 4.1 MEQ/L (3.5-5.1)
[2018-06-02 07:36] LABS: CALCIUM LEVEL 8.4 MG/DL (8.8-10.2)
[2018-06-02] MEDS: LIDOCAINE 5% (LIDODERM) PATCH TD SCH (09:09)
[2018-06-02] MEDS: FERROUS GLUCONATE 324 MG TAB PO SCH ×3 (09:10→20:42)
[2018-06-02] MEDS: LACTOBACILLUS ACIDOPHILUS CAP (BACID) PO SCH ×3 (09:10→17:34)
[2018-06-02] MEDS: ASPIRIN 81 MG CHEW TABLET PO SCH (09:10)
[2018-06-02] MEDS: HumaLOG INSULIN (NovoLOG) PER UNIT SC SCH ×4 (09:10→20:12)
[2018-06-02] MEDS: CEPHALEXIN 500 MG CAP PO SCH ×2 (09:11→20:42)
[2018-06-02] MEDS: PANTOPRAZOLE 40MG TAB (PROTONIX) PO SCH (09:11)
[2018-06-02] MEDS: GABAPENTIN 300 MG CAP PO SCH ×3 (09:11→20:43)
[2018-06-02] MEDS: CARVedilol 3.125 MG TAB PO SCH ×2 (09:11→20:44)
[2018-06-02] MEDS: CLOPIDOGREL 75 MG TAB PO SCH (09:11)
[2018-06-02] MEDS: SENOKOT S TAB PO SCH (09:11)
[2018-06-02] MEDS: LEVEMIR (INSULIN DETEMIR) 1 UNITS/0.01ML SC SCH ×2 (09:12→20:45)
--- NOTE | 2018-06-02 10:58 | IPNPDOC ---
Date Seen The patient was seen on 06/02/18. Progress Note HPI: 73M pmh PAD, DM, HTN, CKD, CVA with residual left sided weakness who developed worsening right foot pain and was evaluated at [facility] ED on 05/11/18 and found to have ischemia of the his limb for which a vascular consult was placed. He underwent an aortoiliofemoral arteriogram with right lower extremity runoff and placement of the thrombolysis catheter from right distal superficial femoral artery to right distal posterior tibial artery across popliteal/tibial occlusion. On 05/12/18 the TPA lysis catheter was removed and vascular surgery discussed need for BKA vs AKA as his right foot was not salvageable. His Plavix and ASA were held, on 05/13/18 he underwent a right BKA without significant co mplications and a knee immobilizer was placed. The pt was transferred to the care of ARU, Dr Durán, 05/15/18. Pt states he is feeling well. OOB to chair, coloring pictures. Denies any fevers, chills, weakness, fatigue, Headache, Chest Pain, Shortness of breath, cough, palpitations, abdominal pain, N/V/D or changes in bowel or bladder habits. PMH IDDM HTN HLD CKD CVA PAD BPH GERD PE: GEN: 73yoM, appears stated age. Well-nourished, well developed. No acute distress. Alert and oriented x 3. HEENT: Normocephalic, atraumatic. Sclera are nonicteric. Conjunctiva without injection. Moist mucous membranes. CHEST: Regular rate and rhythm, +S1, +S2 LUNGS: Clear to auscultation bilaterally. No wheezes, rales, or rhonchi. Breathing appears symmetric and easy. ABD: Round, soft, non-tender, non-distended. +Bowel sounds throughout. EXT: Pulses palpable LLE. No lower extremity edema appreciated. Dressing intact BKA RLE. SKIN: [place], dry, warm. No rashes. NEURO: Alert and oriented x 3. No focal deficits appreciated. A&P: 73M pmh PAD, DM, HTN, CKD, CVA with residual left sided weakness who developed worsening right foot pain and was evaluated at [facility] ED on 05/11/18 and found to have ischemia of the his limb for which a vascular consult was placed. He underwent an aortoiliofemoral arteriogram with right lower extremity runoff and placement of the thrombolysis catheter from right distal superficial femoral artery to right distal posterior tibial artery across popliteal/tibial occlusion. On 05/12/18 the TPA lysis catheter was removed and vascular surgery dis cussed need for BKA vs AKA as his right foot was not salvageable. His Plavix and ASA were held, on 05/13/18 he underwent a right BKA without significant complications and a knee immobilizer was placed. The pt was transferred to the care of Dr Luis Armando NOEL, 05/15/18. 1. 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 pain control as per Dr Luis Armando NOEL. bowel care as per Dr Luis Armando NOEL. DVT prophylaxis as per Dr Luis Armando NOEL. SQ Heparin. The pt was started on po Keflex as per Dr Durán for wound. Disposition as per Dr Luis Armando NOEL. 2. Chronic Kidney Disease Stage IIIA/B Serum Cr baseline is 1.5-1.6 according to outpatient records SCr 1.36. Cont current management Monitor. 3. Diabetes Mellitus Cont reduced dose of basal insulin, 20 Units of Levemir BID (takes 70 Units BID at home) Cont SSI BS 115-165 monitor. 4. Hypertension. Coreg 3.125 mg BID with hold parameters. Norvasc, Lisinopril, HCTZ on HOLD. The pt is also receiving Flomax and trazodone which may also contribute to orthostasis. BP controlled, monitor BP trend. Orthostatic VS requested. 5. History of CVA Continue statin ASA, Plavix can be continued as per Vascular Surgery recommendations 6. Transaminitis likely 2/2 Hx of EtOH use Patient states that he drank anywhere from 4/5th oz of Whiskey to "a couple six packs of beer" per day since age 16 til age 69. Last drink was in 2004 Liver U/S with no acute findings Hepatitis panel negative Monitor. Cont to monitor LFTs and follow as outpatient 7. Dyslipidemia Continue statin 8. GERD Continue PPI 9. Anemia, Normocytic. Likely acute blood loss/chronic disease. Hgb stable, 12.9 fe studies, B12, folate noted. Fe supplement TID. Monitor. VS, I&O, 24H, Fishbone Vital Signs/I&O Vital Signs Date Time Temp Pulse Resp B/P (MAP) Pulse Ox O2 Delivery O2 Flow Rate FiO2 06/02/18 09:11 18 06/02/18 09:11 54 126/72 06/02/18 05:36 98.6 97 I&O- Last 24 Hours up to 6 AM 06/02/18 06:00 Intake Total 1735 ml Output Total 1425 ml Balance 310 ml Laboratory Data 24H LABS Laboratory Tests 2 06/01/18 11:49: Bedside Glucose (Misc Panel) 120H 06/01/18 16:26: Bedside Glucose (Misc Panel) 165H 06/01/18 20:02: Bedside Glucose (Misc Panel) 157H 06/02/18 05:51: Bedside Glucose (Misc Panel) 115H 06/02/18 06:39: Nucleated Red Blood Cells % (auto) 0.0, Anion Gap 6L, Glomerular Filtration Rate 55.0, Blood Urea Nitrogen 21H, Creatinine 1.36H, Sodium Level 140, Potassium Level 4.1, Chloride Level 109H, Carbon Dioxide Level 25, Calcium Level 8.4L, Magnesium Level 2.0 CBC/BMP Laboratory Tests 06/02/18 06:39 Red Blood Count 4.53, Mean Corpuscular Volume 89.2, Mean Corpuscular Hemoglobin 28.5, Mean Corpuscular Hemoglobin Concent 31.9 L, Red Cell Distribution Width 14.0, Calcium Level 8.4 L Microbiology Microbiology 05/23/18 Respiratory Virus Panel (PCR) ([facility]) - Final, Complete Paty Franco Jun 02, 2018 10:58
[2018-06-02] MEDS ORDERED: MIRALAX *UNIT DOSE* 17GM PACKET PO PRN (11:00)
[2018-06-02] MEDS: DOCUSATE SODIUM 100 MG CAP PO SCH ×3 (12:06→20:43)
[2018-06-02 14:00] VITALS: BP 123/65
--- NOTE | 2018-06-02 18:38 | IPNPDOC ---
PM&R Progress Note DATE OF SERVICE: Jun 02, 2018 Diabetes Specialist Progress Note Subjective: Patient's reports chante feels constipated and would like to try more bowel meds. REVIEW OF SYSTEMS: The following is a completed review of systems and has been reviewed. Review of systems otherwise unremarkable. PAIN: Patient self reports right residual limb pain EYES: Negative for recent vision changes. EARS, NOSE, & THROAT: denies rhinorrhea or throat pain CARDIOVASCULAR: denies chest pain or palpitations PULMONARY: Negative. 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 PHYSICAL EXAMINATION: VITAL SIGNS: Please see below. GENERAL: Pleasant and cooperative. No acute distress. HEENT: PERRL. Extraocular movements intact. Clear conjunctiva CARDIOVASCULAR: Regular rate and rhythm. No murmurs, rubs, or gallops LUNGS: mostly Clear to auscultation bilaterally with bilateral apical wheezes. No rhonchi/crackles ABDOMEN: Soft, nontender, nondistended. Positive bowel sounds. Normal active bowel sounds. NEUROLOGICAL: Alert and oriented times three. Cranial nerves II through XII g rossly intact. Sensation grossly intact. EXTREMITIES: 5\5 strength bilateral upper extremities.5-\5 strength right hip flexors knee extensors and knee flexors. 5-/5 strength in left lower extremity. (+) TTP cervical paraspinals, equivocal Nadege maneuver (+) mild TTP at left popliteus muscle origin and along muscle belly SKIN: right residual limb incision with william and sutures, c/d/i mild erythema, blanchable circular erythematous area over tibial plateau ASSESSMENT:73-year-old M with past medical history of PAD who presents status post right BKA PLAN: 1. Rehab: PT/OT assess for DMEs, maintain knee extension, patient instructed to avoid keeping head of bed up to prevent hip flexion contracture- sponge bath only as left ankle bracelet cannot be submerged in water, ambulating further with RW 2. Neuro; pmh stroke with left sided residual weakness, c/u ASA and statin for secondary stroke prevention 3. Cardio: PAD s/p right BKA- Plavix restarted, c/u ASA pmh- HTn c/u BP meds, medicine consulted 4. Resp: wheeze resolved, c/u duonebs, incentive spirometry and monitor for infection 5. Endo: DM continue insulin coverage-stable, will decrease coverage to 18 units BID for slightly low FS 6. GI ppx: protonix 7. DVT ppx: c/u heparin 8. Pain: c/u valium and will change percocet to oxycodone, c/u Tylenol and Gabapentin for nocturnal pain, c/u daytime Gabapentin -transient radiating to hand left sided neck pain in C6/C7 distribution, patient instructed to work on chin tucks and lidoderm patch ordered for neck- strength and sensation intact-resolved -left popliteus tendinopathy causing left knee buckling, therapists encouraged to do myofascial release/stretch/heat pads, patient able to perform self-massage as well-improved 9. : admission UA and Ucx negative, continue flomax for BPH 10. Skin: daily dressing changes, monitor for infection-will avoid [place] orthotic at this time as suspect friction at tibial plateau against strap as orthotic is slightly too large for limb-concern for cellulitis, pain and ESR/CRP improving on Kefflexc/u to monitor-resolved 11. GI: increase colace to TID, c/u senna and suppository 10. Dispo: 06/05/18 to home with home services Allergies Coded Allergies: No Known Allergies (Unverified , 07/06/14) Vital Signs Vital Signs Date Time Temp Pulse Resp B/P (MAP) Pulse Ox O2 Delivery O2 Flow Rate FiO2 06/02/18 14:00 96.9 59 17 123/65 (84) 95 Laboratory Data CBC/BMP Laboratory Tests 06/02/18 06:39 Red Blood Count 4.53, Mean Corpuscular Volume 89.2, Mean Corpuscular Hemoglobin 28.5, Mean Corpuscular Hemoglobin Concent 31.9 L, Red Cell Distribution Width 14.0, Calcium Level 8.4 L Labs 24H Laboratory Tests 2 06/01/18 20:02: Bedside Glucose (Misc Panel) 157H 06/02/18 05:51: Bedside Glucose (Misc Panel) 115H 06/02/18 06:39: Nucleated Red Blood Cells % (auto) 0.0, Anion Gap 6L, Glomerular Filtration Rate 55.0, Blood Urea Nitrogen 21H, Creatinine 1.36H, Sodium Level 140, Potassium Level 4.1, Chloride Level 109H, Carbon Dioxide Level 25, Calcium Level 8.4L, Magnesium Level 2.0 06/02/18 11:44: Bedside Glucose (Misc Panel) 69L 06/02/18 16:56: Bedside Glucose (Misc Panel) 122H Microbiology Microbiology 05/23/18 Respiratory Virus Panel (PCR) ([facility]) - Final, Complete Current Medications Current Medications Current Medications Acetaminophen (Tylenol Tab) 650 mg DAILYPRN PRN PO fever/MILD PAIN (PS 1-4); Start 05/15/18 at 18:45 Acetaminophen (Tylenol Tab) 1,000 mg TID@0600,1400,2100 PO Last administered on 06/02/18 16:00; Start 05/19/18 at 21:00; Status Future hold Albuterol/ Ipratropium (Duoneb (Ipr 0.5mg/Alb 2.5mg)) 3 ml RBID NEB Last administered on 05/22/18 19:57; Start 05/15/18 at 20:00; Stop 05/23/18 at 11:45; Status DC Amlodipine Besylate (Norvasc) 10 mg DAILY PO Last administered on 05/25/18 08:40; Start 05/16/18 at 09:00; Stop 05/25/18 at 10:46; Status DC Aspirin (Aspirin Chewable) 81 mg DAILY PO Last administered on 06/02/18 09:10; Start 05/16/18 at 09:00 Atorvastatin Calcium (Lipitor) 80 mg QHS PO Last administered on 06/01/18 21:16; Start 05/15/18 at 21:00 Bisacodyl (Dulcolax Suppository) 10 mg DAILYPRN PRN GA CONSTIPATION Last administered on 05/29/18 20:29; Start 05/15/18 at 18:45 Bisacodyl (Dulcolax Suppository) 10 mg ONCE PRN GA NO BM AFTER LACTULOSE; Start 05/29/18 at 18:00; Stop 05/29/18 at 23:59; Status DC Carvedilol (COReg) 3.125 mg BID PO Last administered on 3/25/19at 21:16; Start 05/15/18 at 21:00 Cephalexin Monohydrate (Keflex) 500 mg BID PO Last administered on 06/02/18 09:11; Start 05/21/18 at 21:00; Stop 06/04/18 at 20:59 Clopidogrel Bisulfate (PLAVix) 75 mg DAILY PO Last administered on 06/02/18 09:11; Start 05/23/18 at 09:00 Dextrose (Dextrose 50%) 25 ml ASDIRECTED PRN IV SEE LABEL COMMENTS; Start 05/15/18 at 19:00 Diazepam (Valium) 5 mg Q6HP PRN PO SPASMS Last administered on 05/29/18 15:46; Start 05/21/18 at 15:00 Diazepam (Valium) 10 mg Q6HP PRN PO SPASMS Last administered on 05/20/18 21:36; Start 05/15/18 at 19:00; Stop 05/21/18 at 15:03; Status DC Docusate Sodium (Colace) 100 mg BID PO Last administered on 06/02/18 12:06; Start 06/02/18 at 09:00 Docusate Sodium (Colace) 100 mg BID PO Last administered on 05/21/18 09:12; Start 05/15/18 at 21:00; Stop 05/21/18 at 15:03; Status DC Docusate Sodium (Colace) 100 mg TID PO Last administered on 05/31/18 08:00; Start 05/29/18 at 09:00; Stop 05/31/18 at 09:40; Status DC Ferrous Gluconate (Fergon) 324 mg TID PO Last administered on 06/02/18 16:00; Start 05/15/18 at 21:00 Gabapentin (Neurontin) 300 mg QHS PO Last administered on 05/19/18 20:40; S tart 05/19/18 at 21:00; Stop 05/20/18 at 12:22; Status DC Gabapentin (Neurontin) 300 mg TID PO Last administered on 06/02/18 16:00; Start 05/20/18 at 16:00 Glucagon (Glucagon) 1 mg ASDIRECTED PRN SC SEE LABEL COMMENTS; Start 05/15/18 at 19:00 Glucose (Glucose) 16 GM ASDIRECTED PRN PO SEE LABEL COMMENTS; Start 05/15/18 at 19:00 Heparin Sodium (Porcine) (Heparin) 5,000 units Q8H SQ Last administered on 06/02/18at 16:00; Start 05/15/18 at 22:00 Hydrochlorothiazide (Hydrodiuril) 25 mg DAILY PO Last administered on 05/23/18at 08:31; Start 05/16/18 at 09:00; Stop 05/24/18 at 07:35; Status DC Insulin Detemir (Levemir Insulin) 20 units BID SC Last administered on 06/02/18at 09:12; Start 05/15/18 at 21:00 Insulin Human Lispro (HumaLOG INSULIN) SEE PROTOCOL TABLE AC SC Last administered on 06/02/18at 17:34; Start 05/16/18 at 07:30 Insulin Human Lispro (HumaLOG INSULIN) SEE PROTOCOL TABLE QHS SC ; Start 05/15/18 at 21:00 Lactobacillus Acidophilus (Bacid) 1 ea WM PO Last administered on 06/02/18at 1 7:34; Start 05/21/18 at 18:00 Lidocaine (Lidoderm Patch) 1 patch DAILY TD Last administered on 06/02/18at 09:09; Start 05/25/18 at 09:00 Lisinopril (Prinivil) 10 mg QHS PO Last administered on 05/23/18at 22:10; Start 05/22/18 at 21:00; Stop 05/25/18 at 10:46; Status DC Lisinopril (Prinivil) 20 mg DAILY PO Last administered on 05/21/18at 09:12; Start 05/16/18 at 09:00; Stop 05/21/18 at 14:22; Status DC Miscellaneous (Unresolved Clarification Entry) SEE LABEL COMMENTS DAILY XX ; Start 05/27/18 at 09:00; Stop 05/27/18 at 16:18; Status DC Miscellaneous (Unresolved Clarification Entry) SEE LABEL COMMENTS DAILY XX ; Start 05/31/18 at 09:00; Stop 05/31/18 at 09:41; Status DC Non-Formulary Medication ( See Comment Field Below ) REMOVE LIDODERM PATCH DAILY@21 XX Last administered on 06/01/18at 21:00; Start 05/25/18 at 21:00 Ondansetron HCl (Zofran) 4 mg Q6HP PRN PO NAUSEA; Start 05/15/18 at 18:45 Oxycodone HCl (Roxicodone, Oxyir) 5 mg Q4HP PRN PO PAIN Last administered on 05/30/18at 08:33; Start 05/19/18 at 19:15 Oxycodone HCl (Roxicodone, Oxyir) 10 mg Q4HP PRN PO SEVERE PAIN (PS 8-10) Last administered on 06/02/18 09:11; Start 05/19/18 at 19:15 Oxycodone/ Acetaminophen (Percocet 5mg/ 325mg Tablet) 1 tab Q4HP PRN PO MILD/MODERATE PAIN (PS 1-7); Start 05/15/18 at 19:00; Stop 05/19/18 at 19:18; Status DC Oxycodone/ Acetaminophen (Percocet 5mg/ 325mg Tablet) 2 tab Q4HP PRN PO SEVERE PAIN (PS 8-10) Last administered on 05/19/18 16:05; Start 05/15/18 at 19:00; Stop 05/19/18 at 19:18; Status DC Pantoprazole Sodium (Protonix) 40 mg DAILY PO Last administered on 06/02/18 09:11; Start 05/16/18 at 09:00 Polyethylene Glycol (Miralax) 1 pkt DAILYPRN PRN PO CONSTIPATION; Start at 11:00 Senna (Senokot) 1 tab QHS PO Last administered on 05/20/18 21:37; Start 05/15/18 at 21:00; Stop 05/21/18 at 15:03; Status DC Senna (Senokot) 1 tab QHSP PRN PO CONSTIPATION; Start 05/29/18 at 11:30 Senna/Docusate Sodium (Senokot S) 1 tab BID PO Last administered on 06/02/18 09:11; Start 05/31/18 at 21:00 Tamsulosin HCl (Flomax) 0.4 mg QHS PO Last administered on 06/01/18 21:15; Start 05/15/18 at 21:00 Trazodone HCl (Desyrel) 25 mg QHS PO Last administered on 06/01/18 21:16; Start 05/20/18 at 21:00 ADRIANA HUFF MD Jun 02, 2018 18:38
[2018-06-02 20:00] VITALS: BP 122/72
[2018-06-02] MEDS: TAMSULOSIN 0.4 MG CAP PO SCH (20:42)
[2018-06-02] MEDS: SENNA 8.6 MG TAB (SENOKOT) PO SCH (20:43)
[2018-06-02] MEDS: traZODone 25MG PER 1/2 TABLET PO SCH (20:43)
[2018-06-02] MEDS: ATORVASTATIN 20 MG TAB PO SCH (20:43)
[2018-06-02] MEDS: BISACODYL 10 MG SUPP PR SCH (20:45)
[2018-06-02] MEDS: **NOTE PATIENT COMMENT** MISC XX SCH (20:48)
[2018-06-03] MEDS: oxyCODONE 5MG TAB PO PRN ×3 (01:42→20:49)
[2018-06-03 05:00] VITALS: BP 125/78
[2018-06-03] MEDS: HEPARIN SOD (PORCINE) 5000 UNITS/ML VIAL SQ SCH ×3 (05:51→20:50)
[2018-06-03] MEDS: ACETAMINOPHEN 500 MG TAB PO SCH ×3 (05:52→20:50)
[2018-06-03 07:18] LABS: HEMATOCRIT 40.8 % (42.0-52.0); HEMOGLOBIN 13.1 g/dl (13.5-17.5); MEAN CORPUSCULAR HEMOGLOBIN 28.4 pg (27.0-33.0); MEAN CORPUSCULAR HGB CONC 32.1 g/dl (32.0-36.5); MEAN CORPUSCULAR VOLUME 88.3 fl (80.0-96.0); PLATELET COUNT, AUTOMATED 397 10^3/uL (150-450); RED BLOOD COUNT 4.62 10^6/uL (4.30-6.10); WHITE BLOOD COUNT 5.5 10^3/uL (4.0-10.0)
[2018-06-03 07:45] LABS: CALCIUM LEVEL 8.6 MG/DL (8.8-10.2); CREATININE FOR GFR 1.44 MG/DL (0.70-1.30); GLOMERULAR FILTRATION RATE 51.5 (>42); POTASSIUM SERUM 4.1 MEQ/L (3.5-5.1)
[2018-06-03] MEDS: CLOPIDOGREL 75 MG TAB PO SCH (08:03)
[2018-06-03] MEDS: LEVEMIR (INSULIN DETEMIR) 1 UNITS/0.01ML SC SCH ×2 (08:03→20:50)
[2018-06-03] MEDS: FERROUS GLUCONATE 324 MG TAB PO SCH ×3 (08:04→20:49)
[2018-06-03] MEDS: CEPHALEXIN 500 MG CAP PO SCH ×2 (08:04→20:48)
[2018-06-03] MEDS: LACTOBACILLUS ACIDOPHILUS CAP (BACID) PO SCH ×3 (08:04→17:54)
[2018-06-03] MEDS: DOCUSATE SODIUM 100 MG CAP PO SCH ×4 (08:04→20:49)
[2018-06-03] MEDS: ASPIRIN 81 MG CHEW TABLET PO SCH (08:04)
[2018-06-03] MEDS: HumaLOG INSULIN (NovoLOG) PER UNIT SC SCH ×4 (08:04→20:07)
[2018-06-03] MEDS: GABAPENTIN 300 MG CAP PO SCH ×2 (08:04→15:34)
[2018-06-03] MEDS: PANTOPRAZOLE 40MG TAB (PROTONIX) PO SCH (08:04)
[2018-06-03] MEDS: LIDOCAINE 5% (LIDODERM) PATCH TD SCH (08:04)
[2018-06-03] MEDS: CARVedilol 3.125 MG TAB PO SCH ×2 (08:05→20:48)
[2018-06-03] MEDS: BISACODYL 10 MG SUPP PR SCH (09:00)
[2018-06-03] MEDS ORDERED: MIRALAX *UNIT DOSE* 17GM PACKET PO PRN (10:45)
--- NOTE | 2018-06-03 16:16 | IPNPDOC ---
PM&R Progress Note DATE OF SERVICE: Jun 03, 2018 Table Tender Progress Note Subjective: Patient's reports he had a bowel movement, but it was hard, and would like to try Miralax. He would like to increase his pain meds as well. REVIEW OF SYSTEMS: The following is a completed review of systems and has been reviewed. Review of systems otherwise unremarkable. PAIN: Patient self reports right residual limb pain EYES: Negative for recent vision changes. EARS, NOSE, & THROAT: denies rhinorrhea or throat pain CARDIOVASCULAR: denies chest pain or palpitations PULMONARY: Negative. 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 PHYSICAL EXAMINATION: VITAL SIGNS: Please see below. GENERAL: Pleasant and cooperative. No acute distress. HEENT: PERRL. Extraocular movements intact. Clear conjunctiva CARDIOVASCULAR: Regular rate and rhythm. No murmurs, rubs, or gallops LUNGS: mostly Clear to auscultation bilaterally with bilateral apical wheezes. No rhonchi/crackles ABDOMEN: Soft, nontender, nondistended. Positive bowel sounds. Normal active bowel sounds. NEUROLOGICAL: Alert and oriented times three. Cranial nerves II through XII grossly intact. Sensation grossly intact. EXTREMITIES: 5\5 strength bilateral upper extremities.5-\5 strength right hip flexors knee extensors and knee flexors. 5-/5 strength in left lower extremity. (+) TTP cervical paraspinals, equivocal [place] maneuver (+) mild TTP at left popliteus muscle origin and along muscle belly SKIN: right residual limb incision with william and sutures, c/d/i mild erythema, blanchable circular erythematous area over tibial plateau ASSESSMENT:73-year-old M with past medical history of PAD who presents status post right BKA PLAN: 1. Rehab: PT/OT assess for DMEs, maintain knee extension, patient instructed to avoid keeping head of bed up to prevent hip flexion contracture- sponge bath only as left ankle bracelet cannot be submerged in water, ambulating further with RW, room privileges from wheelchair level 2. Neuro; pmh stroke with left sided residual weakness, c/u ASA and statin for secondary stroke prevention 3. Cardio: PAD s/p right BKA- Plavix restarted, c/u ASA pmh- HTn c/u BP meds, medicine consulted 4. Resp: wheeze resolved, c/u duonebs, incentive spirometry and monitor for infection 5. Endo: DM continue insulin coverage-stable, will decrease coverage to 18 units BID for slightly low FS 6. GI ppx: protonix 7. DVT ppx: c/u heparin 8. Pain: c/u valium and oxycodone, c/u Tylenol and will increase Gabapentin fto 400 TID and add Elavil 25mg qHS for neuropathic pain -transient radiating to hand left sided neck pain in C6/C7 distribution, patient instructed to work on chin tucks and lidoderm patch ordered for neck- strength and sensation intact-resolved -left popliteus tendinopathy causing left knee buckling, therapists encouraged to do myofascial release/stretch/heat pads, patient able to perform self-massage as well-improved 9. : admission UA and Ucx negative, continue flomax for BPH 10. Skin: daily dressing changes, monitor for infection-will avoid [place] orthotic at this time as suspect friction at tibial plateau against strap as orthotic is slightly too large for limb-concern for cellulitis, pain and ESR/CRP improving on Kefflexc/u to monitor-resolved 11. GI: increase colace to TID, c/u senna and suppository 10. Dispo: 06/05/18 to home with home services, progressing towards goals Allergies Coded Allergies: No Known Allergies (Unverified , 07/06/14) Vital Signs Vital Signs Date Time Temp Pulse Resp B/P (MAP) Pulse Ox O2 Delivery O2 Flow Rate FiO2 06/03/18 13:00 18 06/03/18 08:05 61 124/61 06/03/18 05:00 97.7 94 Laboratory Data CBC/BMP Laboratory Tests 06/03/18 06:49 Red Blood Count 4.62, Mean Corpuscular Volume 88.3, Mean Corpuscular Hemoglobin 28.4, Mean Corpuscular Hemoglobin Concent 32.1, Red Cell Distribution Width 14.1, Calcium Level 8.6 L Labs 24H Laboratory Tests 2 06/02/18 16:56: Bedside Glucose (Misc Panel) 122H 06/02/18 19:55: Bedside Glucose (Misc Panel) 104 06/03/18 06:49: Nucleated Red Blood Cells % (auto) 0.0, Anion Gap 8, Glomerular Filtration Rate 51.5, Blood Urea Nitrogen 20H, Creatinine 1.44H, Sodium Level 141, Potassium Level 4.1, Chloride Level 108H, Carbon Dioxide Level 25, Calcium Level 8.6L, Magnesium Level 2.0 06/03/18 11:22: Bedside Glucose (Misc Panel) 130H Current Medications Current Medications Current Medications Acetaminophen (Tylenol Tab) 650 mg DAILYPRN PRN PO fever/MILD PAIN (PS 1-4); Start 05/15/18 at 18:45 Acetaminophen (Tylenol Tab) 1,000 mg TID@0600,1400,2100 PO Last administered on 06/03/18at 15:33; Start 05/19/18 at 21:00; Status Future hold Albuterol/ Ipratropium (Duoneb (Ipr 0.5mg/Alb 2.5mg)) 3 ml RBID NEB Last administered on 05/22/18at 19:57; Start 05/15/18 at 20:00; Stop 05/23/18 at 11:45; Status DC Amitriptyline HCl (Elavil) 25 mg QHS PO ; Start 06/03/18 at 21:00 Amlodipine Besylate (Norvasc) 10 mg DAILY PO Last administered on 05/25/18 08:40; Start 05/16/18 at 09:00; Stop 05/25/18 at 10:46; Status DC Aspirin (Aspirin Chewable) 81 mg DAILY PO Last administered on 06/03/18at 08:04; Start 05/16/18 at 09:00 Atorvastatin Calcium (Lipitor) 80 mg QHS PO Last administered on 06/02/18at 20:43; Start 05/15/18 at 21:00 Bisacodyl (Dulcolax Suppository) 10 mg DAILY [place] ; Start 06/02/18 at 09:00 Bisacodyl (Dulcolax Suppository) 10 mg DAILYPRN PRN [place] CONSTIPATION Last administered on 05/29/18at 20:29; Start 05/15/18 at 18:45 Bisacodyl (Dulcolax Suppository) 10 mg ONCE PRN [place] NO BM AFTER LACTULOSE; Start 05/29/18 at 18:00; Stop 05/29/18 at 23:59; Status DC Carvedilol (COReg) 3.125 mg BID PO Last administered on 06/03/18 08:05; Start 05/15/18 at 21:00 Cephalexin Monohydrate (Keflex) 500 mg BID PO Last administered on 06/03/18 08:04; Start 05/21/18 at 21:00; Stop 06/04/18 at 20:59 Clopidogrel Bisulfate (PLAVix) 75 mg DAILY PO Last administered on 06/03/18 08:03; Start 05/23/18 at 09:00 Dextrose (Dextrose 50%) 25 ml ASDIRECTED PRN IV SEE LABEL COMMENTS; Start 05/15/18 at 19:00 Diazepam (Valium) 5 mg Q6HP PRN PO SPASMS Last administered on 05/29/18at 15:46; Start 05/21/18 at 15:00 Diazepam (Valium) 10 mg Q6HP PRN PO SPASMS Last administered on 05/20/18 21:36; Start 05/15/18 at 19:00; Stop 05/21/18 at 15:03; Status DC Docusate Sodium (Colace) 100 mg BID PO Last administered on 06/02/18 20:42; Start 06/02/18 at 09:00; Stop 06/03/18 at 10:38; Status DC Docusate Sodium (Colace) 100 mg BID PO Last administered on 05/21/18 09:12; Start 05/15/18 at 21:00; Stop 05/21/18 at 15:03; Status DC Docusate Sodium (Colace) 100 mg TID PO Last administered on 05/31/18 08:00; Start 05/29/18 at 09:00; Stop 05/31/18 at 09:40; Status DC Docusate Sodium (Colace) 100 mg TID PO Last administered on 06/03/18 15:34; Start 06/02/18 at 21:00 Ferrous Gluconate (Fergon) 324 mg TID PO Last administered on 06/03/18 15:34; Start 05/15/18 at 21:00 Gabapentin (Neurontin) 300 mg QHS PO Last administered on 3/12/19at 20:40; Start 05/19/18 at 21:00; Stop 05/20/18 at 12:22; Status DC Gabapentin (Neurontin) 300 mg TID PO Last administered on 06/03/18 15:34; Start 05/20/18 at 16:00; Stop 06/03/18 at 16:12; Status DC Gabapentin (Neurontin) 400 mg TID PO ; Start 06/03/18 at 21:00 Glucagon (Glucagon) 1 mg ASDIRECTED PRN SC SEE LABEL COMMENTS; Start 05/15/18 at 19:00 Glucose (Glucose) 16 GM ASDIRECTED PRN PO SEE LABEL COMMENTS; Start 05/15/18 at 19:00 Heparin Sodium (Porcine) (Heparin) 5,000 units Q8H SQ Last administered on 06/03/18at 14:00; Start 05/15/18 at 22:00 Hydrochlorothiazide (Hydrodiuril) 25 mg DAILY PO Last administered on 05/23/18 08:31; Start 05/16/18 at 09:00; Stop 05/24/18 at 07:35; Status DC Insulin Detemir (Levemir Insulin) 18 units BID SC Last administered on 06/03/18 08:03; Start 06/02/18 at 21:00 Insulin Detemir (Levemir Insulin) 20 units BID SC Last administered on 06/02/18at 09:12; Start 05/15/18 at 21:00; Stop 06/02/18 at 18:38; Status DC Insulin Human Lispro (HumaLOG INSULIN) SEE PROTOCOL TABLE AC SC Last administered on 06/03/18at 12:13; Start 05/16/18 at 07:30 Insulin Human Lispro (HumaLOG INSULIN) SEE PROTOCOL TABLE QHS SC ; Start 05/15/18 at 21:00 Lactobacillus Acidophilus (Bacid) 1 ea WM PO Last administered on 06/03/18 12:13; Start 05/21/18 at 18:00 Lidocaine (Lidoderm Patch) 1 patch DAILY TD Last administered on 06/03/18 08:04; Start 05/25/18 at 09:00 Lisinopril (Prinivil) 10 mg QHS PO Last administered on 05/23/18at 22:10; Start 05/22/18 at 21:00; Stop 05/25/18 at 10:46; Status DC Lisinopril (Prinivil) 20 mg DAILY PO Last administered on 05/21/18at 09:12; Start 05/16/18 at 09:00; Stop 05/21/18 at 14:22; Status DC Miscellaneous (Unresolved Clarification Entry) SEE LABEL COMMENTS DAILY XX ; Start 05/27/18 at 09:00; Stop 05/27/18 at 16:18; Status DC Miscellaneous (Unresolved Clarification Entry) SEE LABEL COMMENTS DAILY XX ; Start 05/31/18 at 09:00; Stop 05/31/18 at 09:41; Status DC Non-Formulary Medication ( See Comment Field Below ) REMOVE LIDODERM PATCH DAILY@21 XX Last administered on 06/02/18at 20:48; Start 05/25/18 at 21:00 Ondansetron HCl (Zofran) 4 mg Q6HP PRN PO NAUSEA; Start 05/15/18 at 18:45 Oxycodone HCl (Roxicodone, Oxyir) 5 mg Q4HP PRN PO PAIN Last administered on 05/30/18at 08:33; Start 05/19/18 at 19:15 Oxycodone HCl (Roxicodone, Oxyir) 10 mg Q4HP PRN PO SEVERE PAIN (PS 8-10) Last administered on 06/03/18at 12:16; Start 05/19/18 at 19:15 Oxycodone/ Acetaminophen (Percocet 5mg/ 325mg Tablet) 1 tab Q4HP PRN PO MILD/MODERATE PAIN (PS 1-7); Start 05/15/18 at 19:00; Stop 05/19/18 at 19:18; Status DC Oxycodone/ Acetaminophen (Percocet 5mg/ 325mg Tablet) 2 tab Q4HP PRN PO SEVERE PAIN (PS 8-10) Last administered on 05/19/18at 16:05; Start 05/15/18 at 19:00; Stop 05/19/18 at 19:18; Status DC Pantoprazole Sodium (Protonix) 40 mg DAILY PO Last administered on 06/03/18at 08:04; Start 05/16/18 at 09:00 Polyethylene Glycol (Miralax) 1 pkt DAILYPRN PRN PO CONSTIPATION; Start 9 at 11:00 Polyethylene Glycol (Miralax) 1 pkt DAILYPRN PRN PO CONSTIPATION; Start 06/03/18 at 10:45; Stop 06/03/18 at 10:45; Status DC Senna (Senokot) 1 tab QHS PO Last administered on 06/02/18at 20:43; Start 06/02/18 at 21:00 Senna (Senokot) 1 tab QHS PO Last administered on 05/20/18at 21:37; Start 05/15/18 at 21:00; Stop 05/21/18 at 15:03; Status DC Senna (Senokot) 1 tab QHSP PRN PO CONSTIPATION; Start 05/29/18 at 11:30; Stop 06/02/18 at 19:52; Status DC Senna/Docusate Sodium (Senokot S) 1 tab BID PO Last administered on 06/02/18at 09:11; Start 05/31/18 at 21:00; Stop 06/02/18 at 19:52; Status DC Tamsulosin HCl (Flomax) 0.4 mg QHS PO Last administered on 06/02/18at 20:42; Start 05/15/18 at 21:00 Trazodone HCl (Desyrel) 25 mg QHS PO Last administered on 06/02/18at 20:43; Start 05/20/18 at 21:00 ADRIANA HUFF MD Jun 03, 2018 16:16
[2018-06-03 20:00] VITALS: BP 126/71
[2018-06-03] MEDS: AMITRIPTYLINE 25 MG TAB PO SCH (20:48)
[2018-06-03] MEDS: SENNA 8.6 MG TAB (SENOKOT) PO SCH (20:48)
[2018-06-03] MEDS: GABAPENTIN 400 MG CAP PO SCH (20:48)
[2018-06-03] MEDS: ATORVASTATIN 20 MG TAB PO SCH (20:48)
[2018-06-03] MEDS: TAMSULOSIN 0.4 MG CAP PO SCH (20:48)
[2018-06-03] MEDS: traZODone 25MG PER 1/2 TABLET PO SCH (20:49)
[2018-06-03] MEDS: **NOTE PATIENT COMMENT** MISC XX SCH (20:50)
[2018-06-03] MEDS ORDERED: GABAPENTIN 300 MG CAP PO SCH (21:00)
[2018-06-04] MEDS: HEPARIN SOD (PORCINE) 5000 UNITS/ML VIAL SQ SCH ×3 (05:47→20:37)
[2018-06-04] MEDS: ACETAMINOPHEN 500 MG TAB PO SCH ×3 (05:47→20:35)
[2018-06-04 06:00] VITALS: BP 133/80
[2018-06-04 06:49] LABS: HEMATOCRIT 40.6 % (42.0-52.0); HEMOGLOBIN 13.1 g/dl (13.5-17.5); MEAN CORPUSCULAR HEMOGLOBIN 28.5 pg (27.0-33.0); MEAN CORPUSCULAR HGB CONC 32.3 g/dl (32.0-36.5); MEAN CORPUSCULAR VOLUME 88.5 fl (80.0-96.0); PLATELET COUNT, AUTOMATED 357 10^3/uL (150-450); RED BLOOD COUNT 4.59 10^6/uL (4.30-6.10); WHITE BLOOD COUNT 5.3 10^3/uL (4.0-10.0)
[2018-06-04 07:09] LABS: CALCIUM LEVEL 8.6 MG/DL (8.8-10.2); CREATININE FOR GFR 1.4 MG/DL (0.70-1.30); GLOMERULAR FILTRATION RATE 53.2 (>42); POTASSIUM SERUM 4.6 MEQ/L (3.5-5.1)
[2018-06-04] MEDS: PANTOPRAZOLE 40MG TAB (PROTONIX) PO SCH (08:07)
[2018-06-04] MEDS: ASPIRIN 81 MG CHEW TABLET PO SCH (08:07)
[2018-06-04] MEDS: GABAPENTIN 400 MG CAP PO SCH ×3 (08:07→20:37)
[2018-06-04] MEDS: CLOPIDOGREL 75 MG TAB PO SCH (08:07)
[2018-06-04] MEDS: LIDOCAINE 5% (LIDODERM) PATCH TD SCH (08:08)
[2018-06-04] MEDS: CEPHALEXIN 500 MG CAP PO SCH (08:08)
[2018-06-04] MEDS: FERROUS GLUCONATE 324 MG TAB PO SCH ×3 (08:08→20:35)
[2018-06-04] MEDS: DOCUSATE SODIUM 100 MG CAP PO SCH ×3 (08:08→20:38)
[2018-06-04] MEDS: CARVedilol 3.125 MG TAB PO SCH ×2 (08:08→20:36)
[2018-06-04] MEDS: oxyCODONE 5MG TAB PO PRN ×2 (08:08→16:48)
[2018-06-04] MEDS: LACTOBACILLUS ACIDOPHILUS CAP (BACID) PO SCH ×3 (08:08→17:29)
[2018-06-04] MEDS: LEVEMIR (INSULIN DETEMIR) 1 UNITS/0.01ML SC SCH ×2 (08:09→20:37)
[2018-06-04] MEDS: HumaLOG INSULIN (NovoLOG) PER UNIT SC SCH ×4 (08:09→20:19)
[2018-06-04] MEDS: BISACODYL 10 MG SUPP PR SCH (08:13)
--- NOTE | 2018-06-04 13:49 | IPNPDOC ---
Date Seen The patient was seen on 06/04/18. Progress Note HPI: 73M pmh PAD, DM, HTN, CKD, CVA with residual left sided weakness who developed worsening right foot pain and was evaluated at [facility] ED on 05/11/18 and found to have ischemia of the his limb for which a vascular consult was placed. He underwent an aortoiliofemoral arteriogram with right lower extremity runoff and placement of the thrombolysis catheter from right distal superficial femoral artery to right distal posterior tibial artery across popliteal/tibial occlusion. On 05/12/18 the TPA lysis catheter was removed and vascular surgery discussed need for BKA vs AKA as his right foot was not salvageable. His Plavix and ASA were held, on 05/13/18 he underwent a right BKA without significant co mplications and a knee immobilizer was placed. The pt was transferred to the care of [facility], Dr Durán, 05/15/18. Pt states he is feeling well. OOB to chair. Denies any fevers, chills, weakness, fatigue, Headache, Chest Pain, Shortness of breath, cough, palpitations, abdominal pain, N/V/D or changes in bowel or bladder habits. PMH IDDM HTN HLD CKD CVA PAD BPH GERD PE: GEN: 73yoM, appears stated age. Well-nourished, well developed. No acute distress. Alert and oriented x 3. HEENT: Normocephalic, atraumatic. Sclera are nonicteric. Conjunctiva without injection. Moist mucous membranes. CHEST: Regular rate and rhythm, +S1, +S2 LUNGS: Clear to auscultation bilaterally. No wheezes, rales, or rhonchi. Breathing appears symmetric and easy. ABD: Round, soft, non-tender, non-distended. +Bowel sounds throughout. EXT: Pulses palpable LLE. No lower extremity edema appreciated. Dressing intact BKA RLE. SKIN: [place], dry, warm. No rashes. NEURO: Alert and oriented x 3. No focal deficits appreciated. A&P: 73M pmh PAD, DM, HTN, CKD, CVA with residual left sided weakness who developed worsening right foot pain and was evaluated at [facility] ED on 05/11/18 and found to have ischemia of the his limb for which a vascular consult was placed. He underwent an aortoiliofemoral arteriogram with right lower extremity runoff and placement of the thrombolysis catheter from right distal superficial femoral artery to right distal posterior tibial artery across popliteal/tibial occlusion. On 05/12/18 the TPA lysis catheter was removed and vascular surgery discussed need for BKA vs AKA as his right foot was not salvageable. His Plavix and ASA were held, on 05/13/18 he underwent a right BKA without significant complications and a knee immobilizer was placed. The pt was transferred to the care of Dr Luis Armando NOEL, 05/15/18. 1. RLE Ischemia S/P BKA s/p Aortoiliofemoral arteriogram with RLE runoff with placement of thrombolysis catheter on 05/11 s/p s/p RLE arteriogram with removal of tPA lysis catheter with mynx closure of left [employer] on 05/12 s/p RLE BKA with Vascular Surgery on 05/13/18 Cont to f/u with Vascular Surgery recommendations PT/OT as per Dr Luis Armando NOEL. pain control as per Dr Luis Armando NOEL. bowel care as per Dr Luis Armando NOEL. DVT prophylaxis as per Dr Luis Armando NOEL. SQ Heparin. The pt was started on po Keflex as per Dr Durán for wound. Disposition as per Dr Luis Armando NOEL. 2. Chronic Kidney Disease Stage IIIA/B Serum Cr baseline is 1.5-1.6 according to outpatient records SCr 1.4. Cont current management Monitor. 3. Diabetes Mellitus Cont reduced dose of basal insulin, 20 Units of Levemir BID (takes 70 Units BID at home) Cont SSI BS 119-139 monitor. 4. Hypertension. Coreg 3.125 mg BID with hold parameters. Norvasc, Lisinopril, HCTZ on HOLD. The pt is also receiving Flomax and trazodone which may also contribute to orthostasis. BP controlled, monitor BP trend. Orthostatic VS requested. 5. History of CVA Continue statin ASA, Plavix can be continued as per Vascular Surgery recommendations 6. Transaminitis likely 2/2 Hx of EtOH use Patient states that he drank anywhere from 4/5th oz of Whiskey to "a couple six packs of beer" per day since age 16 til age 69. Last drink was in 2004 Liver U/S with no acute findings Hepatitis panel negative Monitor. Cont to monitor LFTs and follow as outpatient 7. Dyslipidemia Continue statin 8. GERD Continue PPI 9. Anemia, Normocytic. Likely acute blood loss/chronic disease. Hgb stable, 13.1 fe studies, B12, folate noted. Fe supplement TID. Monitor. VS, I&O, 24H, Fishbone Vital Signs/I&O Vital Signs Date Time Temp Pulse Resp B/P (MAP) Pulse Ox O2 Delivery O2 Flow Rate FiO2 06/04/18 09:00 18 06/04/18 08:08 61 137/69 06/04/18 06:00 96.9 95 I&O- Last 24 Hours up to 6 AM 06/04/18 06:00 Intake Total 1120 ml Output Total 550 ml Balance 570 ml Laboratory Data 24H LABS Laboratory Tests 2 06/03/18 16:53: Bedside Glucose (Misc Panel) 119H 06/03/18 19:59: Bedside Glucose (Misc Panel) 139H 06/04/18 06:28: Nucleated Red Blood Cells % (auto) 0.0, Anion Gap 5L, Glomerular Filtration Rate 53.2, Blood Urea Nitrogen 21H, Creatinine 1.40H, Sodium Level 142, Potassium Level 4.6, Chloride Level 108H, Carbon Dioxide Level 29, Calcium Level 8.6L, Magnesium Level 2.0 06/04/18 11:41: Bedside Glucose (Misc Panel) 113H CBC/BMP Laboratory Tests 06/04/18 06:28 Red Blood Count 4.59, Mean Corpuscular Volume 88.5, Mean Corpuscular Hemoglobin 28.5, Mean Corpuscular Hemoglobin Concent 32.3, Red Cell Distribution Width 14.1, Calcium Level 8.6 L Paty Franco Jun 04, 2018 13:49
[2018-06-04 14:00] VITALS: BP 128/73
--- NOTE | 2018-06-04 14:28 | IPNPDOC ---
PM&R Progress Note DATE OF SERVICE: Jun 04, 2018 [employer] Progress Note Subjective: Patient's reports his limb pain was better overnight with the Elavil. REVIEW OF SYSTEMS: The following is a completed review of systems and has been reviewed. Review of systems otherwise unremarkable. PAIN: Patient self reports right residual limb pain EYES: Negative for recent vision changes. EARS, NOSE, & THROAT: denies rhinorrhea or throat pain CARDIOVASCULAR: denies chest pain or palpitations PULMONARY: Negative. 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 PHYSICAL EXAMINATION: VITAL SIGNS: Please see below. GENERAL: Pleasant and cooperative. No acute distress. HEENT: PERRL. Extraocular movements intact. Clear conjunctiva CARDIOVASCULAR: Regular rate and rhythm. No murmurs, rubs, or gallops LUNGS: mostly Clear to auscultation bilaterally with bilateral apical wheezes. No rhonchi/crackles ABDOMEN: Soft, nontender, nondistended. Positive bowel sounds. Normal active raz wel sounds. NEUROLOGICAL: Alert and oriented times three. Cranial nerves II through XII grossly intact. Sensation grossly intact. EXTREMITIES: 5\5 strength bilateral upper extremities.5-\5 strength right hip flexors knee extensors and knee flexors. 5-/5 strength in left lower extremity. (+) TTP cervical paraspinals, equivocal Nadege maneuver (+) mild TTP at left popliteus muscle origin and along muscle belly SKIN: right residual limb incision with william and sutures, c/d/i erythema improved ASSESSMENT:73-year-old M with past medical history of PAD who presents status post right BKA PLAN: 1. Rehab: PT/OT assess for DMEs, maintain knee extension, patient instructed to avoid keeping head of bed up to prevent hip flexion contracture- sponge bath only as left ankle bracelet cannot be submerged in water, ambulating further with RW, room privileges from wheelchair level 2. Neuro; pmh stroke with left sided residual weakness, c/u ASA and statin for secondary stroke prevention 3. Cardio: PAD s/p right BKA- Plavix restarted, c/u ASA pmh- HTn c/u BP meds, medicine consulted 4. Resp: wheeze resolved, c/u duonebs, incentive spirometry and monitor for infection 5. Endo: DM continue insulin coverage-stable, will decrease coverage to 18 units BID for slightly low FS 6. GI ppx: protonix 7. DVT ppx: c/u heparin 8. Pain: c/u valium and oxycodone, c/u Tylenol and will increase Gabapentin fto 400 TID and c/u Elavil 25mg qHS for neuropathic pain -transient radiating to hand left sided neck pain in C6/C7 distribution, patient instructed to work on chin tucks and lidoderm patch ordered for neck- strength and sensation intact-resolved -left popliteus tendinopathy causing left knee buckling, therapists encouraged to do myofascial release/stretch/heat pads, patient able to perform self-massage as well-improved 9. : admission UA and Ucx negative, continue flomax for BPH 10. Skin: daily dressing changes, monitor for infection-will avoid Hangar orthotic at this time as suspect friction at tibial plateau against strap as orthotic is slightly too large for limb-concern for cellulitis, pain and ESR/CRP improving on Kefflexc/u to monitor-resolved 11. GI: increase colace to TID, c/u senna and suppository, Miralax 10. Dispo: 06/05/18 to home with home services, progressing towards goals Allergies Coded Allergies: No Known Allergies (Unverified , 07/06/14) Vital Signs Vital Signs Date Time Temp Pulse Resp B/P (MAP) Pulse Ox O2 Delivery O2 Flow Rate FiO2 06/04/18 09:00 18 06/04/18 08:08 61 137/69 06/04/18 06:00 96.9 95 Laboratory Data CBC/BMP Laboratory Tests 06/04/18 06:28 Red Blood Count 4.59, Mean Corpuscular Volume 88.5, Mean Corpuscular Hemoglobin 28.5, Mean Corpuscular Hemoglobin Concent 32.3, Red Cell Distribution Width 14.1, Calcium Level 8.6 L Labs 24H Laboratory Tests 2 06/03/18 16:53: Bedside Glucose (Misc Panel) 119H 06/03/18 19:59: Bedside Glucose (Misc Panel) 139H 06/04/18 06:28: Nucleated Red Blood Cells % (auto) 0.0, Anion Gap 5L, Glomerular Filtration Rate 53.2, Blood Urea Nitrogen 21H, Creatinine 1.40H, Sodium Level 142, Potassium Level 4.6, Chloride Level 108H, Carbon Dioxide Level 29, Calcium Level 8.6L, Magnesium Level 2.0 06/04/18 11:41: Bedside Glucose (Misc Panel) 113H Current Medications Current Medications Current Medications Acetaminophen (Tylenol Tab) 650 mg DAILYPRN PRN PO fever/MILD PAIN (PS 1-4); Start 05/15/18 at 18:45 Acetaminophen (Tylenol Tab) 1,000 mg TID@0600,1400,2100 PO Last administered on 06/04/18at 13:41; Start 05/19/18 at 21:00; Status Future hold Albuterol/ Ipratropium (Duoneb (Ipr 0.5mg/Alb 2.5mg)) 3 ml RBID NEB Last administered on 05/22/18 19:57; Start 05/15/18 at 20:00; Stop 05/23/18 at 11:45; Status DC Amitriptyline HCl (Elavil) 25 mg QHS PO Last administered on 06/03/18at 20:48; Start 06/03/18 at 21:00 Amlodipine Besylate (Norvasc) 10 mg DAILY PO Last administered on 05/25/18at 08:40; Start 05/16/18 at 09:00; Stop 05/25/18 at 10:46; Status DC Aspirin (Aspirin Chewable) 81 mg DAILY PO Last administered on 06/04/18at 08:07; Start 05/16/18 at 09:00 Atorvastatin Calcium (Lipitor) 80 mg QHS PO Last administered on 06/03/18at 20:48; Start 05/15/18 at 21:00 Bisacodyl (Dulcolax Suppository) 10 mg DAILY RI ; Start 06/02/18 at 09:00 Bisacodyl (Dulcolax Suppository) 10 mg DAILYPRN PRN RI CONSTIPATION Last administered on 05/29/18at 20:29; Start 05/15/18 at 18:45 Bisacodyl (Dulcolax Suppository) 10 mg ONCE PRN RI NO BM AFTER LACTULOSE; Start 05/29/18 at 18:00; Stop 05/29/18 at 23:59; Status DC Carvedilol (COReg) 3.125 mg BID PO Last administered on 06/04/18 08:08; Start 05/15/18 at 21:00 Cephalexin Monohydrate (Keflex) 500 mg BID PO Last administered on 06/04/18 08:08; Start 05/21/18 at 21:00; Stop 06/04/18 at 20:59 Clopidogrel Bisulfate (PLAVix) 75 mg DAILY PO Last administered on 06/04/18 08:07; Start 05/23/18 at 09:00 Dextrose (Dextrose 50%) 25 ml ASDIRECTED PRN IV SEE LABEL COMMENTS; Start 05/15/18 at 19:00 Diazepam (Valium) 5 mg Q6HP PRN PO SPASMS Last administered on 05/29/18at 15:46; Start 05/21/18 at 15:00 Diazepam (Valium) 10 mg Q6HP PRN PO SPASMS Last administered on 05/20/18at 21:36; Start 05/15/18 at 19:00; Stop 05/21/18 at 15:03; Status DC Docusate Sodium (Colace) 100 mg BID PO Last administered on 06/02/18 20:42; Start 06/02/18 at 09:00; Stop 06/03/18 at 10:38; Status DC Docusate Sodium (Colace) 100 mg BID PO Last administered on 05/21/18 09:12; Start 05/15/18 at 21:00; Stop 05/21/18 at 15:03; Status DC Docusate Sodium (Colace) 100 mg TID PO Last administered on 05/31/18 08:00; Start 05/29/18 at 09:00; Stop 05/31/18 at 09:40; Status DC Docusate Sodium (Colace) 100 mg TID PO Last administered on 06/04/18 08:08; Start 06/02/18 at 21:00 Ferrous Gluconate (Fergon) 324 mg TID PO Last administered on 06/04/18 08:08; Start 05/15/18 at 21:00 Gabapentin (Neurontin) 300 mg QHS PO Last administered on 05/19/18 20:40; Start 05/19/18 at 21:00; Stop 05/20/18 at 12:22; Status DC Gabapentin (Neurontin) 300 mg TID PO Last administered on 06/03/18at 15:34; Start 05/20/18 at 16:00; Stop 06/03/18 at 16:12; Status DC Gabapentin (Neurontin) 400 mg TID PO ; Start 06/03/18 at 21:00; Stop 06/03/18 at 21:00; Status DC Gabapentin (Neurontin) 400 mg TID PO Last administered on 06/04/18at 08:07; Start 06/03/18 at 21:00 Glucagon (Glucagon) 1 mg ASDIRECTED PRN SC SEE LABEL COMMENTS; Start 05/15/18 at 19:00 Glucose (Glucose) 16 GM ASDIRECTED PRN PO SEE LABEL COMMENTS; Start 05/15/18 at 19:00 Heparin Sodium (Porcine) (Heparin) 5,000 units Q8H SQ Last administered on 06/04/18at 13:41; Start 05/15/18 at 22:00 Hydrochlorothiazide (Hydrodiuril) 25 mg DAILY PO Last administered on 05/23/18at 08:31; Start 05/16/18 at 09:00; Stop 05/24/18 at 07:35; Status DC Insulin Detemir (Levemir Insulin) 18 units BID SC Last administered on 06/04/18at 08:09; Start 06/02/18 at 21:00 Insulin Detemir (Levemir Insulin) 20 units BID SC Last administered on 06/02/18at 09:12; Start 05/15/18 at 21:00; Stop 06/02/18 at 18:38; Status DC Insulin Human Lispro (HumaLOG INSULIN) SEE PROTOCOL TABLE AC SC Last administered on 06/04/18at 12:10; Start 05/16/18 at 07:30 Insulin Human Lispro (HumaLOG INSULIN) SEE PROTOCOL TABLE QHS SC ; Start 05/15/18 at 21:00 Lactobacillus Acidophilus (Bacid) 1 ea WM PO Last administered on 06/04/18at 12:09; Start 05/21/18 at 18:00 Lidocaine (Lidoderm Patch) 1 patch DAILY TD Last administered on 06/04/18at 08:08; Start 05/25/18 at 09:00 Lisinopril (Prinivil) 10 mg QHS PO Last administered on 05/23/18at 22:10; Start 05/22/18 at 21:00; Stop 05/25/18 at 10:46; Status DC Lisinopril (Prinivil) 20 mg DAILY PO Last administered on 05/21/18at 09:12; Start 05/16/18 at 09:00; Stop 05/21/18 at 14:22; Status DC Miscellaneous (Unresolved Clarification Entry) SEE LABEL COMMENTS DAILY XX ; Start 05/27/18 at 09:00; Stop 05/27/18 at 16:18; Status DC Miscellaneous (Unresolved Clarification Entry) SEE LABEL COMMENTS DAILY XX ; Start 05/31/18 at 09:00; Stop 05/31/18 at 09:41; Status DC Non-Formulary Medication ( See Comment Field Below ) REMOVE LIDODERM PATCH DAILY@21 XX Last administered on 06/03/18at 20:50; Start 05/25/18 at 21:00 Ondansetron HCl (Zofran) 4 mg Q6HP PRN PO NAUSEA; Start 05/15/18 at 18:45 Oxycodone HCl (Roxicodone, Oxyir) 5 mg Q4HP PRN PO PAIN Last administered on 05/30/18 08:33; Start 05/19/18 at 19:15 Oxycodone HCl (Roxicodone, Oxyir) 10 mg Q4HP PRN PO SEVERE PAIN (PS 8-10) Last administered on 06/04/18 08:08; Start 05/19/18 at 19:15 Oxycodone/ Acetaminophen (Percocet 5mg/ 325mg Tablet) 1 tab Q4HP PRN PO MILD/MODERATE PAIN (PS 1-7); Start 05/15/18 at 19:00; Stop 05/19/18 at 19:18; Status DC Oxycodone/ Acetaminophen (Percocet 5mg/ 325mg Tablet) 2 tab Q4HP PRN PO SEVERE PAIN (PS 8-10) Last administered on 05/19/18 16:05; Start 05/15/18 at 19:00; Stop 05/19/18 at 19:18; Status DC Pantoprazole Sodium (Protonix) 40 mg DAILY PO Last administered on 06/04/18 08:07; Start 05/16/18 at 09:00 Polyethylene Glycol (Miralax) 1 pkt DAILYPRN PRN PO CONSTIPATION; Start 06/02/18 at 11:00 Polyethylene Glycol (Miralax) 1 pkt DAILYPRN PRN PO CONSTIPATION; Start 06/03/18 at 10:45; Stop 06/03/18 at 10:45; Status DC Senna (Senokot) 1 tab QHS PO Last administered on 06/03/18 20:48; Start 06/02/18 at 21:00 Senna (Senokot) 1 tab QHS PO Last administered on 05/20/18 21:37; Start 05/15/18 at 21:00; Stop 05/21/18 at 15:03; Status DC Senna (Senokot) 1 tab QHSP PRN PO CONSTIPATION; Start 05/29/18 at 11:30; Stop 06/02/18 at 19:52; Status DC Senna/Docusate Sodium (Senokot S) 1 tab BID PO Last administered on 06/02/18 09:11; Start 05/31/18 at 21:00; Stop 06/02/18 at 19:52; Status DC Tamsulosin HCl (Flomax) 0.4 mg QHS PO Last administered on 06/03/18 20:48; Start 05/15/18 at 21:00 Trazodone HCl (Desyrel) 25 mg QHS PO Last administered on 06/03/18 20:49; Start 05/20/18 at 21:00 ADRIANA HUFF MD Jun 04, 2018 14:28
[2018-06-04 20:00] VITALS: BP 157/86
[2018-06-04] MEDS: SENNA 8.6 MG TAB (SENOKOT) PO SCH (20:35)
[2018-06-04] MEDS: traZODone 25MG PER 1/2 TABLET PO SCH (20:35)
[2018-06-04] MEDS: ATORVASTATIN 20 MG TAB PO SCH (20:35)
[2018-06-04] MEDS: AMITRIPTYLINE 25 MG TAB PO SCH (20:36)
[2018-06-04] MEDS: TAMSULOSIN 0.4 MG CAP PO SCH (20:37)
[2018-06-04] MEDS: **NOTE PATIENT COMMENT** MISC XX SCH (20:38)
[2018-06-05] MEDS: oxyCODONE 5MG TAB PO PRN ×3 (03:48→21:35)
[2018-06-05 05:00] VITALS: BP 125/74
[2018-06-05] MEDS: ACETAMINOPHEN 500 MG TAB PO SCH ×3 (05:47→21:35)
[2018-06-05] MEDS: HEPARIN SOD (PORCINE) 5000 UNITS/ML VIAL SQ SCH ×3 (05:47→21:35)
[2018-06-05 06:55] LABS: HEMATOCRIT 40.7 % (42.0-52.0); HEMOGLOBIN 13.2 g/dl (13.5-17.5); MEAN CORPUSCULAR HEMOGLOBIN 28.6 pg (27.0-33.0); MEAN CORPUSCULAR HGB CONC 32.4 g/dl (32.0-36.5); MEAN CORPUSCULAR VOLUME 88.1 fl (80.0-96.0); PLATELET COUNT, AUTOMATED 354 10^3/uL (150-450); RED BLOOD COUNT 4.62 10^6/uL (4.30-6.10); WHITE BLOOD COUNT 5.8 10^3/uL (4.0-10.0)
[2018-06-05 07:17] LABS: CALCIUM LEVEL 8.3 MG/DL (8.8-10.2); CREATININE FOR GFR 1.35 MG/DL (0.70-1.30); GLOMERULAR FILTRATION RATE 55.5 (>42); MAGNESIUM LEVEL 1.9 MG/DL (1.8-2.4); POTASSIUM SERUM 3.9 MEQ/L (3.5-5.1)
[2018-06-05] MEDS: HumaLOG INSULIN (NovoLOG) PER UNIT SC SCH ×4 (08:36→21:00)
[2018-06-05] MEDS: FERROUS GLUCONATE 324 MG TAB PO SCH ×3 (08:37→21:35)
[2018-06-05] MEDS: DOCUSATE SODIUM 100 MG CAP PO SCH ×3 (08:37→21:35)
[2018-06-05] MEDS: LEVEMIR (INSULIN DETEMIR) 1 UNITS/0.01ML SC SCH ×2 (08:37→21:36)
[2018-06-05] MEDS: PANTOPRAZOLE 40MG TAB (PROTONIX) PO SCH (08:37)
[2018-06-05] MEDS: ASPIRIN 81 MG CHEW TABLET PO SCH (08:37)
[2018-06-05] MEDS: LACTOBACILLUS ACIDOPHILUS CAP (BACID) PO SCH ×3 (08:37→18:25)
[2018-06-05] MEDS: CARVedilol 3.125 MG TAB PO SCH ×2 (08:37→21:34)
[2018-06-05] MEDS: CLOPIDOGREL 75 MG TAB PO SCH (08:37)
[2018-06-05] MEDS: GABAPENTIN 400 MG CAP PO SCH ×3 (08:37→21:35)
[2018-06-05] MEDS: BISACODYL 10 MG SUPP PR SCH (08:38)
[2018-06-05] MEDS: LIDOCAINE 5% (LIDODERM) PATCH TD SCH (08:38)
--- NOTE | 2018-06-05 09:48 | IPNPDOC ---
Subjective Date Seen The patient was seen on 06/04/18. Subjective Chief Complaint/HPI Patient seen and examined in the rehab unit. He is doing well. He is almost ready for d/c home. Today, I removed his dressing and his stump incision is healing well so far. No drainage or separation. No induration or fluctuance. He has some blanching erythema in the dependent portion, but I think it is due to some venous congestion from being in a dependent position during rehab this afternoon. I removed his william, and the incision was cleaned and redressed. The sutures will remain in place another week or so and we will remove them when he returns to clinic outpatient. Continue local wound care. Ok for stump digital designer/compression. Ok for showers with dressings off. No tub bath until sutures are out. Objective Physical Examination General Exam: Positive: Alert, Cooperative, No Acute Distress ENT Exam: Positive: Atraumatic, Mucous membr. moist/pink Neck Exam: Positive: Supple Chest Exam: Positive: Clear to auscultation, Normal air movement Heart Exam: Positive: Rate Normal Abdomen Exam: Positive: Normal bowel sounds, Soft Extremity Exam: Positive: Other (s/p RLE BKA) Neuro Exam: Positive: Normal Speech, Sensation Intact Psych Exam: Positive: Mental status NL, Oriented x 3 Assessment /Plan Plan/VTE VTE Prophylaxis Ordered?: Yes Plan Continue local wound care R BKA. Ok for showers with dressings off. Sutures will be removed in clinic in 1-2 weeks. No tub bath until sutures are removed. Ok for stump digital designer. Elevate stump when at rest to decrease venous congestion. VS, I&O, 24H, Fishbone Vital Signs/I&O Vital Signs Date Time Temp Pulse Resp B/P (MAP) Pulse Ox O2 Delivery O2 Flow Rate FiO2 06/05/18 08:37 74 125/74 06/05/18 05:00 97.4 18 96 I&O- Last 24 Hours up to 6 AM 06/05/18 06:00 Intake Total 960 ml Balance 960 ml Laboratory Data 24H LABS Laboratory Tests 2 06/04/18 11:41: Bedside Glucose (Misc Panel) 113H 06/04/18 16:52: Bedside Glucose (Misc Panel) 99 06/04/18 19:46: Bedside Glucose (Misc Panel) 149H 06/05/18 06:18: Nucleated Red Blood Cells % (auto) 0.0, Anion Gap 9, Glomerular Filtration Rate 55.5, Blood Urea Nitrogen 22H, Creatinine 1.35H, Sodium Level 142, Potassium Level 3.9, Chloride Level 108H, Carbon Dioxide Level 25, Calcium Level 8.3L, Magnesium Level 1.9 CBC/BMP Laboratory Tests 06/05/18 06:18 Red Blood Count 4.62, Mean Corpuscular Volume 88.1, Mean Corpuscular Hemoglobin 28.6, Mean Corpuscular Hemoglobin Concent 32.4, Red Cell Distribution Width 14.3, Calcium Level 8.3 L CASEY GARCIA MD Jun 05, 2018 09:48
[2018-06-05] MEDS ORDERED: ATOR1TAB21 PO (10:28)
[2018-06-05] MEDS ORDERED: INSUDET SC (10:28)
[2018-06-05] MEDS ORDERED: CHIL81CH2 PO (10:28)
[2018-06-05] MEDS ORDERED: GABA-845 PO (10:28)
[2018-06-05] MEDS ORDERED: FLOM0.4C39 PO (10:28)
[2018-06-05] MEDS ORDERED: TRAZ25TA PO (10:28)
[2018-06-05] MEDS ORDERED: OXYCO5TA PO (10:28)
[2018-06-05] MEDS ORDERED: DIAZ5TAB PO (10:28)
[2018-06-05] MEDS ORDERED: PANT40TA3 PO (10:28)
[2018-06-05] MEDS ORDERED: AMIT25TA PO (10:28)
[2018-06-05] MEDS ORDERED: CARV3.12 PO (10:28)
[2018-06-05] MEDS ORDERED: CLOP75TA2 PO (10:28)
[2018-06-05 12:30] VITALS: BP 130/74
[2018-06-05 14:00] VITALS: BP_SYST 104; BP_SYST 123; BP_DIAS 62; BP_DIAS 86
[2018-06-05 14:10] VITALS: BP_SYST 127; BP_SYST 88; BP_DIAS 58; BP_DIAS 74
[2018-06-05 20:00] VITALS: BP 137/86
[2018-06-05] MEDS: traZODone 25MG PER 1/2 TABLET PO SCH (21:33)
[2018-06-05] MEDS: **NOTE PATIENT COMMENT** MISC XX SCH (21:35)
[2018-06-05] MEDS: AMITRIPTYLINE 25 MG TAB PO SCH (21:35)
[2018-06-05] MEDS: ATORVASTATIN 20 MG TAB PO SCH (21:35)
[2018-06-05] MEDS: TAMSULOSIN 0.4 MG CAP PO SCH (21:35)
[2018-06-05] MEDS: SENNA 8.6 MG TAB (SENOKOT) PO SCH (21:35)
[2018-06-06 06:00] VITALS: BP 135/74
[2018-06-06 06:03] VITALS: BP 100/62
[2018-06-06 06:06] VITALS: BP 99/55
[2018-06-06] MEDS: ACETAMINOPHEN 500 MG TAB PO SCH ×3 (06:17→20:15)
[2018-06-06] MEDS: HEPARIN SOD (PORCINE) 5000 UNITS/ML VIAL SQ SCH ×3 (06:17→20:17)
[2018-06-06 07:14] LABS: HEMATOCRIT 41.4 % (42.0-52.0); HEMOGLOBIN 13.6 g/dl (13.5-17.5); MEAN CORPUSCULAR HEMOGLOBIN 29.2 pg (27.0-33.0); MEAN CORPUSCULAR HGB CONC 32.9 g/dl (32.0-36.5); MEAN CORPUSCULAR VOLUME 88.8 fl (80.0-96.0); PLATELET COUNT, AUTOMATED 322 10^3/uL (150-450); RED BLOOD COUNT 4.66 10^6/uL (4.30-6.10); WHITE BLOOD COUNT 5.6 10^3/uL (4.0-10.0)
[2018-06-06 07:34] LABS: CALCIUM LEVEL 8.7 MG/DL (8.8-10.2); CREATININE FOR GFR 1.41 MG/DL (0.70-1.30); GLOMERULAR FILTRATION RATE 52.7 (>42); POTASSIUM SERUM 4.2 MEQ/L (3.5-5.1)
[2018-06-06] MEDS: CARVedilol 3.125 MG TAB PO SCH ×2 (09:00→20:16)
[2018-06-06] MEDS: BISACODYL 10 MG SUPP PR SCH (09:00)
[2018-06-06] MEDS: LIDOCAINE 5% (LIDODERM) PATCH TD SCH (09:34)
[2018-06-06] MEDS: DOCUSATE SODIUM 100 MG CAP PO SCH ×3 (09:35→20:15)
[2018-06-06] MEDS: CLOPIDOGREL 75 MG TAB PO SCH (09:35)
[2018-06-06] MEDS: LACTOBACILLUS ACIDOPHILUS CAP (BACID) PO SCH ×3 (09:35→17:59)
[2018-06-06] MEDS: GABAPENTIN 400 MG CAP PO SCH ×3 (09:35→20:15)
[2018-06-06] MEDS: PANTOPRAZOLE 40MG TAB (PROTONIX) PO SCH (09:35)
[2018-06-06] MEDS: FERROUS GLUCONATE 324 MG TAB PO SCH ×3 (09:35→20:15)
[2018-06-06] MEDS: ASPIRIN 81 MG CHEW TABLET PO SCH (09:35)
[2018-06-06] MEDS: LEVEMIR (INSULIN DETEMIR) 1 UNITS/0.01ML SC SCH ×2 (09:37→21:28)
[2018-06-06] MEDS: HumaLOG INSULIN (NovoLOG) PER UNIT SC SCH ×4 (09:37→20:49)
[2018-06-06 14:00] VITALS: BP 117/68
--- NOTE | 2018-06-06 15:36 | IPN ---
DATE: 06/06/2018 Patient seen and examined. No acute events overnight. Denies any chest pain, pressure, or discomfort. Continues to report right lower extremity stump pain. Denies any fevers or chills. VITAL SIGNS: Temperature 97.4, pulse 67, respirations 18, blood pressure 117/68, pulse oximetry 97% on room air. LABORATORY DATA: WBC 5.6, hemoglobin and hematocrit 13.6/41.4, platelets 322. Chemistry: Sodium 131, potassium 4.2, chloride 109, bicarbonate 24, BUN 24, creatinine 1.41. PHYSICAL EXAMINATION: GENERAL: Patient alert, comfortable in no acute distress. HEENT: Normocephalic, atraumatic. PULMONARY: Bilaterally clear. CARDIAC: Regular, S1, S2. ABDOMEN: Soft, nontender. Positive bowel sounds. EXTREMITIES: Dorsalis pedis (DP)/posterior tibialis (PT) pulses palpated, left lower extremity. Right lower extremity below-knee amputation. Malcolm wrapping intact. ASSESSMENT AND PLAN: This is a 73-year-old male patient with underlying medical history of peripheral arterial disease, diabetes mellitus, type 2, hypertension, chronic kidney disease (CKD), cerebrovascular accident (CVA), with left-sided residual weakness presented with worsening right foot pain and was evaluated at [facility] Emergency Department (ED) on 05/11/2018. Found to have ischemia of his limb, for which vascular surgery was consulted. Patient underwent aortoiliofemoral arteriogram with right lower extremity runoff and placement of the thrombolysis catheter from right distal superficial femoral artery to the right distal posterior tibial artery across the popliteal-tibial occlusion on 05/12/2018. The tPA lysis catheter was removed, and vascular surgery discussed the need for below-knee verus above-knee amputation of patient's right lower extremity, for which is not salvageable. Patient's Plavix and aspirin were temporarily held. On 05/13/2018, patient underwent right below-knee amputation without significant complications. Knee immobilizer was placed. Patient was transferred to acute rehabilitation unit (ARU) on 05/15/2018. 1. Right lower extremity ischemia status post below-knee amputation. Patient had aortoiliofemoral arteriogram with right lower extremity runoff and placement of thrombolysis catheter on May 11 and status post right lower extremity arteriogram with removal of thrombolysis catheter on May 12, and status post right lower extremity above-knee amputation on May 13. Followup with vascular recommendations. Physical therapy (PT)/occupational therapy (OT) as per acute rehabilitation. Pain control as per acute rehabilitation. Bowel care as per acute rehabilitation. Deep vein thrombosis (DVT) prophylaxis: On heparin subcutaneous as per acute rehabilitation provider. 2. CKD, stage III. Monitor BUN and creatinine. 3. Diabetes mellitus. Continue insulin basal bolus as ordered. Follow fingersticks. 4. Hypertension. Patient on Coreg with holding parameters. All other blood pressure medication was on hold due to orthostasis. 5. History of CVA. Continue statin. Continue aspirin and Plavix. 6. Transaminitis, likely secondary to alcohol use. Patient used to drink six packs of beer a day for many years. Last drink was 2004. Ultrasound of liver appreciated. Hepatitis panel negative. Will monitor liver function. Outpatient followup. 7. Dyslipidemia. Continue statin. 8. Gastroesophageal reflux disease (GERD). Continue proton pump inhibitor (PPI). 9. Anemia, normocytic, likely acute blood loss anemia versus anemia of chronic disease. Monitor hemoglobin and hematocrit. Continue iron supplementation. 10. BPH. Continue current medication. 11. Deep vein thrombosis (DVT) prophylaxis. Heparin subcutaneous. DISPOSITION: As per acute rehabilitation provider.
[2018-06-06 20:00] VITALS: BP 162/88
[2018-06-06] MEDS: ATORVASTATIN 20 MG TAB PO SCH (20:15)
[2018-06-06] MEDS: TAMSULOSIN 0.4 MG CAP PO SCH (20:15)
[2018-06-06] MEDS: SENNA 8.6 MG TAB (SENOKOT) PO SCH (20:15)
[2018-06-06] MEDS: traZODone 25MG PER 1/2 TABLET PO SCH (20:16)
[2018-06-06] MEDS: **NOTE PATIENT COMMENT** MISC XX SCH (20:18)
[2018-06-07] MEDS: oxyCODONE 5MG TAB PO PRN ×3 (02:33→14:19)
[2018-06-07] MEDS: ACETAMINOPHEN 500 MG TAB PO SCH ×3 (05:23→20:46)
[2018-06-07] MEDS: HEPARIN SOD (PORCINE) 5000 UNITS/ML VIAL SQ SCH ×3 (05:23→20:47)
[2018-06-07 06:00] VITALS: BP 143/81
[2018-06-07 06:05] VITALS: BP 132/65
[2018-06-07 06:10] VITALS: BP 132/76
[2018-06-07 07:02] LABS: HEMATOCRIT 43.6 % (42.0-52.0); MEAN CORPUSCULAR HEMOGLOBIN 28.4 pg (27.0-33.0); MEAN CORPUSCULAR HGB CONC 32.1 g/dl (32.0-36.5); MEAN CORPUSCULAR VOLUME 88.4 fl (80.0-96.0); PLATELET COUNT, AUTOMATED 334 10^3/uL (150-450); RED BLOOD COUNT 4.93 10^6/uL (4.30-6.10); WHITE BLOOD COUNT 6.3 10^3/uL (4.0-10.0)
[2018-06-07 07:30] LABS: CALCIUM LEVEL 8.6 MG/DL (8.8-10.2); CREATININE FOR GFR 1.46 MG/DL (0.70-1.30); GLOMERULAR FILTRATION RATE 50.7 (>42); MAGNESIUM LEVEL 1.9 MG/DL (1.8-2.4); POTASSIUM SERUM 4.2 MEQ/L (3.5-5.1)
[2018-06-07] MEDS: HumaLOG INSULIN (NovoLOG) PER UNIT SC SCH ×4 (07:38→20:23)
[2018-06-07] MEDS: DOCUSATE SODIUM 100 MG CAP PO SCH ×3 (08:17→20:44)
[2018-06-07] MEDS: PANTOPRAZOLE 40MG TAB (PROTONIX) PO SCH (08:17)
[2018-06-07] MEDS: CLOPIDOGREL 75 MG TAB PO SCH (08:17)
[2018-06-07] MEDS: ASPIRIN 81 MG CHEW TABLET PO SCH (08:17)
[2018-06-07] MEDS: LACTOBACILLUS ACIDOPHILUS CAP (BACID) PO SCH ×3 (08:17→17:51)
[2018-06-07] MEDS: FERROUS GLUCONATE 324 MG TAB PO SCH ×3 (08:17→20:46)
[2018-06-07] MEDS: CARVedilol 3.125 MG TAB PO SCH ×2 (08:20→20:45)
[2018-06-07] MEDS: LEVEMIR (INSULIN DETEMIR) 1 UNITS/0.01ML SC SCH ×2 (08:21→20:46)
[2018-06-07] MEDS: BISACODYL 10 MG SUPP PR SCH (08:21)
[2018-06-07] MEDS: GABAPENTIN 400 MG CAP PO SCH ×3 (08:21→20:45)
[2018-06-07] MEDS: LIDOCAINE 5% (LIDODERM) PATCH TD SCH (08:22)
[2018-06-07 14:00] VITALS: BP 134/84
--- NOTE | 2018-06-07 18:01 | IPNPDOC ---
Text Note Date of Service The patient was seen on 06/07/18. NOTE Patient seen and examined. No acute events overnight. Denies any chest pain, pressure, or discomfort. Continues to report right lower extremity stump pain. Denies any fevers or chills. PHYSICAL EXAMINATION: GENERAL: Patient alert, comfortable in no acute distress. HEENT: Normocephalic, atraumatic. PULMONARY: Bilaterally clear. CARDIAC: Regular, S1, S2. ABDOMEN: Soft, nontender. Positive bowel sounds. EXTREMITIES: Dorsalis pedis (DP)/posterior tibialis (PT) pulses palpated, left lower extremity. Right lower extremity below-knee amputation. Malcolm wrapping intact. ASSESSMENT AND PLAN: This is a 73-year-old male patient with underlying medical history of peripheral arterial disease, diabetes mellitus, type 2, hypertension, chronic kidney disease (CKD), cerebrovascular accident (CVA), with left-sided residual weakness presented with worsening right foot pain and was evaluated at [facility] Emergency Department (ED) on 05/11/2018. Found to have ischemia of his limb, for which vascular surgery was consulted. Patient underwent aortoiliofemoral arteriogram with right lower extremity runoff and placement of the thrombolysis catheter from right distal superficial femoral artery to the right distal posterior tibial artery across the popliteal-tibial occlusion on 05/12/2018. The tPA lysis catheter was removed, and vascular surgery discussed the need for below-knee verus above-knee amputation of patient's right lower extremity, for which is not salvageable. Patient's Plavix and aspirin were temporarily held. On 05/13/2018, patient underwent right below-knee amputation without significant complications. Knee immobilizer was placed. Patient was transferred to acute rehabilitation unit (ARU) on 05/15/2018. 1. Right lower extremity ischemia status post below-knee amputation. Patient had aortoiliofemoral arteriogram with right lower extremity runoff and placement of thrombolysis catheter on May 11 and status post right lower extremity arteriogram with removal of thrombolysis catheter on May 12, and status post right lower extremity above-knee amputation on May 13. Followup with vascular recommendations. Physical therapy (PT)/occupational therapy (OT) as per acute rehabilitation. Pain control as per acute rehabilitation. Bowel care as per acute rehabilitation. Deep vein thrombosis (DVT) prophylaxis: On heparin subcutaneous as per acute rehabilitation provider. 2. CKD, stage III. Monitor BUN and creatinine. 3. Diabetes mellitus. Continue insulin basal bolus as ordered. Follow fingersticks. 4. Hypertension. Patient on Coreg with holding parameters. All other blood pressure medication was on hold due to orthostasis. 5. History of CVA. Continue statin. Continue aspirin and Plavix. statin 6. Transaminitis, likely secondary to alcohol use. Patient used to drink six packs of beer a day for many years. Last drink was 2004. Ultrasound of liver appreciated. Hepatitis panel negative. Will monitor liver function. Outpatient followup. 7. Dyslipidemia. Continue statin. 8. Gastroesophageal reflux disease (GERD). Continue proton pump inhibitor (PPI). 9. Anemia, normocytic, likely acute blood loss anemia versus anemia of chronic disease. Monitor hemoglobin and hematocrit. Continue iron supplementation. 10. BPH. Continue current medication. 11. Deep vein thrombosis (DVT) prophylaxis. Heparin subcutaneous. DISPOSITION: As per acute rehabilitation provider. VS,Fishbone, I+O VS, Fishbone, I+O Laboratory Tests 06/07/18 06:41 Red Blood Count 4.93, Mean Corpuscular Volume 88.4, Mean Corpuscular Hemoglobin 28.4, Mean Corpuscular Hemoglobin Concent 32.1, Red Cell Distribution Width 14.3, Calcium Level 8.6 L Vital Signs Date Time Temp Pulse Resp B/P (MAP) Pulse Ox O2 Delivery O2 Flow Rate FiO2 06/07/18 14:49 18 06/07/18 14:00 97.5 76 134/84 (197) 97 I&O- Last 24 Hours up to 6 AM 06/07/18 06:00 Intake Total 1560 ml Output Total 1000 ml Balance 560 ml RAMONE MADRID MD Jun 07, 2018 18:01
[2018-06-07 19:55] VITALS: BP 110/66
[2018-06-07] MEDS: traZODone 25MG PER 1/2 TABLET PO SCH (20:45)
[2018-06-07] MEDS: TAMSULOSIN 0.4 MG CAP PO SCH (20:45)
[2018-06-07] MEDS: ATORVASTATIN 20 MG TAB PO SCH (20:45)
[2018-06-07] MEDS: SENNA 8.6 MG TAB (SENOKOT) PO SCH (20:45)
[2018-06-07] MEDS: **NOTE PATIENT COMMENT** MISC XX SCH (20:47)
[2018-06-08] MEDS: HEPARIN SOD (PORCINE) 5000 UNITS/ML VIAL SQ SCH ×3 (05:34→21:01)
[2018-06-08] MEDS: ACETAMINOPHEN 500 MG TAB PO SCH ×3 (05:34→21:01)
[2018-06-08 06:00] VITALS: BP 115/64
[2018-06-08 06:03] VITALS: BP 118/67
[2018-06-08 06:06] VITALS: BP 100/65
[2018-06-08 07:02] LABS: HEMATOCRIT 40.7 % (42.0-52.0); HEMOGLOBIN 13.3 g/dl (13.5-17.5); MEAN CORPUSCULAR HEMOGLOBIN 28.4 pg (27.0-33.0); MEAN CORPUSCULAR HGB CONC 32.7 g/dl (32.0-36.5); MEAN CORPUSCULAR VOLUME 86.8 fl (80.0-96.0); PLATELET COUNT, AUTOMATED 297 10^3/uL (150-450); RED BLOOD COUNT 4.69 10^6/uL (4.30-6.10); WHITE BLOOD COUNT 5.7 10^3/uL (4.0-10.0)
[2018-06-08 07:26] LABS: CALCIUM LEVEL 8.5 MG/DL (8.8-10.2); CREATININE FOR GFR 1.48 MG/DL (0.70-1.30); GLOMERULAR FILTRATION RATE 49.9 (>42); MAGNESIUM LEVEL 1.9 MG/DL (1.8-2.4)
[2018-06-08] MEDS: LIDOCAINE 5% (LIDODERM) PATCH TD SCH (08:15)
[2018-06-08] MEDS: LEVEMIR (INSULIN DETEMIR) 1 UNITS/0.01ML SC SCH ×2 (08:16→21:03)
[2018-06-08] MEDS: HumaLOG INSULIN (NovoLOG) PER UNIT SC SCH ×4 (08:16→21:00)
[2018-06-08] MEDS: CARVedilol 3.125 MG TAB PO SCH ×2 (08:16→21:02)
[2018-06-08] MEDS: CLOPIDOGREL 75 MG TAB PO SCH (08:16)
[2018-06-08] MEDS: GABAPENTIN 400 MG CAP PO SCH (08:17)
[2018-06-08] MEDS: DOCUSATE SODIUM 100 MG CAP PO SCH ×3 (08:17→21:01)
[2018-06-08] MEDS: PANTOPRAZOLE 40MG TAB (PROTONIX) PO SCH (08:17)
[2018-06-08] MEDS: FERROUS GLUCONATE 324 MG TAB PO SCH ×3 (08:17→21:02)
[2018-06-08] MEDS: BISACODYL 10 MG SUPP PR SCH (08:17)
[2018-06-08] MEDS: LACTOBACILLUS ACIDOPHILUS CAP (BACID) PO SCH ×3 (08:17→17:16)
[2018-06-08] MEDS: ASPIRIN 81 MG CHEW TABLET PO SCH (08:17)
[2018-06-08] MEDS: oxyCODONE 5MG TAB PO PRN ×2 (12:23→21:02)
[2018-06-08 14:00] VITALS: BP 149/76
--- NOTE | 2018-06-08 14:51 | IPNPDOC ---
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 He proceeded to be orthostatic later in therapy and reports feeling shook up. REVIEW OF SYSTEMS: The following is a completed review of systems and has been reviewed. Review of systems otherwise unremarkable. PAIN: Patient self reports right residual limb pain EYES: Negative for recent vision changes. EARS, NOSE, & THROAT: denies rhinorrhea or throat pain CARDIOVASCULAR: denies chest pain or palpitations PULMONARY: Negative. 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 PHYSICAL EXAMINATION: VITAL SIGNS: Please see below. GENERAL: Pleasant and cooperative. No acute distress. HEENT: PERRL. Extraocular movements intact. Clear conjunctiva CARDIOVASCULAR: Regular rate and rhythm. No murmurs, rubs, or gallops LUNGS: mostly Clear to auscultation bilaterally with bilateral apical wheezes. No rhonchi/crackles ABDOMEN: Soft, nontender, nondistended. Positive bowel sounds. Normal active bowel sounds. NEUROLOGICAL: Alert and oriented times three. Cranial nerves II through XII grossly intact. Sensation grossly intact. EXTREMITIES: 5\5 strength bilateral upper extremities.5-\5 strength right hip flexors knee extensors and knee flexors. 5-/5 strength in left lower extremity. (+) TTP cervical paraspinals, equivocal Firestone maneuver (-) TTP at left popliteus muscle origin and along muscle belly SKIN: right residual limb incision with william and sutures, c/d/i erythema improved ASSESSMENT:73-year-old M with past medical history of PAD who presents status post right BKA PLAN: 1. Rehab: PT/OT assess for DMEs, maintain knee extension, patient instructed to avoid keeping head of bed up to prevent hip flexion contracture- sponge bath only as left ankle bracelet cannot be submerged in water, ambulating further with RW, room privileges from wheelchair level 2. Neuro; pmh stroke with left sided residual weakness, c/u ASA and statin for secondary stroke prevention 3. Cardio: PAD s/p right BKA- Plavix restarted, c/u ASA pmh- HTn c/u BP meds, medicine consulted 4. Resp: wheeze resolved, c/u duonebs, incentive spirometry and monitor for infection 5. Endo: DM continue insulin coverage-stable, decreased coverage to 18 units BID for slightly low FS 6. GI ppx: protonix 7. DVT ppx: c/u heparin 8. Pain: c/u valium and oxycodone, c/u Tylenol, c/u Gabapentin, will d/c Elavil as this can cause dizziness -transient radiating to hand left sided neck pain in C6/C7 distribution, patient instructed to work on chin tucks and lidoderm patch ordered for neck- strength and sensation intact-resolved -left popliteus tendinopathy causing left knee buckling, therapists encouraged to do myofascial release/stretch/heat pads, patient able to perform self-massage as well-improved 9. : admission UA and Ucx negative, continue flomax for BPH, will order repeat UA for dizziness/orthostatics today 10. Skin: daily dressing changes, monitor for infection-will avoid Hangar orthotic at this time as suspect friction at tibial plateau against strap as orthotic is slightly too large for limb-concern for cellulitis, pain and ESR/CRP improving on Kefflex c/u to monitor-resolved, patient's william removed and route inspector donned 11. GI: c/u colace TID, c/u senna and suppository, Miralax 10. Dispo: will post-pone d/c to work more on balance and safety awareness Allergies Coded Allergies: No Known Allergies (Unverified , 07/06/14) Vital Signs Vital Signs Date Time Temp Pulse Resp B/P (MAP) Pulse Ox O2 Delivery O2 Flow Rate FiO2 06/08/18 14:00 97.9 60 18 149/76 (100) 96 Laboratory Data CBC/BMP Laboratory Tests 06/08/18 06:40 Red Blood Count 4.69, Mean Corpuscular Volume 86.8, Mean Corpuscular Hemoglobin 28.4, Mean Corpuscular Hemoglobin Concent 32.7, Red Cell Distribution Width 14.6 H, Calcium Level 8.5 L Labs 24H Laboratory Tests 2 06/07/18 16:50: Bedside Glucose (Misc Panel) 123H 06/08/18 06:40: Nucleated Red Blood Cells % (auto) 0.0, Anion Gap 7L, Glomerular Filtration Rate 49.9, Blood Urea Nitrogen 27H, Creatinine 1.48H, Sodium Level 140, Potassium Level 4.0, Chloride Level 109H, Carbon Dioxide Level 24, Calcium Level 8.5L, Magnesium Level 1.9 06/08/18 11:48: Bedside Glucose (Misc Panel) 85 Current Medications Current Medications Current Medications Acetaminophen (Tylenol Tab) 650 mg DAILYPRN PRN PO fever/MILD PAIN (PS 1-4); Start 05/15/18 at 18:45 Acetaminophen (Tylenol Tab) 1,000 mg TID@0600,1400,2100 PO Last administered on 06/08/18at 05:34; Start 05/19/18 at 21:00; Status Future hold Albuterol/ Ipratropium (Duoneb (Ipr 0.5mg/Alb 2.5mg)) 3 ml RBID NEB Last administered on 05/22/18at 19:57; Start 05/15/18 at 20:00; Stop 05/23/18 at 11:45; Status DC Amitriptyline HCl (Elavil) 25 mg QHS PO Last administered on 06/05/18at 21:35; Start 06/03/18 at 21:00; Stop 06/06/18 at 16:28; Status DC Amlodipine Besylate (Norvasc) 10 mg DAILY PO Last administered on 05/25/18at 08:40; Start 05/16/18 at 09:00; Stop 05/25/18 at 10:46; Status DC Aspirin (Aspirin Chewable) 81 mg DAILY PO Last administered on 06/08/18at 08:17; Start 05/16/18 at 09:00 Atorvastatin Calcium (Lipitor) 80 mg QHS PO Last administered on 06/07/18at 20:45; Start 05/15/18 at 21:00 Bisacodyl (Dulcolax Suppository) 10 mg DAILY MD ; Start 06/02/18 at 09:00 Bisacodyl (Dulcolax Suppository) 10 mg DAILYPRN PRN MD CONSTIPATION Last administered on 05/29/18at 20:29; Start 05/15/18 at 18:45 Bisacodyl (Dulcolax Suppository) 10 mg ONCE PRN MD NO BM AFTER LACTULOSE; Start 05/29/18 at 18:00; Stop 05/29/18 at 23:59; Status DC Carvedilol (COReg) 3.125 mg BID PO Last administered on 06/07/18at 20:45; Start 05/15/18 at 21:00 Cephalexin Monohydrate (Keflex) 500 mg BID PO Last administered on 06/04/18at 08:08; Start 05/21/18 at 21:00; Stop 06/04/18 at 20:59; Status DC Clopidogrel Bisulfate (PLAVix) 75 mg DAILY PO Last administered on 06/08/18 08:16; Start 05/23/18 at 09:00 Dextrose (Dextrose 50%) 25 ml ASDIRECTED PRN IV SEE LABEL COMMENTS; Start 05/15/18 at 19:00 Diazepam (Valium) 5 mg Q6HP PRN PO SPASMS Last administered on 05/29/18at 15:46; Start 05/21/18 at 15:00; Stop 06/06/18 at 16:28; Status DC Diazepam (Valium) 10 mg Q6HP PRN PO SPASMS Last administered on 05/20/18at 21:36; Start 05/15/18 at 19:00; Stop 05/21/18 at 15:03; Status DC Docusate Sodium (Colace) 100 mg BID PO Last administered on 06/02/18at 20:42; Start 06/02/18 at 09:00; Stop 06/03/18 at 10:38; Status DC Docusate Sodium (Colace) 100 mg BID PO Last administered on 05/21/18at 09:12; Start 05/15/18 at 21:00; Stop 05/21/18 at 15:03; Status DC Docusate Sodium (Colace) 100 mg TID PO Last administered on 05/31/18at 08:00; Start 05/29/18 at 09:00; Stop 05/31/18 at 09:40; Status DC Docusate Sodium (Colace) 100 mg TID PO Last administered on 06/08/18at 08:17; Start 06/02/18 at 21:00 Ferrous Gluconate (Fergon) 324 mg TID PO Last administered on 06/08/18 08:17; Start 05/15/18 at 21:00 Gabapentin (Neurontin) 300 mg QHS PO Last administered on 05/19/18at 20:40; Start 05/19/18 at 21:00; Stop 05/20/18 at 12:22; Status DC Gabapentin (Neurontin) 300 mg TID PO Last administered on 06/03/18at 15:34; Start 05/20/18 at 16:00; Stop 06/03/18 at 16:12; Status DC Gabapentin (Neurontin) 300 mg TID PO ; Start 06/08/18 at 16:00 Gabapentin (Neurontin) 400 mg TID PO ; Start 06/03/18 at 21:00; Stop 06/03/18 at 21:00; Status DC Gabapentin (Neurontin) 400 mg TID PO Last administered on 06/08/18 08:17; Start 06/03/18 at 21:00; Stop 06/08/18 at 11:24; Status DC Glucagon (Glucagon) 1 mg ASDIRECTED PRN SC SEE LABEL COMMENTS; Start 05/15/18 at 19:00 Glucose (Glucose) 16 GM ASDIRECTED PRN PO SEE LABEL COMMENTS; Start 05/15/18 at 19:00 Heparin Sodium (Porcine) (Heparin) 5,000 units Q8H SQ Last administered on 06/08/18at 05:34; Start 05/15/18 at 22:00 Hydrochlorothiazide (Hydrodiuril) 25 mg DAILY PO Last administered on 05/23/18at 08:31; Start 05/16/18 at 09:00; Stop 05/24/18 at 07:35; Status DC Insulin Detemir (Levemir Insulin) 18 units BID SC Last administered on 06/08/18 08:16; Start 06/02/18 at 21:00 Insulin Detemir (Levemir Insulin) 20 units BID SC Last administered on 06/02/18at 09:12; Start 05/15/18 at 21:00; Stop 06/02/18 at 18:38; Status DC Insulin Human Lispro (HumaLOG INSULIN) SEE PROTOCOL TABLE AC SC Last administered on 06/08/18at 08:16; Start 05/16/18 at 07:30 Insulin Human Lispro (HumaLOG INSULIN) SEE PROTOCOL TABLE QHS SC ; Start 05/15/18 at 21:00 Lactobacillus Acidophilus (Bacid) 1 ea WM PO Last administered on 06/08/18 12:22; Start 05/21/18 at 18:00 Lidocaine (Lidoderm Patch) 1 patch DAILY TD Last administered on 06/08/18at 08:15; Start 05/25/18 at 09:00 Lisinopril (Prinivil) 10 mg QHS PO Last administered on 05/23/18at 22:10; Start 05/22/18 at 21:00; Stop 05/25/18 at 10:46; Status DC Lisinopril (Prinivil) 20 mg DAILY PO Last administered on 05/21/18at 09:12; Start 05/16/18 at 09:00; Stop 05/21/18 at 14:22; Status DC Miscellaneous (Unresolved Clarification Entry) SEE LABEL COMMENTS DAILY XX ; Start 05/27/18 at 09:00; Stop 05/27/18 at 16:18; Status DC Miscellaneous (Unresolved Clarification Entry) SEE LABEL COMMENTS DAILY XX ; Start 05/31/18 at 09:00; Stop 05/31/18 at 09:41; Status DC Non-Formulary Medication ( See Comment Field Below ) REMOVE LIDODERM PATCH DAILY@21 XX Last administered on 06/07/18at 20:47; Start 05/25/18 at 21:00 Ondansetron HCl (Zofran) 4 mg Q6HP PRN PO NAUSEA; Start 05/15/18 at 18:45 Oxycodone HCl (Roxicodone, Oxyir) 5 mg Q4HP PRN PO PAIN Last administered on 05/30/18at 08:33; Start 05/19/18 at 19:15 Oxycodone HCl (Roxicodone, Oxyir) 10 mg Q4HP PRN PO SEVERE PAIN (PS 8-10) Last administered on 06/08/18at 12:23; Start 05/19/18 at 19:15 Oxycodone/ Acetaminophen (Percocet 5mg/ 325mg Tablet) 1 tab Q4HP PRN PO MILD/MODERATE PAIN (PS 1-7); Start 05/15/18 at 19:00; Stop 05/19/18 at 19:18; Status DC Oxycodone/ Acetaminophen (Percocet 5mg/ 325mg Tablet) 2 tab Q4HP PRN PO SEVERE PAIN (PS 8-10) Last administered on 05/19/18 16:05; Start 05/15/18 at 19:00; Stop 05/19/18 at 19:18; Status DC Pantoprazole Sodium (Protonix) 40 mg DAILY PO Last administered on 06/08/18at 08:17; Start 05/16/18 at 09:00 Polyethylene Glycol (Miralax) 1 pkt DAILYPRN PRN PO CONSTIPATION; Start 06/02/18 at 11:00 Polyethylene Glycol (Miralax) 1 pkt DAILYPRN PRN PO CONSTIPATION; Start 06/03/18 at 10:45; Stop 06/03/18 at 10:45; Status DC Senna (Senokot) 1 tab QHS PO Last administered on 06/07/18at 20:45; Start 06/02/18 at 21:00 Senna (Senokot) 1 tab QHS PO Last administered on 05/20/18at 21:37; Start 05/15/18 at 21:00; Stop 05/21/18 at 15:03; Status DC Senna (Senokot) 1 tab QHSP PRN PO CONSTIPATION; Start 05/29/18 at 11:30; Stop 06/02/18 at 19:52; Status DC Senna/Docusate Sodium (Senokot S) 1 tab BID PO Last administered on 06/02/18 09:11; Start 05/31/18 at 21:00; Stop 06/02/18 at 19:52; Status DC Tamsulosin HCl (Flomax) 0.4 mg QHS PO Last administered on 06/07/18at 20:45; Start 05/15/18 at 21:00 Trazodone HCl (Desyrel) 25 mg QHS PO Last administered on 06/07/18 20:45; Start 05/20/18 at 21:00; Stop 06/08/18 at 11:24; Status DC ADRIANA HUFF MD Jun 08, 2018 14:51
--- NOTE | 2018-06-08 14:57 | IPNPDOC ---
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 He proceeded to be orthostatic later in therapy and reports feeling shook up. REVIEW OF SYSTEMS: The following is a completed review of systems and has been reviewed. Review of systems otherwise unremarkable. PAIN: Patient self reports right residual limb pain EYES: Negative for recent vision changes. EARS, NOSE, & THROAT: denies rhinorrhea or throat pain CARDIOVASCULAR: denies chest pain or palpitations PULMONARY: Negative. 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 PHYSICAL EXAMINATION: VITAL SIGNS: Please see below. GENERAL: Pleasant and cooperative. No acute distress. HEENT: PERRL. Extraocular movements intact. Clear conjunctiva CARDIOVASCULAR: Regular rate and rhythm. No murmurs, rubs, or gallops LUNGS: mostly Clear to auscultation bilaterally with bilateral apical wheezes. No rhonchi/crackles ABDOMEN: Soft, nontender, nondistended. Positive bowel sounds. Normal active bowel sounds. NEUROLOGICAL: Alert and oriented times three. Cranial nerves II through XII grossly intact. Sensation grossly intact. EXTREMITIES: 5\5 strength bilateral upper extremities.5-\5 strength right hip flexors knee extensors and knee flexors. 5-/5 strength in left lower extremity. (+) TTP cervical paraspinals, equivocal [place] maneuver (-) TTP at left popliteus muscle origin and along muscle belly SKIN: right residual limb incision with william and sutures, c/d/i erythema improved ASSESSMENT:73-year-old M with past medical history of PAD who presents status post right BKA PLAN: 1. Rehab: PT/OT assess for DMEs, maintain knee extension, patient instructed to avoid keeping head of bed up to prevent hip flexion [id number] from wheelchair level 2. Neuro; pmh stroke with left sided residual weakness, c/u ASA and statin for secondary stroke prevention 3. Cardio: PAD s/p right BKA- Plavix restarted, c/u ASA pmh- HTn c/u BP meds, medicine consulted 4. Resp: wheeze resolved, c/u duonebs, incentive spirometry and monitor for infection 5. Endo: DM continue insulin coverage-stable, decreased coverage to 18 units BID for slightly low FS 6. GI ppx: protonix 7. DVT ppx: c/u heparin, dopplers ordered today 8. Pain: c/u oxycodone, c/u Tylenol, decrease Gabapentin to 300 TID, d/c'ed Elavil as this can cause dizziness and valium as well, encouraged patient to take 5mg instead of 10mg of the oxycodone -transient radiating to hand left sided neck pain in C6/C7 distribution, patient instructed to work on chin tucks and lidoderm patch ordered for neck- strength and sensation intact-resolved -left popliteus tendinopathy causing left knee buckling, therapists encouraged to do myofascial release/stretch/heat pads, patient able to perform self-massage as well-resolved 9. : admission UA and Ucx negative, continue flomax for BPH, will order repeat UA for dizziness/orthostatics on 06/06/18 negative 10. Skin: daily dressing changes, monitor for infection-will avoid Hangar orthotic at this time as suspect friction at tibial plateau against strap as orthotic is slightly too large for limb-concern for cellulitis, pain and ESR/CRP improving on Keflex c/u to monitor-resolved, patient's william removed and nurse clinical donned 11. GI: c/u colace TID, c/u senna and suppository, Miralax 12. Insomnia- had been on trazodone, will stop due to soft BPs and to mitigate any dizziness 10. Dispo: will post-pone d/c to work more on balance and safety awareness Allergies Coded Allergies: No Known Allergies (Unverified , 07/06/14) Vital Signs Vital Signs Date Time Temp Pulse Resp B/P (MAP) Pulse Ox O2 Delivery O2 Flow Rate FiO2 06/08/18 14:00 97.9 60 18 149/76 (100) 96 Laboratory Data CBC/BMP Laboratory Tests 06/08/18 06:40 Red Blood Count 4.69, Mean Corpuscular Volume 86.8, Mean Corpuscular Hemoglobin 28.4, Mean Corpuscular Hemoglobin Concent 32.7, Red Cell Distribution Width 14.6 H, Calcium Level 8.5 L Labs 24H Laboratory Tests 2 06/07/18 16:50: Bedside Glucose (Misc Panel) 123H 06/08/18 06:40: Nucleated Red Blood Cells % (auto) 0.0, Anion Gap 7L, Glomerular Filtration Rate 49.9, Blood Urea Nitrogen 27H, Creatinine 1.48H, Sodium Level 140, Potassium Level 4.0, Chloride Level 109H, Carbon Dioxide Level 24, Calcium Level 8.5L, M agnesium Level 1.9 06/08/18 11:48: Bedside Glucose (Misc Panel) 85 Current Medications Current Medications Current Medications Acetaminophen (Tylenol Tab) 650 mg DAILYPRN PRN PO fever/MILD PAIN (PS 1-4); Start 05/15/18 at 18:45 Acetaminophen (Tylenol Tab) 1,000 mg TID@0600,1400,2100 PO Last administered on 06/08/18at 05:34; Start 05/19/18 at 21:00; Status Future hold Albuterol/ Ipratropium (Duoneb (Ipr 0.5mg/Alb 2.5mg)) 3 ml RBID NEB Last administered on 05/22/18at 19:57; Start 05/15/18 at 20:00; Stop 05/23/18 at 11:45; Status DC Amitriptyline HCl (Elavil) 25 mg QHS PO Last administered on 06/05/18at 21:35; Start 06/03/18 at 21:00; Stop 06/06/18 at 16:28; Status DC Amlodipine Besylate (Norvasc) 10 mg DAILY PO Last administered on 05/25/18at 08:40; Start 05/16/18 at 09:00; Stop 05/25/18 at 10:46; Status DC Aspirin (Aspirin Chewable) 81 mg DAILY PO Last administered on 06/08/18at 08:17; Start 05/16/18 at 09:00 Atorvastatin Calcium (Lipitor) 80 mg QHS PO Last administered on 06/07/18at 20:45; Start 05/15/18 at 21:00 Bisacodyl (Dulcolax Suppository) 10 mg DAILY [place] ; Start 06/02/18 at 09:00 Bisacodyl (Dulcolax Suppository) 10 mg DAILYPRN PRN [place] CONSTIPATION Last administered on 05/29/18at 20:29; Start 05/15/18 at 18:45 Bisacodyl (Dulcolax Suppository) 10 mg ONCE PRN OH NO BM AFTER LACTULOSE; Start 05/29/18 at 18:00; Stop 05/29/18 at 23:59; Status DC Carvedilol (COReg) 3.125 mg BID PO Last administered on 06/07/18at 20:45; Start 05/15/18 at 21:00 Cephalexin Monohydrate (Keflex) 500 mg BID PO Last administered on 06/04/18 08:08; Start 05/21/18 at 21:00; Stop 06/04/18 at 20:59; Status DC Clopidogrel Bisulfate (PLAVix) 75 mg DAILY PO Last administered on 06/08/18at 08:16; Start 05/23/18 at 09:00 Dextrose (Dextrose 50%) 25 ml ASDIRECTED PRN IV SEE LABEL COMMENTS; Start 05/15/18 at 19:00 Diazepam (Valium) 5 mg Q6HP PRN PO SPASMS Last administered on 05/29/18at 15:46; Start 05/21/18 at 15:00; Stop 06/06/18 at 16:28; Status DC Diazepam (Valium) 10 mg Q6HP PRN PO SPASMS Last administered on 05/20/18at 21 :36; Start 05/15/18 at 19:00; Stop 05/21/18 at 15:03; Status DC Docusate Sodium (Colace) 100 mg BID PO Last administered on 06/02/18at 20:42; Start 06/02/18 at 09:00; Stop 06/03/18 at 10:38; Status DC Docusate Sodium (Colace) 100 mg BID PO Last administered on 05/21/18at 09:12; Start 05/15/18 at 21:00; Stop 05/21/18 at 15:03; Status DC Docusate Sodium (Colace) 100 mg TID PO Last administered on 05/31/18at 08:00; Start 05/29/18 at 09:00; Stop 05/31/18 at 09:40; Status DC Docusate Sodium (Colace) 100 mg TID PO Last administered on 06/08/18 08:17; Start 06/02/18 at 21:00 Ferrous Gluconate (Fergon) 324 mg TID PO Last administered on 06/08/18 08:17; Start 05/15/18 at 21:00 Gabapentin (Neurontin) 300 mg QHS PO Last administered on 05/19/18 20:40; Start 05/19/18 at 21:00; Stop 05/20/18 at 12:22; Status DC Gabapentin (Neurontin) 300 mg TID PO Last administered on 06/03/18at 15:34; Start 05/20/18 at 16:00; Stop 06/03/18 at 16:12; Status DC Gabapentin (Neurontin) 300 mg TID PO ; Start 06/08/18 at 16:00 Gabapentin (Neurontin) 400 mg TID PO ; Start 06/03/18 at 21:00; Stop 06/03/18 at 21:00; Status DC Gabapentin (Neurontin) 400 mg TID PO Last administered on 06/08/18 08:17; Start 06/03/18 at 21:00; Stop 06/08/18 at 11:24; Status DC Glucagon (Glucagon) 1 mg ASDIRECTED PRN SC SEE LABEL COMMENTS; Start 05/15/18 at 19:00 Glucose (Glucose) 16 GM ASDIRECTED PRN PO SEE LABEL COMMENTS; Start 05/15/18 at 19:00 Heparin Sodium (Porcine) (Heparin) 5,000 units Q8H SQ Last administered on 05:34; Start 05/15/18 at 22:00 Hydrochlorothiazide (Hydrodiuril) 25 mg DAILY PO Last administered on 05/23/18 08:31; Start 05/16/18 at 09:00; Stop 05/24/18 at 07:35; Status DC Insulin Detemir (Levemir Insulin) 18 units BID SC Last administered on 06/08/18 08:16; Start 06/02/18 at 21:00 Insulin Detemir (Levemir Insulin) 20 units BID SC Last administered on 06/02/18 09:12; Start 05/15/18 at 21:00; Stop 06/02/18 at 18:38; Status DC Insulin Human Lispro (HumaLOG INSULIN) SEE PROTOCOL TABLE AC SC Last administered on 4/1/19at 08:16; Start 05/16/18 at 07:30 Insulin Human Lispro (HumaLOG INSULIN) SEE PROTOCOL TABLE QHS SC ; Start 05/15/18 at 21:00 Lactobacillus Acidophilus (Bacid) 1 ea WM PO Last administered on 06/08/18at 12:22; Start 05/21/18 at 18:00 Lidocaine (Lidoderm Patch) 1 patch DAILY TD Last administered on 06/08/18at 08:15; Start 05/25/18 at 09:00 Lisinopril (Prinivil) 10 mg QHS PO Last administered on 05/23/18at 22:10; Start 05/22/18 at 21:00; Stop 05/25/18 at 10:46; Status DC Lisinopril (Prinivil) 20 mg DAILY PO Last administered on 05/21/18at 09:12; Start 05/16/18 at 09:00; Stop 05/21/18 at 14:22; Status DC Miscellaneous (Unresolved Clarification Entry) SEE LABEL COMMENTS DAILY XX ; Start 05/27/18 at 09:00; Stop 05/27/18 at 16:18; Status DC Miscellaneous (Unresolved Clarification Entry) SEE LABEL COMMENTS DAILY XX ; Start 05/31/18 at 09:00; Stop 05/31/18 at 09:41; Status DC Non-Formulary Medication ( See Comment Field Below ) REMOVE LIDODERM PATCH DAILY@21 XX Last administered on 06/07/18at 20:47; Start 05/25/18 at 21:00 Ondansetron HCl (Zofran) 4 mg Q6HP PRN PO NAUSEA; Start 05/15/18 at 18:45 Oxycodone HCl (Roxicodone, Oxyir) 5 mg Q4HP PRN PO PAIN Last administered on 05/30/18at 08:33; Start 05/19/18 at 19:15 Oxycodone HCl (Roxicodone, Oxyir) 10 mg Q4HP PRN PO SEVERE PAIN (PS 8-10) Last administered on 06/08/18at 12:23; Start 05/19/18 at 19:15 Oxycodone/ Acetaminophen (Percocet 5mg/ 325mg Tablet) 1 tab Q4HP PRN PO MILD/MODERATE PAIN (PS 1-7); Start 05/15/18 at 19:00; Stop 05/19/18 at 19:18; Status DC Oxycodone/ Acetaminophen (Percocet 5mg/ 325mg Tablet) 2 tab Q4HP PRN PO SEVERE PAIN (PS 8-10) Last administered on 05/19/18 16:05; Start 05/15/18 at 19:00; Stop 05/19/18 at 19:18; Status DC Pantoprazole Sodium (Protonix) 40 mg DAILY PO Last administered on 06/08/18at 08:17; Start 05/16/18 at 09:00 Polyethylene Glycol (Miralax) 1 pkt DAILYPRN PRN PO CONSTIPATION; Start 06/02/18 at 11:00 Polyethylene Glycol (Miralax) 1 pkt DAILYPRN PRN PO CONSTIPATION; Start 06/03/18 at 10:45; Stop 06/03/18 at 10:45; Status DC Senna (Senokot) 1 tab QHS PO Last administered on 06/07/18at 20:45; Start 06/02/18 at 21:00 Senna (Senokot) 1 tab QHS PO Last administered on 05/20/18at 21:37; Start 05/15/18 at 21:00; Stop 05/21/18 at 15:03; Status DC Senna (Senokot) 1 tab QHSP PRN PO CONSTIPATION; Start 05/29/18 at 11:30; Stop 06/02/18 at 19:52; Status DC Senna/Docusate Sodium (Senokot S) 1 tab BID PO Last administered on 06/02/18at 09:11; Start 05/31/18 at 21:00; Stop 06/02/18 at 19:52; Status DC Tamsulosin HCl (Flomax) 0.4 mg QHS PO Last administered on 06/07/18 20:45; Start 05/15/18 at 21:00 Trazodone HCl (Desyrel) 25 mg QHS PO Last administered on 06/07/18 20:45; Start 05/20/18 at 21:00; Stop 06/08/18 at 11:24; Status DC ADRIANA HUFF MD Jun 08, 2018 14:57
--- NOTE | 2018-06-08 15:50 | REP ---
Clinical: Immobility . Technique: Camacho scale and color Doppler evaluation using linear high frequency transducer. Findings: Ultrasound examination of the right and left lower extremity deep venous structures from the common femoral vein to the popliteal vein demonstrates normal compressibility flow and wave patterns in response to respiration and augmentation. There is no evidence for deep venous thrombosis. 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 Impression: No evidence for deep venous thrombosis bilateral lower extremities . Electronically Signed by Errol Biggs MD 06/08/2018 03:41 P
[2018-06-08] MEDS: GABAPENTIN 300 MG CAP PO SCH ×2 (15:53→21:03)
--- NOTE | 2018-06-08 16:59 | IPNPDOC ---
Text Note Date of Service The patient was seen on 06/08/18. NOTE Patient seen and examined. No acute events overnight. Denies any chest pain, pressure, or discomfort. Continues to report right lower extremity stump pain. Denies any fevers or chills. PHYSICAL EXAMINATION: GENERAL: Patient alert, comfortable in no acute distress. HEENT: Normocephalic, atraumatic. PULMONARY: Bilaterally clear. CARDIAC: Regular, S1, S2. ABDOMEN: Soft, nontender. Positive bowel sounds. EXTREMITIES: Dorsalis pedis (DP)/posterior tibialis (PT) pulses palpated, left lower extremity. Right lower extremity below-knee amputation. Malcolm wrapping intact. ASSESSMENT AND PLAN: This is a 73-year-old male patient with underlying medical history of peripheral arterial disease, diabetes mellitus, type 2, hypertension, chronic kidney disease (CKD), cerebrovascular accident (CVA), with left-sided residual weakness presented with worsening right foot pain and was evaluated at [facility] Emergency Department (ED) on 05/11/2018. Found to have ischemia of his limb, for which vascular surgery was consulted. Patient underwent aortoiliofemoral arteriogram with right lower extremity runoff and placement of the thrombolysis catheter from right distal superficial femoral artery to the right distal posterior tibial artery across the popliteal-tibial occlusion on 05/12/2018. The tPA lysis catheter was removed, and vascular surgery discussed the need for below-knee verus above-knee amputation of patient's right lower extremity, for which is not salvageable. Patient's Plavix and aspirin were temporarily held. On 05/13/2018, patient underwent right below-knee amputation without significant complications. Knee immobilizer was placed. Patient was transferred to acute rehabilitation unit (ARU) on 05/15/2018. 1. Right lower extremity ischemia status post below-knee amputation. Patient had aortoiliofemoral arteriogram with right lower extremity runoff and placement of thrombolysis catheter on May 11 and status post right lower extremity arteriogram with removal of thrombolysis catheter on May 12, and status post right lower extremity above-knee amputation on May 13. Followup with vascular recommendations. Physical therapy (PT)/occupational therapy (OT) as per acute rehabilitation. Pain control as per acute rehabilitation. Bowel care as per a cute rehabilitation. Deep vein thrombosis (DVT) prophylaxis: On heparin subcutaneous as per acute rehabilitation provider. 2. CKD, stage III. Monitor BUN and creatinine. 3. Diabetes mellitus. Continue insulin basal bolus as ordered. Follow fingersticks. 4. Hypertension. Patient on Coreg with holding parameters. All other blood pressure medication was on hold due to orthostasis. 5. History of CVA. Continue statin. Continue aspirin and Plavix. statin 6. Transaminitis, likely secondary to alcohol use. Patient used to drink six packs of beer a day for many years. Last drink was 2004. Ultrasound of liver appreciated. Hepatitis panel negative. Will monitor liver function. Outpatient followup. 7. Dyslipidemia. Continue statin. 8. Gastroesophageal reflux disease (GERD). Continue proton pump inhibitor (PPI). 9. Anemia, normocytic, likely acute blood loss anemia versus anemia of chronic disease. Monitor hemoglobin and hematocrit. Continue iron supplementation. 10. BPH. Continue current medication. 11. Deep vein thrombosis (DVT) prophylaxis. Heparin subcutaneous. DISPOSITION: As per acute rehabilitation provider. VS,Fishbone, I+O VS, Fishbone, I+O Laboratory Tests 06/08/18 06:40 Red Blood Count 4.69, Mean Corpuscular Volume 86.8, Mean Corpuscular Hemoglobin 28.4, Mean Corpuscular Hemoglobin Concent 32.7, Red Cell Distribution Width 14.6 H, Calcium Level 8.5 L Vital Signs Date Time Temp Pulse Resp B/P (MAP) Pulse Ox O2 Delivery O2 Flow Rate FiO2 06/08/18 14:00 97.9 60 18 149/76 (100) 96 I&O- Last 24 Hours up to 6 AM 06/08/18 06:00 Intake Total 1380 ml Output Total 1200 ml Balance 180 ml RAMONE MADRID MD Jun 08, 2018 16:59
[2018-06-08 20:00] VITALS: BP 121/71
[2018-06-08] MEDS: **NOTE PATIENT COMMENT** MISC XX SCH (21:00)
[2018-06-08] MEDS: ATORVASTATIN 20 MG TAB PO SCH (21:00)
[2018-06-08] MEDS: TAMSULOSIN 0.4 MG CAP PO SCH (21:01)
[2018-06-08] MEDS: SENNA 8.6 MG TAB (SENOKOT) PO SCH (21:01)
[2018-06-09] MEDS: HEPARIN SOD (PORCINE) 5000 UNITS/ML VIAL SQ SCH ×3 (05:06→21:48)
[2018-06-09] MEDS: ACETAMINOPHEN 500 MG TAB PO SCH ×3 (05:06→21:50)
[2018-06-09 06:00] VITALS: BP 131/72
[2018-06-09 07:24] LABS: BASO % 0.5 % (0.0-1.0); EOS # 0.4 10^3/uL (0.0-0.50); HEMATOCRIT 40.7 % (42.0-52.0); HEMOGLOBIN 13.4 g/dl (13.5-17.5); LYMPH # 2.1 10^3/uL (1.5-4.5); LYMPH % 36.8 % (24.0-44.0); MEAN CORPUSCULAR HEMOGLOBIN 28.8 pg (27.0-33.0); MEAN CORPUSCULAR HGB CONC 32.9 g/dl (32.0-36.5); MEAN CORPUSCULAR VOLUME 87.3 fl (80.0-96.0); MONO # 0.6 10^3/uL (0.0-0.8); NEUTROPHILS # 2.5 10^3/uL (1.8-7.7); NEUTROPHILS % 44.3 % (36.0-66.0); PLATELET COUNT, AUTOMATED 280 10^3/uL (150-450); RED BLOOD COUNT 4.66 10^6/uL (4.30-6.10); WHITE BLOOD COUNT 5.6 10^3/uL (4.0-10.0)
[2018-06-09] MEDS: BISACODYL 10 MG SUPP PR SCH (07:43)
[2018-06-09 07:46] LABS: CALCIUM LEVEL 8.3 MG/DL (8.8-10.2); CREATININE FOR GFR 1.28 MG/DL (0.70-1.30)
[2018-06-09] MEDS: LIDOCAINE 5% (LIDODERM) PATCH TD SCH (09:11)
[2018-06-09] MEDS: LEVEMIR (INSULIN DETEMIR) 1 UNITS/0.01ML SC SCH ×2 (09:12→21:51)
[2018-06-09] MEDS: HumaLOG INSULIN (NovoLOG) PER UNIT SC SCH ×4 (09:12→21:00)
[2018-06-09] MEDS: LACTOBACILLUS ACIDOPHILUS CAP (BACID) PO SCH ×3 (09:12→17:39)
[2018-06-09] MEDS: ASPIRIN 81 MG CHEW TABLET PO SCH (09:12)
[2018-06-09] MEDS: DOCUSATE SODIUM 100 MG CAP PO SCH ×3 (09:12→21:47)
[2018-06-09] MEDS: PANTOPRAZOLE 40MG TAB (PROTONIX) PO SCH (09:12)
[2018-06-09] MEDS: CLOPIDOGREL 75 MG TAB PO SCH (09:12)
[2018-06-09] MEDS: FERROUS GLUCONATE 324 MG TAB PO SCH ×3 (09:13→21:47)
[2018-06-09] MEDS: CARVedilol 3.125 MG TAB PO SCH ×2 (09:13→21:50)
[2018-06-09] MEDS: GABAPENTIN 300 MG CAP PO SCH ×3 (09:13→21:47)
--- NOTE | 2018-06-09 10:37 | IPNPDOC ---
PM&R Progress Note DATE OF SERVICE: Jun 09, 2018 Product Scientist Progress Note Subjective: Patient seen in his room, residual limb examined, appears to be healing well. Reports no more dizziness. REVIEW OF SYSTEMS: The following is a completed review of systems and has been reviewed. Review of systems otherwise unremarkable. PAIN: Patient self reports right residual limb pain EYES: Negative for recent vision changes. EARS, NOSE, & THROAT: denies rhinorrhea or throat pain CARDIOVASCULAR: denies chest pain or palpitations PULMONARY: Negative. 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 PHYSICAL EXAMINATION: VITAL SIGNS: Please see below. GENERAL: Pleasant and cooperative. No acute distress. HEENT: PERRL. Extraocular movements intact. Clear conjunctiva CARDIOVASCULAR: Regular rate and rhythm. No murmurs, rubs, or gallops LUNGS: mostly Clear to auscultation bilaterally with bilateral apical wheezes. No rhonchi/crackles ABDOMEN: Soft, nontender, nondistended. Positive bowel sounds. Normal active bowel sounds. NEUROLOGICAL: Alert and oriented times three. Cranial nerves II through XII grossly intact. Sensation grossly intact. EXTREMITIES: 5\5 strength bilateral upper extremities.5-\5 strength right hip flexors knee extensors and knee flexors. 5-/5 strength in left lower extremity. (+) TTP cervical paraspinals, equivocal [place] maneuver (-) TTP at left popliteus muscle origin and along muscle belly SKIN: right residual limb incision with william and sutures, c/d/i erythema improved ASSESSMENT:73-year-old M with past medical history of PAD who presents status post right BKA PLAN: 1. Rehab: PT/OT assess for DMEs, maintain knee extension, patient instructed to avoid keeping head of bed up to prevent hip flexion [id number] from wheelchair level 2. Neuro; pmh stroke with left sided residual weakness, c/u ASA and statin for secondary stroke prevention 3. Cardio: PAD s/p right BKA- Plavix restarted, c/u ASA pmh- HTn c/u BP meds, medicine consulted 4. Resp: wheeze resolved, c/u duonebs, incentive spirometry and monitor for infection 5. Endo: DM continue insulin coverage-stable, decreased coverage to 18 units BID for slightly low FS 6. GI ppx: protonix 7. DVT ppx: c/u heparin, dopplers negative for DVT 8. Pain: c/u oxycodone, c/u Tylenol, decrease Gabapentin to 300 TID, d/c'ed Elavil as this can cause dizziness and valium as well, encouraged patient to take 5mg instead of 10mg of the oxycodone -transient radiating to hand left sided neck pain in C6/C7 distribution, patient instructed to work on chin tucks and lidoderm patch ordered for neck- strength and sensation intact-resolved -left popliteus tendinopathy causing left knee buckling, therapists encouraged to do myofascial release/stretch/heat pads, patient able to perform self-massage as well-resolved 9. : admission UA and Ucx negative, continue flomax for BPH, will order repeat UA for dizziness/orthostatics on 06/06/18 negative 10. Skin: daily dressing changes, monitor for infection-will avoid Hangar orthotic at this time as suspect friction at tibial plateau against strap as orthotic is slightly too large for limb-concern for cellulitis, pain and ESR/CRP improving on Keflex c/u to monitor-resolved, patient's william removed and director revenue donned-skin good 11. GI: c/u colace TID, c/u senna and suppository, Miralax 12. Insomnia- had been on trazodone, will stop due to soft BPs and to mitigate any dizziness 10. Dispo: will post-pone d/c to work more on balance and safety awareness which is improving, will d/c tomorrow 06/10/18 Allergies Coded Allergies: No Known Allergies (Unverified , 07/06/14) Vital Signs Vital Signs Date Time Temp Pulse Resp B/P (MAP) Pulse Ox O2 Delivery O2 Flow Rate FiO2 06/09/18 09:13 66 118/76 06/09/18 06:00 97.3 18 97 Laboratory Data CBC/BMP Laboratory Tests 06/09/18 07:06 Red Blood Count 4.66, Mean Corpuscular Volume 87.3, Mean Corpuscular Hemoglobin 28.8, Mean Corpuscular Hemoglobin Concent 32.9, Red Cell Distribution Width 14.6 H, Neutrophils (%) (Auto) 44.3, Lymphocytes (%) (Auto) 36.8, Monocytes (%) (Auto) 11.0 H, Eosinophils (%) (Auto) 7.0 H, Basophils (%) (Auto) 0.5, Neutrophils # (Auto) 2.5, Lymphocytes # (Auto) 2.1, Monocytes # (Auto) 0.6, Eosinophils # (Auto) 0.4, Basophils # (Auto) 0.0, Calcium Level 8.3 L Labs 24H Laboratory Tests 2 06/08/18 11:48: Bedside Glucose (Misc Panel) 85 06/08/18 16:47: Bedside Glucose (Misc Panel) 143H 06/08/18 20:37: Bedside Glucose (Misc Panel) 135H 06/09/18 07:06: Immature Granulocyte % (Auto) 0.4, White Blood Count 5.6, Red Blood Count 4.66, Hemoglobin 13.4L, Hematocrit 40.7L, Mean Corpuscular Volume 87.3, Mean Corpuscular Hemoglobin 28.8, Mean Corpuscular Hemoglobin Concent 32.9, Red Cell Distribution Width 14.6H, Platelet Count 280, Neutrophils (%) (Auto) 44.3, Lymphocytes (%) (Auto) 36.8, Monocytes (%) (Auto) 11.0H, Eosinophils (%) (Auto) 7.0H, Basophils (%) (Auto) 0.5, Neutrophils # (Auto) 2.5, Lymphocytes # (Auto) 2.1, Monocytes # (Auto) 0.6, Eosinophils # (Auto) 0.4, Basophils # (Auto) 0.0, Nucleated Red Blood Cells % (auto) 0.0, Anion Gap 7L, Glomerular Filtration Rate 59.0, Blood Urea Nitrogen 23H, Creatinine 1.28, Sodium Level 142, Potassium Level 4.0, Chloride Level 109H, Carbon Dioxide Level 26, Calcium Level 8.3L Current Medications Current Medications Current Medications Acetaminophen (Tylenol Tab) 650 mg DAILYPRN PRN PO fever/MILD PAIN (PS 1-4); Start 05/15/18 at 18:45 Acetaminophen (Tylenol Tab) 1,000 mg TID@0600,1400,2100 PO Last administered on 06/09/18 05:06; Start 05/19/18 at 21:00; Status Future hold Albuterol/ Ipratropium (Duoneb (Ipr 0.5mg/Alb 2.5mg)) 3 ml RBID NEB Last administered on 05/22/18 19:57; Start 05/15/18 at 20:00; Stop 05/23/18 at 11:45; Status DC Amitriptyline HCl (Elavil) 25 mg QHS PO Last administered on 06/05/18 21:35; Start 06/03/18 at 21:00; Stop 06/06/18 at 16:28; Status DC Amlodipine Besylate (Norvasc) 10 mg DAILY PO Last administered on 05/25/18 08:40; Start 05/16/18 at 09:00; Stop 05/25/18 at 10:46; Status DC Aspirin (Aspirin Chewable) 81 mg DAILY PO Last administered on 06/09/18 09:12; Start 05/16/18 at 09:00 Atorvastatin Calcium (Lipitor) 80 mg QHS PO Last administered on 06/08/18 21:00; Start 05/15/18 at 21:00 Bisacodyl (Dulcolax Suppository) 10 mg DAILY ND ; Start 06/02/18 at 09:00 Bisacodyl (Dulcolax Suppository) 10 mg DAILYPRN PRN ND CONSTIPATION Last administered on 05/29/18 20:29; Start 05/15/18 at 18:45 Bisacodyl (Dulcolax Suppository) 10 mg ONCE PRN ND NO BM AFTER LACTULOSE; Start 05/29/18 at 18:00; Stop 05/29/18 at 23:59; Status DC Carvedilol (COReg) 3.125 mg BID PO Last administered on 06/09/18 09:13; Start 05/15/18 at 21:00 Cephalexin Monohydrate (Keflex) 500 mg BID PO Last administered on 06/04/18 08:08; Start 05/21/18 at 21:00; Stop 06/04/18 at 20:59; Status DC Clopidogrel Bisulfate (PLAVix) 75 mg DAILY PO Last administered on 06/09/18 09:12; Start 05/23/18 at 09:00 Dextrose (Dextrose 50%) 25 ml ASDIRECTED PRN IV SEE LABEL COMMENTS; Start 05/15/18 at 19:00 Diazepam (Valium) 5 mg Q6HP PRN PO SPASMS Last administered on 05/29/18 15:46; Start 05/21/18 at 15:00; Stop 06/06/18 at 16:28; Status DC Diazepam (Valium) 10 mg Q6HP PRN PO SPASMS Last administered on 05/20/18 21:36; Start 05/15/18 at 19:00; Stop 05/21/18 at 15:03; Status DC Docusate Sodium (Colace) 100 mg BID PO Last administered on 06/02/18 20:42; Start 06/02/18 at 09:00; Stop 06/03/18 at 10:38; Status DC Docusate Sodium (Colace) 100 mg BID PO Last administered on 05/21/18 09:12; Start 05/15/18 at 21:00; Stop 05/21/18 at 15:03; Status DC Docusate Sodium (Colace) 100 mg TID PO Last administered on 05/31/18 08:00; Start 05/29/18 at 09:00; Stop 05/31/18 at 09:40; Status DC Docusate Sodium (Colace) 100 mg TID PO Last administered on 06/09/18 09:12; Start 06/02/18 at 21:00 Ferrous Gluconate (Fergon) 324 mg TID PO Last administered on 06/09/18 09:13; Start 05/15/18 at 21:00 Gabapentin (Neurontin) 300 mg QHS PO Last administered on 05/19/18 20:40; Start 05/19/18 at 21:00; Stop 05/20/18 at 12:22; Status DC Gabapentin (Neurontin) 300 mg TID PO Last administered on 06/03/18 15:34; Start 05/20/18 at 16:00; Stop 06/03/18 at 16:12; Status DC Gabapentin (Neurontin) 300 mg TID PO Last administered on 06/09/18 09:13; Start 06/08/18 at 16:00 Gabapentin (Neurontin) 400 mg TID PO ; Start 06/03/18 at 21:00; Stop 06/03/18 at 21:00; Status DC Gabapentin (Neurontin) 400 mg TID PO Last administered on 06/08/18 08:17; Start 06/03/18 at 21:00; Stop 06/08/18 at 11:24; Status DC Glucagon (Glucagon) 1 mg ASDIRECTED PRN SC SEE LABEL COMMENTS; Start 05/15/18 at 19:00 Glucose (Glucose) 16 GM ASDIRECTED PRN PO SEE LABEL COMMENTS; Start 05/15/18 at 19:00 Heparin Sodium (Porcine) (Heparin) 5,000 units Q8H SQ Last administered on 06/09/18 05:06; Start 05/15/18 at 22:00 Hydrochlorothiazide (Hydrodiuril) 25 mg DAILY PO Last administered on 05/23/18 08:31; Start 05/16/18 at 09:00; Stop 05/24/18 at 07:35; Status DC Insulin Detemir (Levemir Insulin) 18 units BID SC Last administered on 06/09/18 09:12; Start 06/02/18 at 21:00 Insulin Detemir (Levemir Insulin) 20 units BID SC Last administered on 06/02/18 09:12; Start 05/15/18 at 21:00; Stop 06/02/18 at 18:38; Status DC Insulin Human Lispro (HumaLOG INSULIN) SEE PROTOCOL TABLE AC SC Last administered on 06/09/18 09:12; Start 05/16/18 at 07:30 Insulin Human Lispro (HumaLOG INSULIN) SEE PROTOCOL TABLE QHS SC ; Start 05/15/18 at 21:00 Lactobacillus Acidophilus (Bacid) 1 ea WM PO Last administered on 06/09/18 09:12; Start 05/21/18 at 18:00 Lidocaine (Lidoderm Patch) 1 patch DAILY TD Last administered on 06/09/18 09:11; Start 05/25/18 at 09:00 Lisinopril (Prinivil) 10 mg QHS PO Last administered on 05/23/18at 22:10; Start 05/22/18 at 21:00; Stop 05/25/18 at 10:46; Status DC Lisinopril (Prinivil) 20 mg DAILY PO Last administered on 05/21/18 09:12; Start 05/16/18 at 09:00; Stop 05/21/18 at 14:22; Status DC Miscellaneous (Unresolved Clarification Entry) SEE LABEL COMMENTS DAILY XX ; Start 05/27/18 at 09:00; Stop 05/27/18 at 16:18; Status DC Miscellaneous (Unresolved Clarification Entry) SEE LABEL COMMENTS DAILY XX ; Start 05/31/18 at 09:00; Stop 05/31/18 at 09:41; Status DC Non-Formulary Medication ( See Comment Field Below ) REMOVE LIDODERM PATCH DAILY@21 XX Last administered on 06/08/18at 21:00; Start 05/25/18 at 21:00 Ondansetron HCl (Zofran) 4 mg Q6HP PRN PO NAUSEA; Start 05/15/18 at 18:45 Oxycodone HCl (Roxicodone, Oxyir) 5 mg Q4HP PRN PO PAIN Last administered on 05/30/18at 08:33; Start 05/19/18 at 19:15 Oxycodone HCl (Roxicodone, Oxyir) 10 mg Q4HP PRN PO SEVERE PAIN (PS 8-10) Last administered on 06/08/18 21:02; Start 05/19/18 at 19:15 Oxycodone/ Acetaminophen (Percocet 5mg/ 325mg Tablet) 1 tab Q4HP PRN PO MILD/MODERATE PAIN (PS 1-7); Start 05/15/18 at 19:00; Stop 05/19/18 at 19:18; Status DC Oxycodone/ Acetaminophen (Percocet 5mg/ 325mg Tablet) 2 tab Q4HP PRN PO SEVERE PAIN (PS 8-10) Last administered on 05/19/18at 16:05; Start 05/15/18 at 19:00; Stop 05/19/18 at 19:18; Status DC Pantoprazole Sodium (Protonix) 40 mg DAILY PO Last administered on 06/09/18 09:12; Start 05/16/18 at 09:00 Polyethylene Glycol (Miralax) 1 pkt DAILYPRN PRN PO CONSTIPATION; Start 06/02/18 at 11:00 Polyethylene Glycol (Miralax) 1 pkt DAILYPRN PRN PO CONSTIPATION; Start 06/03/18 at 10:45; Stop 06/03/18 at 10:45; Status DC Senna (Senokot) 1 tab QHS PO Last administered on 06/08/18 21:01; Start 9 at 21:00 Senna (Senokot) 1 tab QHS PO Last administered on 05/20/18at 21:37; Start 05/15/18 at 21:00; Stop 05/21/18 at 15:03; Status DC Senna (Senokot) 1 tab QHSP PRN PO CONSTIPATION; Start 05/29/18 at 11:30; Stop 06/02/18 at 19:52; Status DC Senna/Docusate Sodium (Senokot S) 1 tab BID PO Last administered on 06/02/18 09:11; Start 05/31/18 at 21:00; Stop 06/02/18 at 19:52; Status DC Tamsulosin HCl (Flomax) 0.4 mg QHS PO Last administered on 06/08/18 21:01; Start 05/15/18 at 21:00 Trazodone HCl (Desyrel) 25 mg QHS PO Last administered on 06/07/18at 20:45; Start 05/20/18 at 21:00; Stop 06/08/18 at 11:24; Status DC ADRIANA HUFF MD Jun 09, 2018 10:37
[2018-06-09] MEDS: oxyCODONE 5MG TAB PO PRN ×2 (12:07→21:49)
[2018-06-09 14:00] VITALS: BP 140/80
--- NOTE | 2018-06-09 14:47 | IPNPDOC ---
Date Seen The patient was seen on 06/09/18. Progress Note SUBJECTIVE: Patient reports feeling well he is in good spirits and has no complaints he is excited to be going home in the coming days hopefully OBJECTIVE PHYSICAL EXAMINATION: VITAL SIGNS: Please see below. GENERAL: Pleasant obese elderly man lying flat in bed in no acute distress HEENT: Cranial nerves grossly intact she has moist extremities no elevation CVP CARDIOVASCULAR: S1-S2 regular RESPIRATORY: Clear to auscultation bilaterally. ABDOMINAL: Obese bowel sounds present and soft and nontender EXTREMITIES: Status post right BKA incision is clean william are in place minimal tenderness no erythema or discharge wound looks well LABORATORY DATA, IMAGING STUDIES, MICROBIOLOGY: Please see below. DVT prophylaxis ordered?: Heparin ASSESSMENT AND PLAN: This is a 73-year-old man with peripheral vascular disease. PROBLEMS: 1. Peripheral vascular disease: Status post right below-knee amputation by vascular surgery will need vascular surgery follow-up and further care as per physiatry. 2. CKD, stage III. Stable continue to monitor 3. Diabetes mellitus. Continue insulin basal bolus as ordered. Fingersticks are well-controlled at this time. Continue with Neurontin for neuropathic pain 4. Hypertension. Patient on Coreg with holding parameters. Blood pressure is well-controlled 5. History of CVA. Continue statin. Continue aspirin and Plavix. 6. Transaminitis, likely secondary to alcohol use. Patient used to drink six packs of beer a day for many years. We'll recheck a liver profile tomorrow 7. Dyslipidemia. Continue statin. 8. Gastroesophageal reflux disease (GERD). Continue proton pump inhibitor (PPI). 9. Anemia, normocytic, likely multifactorial in nature postsurgical blood loss chronic disease and iron deficiency anemia he is on supplementation 10. BPH. Continue with Flomax VS, I&O, 24H, Fishbone Vital Signs/I&O Vital Signs Date Time Temp Pulse Resp B/P (MAP) Pulse Ox O2 Delivery O2 Flow Rate FiO2 06/09/18 13:00 18 06/09/18 09:13 66 118/76 06/09/18 06:00 97.3 97 I&O- Last 24 Hours up to 6 AM 06/09/18 06:00 Intake Total 1400 ml Output Total 1650 ml Balance -250 ml Laboratory Data 24H LABS Laboratory Tests 2 06/08/18 16:47: Bedside Glucose (Misc Panel) 143H 06/08/18 20:37: Bedside Glucose (Misc Panel) 135H 06/09/18 07:06: Immature Granulocyte % (Auto) 0.4, White Blood Count 5.6, Red Blood Count 4.66, Hemoglobin 13.4L, Hematocrit 40.7L, Mean Corpuscular Volume 87.3, Mean Corpuscular Hemoglobin 28.8, Mean Corpuscular Hemoglobin Concent 32.9, Red Cell Distribution Width 14.6H, Platelet Count 280, Neutrophils (%) (Auto) 44.3, Lymphocytes (%) (Auto) 36.8, Monocytes (%) (Auto) 11.0H, Eosinophils (%) (Auto) 7.0H, Basophils (%) (Auto) 0.5, Neutrophils # (Auto) 2.5, Lymphocytes # (Auto) 2.1, Monocytes # (Auto) 0.6, Eosinophils # (Auto) 0.4, Basophils # (Auto) 0.0, Nucleated Red Blood Cells % (auto) 0.0, Anion Gap 7L, Glomerular Filtration Rate 59.0, Blood Urea Nitrogen 23H, Creatinine 1.28, Sodium Level 142, Potassium Level 4.0, Chloride Level 109H, Carbon Dioxide Level 26, Calcium Level 8.3L 06/09/18 11:37: Bedside Glucose (Misc Panel) 114H CBC/BMP Laboratory Tests 06/09/18 07:06 Red Blood Count 4.66, Mean Corpuscular Volume 87.3, Mean Corpuscular Hemoglobin 28.8, Mean Corpuscular Hemoglobin Concent 32.9, Red Cell Distribution Width 14.6 H, Neutrophils (%) (Auto) 44.3, Lymphocytes (%) (Auto) 36.8, Monocytes (%) (Auto) 11.0 H, Eosinophils (%) (Auto) 7.0 H, Basophils (%) (Auto) 0.5, Neutrophils # (Auto) 2.5, Lymphocytes # (Auto) 2.1, Monocytes # (Auto) 0.6, Eosinophils # (Auto) 0.4, Basophils # (Auto) 0.0, Calcium Level 8.3 L GARY LEVINE MD Jun 09, 2018 14:47
[2018-06-09 20:00] VITALS: BP 148/74
[2018-06-09] MEDS: TAMSULOSIN 0.4 MG CAP PO SCH (21:47)
[2018-06-09] MEDS: SENNA 8.6 MG TAB (SENOKOT) PO SCH (21:47)
[2018-06-09] MEDS: ATORVASTATIN 20 MG TAB PO SCH (21:48)
[2018-06-09] MEDS: **NOTE PATIENT COMMENT** MISC XX SCH (21:52)
[2018-06-10] MEDS: HEPARIN SOD (PORCINE) 5000 UNITS/ML VIAL SQ SCH ×2 (05:29→13:41)
[2018-06-10] MEDS: oxyCODONE 5MG TAB PO PRN ×3 (05:30→13:40)
[2018-06-10] MEDS: ACETAMINOPHEN 500 MG TAB PO SCH ×2 (05:31→13:40)
[2018-06-10 06:00] VITALS: BP 138/71
[2018-06-10 07:10] LABS: ALBUMIN 3.1 GM/DL (3.2-5.2); ALT/SGPT 36 U/L (12-78); BILIRUBIN,DIRECT < 0.1 MG/DL (0.0-0.2); BILIRUBIN,TOTAL 0.3 MG/DL (0.2-1.0); TOTAL PROTEIN 5.9 GM/DL (6.4-8.2)
[2018-06-10] MEDS: BISACODYL 10 MG SUPP PR SCH (09:00)
[2018-06-10] MEDS: HumaLOG INSULIN (NovoLOG) PER UNIT SC SCH ×2 (09:35→12:11)
[2018-06-10 09:36] VITALS: BP 122/70
[2018-06-10] MEDS: LEVEMIR (INSULIN DETEMIR) 1 UNITS/0.01ML SC SCH (09:36)
[2018-06-10] MEDS: CLOPIDOGREL 75 MG TAB PO SCH (09:36)
[2018-06-10] MEDS: CARVedilol 3.125 MG TAB PO SCH (09:36)
[2018-06-10] MEDS: ASPIRIN 81 MG CHEW TABLET PO SCH (09:36)
[2018-06-10] MEDS: FERROUS GLUCONATE 324 MG TAB PO SCH (09:36)
[2018-06-10] MEDS: GABAPENTIN 300 MG CAP PO SCH (09:37)
[2018-06-10] MEDS: PANTOPRAZOLE 40MG TAB (PROTONIX) PO SCH (09:37)
[2018-06-10] MEDS: DOCUSATE SODIUM 100 MG CAP PO SCH (09:37)
[2018-06-10] MEDS: LIDOCAINE 5% (LIDODERM) PATCH TD SCH (09:37)
[2018-06-10] MEDS: LACTOBACILLUS ACIDOPHILUS CAP (BACID) PO SCH ×2 (09:37→12:11)
--- NOTE | 2018-06-10 18:27 | PMRDS ---
DATE OF ADMISSION: 05/15/2018 DATE OF DISCHARGE: CHIEF COMPLAINT/DISCHARGE DIAGNOSIS: Right below-knee amputation. HISTORY OF PRESENT ILLNESS: This is a 73-year-old man with a past medical history of peripheral arterial disease, diabetes, hypertension, chronic kidney disease (CKD), cerebrovascular accident (CVA) with residual left-sided weakness who developed worsening right foot pain and was evaluated at [facility] Emergency Department on 05/11/2018 and found to have ischemia of his limbs, for which a vascular consult was placed. He underwent an aortoilial femoral arteriogram with right lower extremity runoff and placement of the thrombolysis catheter from right distal superficial femoral artery to right distal posterior tibial artery across popliteal/tibial occlusion. On 05/12/2018, the tPA lysis catheter was removed, and vascular surgery discussed need for below-knee amputation (BKA) versus above-knee amputation (AKA), as his right foot was not salvageable. His Plavix and aspirin were held, so on 05/13/2018 he underwent a right BKA without significant complications, and a knee immobilizer was placed. His pain was controlled with Valium, Percocet, and Plavix to get held for at least 1 week postoperative per vascular team. He was evaluated by therapy and found to have significant gait and activities of daily living (ADL) impairments and deemed medically appropriate for discharge to acute rehabilitation unit (ARU) on 05/15/2018. PAST MEDICAL HISTORY: As per history of present illness (HPI). HOSPITAL COURSE: Patient was admitted and enrolled in a comprehensive physical therapy (PT)/occupational therapy (OT) program. He received 24-hour nursing supervision, and weekly team meetings were held to discuss his progress. His right residual limb was dressed daily. He was started on Keflex for suspected cellulitis with gradual improvement of erythema and pain. 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 For his pain he was maintained on oxycodone. His valium was gradually tapered, and he was trialed on Elavil for evening neuropathic pain; however, he reported dizziness, so this was discontinued. He was also maintained on gabapentin for nerve pain. Patient had an episode of left popliteus tendinopathy resulting in left knee buckling that resolved, and he had transient left-sided radicular pain in his upper extremity, which also resolved with . He was maintained on heparin for deep vein thrombosis (DVT) prophylaxis. Dopplers were negative for DVT during his hospital course, and his diabetes was managed with insulin coverage. He initially presented with a cough and wheeze, which resolved with DuoNeb, and he remained clinically stable. He was deemed functionally and medically stable to return to home. DISCHARGE MEDICATIONS: - aspirin 81 - atorvastatin 80 - carvedilol 3.125 by mouth twice a day - Plavix 75 daily - gabapentin 400 three times a day - insulin 18 units twice a day - oxycodone - Protonix 40 daily - Flomax 0.4 mg at bedtime - trazodone 25 at bedtime FUNCTIONAL HISTORY UPON DISCHARGE: Patient was modified independent for all functional transfers. Able to ambulate 20 feet contact-guard assist with crutches and independent from a wheelchair level. Thank you for this referral.
== END 2018-06-10 14:30 | disposition home health service (06) | DRG 560 ==
LOC: M PM&R 16:45
PROVIDERS: ADMIT Physical Medicine & Rehabilitation; ATTEND Physical Medicine & Rehabilitation
DX: Z47.81 Encounter for orthopedic aftercare following surgical amputation (principal); I69.952 Hemiplegia and hemiparesis following unspecified cerebrovascular disease affecting left dominant side; D62 Acute posthemorrhagic anemia; I70.201 Unspecified atherosclerosis of native arteries of extremities, right leg; I12.9 Hypertensive chronic kidney disease with stage 1 through stage 4 chronic kidney disease, or unspecified chronic kidney disease; E11.22 Type 2 diabetes mellitus with diabetic chronic kidney disease; N18.3 Chronic kidney disease, stage 3 (moderate); Z89.511 Acquired absence of right leg below knee; Z79.82 Long term (current) use of aspirin; Z79.4 Long term (current) use of insulin; Z79.899 Other long term (current) drug therapy; E11.51 Type 2 diabetes mellitus with diabetic peripheral angiopathy without gangrene; E78.5 Hyperlipidemia, unspecified; N40.0 Benign prostatic hyperplasia without lower urinary tract symptoms; K21.9 Gastro-esophageal reflux disease without esophagitis; F10.10 Alcohol abuse, uncomplicated; G47.00 Insomnia, unspecified

== ENCOUNTER → 2018-08-17 | Outpatient (CLI) | payer MEDICARE, MEDICAID ==
[~2018-08-17] MED LIST changes: +AMIT25TA PO; +AMLO10TA5 PO; +ASPI-286 PO; +ASPI81TAEC PO; +ATOR1TAB21 PO; +DEXT50IN6 IV; +DIAZ5TAB PO; +FLOM0.4C39 PO; +GABA-845 PO; +GLUC1INJ21 SC; +GLUC4CHW19 PO; +HYDR-2541 PO; +INSUDET SC; +INSUHUMDS SC; +IPRA0.00 NEB; +LISI-538 PO; +OXYCO5TA PO; +PANT40TA3 PO; +PERCOCET PO; +PROT40IN4 IV; +TRAZ1TAB11 PO
== END ==
LOC: M PT 09:52
PROVIDERS: ATTEND Surgery Vascular Surgery
DX: Z89.511 Acquired absence of right leg below knee (principal)

== ENCOUNTER → 2019-03-24 | Outpatient (REF) | payer MEDICARE, MEDICAID ==
[~2019-03-24] MED LIST changes: +LISI20TA20 PO; -LISI20TA3 PO
[2019-03-24 17:44] LABS: COMPLEMENT C3 110 MG/DL (90-180); COMPLEMENT C4 11 MG/DL (10-40); TOTAL PROTEIN 6.3 GM/DL (6.4-8.2)
[2019-03-24 18:01] LABS: URINE TOTAL PROTEIN 264.6 MG/DL (0-12)
[2019-03-25 12:12] LABS: ALBUMIN 4.07 GM/DL (3.29-5.55); ALBUMIN % 64.6 % (55.8-66.1); ALPHA-1-GLOBULIN % 3.7 % (2.9-4.9); ALPHA-2-GLOBULINS % 11.7 % (7.1-11.8); BETA-1-GLOBULINS % 6.3 % (4.7-7.2); GAMMA GLOBULIN % 9.7 % (11.1-18.8)
[2019-03-25 12:13] LABS: ALPHA-1-GLOBULINS 0.23 GM/DL (0.17-0.41); ALPHA-2-GLOBULINS 0.74 GM/DL (0.42-0.99); BETA-2-GLOBULINS 0.25 GM/DL (0.19-0.55); GAMMA GLOBULINS 0.61 GM/DL (0.65-1.58)
[2019-03-25 15:14] LABS: HEPATITIS B SURFACE ANTIGEN NEGATIVE (NEGATIVE)
[2019-03-26 10:17] LABS: HEPATITIS B SURFACE ANTIBODY NEGATIVE (POSITIVE)
[2019-03-26 12:30] LABS: HEPATITIS B CORE ANTIBODY IGM NEGATIVE (NEGATIVE); HEPATITIS C VIRUS ABY INDEX < 0.0 INDEX (<0.8)
== END ==
LOC: M LAB REF 16:57
PROVIDERS: ATTEND Internal Medicine Nephrology
DX: R80.9 Proteinuria, unspecified (principal)

== ENCOUNTER → 2020-08-15 | Outpatient (REF) | payer MEDICARE, MEDICAID ==
[~2020-08-15] MED LIST changes: -AMIT25TA PO; +AMIT25TA17 PO; -AMLO10TA5 PO; +AMLO1TAB25 PO; +ASPI-569 PO; -ASPI81TA85 PO; +ASPI81TA86 PO; -ASPI81TAEC PO; +GABA-283 PO; -GABA-845 PO; -GLUC4CHW19 PO; +HYDR-3490 PO; -HYDR25TAB PO; -LISI-538 PO; +LISI20TA33 PO; +PANT40TA29 PO; -PANT40TA3 PO; +SFHGLU4TA PO
[2020-08-15 18:57] LABS: MAU/CREAT RATIO 5090.9 MCG/MG (0.0-30.0)
== END ==
LOC: M LAB REF 17:00
PROVIDERS: ATTEND Nurse Practitioner Family
DX: E11.65 Type 2 diabetes mellitus with hyperglycemia (principal)

== ENCOUNTER → 2020-10-16 | Outpatient (CLI) | payer MEDICARE, MEDICAID ==
[~2020-10-16] MED LIST changes: -LISI20TA20 PO; +LISI20TA37 PO
[2020-10-16 18:01] LABS: BASO # 0.1 10^3/uL (0.0-0.2); BASO % 0.7 % (0.0-1.0); EOS # 0.4 10^3/uL (0.0-0.5); EOS % 5.8 % (0.0-3.0); HEMATOCRIT 46.2 % (42.0-52.0); HEMOGLOBIN 15.4 g/dl (13.5-17.5); LYMPH # 2.2 10^3/uL (1.5-5.0); LYMPH % 32.4 % (24.0-44.0); MEAN CORPUSCULAR HEMOGLOBIN 29.1 pg (27.0-33.0); MEAN CORPUSCULAR HGB CONC 33.3 g/dl (32.0-36.5); MEAN CORPUSCULAR VOLUME 87.3 fl (80.0-96.0); MONO # 0.5 10^3/uL (0.0-0.8); NEUTROPHILS # 3.6 10^3/uL (1.5-8.5); NEUTROPHILS % 53.5 % (36.0-66.0); PLATELET COUNT, AUTOMATED 242 10^3/uL (150-450); RED BLOOD COUNT 5.29 10^6/uL (4.30-6.10); WHITE BLOOD COUNT 6.8 10^3/uL (4.0-10.0)
[2020-10-16 18:33] LABS: ALBUMIN 3.4 GM/DL (3.2-5.2); BILIRUBIN,TOTAL 0.2 MG/DL (0.2-1.0); C REACTIVE PROTEIN QUANTITATIV 0.42 MG/DL (0.00-0.30); CALCIUM LEVEL 8.1 MG/DL (8.8-10.2); CREATININE FOR GFR 1.77 MG/DL (0.70-1.30); GLOMERULAR FILTRATION RATE 40.3 (>42); POTASSIUM SERUM 4.6 MEQ/L (3.5-5.1); TOTAL PROTEIN 6.4 GM/DL (6.4-8.2)
== END ==
LOC: M RAD 16:52
PROVIDERS: ATTEND Internal Medicine Cardiovascular Disease
DX: R06.02 Shortness of breath (principal); R07.2 Precordial pain; I11.0 Hypertensive heart disease with heart failure; I50.32 Chronic diastolic (congestive) heart failure

== ENCOUNTER → 2020-11-02 | Outpatient (CLI) | payer MEDICARE, MEDICAID ==
[~2020-11-02] MED LIST changes: +LISI20TA20 PO; -LISI20TA37 PO
--- NOTE | 2020-11-02 13:22 | REP ---
INDICATION: CHEST PAIN COMPARISON: None. TECHNIQUE: PA and lateral. FINDINGS: The mediastinum and cardiac silhouette are normal/stable with calcified lymph nodes again noted and unchanged. The lung goodman are clear and without acute consolidation, effusion, or pneumothorax. The skeletal structures are intact and normal. Few scattered calcified granulomata noted. IMPRESSION: No acute cardiopulmonary process. Prior granulomatous disease. <Electronically signed by Errol Biggs > 11/02/20 [id number]
--- NOTE | 2020-11-02 13:56 | REP ---
INDICATION: CHEST PAIN. COMPARISON: Comparison chest x-ray earlier this date. TECHNIQUE: 1.0 mCi of technetium 99m DTPA aerosol is utilized for the ventilation study and is followed by a 5.5 mCi dose of intravenous technetium 99m MAA for the perfusion study. A sequence of 8 planar images are acquired for each portion of the study. FINDINGS: Ventilation study shows some central bronchial fairly homogeneous ventilation distribution of tracer to the lung goodman. The perfusion study deposition bilaterally. Also shows homogeneous uptake. There is once ventilation perfusion defect which is matched in the right lower lobe distribution. No mismatch defect is seen. IMPRESSION: Low probability scan for pulmonary embolus. <Electronically signed by Lyndon Mcdowell > 11/02/20 [id number]
== END ==
LOC: M RAD 12:10
PROVIDERS: ATTEND Internal Medicine Cardiovascular Disease
DX: R06.02 Shortness of breath (principal); R07.2 Precordial pain
CPT/HCPCS: 71046; 78582; A9540; A9567

== ENCOUNTER → 2021-02-15 | Outpatient (REF) | payer MEDICARE, MEDICAID ==
[2021-02-15 18:40] LABS: CREATININE, URINE 93.7 MG/DL; MAU/CREAT RATIO 1995.7 MCG/MG (0.0-30.0)
== END ==
LOC: M LAB REF 17:35
PROVIDERS: ATTEND Nurse Practitioner Family
DX: E11.65 Type 2 diabetes mellitus with hyperglycemia (principal)

== ENCOUNTER → 2021-11-06 | Outpatient (REF) | payer MEDICARE, MEDICAID ==
[~2021-11-06] MED LIST changes: -ASPI-286 PO; -LISI20TA20 PO; +LISI20TA37 PO; +SM C81CH2 PO
[2021-11-06 19:40] LABS: PERCENT SATURATION 28.6 % (19.7-50.0)
== END ==
LOC: M LAB REF 17:14
PROVIDERS: ATTEND Internal Medicine Nephrology
DX: E61.1 Iron deficiency (principal); D63.1 Anemia in chronic kidney disease; N18.9 Chronic kidney disease, unspecified

== ENCOUNTER → 2022-05-15 | Outpatient (REF) | payer MEDICARE, MEDICAID ==
[~2022-05-15] MED LIST changes: +CLOP75TA99 PO; +INSU100I6 SC; -LEVE1INJ5 SC; -PLAV1TAB2 PO
[2022-05-15 14:22] LABS: POTASSIUM SERUM 4.9 MMOL/L (3.5-5.1)
== END ==
LOC: M LAB REF 13:06
PROVIDERS: ATTEND Internal Medicine Nephrology
DX: N18.32 Chronic kidney disease, stage 3b (principal)

== ENCOUNTER → 2022-08-15 | Outpatient (CLI) | payer MEDICARE, MEDICAID | LOC: M RAD 12:43 | PROVIDERS: ATTEND Internal Medicine Nephrology | DX: N18.32 Chronic kidney disease, stage 3b (principal); N28.89 Other specified disorders of kidney and ureter ==

== ENCOUNTER → 2023-03-17 | Outpatient (REF) | payer MEDICARE, MEDICAID ==
[~2023-03-17] MED LIST changes: -AMIT25TA17 PO; +AMIT25TA19 PO; -GABA-283 PO; +GABA-284 PO; +GLIP5TAB17 PO; -GLIP5TAB8 PO
[2023-03-17 20:03] LABS: CREATININE,RANDOM URINE 83.9 MG/DL
[2023-03-17 20:04] LABS: TOTAL PROTEIN,RANDOM URINE 245.3 MG/DL (0.0-14.0)
== END ==
LOC: M LAB REF 16:52
PROVIDERS: ATTEND Internal Medicine Nephrology
DX: N18.32 Chronic kidney disease, stage 3b (principal)

== ENCOUNTER 2023-06-20 13:31 | Observation (INO) | payer MEDICARE, MEDICAID ==
[~2023-06-20] VITALS: Ht 172.7 cm; Wt 90.0 kg
[2023-06-20] MEDS ORDERED: IPRATROPIUM 0.5MG/ALBUTEROL 2.5MG INH SOL UD 3ML (DUONEB) NEB PRN (14:15)
[2023-06-20 14:59] LABS: VENOUS BASE EXCESS 5.3 (-2.0-2.0); VENOUS HCO3 29.9 MMOL/L (23.0-27.0); VENOUS O2 SATURATION 62.6 % (60.0-80.0); VENOUS PARTIAL PRESSURE O2 31.3 mmHg (30.0-50.0); VENOUS STANDARD HCO3 28.4 MMOL/L; VENOUS TOTAL CO2 31.2 MMOL/L (24.0-28.0)
[2023-06-20 15:07] LABS: BASO # 0.1 10^3/uL (0.0-0.2); BASO % 0.4 % (0.0-1.0); EOS # 0.2 10^3/uL (0.0-0.5); HEMATOCRIT 33.6 % (42.0-52.0); HEMOGLOBIN 11.3 g/dl (13.5-17.5); LYMPH # 0.8 10^3/uL (1.5-5.0); LYMPH % 6.5 % (24.0-44.0); MEAN CORPUSCULAR HEMOGLOBIN 30.6 pg (27.0-33.0); MEAN CORPUSCULAR HGB CONC 33.6 g/dl (32.0-36.5); MEAN CORPUSCULAR VOLUME 91.1 fl (80.0-96.0); MONO # 0.7 10^3/uL (0.0-0.8); NEUTROPHILS # 10.2 10^3/uL (1.5-8.5); NEUTROPHILS % 84.4 % (36.0-66.0); PLATELET COUNT, AUTOMATED 234 10^3/uL (150-450); RED BLOOD COUNT 3.69 10^6/uL (4.30-6.10); WHITE BLOOD COUNT 12.1 10^3/uL (4.0-10.0)
[2023-06-20 15:18] LABS: INR 1.01
[2023-06-20 15:27] LABS: C REACTIVE PROTEIN QUANTITATIV 1.7 MG/DL (<1.0)
[2023-06-20 15:28] LABS: CK-MB VALUE MASS 2.8 NG/ML (<3.6)
[2023-06-20 15:29] LABS: ALBUMIN 3.9 G/DL (3.2-5.2); BILIRUBIN,DIRECT 0.3 MG/DL (<0.4); BILIRUBIN,TOTAL 0.9 MG/DL (0.3-1.2); CALCIUM LEVEL 8.6 MG/DL (8.3-10.6); CREATININE FOR GFR 2.71 MG/DL (0.70-1.30); GLOMERULAR FILTRATION RATE 24.5 (>42); MB/CK RELATIVE INDEX 0.98 (< OR =4); POTASSIUM SERUM 4.1 MMOL/L (3.5-5.1); TOTAL PROTEIN 6.5 G/DL (5.7-8.2)
[2023-06-20 15:33] LABS: FREE T4 1.16 NG/DL (0.89-1.76); THYROID STIMULATING HORMONE 1.137 uIU/ML (0.55-4.78)
[2023-06-20 15:38] LABS: PROCALCITONIN 0.17 ng/ml
[2023-06-20] MEDS ORDERED: methylPREDNISolone 40MG 1ML VIAL IV ONE (15:50)
[2023-06-20] MEDS ORDERED: ONDANSETRON 4MG 2ML VIAL IV PRN (17:15)
[2023-06-20] MEDS ORDERED: DEXTROSE 50% 50ML SYRINGE IV PRN (17:30)
[2023-06-20] MEDS ORDERED: GLUCOSE 4GM CHEW TABLET PO PRN (17:30)
[2023-06-20] MEDS ORDERED: GLUCAGON INJ 1MG VIAL SC PRN (17:30)
[2023-06-20] MEDS ORDERED: IPRA0.00 INH (17:54)
[2023-06-20] MEDS ORDERED: TRAZ-252 PO (17:54)
[2023-06-20] MEDS ORDERED: D-101000 PO (17:54)
[2023-06-20] MEDS ORDERED: INSUDET SC (17:54)
[2023-06-20] MEDS ORDERED: ATOR80TA59 PO (17:54)
[2023-06-20] MEDS ORDERED: NOVOINJ3 SC (17:54)
[2023-06-20] MEDS ORDERED: ASPI81CH33 PO (17:54)
[2023-06-20] MEDS ORDERED: AMLO1TAB25 PO (17:54)
[2023-06-20] MEDS ORDERED: ALBU8.5H INH (17:54)
[2023-06-20] MEDS ORDERED: GABA800T4 PO (17:54)
[2023-06-20] MEDS ORDERED: GABA-284 PO (17:54)
[2023-06-20] MEDS ORDERED: FLUTISP NARES (17:54)
[2023-06-20] MEDS ORDERED: FAMO40TA3 PO (17:54)
[2023-06-20] MEDS ORDERED: OMEP40CA5 PO (17:54)
[2023-06-20] MEDS ORDERED: DULA3PEN INJ (17:54)
[2023-06-20] MEDS ORDERED: HYDR12.55 PO (17:54)
[2023-06-20] MEDS ORDERED: HOME MED LIST COMPLETE! XX SCH (18:00)
[2023-06-20] MEDS: NS 500 ML IV ONE (18:15)
[2023-06-20] MEDS: ACETAMINOPHEN TAB 650MG DOSE (2X325MG) PO PRN (18:15)
[2023-06-20] MEDS: methylPREDNISolone 125MG 2ML VIAL IV ONE (18:16)
[2023-06-20] MEDS: OSELTAMIVIR PHOSPHATE 30MG CAPSULE PO ONE (18:16)
[2023-06-20] MEDS: PANTOPRAZOLE 40MG VIAL IV SCH (18:16)
[2023-06-20 18:30] LABS: CK-MB VALUE MASS 2.5 NG/ML (<3.6)
[2023-06-20 18:32] LABS: MB/CK RELATIVE INDEX 0.62 (< OR =4)
[2023-06-20] MEDS: INSULIN LISPRO (NovoLOG) PER UNIT SC SCH ×2 (18:32→21:00)
[2023-06-20] MEDS: IPRATROPIUM 0.5MG/ALBUTEROL 2.5MG INH SOL UD 3ML (DUONEB) NEB SCH (20:00)
[2023-06-20] MEDS: GABAPENTIN 400MG CAP PO SCH (21:30)
[2023-06-20] MEDS: guaiFENesin ER TABLET 600 MG TAB PO SCH (21:30)
[2023-06-20] MEDS: TAMSULOSIN 0.4 MG CAP PO SCH (21:30)
[2023-06-20] MEDS: traZODone 50 MG TAB PO SCH (21:30)
[2023-06-20] MEDS: hydroCHLOROthiazide 12.5 MG CAPSULE PO SCH (21:31)
[2023-06-20 22:00] VITALS: O2SAT 90
[2023-06-20 22:05] VITALS: BP 116/58; TEMP 98.6; O2SAT 91
[2023-06-20 23:35] VITALS: O2SAT 89
[2023-06-20] MEDS: ALBUTEROL SULFATE 2.5MG/0.5ML INH NEB SOLN NEB PRN (23:52)
[2023-06-21 01:35] VITALS: O2SAT 94
[2023-06-21 02:17] VITALS: O2SAT 94
[2023-06-21] MEDS: HEPARIN SOD (PORCINE) 5000UNITS/ML 1ML VIAL/SYRINGE SC SCH (05:42)
[2023-06-21 06:20] VITALS: BP 117/66; TEMP 98.1; O2SAT 95
[2023-06-21 06:24] LABS: HEMATOCRIT 31.1 % (42.0-52.0); HEMOGLOBIN 10.3 g/dl (13.5-17.5); MEAN CORPUSCULAR HEMOGLOBIN 30.1 pg (27.0-33.0); MEAN CORPUSCULAR HGB CONC 33.1 g/dl (32.0-36.5); MEAN CORPUSCULAR VOLUME 90.9 fl (80.0-96.0); PLATELET COUNT, AUTOMATED 209 10^3/uL (150-450); RED BLOOD COUNT 3.42 10^6/uL (4.30-6.10); WHITE BLOOD COUNT 9.8 10^3/uL (4.0-10.0)
[2023-06-21 06:48] LABS: CALCIUM LEVEL 8.5 MG/DL (8.3-10.6); CREATININE FOR GFR 4.3 MG/DL (0.70-1.30); GLOMERULAR FILTRATION RATE 14.4 (>42)
[2023-06-21] MEDS: LEVEMIR (INSULIN DETEMIR) 1 UNITS/0.01ML SC SCH ×2 (09:00→21:12)
[2023-06-21] MEDS: ATORVASTATIN 20 MG TAB PO SCH (09:16)
[2023-06-21] MEDS: FAMOTIDINE 20 MG TAB PO SCH (09:16)
[2023-06-21] MEDS: OMEPRAZOLE 20MG CAP PO SCH (09:16)
[2023-06-21] MEDS: ASPIRIN 81MG CHEW TABLET PO SCH (09:16)
[2023-06-21] MEDS: CLOPIDOGREL 75 MG TAB PO SCH (09:17)
[2023-06-21] MEDS: predniSONE 20 MG TAB PO SCH (09:17)
[2023-06-21 14:00] VITALS: BP 90/44; TEMP 98.1; O2SAT 88
[2023-06-21] MEDS: NS 500 ML IV ONE (14:39)
[2023-06-21] MEDS ORDERED: ISOVUE-370 76% 100ML VIAL As Ordered ONE (15:15)
[2023-06-21 16:00] VITALS: BP 111/54
[2023-06-21] MEDS: INSULIN LISPRO (NovoLOG) PER UNIT SC ONE (17:39)
[2023-06-21 20:52] VITALS: BP 101/55; TEMP 98.2; O2SAT 93
[2023-06-21] MEDS: guaiFENesin ER TABLET 600 MG TAB PO SCH (21:11)
[2023-06-21] MEDS: BENZONATATE 100MG CAPSULE PO SCH (21:12)
[2023-06-22 05:43] VITALS: BP 118/92; TEMP 98.6; O2SAT 96
[2023-06-22 07:18] LABS: BASO % 0.1 % (0.0-1.0); HEMATOCRIT 29.2 % (42.0-52.0); HEMOGLOBIN 9.6 g/dl (13.5-17.5); LYMPH # 0.8 10^3/uL (1.5-5.0); LYMPH % 4.8 % (24.0-44.0); MEAN CORPUSCULAR HEMOGLOBIN 30.5 pg (27.0-33.0); MEAN CORPUSCULAR HGB CONC 32.9 g/dl (32.0-36.5); MEAN CORPUSCULAR VOLUME 92.7 fl (80.0-96.0); NEUTROPHILS # 14.6 10^3/uL (1.5-8.5); NEUTROPHILS % 88.5 % (36.0-66.0); PLATELET COUNT, AUTOMATED 216 10^3/uL (150-450); RED BLOOD COUNT 3.15 10^6/uL (4.30-6.10); WHITE BLOOD COUNT 16.5 10^3/uL (4.0-10.0)
[2023-06-22 07:38] LABS: CALCIUM LEVEL 8.1 MG/DL (8.3-10.6); CREATININE FOR GFR 5.93 MG/DL (0.70-1.30); GLOMERULAR FILTRATION RATE 9.9 (>42); POTASSIUM SERUM 4.5 MMOL/L (3.5-5.1)
[2023-06-22 08:05] LABS: PROCALCITONIN 0.28 ng/ml
[2023-06-22 09:00] VITALS: O2SAT 91
[2023-06-22 14:00] VITALS: BP 130/67; TEMP 98.6; O2SAT 90
[2023-06-22 20:50] VITALS: BP 108/59; TEMP 98.8; O2SAT 90
[2023-06-22] MEDS: GABAPENTIN 400MG CAP PO SCH (21:51)
[2023-06-22] MEDS: DEXTROMETHORPHAN 60MG/10ML SUSP 90ML BTL(DELSYM) PO SCH (21:52)
[2023-06-23 05:30] VITALS: BP 119/65; TEMP 98.2; O2SAT 91
[2023-06-23] MEDS ORDERED: HEPARIN 1,000UNITS/ML 10ML VIAL (FOR RADIOLOGY & DIALYSIS ONLY) XX SCH (06:00)
[2023-06-23] MEDS ORDERED: SODIUM CHLORIDE 0.9% 1000ML IV PRN (06:00)
[2023-06-23] MEDS ORDERED: HEPARIN 1,000UNITS/ML 10ML VIAL (FOR RADIOLOGY & DIALYSIS ONLY) IV PRN (06:00)
[2023-06-23 06:31] LABS: BASO % 0.1 % (0.0-1.0); HEMATOCRIT 28.7 % (42.0-52.0); HEMOGLOBIN 9.5 g/dl (13.5-17.5); LYMPH % 7.8 % (24.0-44.0); MEAN CORPUSCULAR HEMOGLOBIN 30.1 pg (27.0-33.0); MEAN CORPUSCULAR HGB CONC 33.1 g/dl (32.0-36.5); MEAN CORPUSCULAR VOLUME 90.8 fl (80.0-96.0); MONO # 0.7 10^3/uL (0.0-0.8); MONO % 5.8 % (2.0-8.0); NEUTROPHILS # 10.7 10^3/uL (1.5-8.5); NEUTROPHILS % 85.5 % (36.0-66.0); PLATELET COUNT, AUTOMATED 231 10^3/uL (150-450); RED BLOOD COUNT 3.16 10^6/uL (4.30-6.10); WHITE BLOOD COUNT 12.5 10^3/uL (4.0-10.0)
[2023-06-23 06:55] LABS: CALCIUM LEVEL 7.7 MG/DL (8.3-10.6); CREATININE FOR GFR 7.7 MG/DL (0.70-1.30); GLOMERULAR FILTRATION RATE 7.3 (>42); POTASSIUM SERUM 3.9 MMOL/L (3.5-5.1)
[2023-06-23] MEDS: LEVEMIR (INSULIN DETEMIR) 1 UNITS/0.01ML SC ONE (07:47)
[2023-06-23 07:56] VITALS: O2SAT 94
[2023-06-23 14:00] VITALS: BP 164/65; TEMP 98.1; O2SAT 94
[2023-06-23] MEDS: OSELTAMIVIR PHOSPHATE 30MG CAPSULE PO SCH (17:16)
[2023-06-23 20:00] VITALS: BP 134/72; TEMP 98.9; O2SAT 95
[2023-06-23] MEDS: LEVEMIR (INSULIN DETEMIR) 1 UNITS/0.01ML SC SCH (21:20)
[2023-06-24 05:30] VITALS: BP 117/64; TEMP 98.8; O2SAT 92
[2023-06-24 06:19] LABS: BASO % 0.1 % (0.0-1.0); EOS % 0.1 % (0.0-3.0); HEMATOCRIT 27.9 % (42.0-52.0); HEMOGLOBIN 9.3 g/dl (13.5-17.5); LYMPH # 1.4 10^3/uL (1.5-5.0); MEAN CORPUSCULAR HEMOGLOBIN 30.6 pg (27.0-33.0); MEAN CORPUSCULAR HGB CONC 33.3 g/dl (32.0-36.5); MEAN CORPUSCULAR VOLUME 91.8 fl (80.0-96.0); MONO # 0.8 10^3/uL (0.0-0.8); MONO % 9.6 % (2.0-8.0); NEUTROPHILS # 5.7 10^3/uL (1.5-8.5); NEUTROPHILS % 70.9 % (36.0-66.0); PLATELET COUNT, AUTOMATED 229 10^3/uL (150-450); RED BLOOD COUNT 3.04 10^6/uL (4.30-6.10)
[2023-06-24 06:55] LABS: CALCIUM LEVEL 7.7 MG/DL (8.3-10.6); CREATININE FOR GFR 4.54 MG/DL (0.70-1.30); GLOMERULAR FILTRATION RATE 13.5 (>42); POTASSIUM SERUM 3.6 MMOL/L (3.5-5.1)
[2023-06-24 08:16] VITALS: BP 138/75
[2023-06-24] MEDS ORDERED: PRED10TA2 PO (08:42)
[2023-06-24] MEDS ORDERED: OSEL30CA PO (08:42)
[2023-06-24 09:00] VITALS: O2SAT 92
[2023-06-24] MEDS ORDERED: GABA800T4 PO (11:44)
== END 2023-06-24 12:12 | disposition home health service (06) ==
LOC: M ED 13:31 → M ED INP 13:32 → M MSPAV 21:55
PROVIDERS: ADMIT Internal Medicine; ATTEND Internal Medicine
DX: J09.X2 Influenza due to identified novel influenza A virus with other respiratory manifestations (principal); R65.10 Systemic inflammatory response syndrome (SIRS) of non-infectious origin without acute organ dysfunction; R55 Syncope and collapse; D72.829 Elevated white blood cell count, unspecified; J44.1 Chronic obstructive pulmonary disease with (acute) exacerbation; E87.20 Acidosis, unspecified; R07.9 Chest pain, unspecified; R11.2 Nausea with vomiting, unspecified; R19.7 Diarrhea, unspecified; R50.9 Fever, unspecified; R05.1 Acute cough; R91.1 Solitary pulmonary nodule; N18.6 End stage renal disease; Z99.2 Dependence on renal dialysis; D63.1 Anemia in chronic kidney disease; I12.0 Hypertensive chronic kidney disease with stage 5 chronic kidney disease or end stage renal disease; E11.22 Type 2 diabetes mellitus with diabetic chronic kidney disease; I25.10 Atherosclerotic heart disease of native coronary artery without angina pectoris; N40.0 Benign prostatic hyperplasia without lower urinary tract symptoms; I73.9 Peripheral vascular disease, unspecified; Z89.511 Acquired absence of right leg below knee; K21.9 Gastro-esophageal reflux disease without esophagitis; G47.00 Insomnia, unspecified; E11.40 Type 2 diabetes mellitus with diabetic neuropathy, unspecified; Z86.73 Personal history of transient ischemic attack (TIA), and cerebral infarction without residual deficits; Z79.899 Other long term (current) drug therapy; Z79.82 Long term (current) use of aspirin; Z79.02 Long term (current) use of antithrombotics/antiplatelets; Z79.4 Long term (current) use of insulin; Z79.52 Long term (current) use of systemic steroids
CPT/HCPCS: 36415; 71045; 71275; 80048; 80076; 82550; 82553; 82803; 83605; 83880; 84145; 84439; 84443; 84484; 85025; 85027; 85610; 86140; 87040; 87486; 87581; 87633; 87798; 90935; 93005; 93041; 94640; 94760; 96361; 96372; 96374; 96375; 96376; 97116; 97161; 97530; 99285; C9113; G0378; J1815; J2919; J7512; Q9967

== ENCOUNTER 2023-06-27 17:16 | Observation (INO) | payer MEDICARE, MEDICAID ==
[~2023-06-27] VITALS: Ht 172.7 cm; Wt 82.9 kg
[~2023-06-27 17:16] MED LIST changes: +ALBU8.5H INH; +ASPI81CH33 PO; +D-101000 PO; +DULA3PEN INJ; +FAMO40TA3 PO; +FLUTISP NARES; +GABA800T4 PO; +HYDR12.55 PO; +IPRA0.00 INH; +NOVOINJ3 SC; +OMEP40CA5 PO; +OSEL30CA PO; +PRED10TA2 PO; +TRAZ-252 PO
[2023-06-27 17:57] LABS: VENOUS BASE EXCESS 5.5 (-2.0-2.0); VENOUS O2 SATURATION 91.3 % (60.0-80.0); VENOUS PARTIAL PRESSURE CO2 43.2 mmHg (38.0-50.0); VENOUS PH 7.459 UNITS (7.330-7.430); VENOUS STANDARD HCO3 29.3 MMOL/L; VENOUS TOTAL CO2 31.3 MMOL/L (24.0-28.0)
[2023-06-27 18:01] LABS: BASO % 0.3 % (0.0-1.0); EOS # 0.1 10^3/uL (0.0-0.5); EOS % 1.1 % (0.0-3.0); HEMATOCRIT 34.2 % (42.0-52.0); HEMOGLOBIN 11.7 g/dl (13.5-17.5); LYMPH # 1.8 10^3/uL (1.5-5.0); MEAN CORPUSCULAR HEMOGLOBIN 30.1 pg (27.0-33.0); MEAN CORPUSCULAR HGB CONC 34.2 g/dl (32.0-36.5); MEAN CORPUSCULAR VOLUME 87.9 fl (80.0-96.0); MONO % 9.2 % (2.0-8.0); NEUTROPHILS # 7.5 10^3/uL (1.5-8.5); NEUTROPHILS % 69.9 % (36.0-66.0); PLATELET COUNT, AUTOMATED 235 10^3/uL (150-450); RED BLOOD COUNT 3.89 10^6/uL (4.30-6.10); WHITE BLOOD COUNT 10.7 10^3/uL (4.0-10.0)
[2023-06-27 18:26] LABS: CALCIUM LEVEL 8.4 MG/DL (8.3-10.6); CK-MB VALUE MASS 4.4 NG/ML (<3.6); CREATININE FOR GFR 1.93 MG/DL (0.70-1.30); GLOMERULAR FILTRATION RATE 36.2 (>42); MAGNESIUM LEVEL 1.8 MG/DL (1.8-2.4); MB/CK RELATIVE INDEX 1.16 (< OR =4); POTASSIUM SERUM 3.2 MMOL/L (3.5-5.1)
[2023-06-27 18:28] LABS: FREE T4 1.29 NG/DL (0.89-1.76); THYROID STIMULATING HORMONE 1.356 uIU/ML (0.55-4.78)
[2023-06-27] MEDS: ACETAMINOPHEN 500 MG TAB PO ONE (18:51)
[2023-06-27 19:27] LABS: CK-MB VALUE MASS 4.6 NG/ML (<3.6)
[2023-06-27 19:28] LABS: MB/CK RELATIVE INDEX 1.32 (< OR =4)
[2023-06-27] MEDS ORDERED: OSEL30CA PO (20:22)
[2023-06-27] MEDS ORDERED: HOME MED LIST COMPLETE! XX SCH (20:30)
[2023-06-27] MEDS ORDERED: GLUCOSE 4GM CHEW TABLET PO PRN (21:40)
[2023-06-27] MEDS ORDERED: GLUCAGON INJ 1MG VIAL SC PRN (21:40)
[2023-06-27] MEDS ORDERED: DEXTROSE 50% 50ML SYRINGE IV PRN (21:40)
[2023-06-27] MEDS ORDERED: ACETAMINOPHEN TAB 650MG DOSE (2X325MG) PO PRN (21:40)
[2023-06-27] MEDS ORDERED: ALBUTEROL SULFATE 2.5MG/0.5ML INH NEB SOLN NEB PRN (21:50)
[2023-06-27] MEDS: IPRATROPIUM 0.5MG/ALBUTEROL 2.5MG INH SOL UD 3ML (DUONEB) NEB ONE (21:55)
[2023-06-27] MEDS: KCL 10MEQ/100ML SWI (KRUN) 10 MEQ in IV 1 EA IV SCH (22:30)
[2023-06-27] MEDS: PANTOPRAZOLE 40MG VIAL IV SCH (22:57)
[2023-06-27] MEDS: IPRATROPIUM 0.5MG/ALBUTEROL 2.5MG INH SOL UD 3ML (DUONEB) NEB SCH (23:03)
[2023-06-28] VITALS (10 sets, daily range): BP systolic 103–153; BP diastolic 56–78; TEMP 97–97.4; O2SAT 92–98
[2023-06-28] MEDS: DEXTROMETHORPHAN 60MG/10ML SUSP 90ML BTL(DELSYM) PO ONE (02:54)
[2023-06-28] MEDS: METOPROLOL TART 12.5 MG PER 1/2 TAB PO ONE (02:54)
[2023-06-28 06:24] LABS: CALCIUM LEVEL 7.8 MG/DL (8.3-10.6); CREATININE FOR GFR 2.91 MG/DL (0.70-1.30); GLOMERULAR FILTRATION RATE 22.5 (>42); POTASSIUM SERUM 3.6 MMOL/L (3.5-5.1)
[2023-06-28] MEDS ORDERED: ONDANSETRON 4MG ORAL DISINTEGRATING TAB SL PRN (07:15)
[2023-06-28] MEDS: ASPIRIN 81MG CHEW TABLET PO SCH (08:28)
[2023-06-28] MEDS: FAMOTIDINE 20 MG TAB PO SCH (08:28)
[2023-06-28] MEDS: GABAPENTIN 400MG CAP PO SCH (08:28)
[2023-06-28] MEDS: HEPARIN SOD (PORCINE) 5000UNITS/ML 1ML VIAL/SYRINGE SC SCH (08:28)
[2023-06-28] MEDS: ATORVASTATIN 20 MG TAB PO SCH (08:29)
[2023-06-28] MEDS: guaiFENesin ER TABLET 600 MG TAB PO SCH (08:29)
[2023-06-28] MEDS: CLOPIDOGREL 75 MG TAB PO SCH (08:29)
[2023-06-28] MEDS: predniSONE 10MG TAB PO SCH (08:29)
[2023-06-28] MEDS: INSULIN LISPRO (NovoLOG) PER UNIT SC SCH (08:30)
[2023-06-28] MEDS ORDERED: DEXTROMETHORPHAN 60MG/10ML SUSP 90ML BTL(DELSYM) PO PRN (10:00)
[2023-06-28] MEDS: SODIUM CHLORIDE 0.9% 250ML IV ONE ×2 (10:25→11:23)
[2023-06-28] MEDS ORDERED: METOPROLOL TART 12.5 MG PER 1/2 TAB PO SCH (12:00)
[2023-06-28] MEDS: SODIUM CHLORIDE 0.9% 1000ML IV ONE (12:34)
[2023-06-28] MEDS ORDERED: DELS30LI8 PO (13:29)
[2023-06-28] MEDS ORDERED: LISI20TA33 PO (13:29)
[2023-06-28] MEDS ORDERED: ONDA4TAB6 PO (13:38)
[2023-06-28] MEDS ORDERED: TAMSULOSIN 0.4 MG CAP PO SCH (21:00)
[2023-06-28] MEDS ORDERED: traZODone 50 MG TAB PO SCH (21:00)
[2023-06-28] MEDS ORDERED: hydroCHLOROthiazide 12.5 MG CAPSULE PO SCH (21:00)
[2023-06-28] MEDS ORDERED: INSULIN LISPRO (NovoLOG) PER UNIT SC SCH (21:00)
[2023-06-30] MEDS ORDERED: predniSONE 10MG TAB PO SCH (09:00)
[2023-07-03] MEDS ORDERED: predniSONE 10MG TAB PO SCH (09:00)
== END 2023-06-28 14:57 | disposition home or self-care (01) ==
LOC: M ED 17:16 → EDBD 17:16 → M ED INP 17:17 → ENRESERV 23:05 → M PCU 06-28 00:10
PROVIDERS: ADMIT Internal Medicine; ATTEND Internal Medicine
DX: R55 Syncope and collapse (principal); R05.4 Cough syncope; R11.2 Nausea with vomiting, unspecified; E86.0 Dehydration; R51.9 Headache, unspecified; I67.82 Cerebral ischemia; E87.6 Hypokalemia; Z87.09 Personal history of other diseases of the respiratory system; N18.6 End stage renal disease; Z99.2 Dependence on renal dialysis; R74.8 Abnormal levels of other serum enzymes; D63.1 Anemia in chronic kidney disease; I12.0 Hypertensive chronic kidney disease with stage 5 chronic kidney disease or end stage renal disease; G62.9 Polyneuropathy, unspecified; E78.5 Hyperlipidemia, unspecified; E11.51 Type 2 diabetes mellitus with diabetic peripheral angiopathy without gangrene; I73.9 Peripheral vascular disease, unspecified; Z89.512 Acquired absence of left leg below knee; J44.9 Chronic obstructive pulmonary disease, unspecified; N40.0 Benign prostatic hyperplasia without lower urinary tract symptoms; Z86.73 Personal history of transient ischemic attack (TIA), and cerebral infarction without residual deficits; Z79.899 Other long term (current) drug therapy; Z79.82 Long term (current) use of aspirin; Z79.4 Long term (current) use of insulin; Z79.02 Long term (current) use of antithrombotics/antiplatelets; Z87.891 Personal history of nicotine dependence; Z66 Do not resuscitate
CPT/HCPCS: 36415; 70450; 72125; 80048; 82550; 82553; 82803; 83735; 84439; 84443; 84484; 85025; 93005; 93041; 94640; 94760; 96365; 96366; 96372; 96375; 97161; 99285; C9113; G0378; J1815; J7512

== ENCOUNTER → 2024-04-15 | Outpatient (CLI) | payer MEDICARE, MEDICAID ==
[~2024-04-15] MED LIST changes: +DELS30LI8 PO; +GABA-1635 PO; -GABA800T4 PO; +ONDA-282 PO
== END ==
LOC: M EKG 15:03
PROVIDERS: ATTEND Registered Nurse
DX: R00.1 Bradycardia, unspecified (principal); R00.2 Palpitations

== ENCOUNTER 2024-05-05 16:56 | Emergency (ER) | payer MEDICARE, MEDICAID ==
[~2024-05-05] VITALS: Ht 172.7 cm; Wt 94.5 kg
[2024-05-05 18:45] VITALS: TEMP 97.6
[2024-05-05 18:51] LABS: BASO % 0.5 % (0.0-1.0); EOS # 0.2 10^3/uL (0.0-0.5); EOS % 3.3 % (0.0-3.0); HEMATOCRIT 37.8 % (42.0-52.0); HEMOGLOBIN 13.1 g/dl (13.5-17.5); LYMPH # 1.5 10^3/uL (1.5-5.0); LYMPH % 25.6 % (24.0-44.0); MEAN CORPUSCULAR HGB CONC 34.7 g/dl (32.0-36.5); MEAN CORPUSCULAR VOLUME 89.4 fl (80.0-96.0); MONO # 0.5 10^3/uL (0.0-0.8); NEUTROPHILS # 3.7 10^3/uL (1.5-8.5); NEUTROPHILS % 62.1 % (36.0-66.0); PLATELET COUNT, AUTOMATED 215 10^3/uL (150-450); RED BLOOD COUNT 4.23 10^6/uL (4.30-6.10)
[2024-05-05 19:21] LABS: ACETONE/KETONE 0.1 MMOL/L (0.02-0.27); ALBUMIN 3.9 G/DL (3.2-5.2); BILIRUBIN,DIRECT 0.1 MG/DL (<0.4); BILIRUBIN,TOTAL 0.5 MG/DL (0.3-1.2); CALCIUM LEVEL 8.2 MG/DL (8.3-10.6); CREATININE FOR GFR 2.2 MG/DL (0.70-1.30); GLOMERULAR FILTRATION RATE 31.1 (>42); MAGNESIUM LEVEL 1.7 MG/DL (1.8-2.4); POTASSIUM SERUM 3.7 MMOL/L (3.5-5.1); TOTAL PROTEIN 6.8 G/DL (5.7-8.2)
[2024-05-05 20:15] VITALS: BP 166/84; O2SAT 94
== END 2024-05-05 20:34 | disposition home or self-care (01) ==
LOC: EDBD 16:56 → M ED 16:56
DX: E11.65 Type 2 diabetes mellitus with hyperglycemia (principal); E78.5 Hyperlipidemia, unspecified; J45.909 Unspecified asthma, uncomplicated; K21.9 Gastro-esophageal reflux disease without esophagitis; F32.9 Major depressive disorder, single episode, unspecified; Z86.73 Personal history of transient ischemic attack (TIA), and cerebral infarction without residual deficits; Z99.2 Dependence on renal dialysis; Z79.82 Long term (current) use of aspirin; Z79.4 Long term (current) use of insulin; Z79.899 Other long term (current) drug therapy

== ENCOUNTER → 2024-06-03 | Outpatient (CLI) | payer MEDICARE, MEDICAID | LOC: M CARPUL 12:48 | PROVIDERS: ATTEND Registered Nurse | DX: I77.810 Thoracic aortic ectasia (principal); I35.8 Other nonrheumatic aortic valve disorders; I50.32 Chronic diastolic (congestive) heart failure ==

== ENCOUNTER → 2025-01-06 | Outpatient (CLI) | payer MEDICARE, MEDICAID ==
[~2025-01-06] MED LIST changes: -FLOM0.4C39 PO; +TAMS-18 PO
[2025-01-06 12:12] VITALS: TEMP 97.3
[2025-01-06] MEDS: ceFAZolin SODIUM 2 GM in DEXTROSE 5% (D5W) ADV/MINI-BAG 50 ML IV ONE (13:29)
[2025-01-06] MEDS: NS (Normal Saline) 0.9% 1,000 ML IV SCH (13:29)
[2025-01-06] MEDS: MIDAZOLAM INJ 2 MG/2 ML VIAL IV PRN (13:33)
[2025-01-06] MEDS: HEPARIN 1,000 UNITS/ML 10 ML VIAL (FOR RADIOLOGY & DIALYSIS ONLY) IV PRN (13:47)
[2025-01-06] MEDS: LIDOCAINE 1% MDV 20 ML VIAL SC SCH (13:48)
[2025-01-06 14:20] VITALS: BP 146/81; O2SAT 97
== END ==
LOC: M IRPRO 11:56
PROVIDERS: ATTEND Internal Medicine Nephrology
DX: N18.6 End stage renal disease (principal)
CPT/HCPCS: 36581; 99152; 99153; J0688; J2250; J3010

== ENCOUNTER → 2025-01-24 | Outpatient (CLI) | payer MEDICARE, MEDICAID ==
[2025-01-24 13:32] VITALS: TEMP 96.8
[2025-01-24] MEDS: ceFAZolin SODIUM 2 GM in DEXTROSE 5% (D5W) ADV/MINI-BAG 50 ML IV ONE (15:06)
[2025-01-24] MEDS: NS (Normal Saline) 0.9% 1,000 ML IV SCH (15:06)
[2025-01-24] MEDS: LIDOCAINE 1% MDV 20 ML VIAL SC STA (15:47)
[2025-01-24] MEDS: LIDOCAINE 1% MDV 20 ML VIAL SC SCH (16:09)
[2025-01-24] MEDS: MIDAZOLAM INJ 2 MG/2 ML VIAL IV PRN (16:52)
[2025-01-24] MEDS: HEPARIN 1,000 UNITS/ML 10 ML VIAL (FOR RADIOLOGY & DIALYSIS ONLY) IV PRN (16:53)
[2025-01-24 17:30] VITALS: BP 142/77; O2SAT 97
== END ==
LOC: M IRPRO 12:52
PROVIDERS: ATTEND Internal Medicine Nephrology
DX: T82.41XA Breakdown (mechanical) of vascular dialysis catheter, initial encounter (principal)
CPT/HCPCS: 36558; 36589; 99152; J0688; J2250; J3010